=== PATIENT | female | born 1955 | race Caucasian/White ===

== ENCOUNTER 2019-11-09 10:03 | Inpatient (IN) | payer BC, OTHER ==
--- OUTSIDE RECORDS SUMMARY | 2019-11-09 10:06 | XMS REPORT | Clinical Summary ---
:1955 Author Organization [facility] Address [address] [place] [address] Care Team Providers Name Role Phone Asked, No Pcp Primary Care Provider Unavailable Allergies No Known Allergies Medications Medication Sig Dispensed Refills Start Date End Date Status diltiazem CD (CardIZEM Take 300 mg by 0 Active CD) 120 MG 24 hr mouth daily. capsule losartan-hydrochlorothi Take 1 tablet by 0 Active azide (HYZAAR) 100-12.5 mouth daily. mg per tablet propranolol (INDERAL) Take 80 mg by 0 Active 80 MG tablet mouth daily. aspirin (ECOTRIN) 81 MG Take 81 mg by 0 Active enteric coated tablet mouth daily. coenzyme Q10 100 mg Take 100 mg by 0 Active capsule mouth daily. buPROPion XL Take 150 mg by 0 Ac tive (WELLBUTRIN XL) 150 MG mouth daily. 24 hr tablet ferrous gluconate Take 324 mg by 0 Active (FERGON) 324 MG tablet mouth daily with breakfast. metoprolol succinate XL Take 25 mg by 0 Active (TOPROL-XL) 25 mg 24 hr mouth daily. tablet vilazodone (VIIBRYD) 40 Take 40 mg by 0 Active mg tablet mouth daily. gabapentin (NEURONTIN) Take 300 mg by 0 Active 300 mg capsule mouth daily. therapeutic Take 1 tablet by 0 A ctive multivitamin mouth daily. (THERAGRAN) tablet calcium Take 1 tablet by 0 Act vicky carbonate-vitamin D3 mouth daily. 600 mg(1,500mg) -400 unit per tablet omega 4-voj-mbv-fish Take 1 tablet by 0 Active oil (FISH OIL) 1,000 mg mouth. (120 mg-180 mg) capsule predniSONE (DELTASONE) Take 10 mg by 0 Active 10 mg tablet mouth daily. 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 Last Filed Vital Signs Not on file Plan of Treatment Health Maintenance Due Date Last Done Comments CERVICAL CANCER SCREENING 1978 BREAST CANCER SCREENING 12/09/2007 COLONOSCOPY SCREENING 12/09/2007 SHINGLES VACCINES (#1) 12/09/2007 INFLUENZA VACCINE 10/24/2019 Results Not on fileafter 11/08/2018 Advance Directives For more information, please contact: [phone] Type Date Recorded Patient Library Serials Assistant Explanati on Advance Directives, Living Will and Medical Power of Electrical Maintenance Technician
--- OUTSIDE RECORDS SUMMARY | 2019-11-09 10:06 | XMS REPORT | Continuity of Care Document ---
:1955 Author Organization [facility] t Address [address] [place] [address] Care Team Providers Name Role Phone Asked, Pcp Primary Care Physician Unavailable Christopher Braden MD Attending Clinician Payers Payer Name Policy Type Policy Number Effective Date Expiration Date S ource Problems Condition Condition Condition Status Onset Resolution Last Treating Co mments Source Name Details Category Date Date Treatment Clinician Date Acute ITP Acute ITP Disease Active [facility] 7-25 [facility] 00:00: st 00 Allergies, Adverse Reactions, Alerts This patient has no known allergies or adverse reactions. Social History Social Habit Start Date Stop Date Quantity Comments Source Sex Assigned [facility] Medications Ordered Filled Start Stop Current Ordering Indication Dosage Frequency Signature Comments Components Source Medication Medication Date Date Medication? Clinician (SIG) Name Name diltiazem 2017-02 Yes 300mg QD Take 300 [place] [facility] CD 1-08 mg by Dale (CardIZEM 09:04: mouth st CD) 120 MG 23 daily. 24 hr capsule losartan-hy 2017-02 Yes 1{tbl} QD Take 1 [place] drochloroth 1-08 tablet by Met aurea justin 09:04: mouth st (HYZAAR) 23 daily. 100-12.5 mg per tablet propranolol 2017-02 Yes 80mg QD Take 80 mg Cruz (INDERAL) 1-08 by mouth Method i 80 MG 09:04: daily. st tablet 23 aspirin 2017-02 Yes 81mg QD Take 81 mg [place] (ECOTRIN) 1-08 by mouth Method i 81 MG 09:04: daily. st enteric 23 coated tablet coenzyme 2017-02 Yes 100mg QD Take 100 [place] Q10 100 mg 1-08 mg by Methodi capsule 09:04: mouth st 23 daily. buPROPion 2017-02 Yes 150mg QD Take 150 [place] XL 1-08 mg by [facility] (WELLBUTRIN 09:04: mouth st XL) 150 MG 23 daily. 24 hr tablet ferrous 2017-02 Yes 324mg QD Take 324 [place] gluconate 1-08 mg by [facility]i (FERGON) 09:04: mouth st 324 MG 23 daily with tablet breakfast. metoprolol 2017-02 Yes 25mg QD Take 25 mg [place] succinate 1-08 by mouth Method i XL 09:04: daily. st (TOPROL-XL) 23 25 mg 24 hr tablet vilazodone 2017-02 Yes 40mg QD Take 40 mg [place] (VIIBRYD) 1-08 by mouth Method i 40 mg 09:04: daily. st tablet 23 gabapentin 2017-02 Yes 300mg QD Take 300 [place] (NEURONTIN) 1-08 mg by Methodi 300 mg 09:04: mouth st capsule 23 daily. therapeutic 2017-02 Yes 1{tbl} QD Take 1 [place] multivitami 1-08 tablet by [facility] n 09:04: mouth st (THERAGRAN) 23 daily. tablet calcium 2017-02 Yes 1{tbl} QD Take 1 [place] carbonate-v 1-08 tablet by [facility] itamin D3 09:04: mouth st 600 23 daily. mg(1,500mg) -400 unit per tablet omega 2017-02 Yes 1{tbl} Take 1 [place] 3-dha-epa-f 1-08 tablet by [facility] shaunna oil 09:04: mouth. st (FISH OIL) 23 1,000 mg (120 mg-180 mg) capsule predniSONE 2017-02 Yes 10mg QD Take 10 mg [place] (DELTASONE) 1-08 by mouth Meth felicity 10 mg 09:04: daily. st tablet 23 Procedures This patient has no known procedures. Plan of Care Planned Activity Planned Date Details Comments Source Future Scheduled 2019-10-24 INFLUENZA VACCINE [facility] 00:00:00 [code = INFLUENZA VACCINE] Future Scheduled 2007-12-09 BREAST CANCER [facility] Test 00:00:00 SCREENING [code = BREAST CANCER SCREENING] Future Scheduled 2007-12-09 COLONOSCOPY SCREENING [facility] Test 00:00:00 [code = COLONOSCOPY SCREENING] Future Scheduled 2007-12-09 SHINGLES VACCINES [facility] Test 00:00:00 (#1) [code = SHINGLES VACCINES (#1)] Future Scheduled 1978 Screening for [facility] Test 00:00:00 malignant neoplasm of cervix (procedure) [code = 803352916] Encounters Start End Encounter Admission Attending Care Care Encounter Source Date/Time Date/Time Type Type Clinicians Facility Department ID 2019-10-31 2019-10-31 Refill [facility] [id number] 00:00:00 00:00:00 [id number] [id number] Professio [phone] [place] [address] Office [facility] 2019-10-16 2019-10-16 Telephone [facility] [id number] 00:00:00 00:00:00 [id number] [id number] Professio [phone] [place] [address] Office [facility] 2019-10-09 2019-10-09 Telephone [facility] [id number] 00:00:00 00:00:00 [id number] [id number] Professio [phone] [place] [address] Office [facility] 2019-10-05 2019-10-05 Telemedici [facility] [id number] 10:17:44 10:32:44 ne Visit [place]ade [place] [id number] [facility] [place] [id number] Professio [phone] [address] 2019-08-18 2019-08-18 Office [facility] [id number] 14:12:06 14:27:06 Visit Kade [place] [id number] Christopher Ellis [id number] [place] [phone] [address] Results This patient has no known results.
--- OUTSIDE RECORDS SUMMARY | 2019-11-09 10:08 | XMS REPORT | Summary of Care ---
:1955 Author Organization [facility] Address [address] [place] [address] Care Team Providers Name Role Phone Kade Braden MD Primary Care Provider [phone] Reason for Visit Reason Comments Refill Request Encounter Details Date Type Department Care Team Description 10/31/2019 Refill [facility] Family Medicine Kade Michaels MD Refill Request - [address] perry [facility] [place] [place] [address] [place] [address] [phone] Allergies No Known Allergiesdocumented as of this encounter (statuses as of 11/01/2019) Medications Medication Sig Dispensed Refills Start End Date Status Date ERGOCALCIFEROL, VITAMIN Take by 0 Active D2, (VITAMIN D ORAL) mouth. CALCIUM CARBONATE Take by 0 Ac tive (CALCIUM 600 ORAL) mouth. nitroglycerin Place 1 1 Bottle 5 Active (NITROSTAT) 0.4 mg tablet under 8 sublingual tablet the tongue every 5 (five) minutes as needed for Chest pain. zolpidem 5 mg TAKE 1 TABLET 30 tablet Ac tive tabletIndications: BY MOUTH AT 0 Insomnia, unspecified BEDTIME type NEEDED vilazodone (VIIBRYD) 40 TAKE 1 TABLET 30 tablet Active mg tabletIndications: BY MOUTH 0 Anxiety EVERY DAY sumatriptan 100 mg Take 1 tablet 9 tablet Active tabletIndications: by mouth as 0 Chronic migraine needed for without aura without Migraine. status migrainosus, not intractable simvastatin 40 mg Take 1 tablet 30 tablet Active tabletIndications: by mouth 0 Hypercholesteremia daily. metoprolol succinate XL Take 1 tablet 30 tablet Active 25 mg 24 hr by mouth 0 tabletIndications: daily. Essential hypertension meloxicam 15 mg TAKE 1 TABLET 30 tablet Active tabletIndications: BY MOUTH 1 0 Arthritis TIME DAILY. losartan-hydrochlorothi Take 1 tablet 30 tablet Active azide 100-12.5 mg per by mouth 0 tabletIndications: daily. Essential hypertension lansoprazole 30 mg Take 1 30 capsule Active capsuleIndications: capsule by 0 Acute superficial mouth daily. gastritis without hemorrhage gabapentin 300 mg Take 1 90 capsule A ctive capsuleIndications: capsule by 0 Chronic migraine mouth 3 without aura without (three) times status migrainosus, not daily. intractable fluticasone INHALE ONE 60 Each Active propion-salmeterol PUFF EVERY 12 0 (ADVAIR DISKUS) 250-50 HOURS mcg/dose inhalation diskIndications: Bronchitis ezetimibe 10 mg Take 1 tablet 30 tablet Active tabletIndications: by mouth 0 Hypercholesteremia daily. diltiazem 180 mg 24 hr Take 1 30 capsule Active capsuleIndications: capsule by 0 Essential hypertension mouth daily. Butalbital-Acetaminophe TAKE 1 50 capsule Active n-Caff 50-300-40 mg per CAPSULE BY 0 capsuleIndications: MOUTH EVERY Chronic migraine FOUR HOURS without aura without NEEDED status migrainosus, not HEADACHE intractable buPROPion XL 300 mg 24 Take 1 tablet 30 tablet Active hr tabletIndications: by mouth 0 Anxiety every morning. azithromycin 500 mg Take 1 tablet 3 tablet 0 Active tabletIndications: by mouth 0 Bronchitis with daily. bronchospasm albuterol (PROAIR HFA) Inhale 2 8.5 g 1 Active 90 mcg/actuation Puffs every 6 0 inhalerIndications: (six) hours Bronchitis with as needed for bronchospasm Wheezing or Shortness of Breath. cefUROXime 500 mg Take 1 tablet 20 tablet 0 Active tabletIndications: by mouth 2 0 Bronchitis with (two) times bronchospasm daily. predniSONE 20 mg Take 1 tablet 14 tablet 0 Active tabletIndications: by mouth 2 0 Bronchitis with (two) times bronchospasm daily. fluconazole 100 mg TAKE 2 15 tablet 0 A ctive tabletIndications: TABLETS BY 0 Thrush MOUTH ON DAY 1 THEN 1 DAILY fluconazole 100 mg Take 2 tabs 15 tablet 0 11/01/19 Discontinued tabletIndications: on day one 0 20 Thrush then one a day documented as of this encounter (statuses as of 11/01/2019) Active Problems Problem Noted Date Migraine 01/29/2015 Essential hypertension 01/29/2015 Gastroesophageal reflux disease without esophagitis Hypercholesteremia 01/29/2015 Anxiety 01/29/2015 Coronary disease 01/29/2015 Idiopathic thrombocytopenic purpura 07/30/2014 documented as of this encounter (statuses as of 11/01/2019) Resolved Problems Problem Noted Date Resolved Date Hypothyroidism due to acquired atrophy of thyroid 01/29/2015 01/29/2015 documented as of this encounter (statuses as of 11/01/2019) Immunizations Name Administration Dates Next Due Zoster Vaccine Recombinant 07/23/2018 documented as of this encounter Social History Tobacco Use Types Packs/Day Years Used Date Never Smoker Smokeless Tobacco: Never Used Alcohol Use Drinks/Week oz/Week Comments Yes 2 Glasses of wine 2.0 red wine 0 Standard drinks or equivalent Sex Assigned at Date Recorded Not on file documented as of this encounter Last Filed Vital Signs Not on filedocumented in this encounter Plan of Treatment Health Maintenance Due Date Last Done Comments HEPATITIS C (HCV) SCREEN 1955 DTaP,Tdap,and Td Vaccines (1 - 1976 Tdap) COLON CANCER SCREENING ANNUAL 12/09/2007 FIT/FOBT COLON CANCER SCREENING FIT DNA 12/09/2007 EVERY 3 YEARS COLON CANCER SCREENING 12/09/2007 SIGMOIDOSCOPY EVERY 5 YEARS COLONOSCOPY 12/09/2007 Colorectal Cancer Screening 12/09/2007 Zoster Recombinant Vaccine 09/17/2018 07/23/2018 (SHINGRIX) (2 of 2) Breast Cancer Screening 10/13/2018 10/13/2017, (MAMMOGRAM) 09/24/2016 PAP SMEAR 09/22/2019 09/21/2016 INFLUENZA VACCINE (#1) 2019 Depression Screening 08/17/2020 08/18/2019 PNEUMOCOCCAL 0-64 YEARS Aged Out No longe r eligible based COMBINED SERIES on patient's age to complete this to pic documented as of this encounter Results Not on filedocumented in this encounter Visit Diagnoses Diagnosis Thrush Candidiasis of mouth documented in this encounter Insurance Payer Benefit Plan Subscriber ID Effective Dates Phone Address Type / Group [facility] OF [facility] [id number] 2014-[id number] [phone] [address] [place] P[place] [id number] [place] [address] documented as of this encounter
[2019-11-09] MEDS ORDERED: NA CHLORIDE 0.9% 2,000 ML ONE (10:51)
--- NOTE | 2019-11-09 10:54 | RAD REPORT ---
EXAM DESCRIPTION: RAD - Chest Single View - 11/09/2019 10:47 am CLINICAL HISTORY: COUGH Chest pain. COMPARISON: Chest Pa And Lat (2 Views) dated 10/24/2019; CHEST SINGLE VIEW dated 08/31/2008 FINDINGS: Portable technique limits examination quality. Linear subsegmental atelectasis is present in both lung bases. No focal infiltrate typical of pneumon ia seen. The heart is normal in size. No displaced fractures. IMPRESSION: Subsegmental atelectasis both lung bases, greater on the right.
[2019-11-09 11:09] LABS: Absolute Lymphocytes (CBC) 1.2 K/uL (0.7-4.9); Basophils % 0.5 % (0-1.3); Hematocrit 33.5 % (36.0-45.0); Lymphocytes % 5.4 % (15.3-44.8); RBC Red Blood Cell Count 3.67 M/uL (3.86-4.86)
[2019-11-09 11:15] LABS: Protime INR 1.23
[2019-11-09 11:18] LABS: ALT/SGPT 15 U/L (12-78); AST/SGOT 8 U/L (15-37); Albumin 2.8 g/dL (3.4-5.0); Alkaline Phosphatase 136 U/L (45-117); Amylase 48 U/L (25-115); BUN Blood Urea Nitrogen 29 mg/dL (7-18); Bicarbonate 28 mmol/L (21-32); Bilirubin Direct 0.1 mg/dL (0-0.2); Bilirubin Total 0.4 mg/dL (0.2-1.0); CKMB Creatine Kinase MB < 1.0 ng/mL (0.3-3.6); Creatine Phosphokinase 15 U/L (26-192); Glucose Level 99 mg/dL (74-106); Lipase 30 U/L (73-393); Potassium 4.7 mmol/L (3.5-5.1); Protein, Total 6.8 g/dL (6.4-8.2); Sodium Level 135 mmol/L (136-145); Troponin (Emerg Dept Use Only) < 0.02 ng/mL (0.0-0.045)
[2019-11-09 11:40] LABS: Blood Morphology Comment NOTED (NOT SEEN); Elliptocytes 1+; Platelet Estimate ADEQ
--- NOTE | 2019-11-09 11:52 | RAD REPORT ---
EXAM DESCRIPTION: CT - Chest For Pe Angio - 11/09/2019 11:42 am CLINICAL HISTORY: Chest pain. SOB COMPARISON: CTANGIO CHEST dated 08/31/2008 TECHNIQUE: CT angiogram of the pulmonary arteries was performed with MIP. All CT scans are performed using dose optimization technique as appropriate and may include automated exposure control or mA/KV adjustment according to patient size. FINDINGS: No evidence of pulmonary thromboembolism. No acute aortic finding demonstrated. The lungs are mildly emphysematous with ill-defined lung infiltrate in both lung bases suggesting bro nchitis or pneumonia. Enlarged lymph nodes are seen in both axillary regions, on the right the largest measuring 13 mm in s hort axis on the left measuring 12-13 mm in short axis. Adenopathy extends to the base of the neck. M ild mediastinal and bilateral hilar adenopathy also suspected. Sub- carinal adenopathy measures appro ximately 17 mm in short axis. Adenopathy also suspected in the upper abdomen although incompletely vi sualized. No significant pericardial or pleural fluid. No lytic or blastic bone lesion. IMPRESSION: No evidence of pulmonary thromboembolism. Poorly defined interstitial lung opacities in both posterior lung bases could indicate bronchitis or pneumonia. Axillary, mediastinal, hilar and probable upper abdominal lymphadenopathy detected. This would be wor risome for underlying lymphoma.
--- NOTE | 2019-11-09 12:26 | ER ---
Nurse's Notes [facility] Name: Masha Simpson Age: 63 yrs Sex: Female : 1955 Arrival Date: 11/09/2019 Time: 10:06 Bed 3 Private MD: Diagnosis: Pneumonia, unspecified organism-failed outpatient;Elevated white blood cell count Presentation: 11/08 10:16 Chief complaint: Patient states: cough for about one month, has had 4 ABX and now it is em worse, denies fever, mild chest pain and shortness of breath, had neg. covid swab 2 weeks ago. Coronavirus screen: Client denies travel out of the [place] in the last 14 days. Ebola Screen: Patient negative for fever greater than or equal to 101.5 degrees Fahrenheit, and additional compatible Ebola Virus Disease symptoms Patient denies exposure to infectious person. Patient denies travel to an Ebola-affected area in the 21 days before illness onset. No symptoms or risks identified at this time. Initial Sepsis Screen: Does the patient meet any 2 criteria? Systolic BP < 90 mmHg. HR > 90 bpm. Does the patient have a suspected source of infection? No. Patient's initial sepsis screen is negative. Risk Assessment: Do you want to hurt yourself or someone else? Patient reports no desire to harm self or others. Onset of symptoms was September 2019. 10:16 Method Of Arrival: Ambulatory em 10:16 Acuity: JAMIE 2 em Historical: - Allergies: 10:20 No Known Allergies; em - Home Meds: 10:20 Advair Diskus Inhl [Active]; Phenergan Oral [Active]; DuoNeb Inhl [Active]; em - PMHx: 10:20 Hypertension; COPD; em - PSHx: 10:20 ; em - Immunization history:: Adult Immunizations up to date. - Social history:: Smoking status: Patient denies any tobacco usage or history of. Screenin:50 Abuse screen: Denies threats or abuse. Denies injuries from another. Nutritional sv screening: No deficits noted. Tuberculosis screening: No symptoms or risk factors identified. Fall Risk None identified. Assessment: 10:45 General: Appears in no apparent distress. comfortable, well developed, Behavior is sv calm, cooperative, appropriate for age. Pain: Denies pain. Neuro: Level of Consciousness is awake, alert, obeys commands, Oriented to person, place, time, situation, Appropriate for age Moves all extremities. Full function Speech is normal. Respiratory: Reports shortness of breath on exertion cough that is non-productive, persistent pain with cough since for about a month, has seen her PCP and placed on antibiotics with no relief Airway is patent Respiratory effort is even, unlabored, Respiratory pattern is regular, symmetrical. Derm: Skin is intact, Skin is pink, warm \T\ dry. Musculoskeletal: Range of motion: intact in all extremities. 13:05 Reassessment: Dr Berry at the bedside. sv 13:35 Reassessment: Patient appears in no apparent distress at this time. No changes from sv previously documented assessment. Patient and/or family updated on plan of care and expected duration. Pain level reassessed. Patient is alert, oriented x 3, equal unlabored respirations, skin warm/dry/pink. 14:11 Reassessment: Repeat lactate sent to outside. sv 15:00 Reassessment: Patient appears in no apparent distress at this time. Pt asleep at this sv time. 15:45 Reassessment: Patient appears in no apparent distress at this time. P sleeping at this sv time. Vital Signs: 10:16 BP 82 / 56; Pulse 98; Resp 22; Temp 99.7(O); Pulse Ox 96% on R/A; Weight 62.6 kg; em Height 5 ft. 0 in. (152.40 cm); Pain 0/10; 11:16 BP 86 / 33; Pulse 88 MON; Resp 16; Pulse Ox 97% on R/A; sv 11:50 BP 112 / 72; Pulse 100 MON; Resp 21; Pulse Ox 95% on R/A; sv 12:30 BP 88 / 36; Pulse 88; Resp 14; Pulse Ox 96% on R/A; sv 13:11 BP 85 / 36; Pulse 87; Resp 16; Pulse Ox 97% on R/A; sv 13:17 BP 93 / 51; Pulse 87; Resp 19; Pulse Ox 98% on R/A; sv 14:20 BP 94 / 51; Pulse 85; Resp 18; Pulse Ox 95% ; sv 14:51 BP 113 / 61; Pulse 99; Resp 21 S; Pulse Ox 96% on R/A; ca1 15:35 BP 99 / 49; Pulse 63; Resp 15 S; Pulse Ox 96% on R/A; ca1 10:16 Body Mass Index 26.95 (62.60 kg, 152.40 cm) em 11:16 Sinus Rhythm sv 11:50 Sinus tachycardia sv ED Course: 10:06 Patient arrived in ED. mr 10:17 [facility] Tse [facility]C [facility] kb 10:17 Harley Sherman MD is Attending Physician. kb 10:19 Triage completed. em 10:20 Arm band placed on. em 10:20 First set of blood cultures drawn by ED staff. sv 10:35 Marilu Serrato, DEBRA is Primary Nurse. sv 10:35 Second set of blood cultures drawn by ED staff. sv 10:45 Chest Single View XRAY In Process Unspecified. EDMS 10:50 Patient has correct armband on for positive identification. Placed in gown. Bed in low sv position. Call light in reach. Side rails up X 1. radiation monitor on. Pulse ox on. NIBP on. 10:50 Initial lab(s) drawn, by ED staff, sent to lab. Inserted saline lock: 20 gauge in right kj1 antecubital area, using aseptic technique. Blood collected. 10:50 EKG done, by ED staff, reviewed by Priyanka JORGENSEN. sv 11:15 Notified Nurse Practitioner and/or Physician Fuel House Attendant of a critical lab result(s), sv WBC-21.6, [id number]. 11:24 Awaiting lab results, Awaiting radiology results. Awaiting CT Scan. sv 11:41 CT Chest For PE Angio In Process Unspecified. EDMS 11:50 Awaiting radiology results. Awaiting re-evaluation by ER provider. sv 12:26 Stanton Berry MD is Hospitalizing Provider. kb 13:48 Urine Dipstick--Ancillary (enter results) Sent. sv 15:45 No provider procedures requiring assistance completed. Patient admitted, IV remains in sv place. intact. Administered Medications: 10:58 Drug: NS 0.9% (30 ml/kg) 30 ml/kg Route: IV; Rate: bolus; Site: right antecubital; sv 12:15 Follow up: Response: No adverse reaction; IV Status: Completed infusion; IV Intake: sv 1900ml 13:10 Drug: NS 0.9% 1000 ml Route: IV; Rate: 1000 ml; Site: right antecubital; sv 14:00 Follow up: Response: No adverse reaction; IV Status: Completed infusion; IV Intake: sv 1000ml 13:35 Drug: vancoMYCIN 1 grams Route: IVPB; Infused Over: 2 hrs; Site: right antecubital; sv 15:45 Follow up: Response: No adverse reaction; IV Status: Completed infusion; IV Intake: sv 250ml Intake: 12:15 IV: 1900ml; Total: 1900ml. sv 14:00 IV: 1000ml; Total: 2900ml. sv 15:45 IV: 250ml; Total: 3150ml. sv Outcome: 12:26 Decision to Hospitalize by Provider. kb 15:45 Admitted to ICU accompanied by nurse, via wheelchair, room ICU area in ER, with chart, sv Report called to Lovely RICHARDSON 15:45 Condition: stable 15:45 Instructed on the need for admit. 15:52 Patient left the ED. iw Signatures: Dispatcher [employer] Priyanka Flood, LENS CLEANER-C LENS CLEANER-Marilu Lerma, RN RN Roberta Walsh Macho Avila, RN RN Meli Stokes RN RN Vangie Mcmanus RN RN ca1 Christie Tse [email or web address] Corrections: (The following items were deleted from the chart) 14:52 14:51 BP 113 / 61; Pulse 99bpm; Resp 21bpm; Pulse Ox 96% RA; ca1 ca1
--- NOTE | 2019-11-09 12:27 | EDPHYS ---
Physician Documentation [facility] Name: Masha Simpson Age: 63 yrs Sex: Female : 1955 Arrival Date: 11/09/2019 Time: 10:06 Bed 3 Private MD: ED Physician Harley Sherman HPI: 11/08 11:02 This 63 yrs old Female presents to ER via Ambulatory with complaints of Cough.kb 11:02 The patient or guardian reports cough, that is intermittent, described as moderate, kb with no sputum, difficulty breathing. Onset: The symptoms/episode began/occurred 5 week(s) ago. Severity of symptoms: At their worst the symptoms were moderate, in the emergency department the symptoms are unchanged. Modifying factors: The symptoms are alleviated by nothing, the symptoms are aggravated by nothing. Associated signs and symptoms: Pertinent positives: nausea, vomiting. The patient has not experienced similar symptoms in the past. The patient has been recently seen by a physician:. Pt reports cough and shortness of breath for 5 weeks. Has been prescribed a z-pack, omnicef, another cephalosporin that she was allergic to and levaquin. None of the courses of antibiotics have helped. Historical: - Allergies: 10:20 No Known Allergies; em - Home Meds: 10:20 Advair Diskus Inhl [Active]; Phenergan Oral [Active]; DuoNeb Inhl [Active]; em - PMHx: 10:20 Hypertension; COPD; em - PSHx: 10:20 ; em - Immunization history:: Adult Immunizations up to date. - Social history:: Smoking status: Patient denies any tobacco usage or history of. ROS: 11:02 Constitutional: Negative for fever, chills, and weight loss, Cardiovascular: Negative kb for chest pain, palpitations, and edema, Abdomen/GI: Negative for abdominal pain, nausea, vomiting, diarrhea, and constipation, Back: Negative for injury and pain, MS/Extremity: Negative for injury and deformity, Skin: Negative for injury, rash, and discoloration, Neuro: Negative for headache, weakness, numbness, tingling, and seizure. 11:02 Respiratory: Positive for cough, shortness of breath. Exam: 11:01 Constitutional: This is a well developed, well nourished patient who is awake, alert, kb and in no acute distress. Head/Face: Normocephalic, atraumatic. Chest/axilla: Normal chest wall appearance and motion. Nontender with no deformity. No lesions are appreciated. Cardiovascular: Regular rate and rhythm with a normal S1 and S2. No gallops, murmurs, or rubs. Normal PMI, no JVD. No pulse deficits. Abdomen/GI: Soft, non-tender, with normal bowel sounds. No distension or tympany. No guarding or rebound. No evidence of tenderness throughout. Back: No spinal tenderness. No costovertebral tenderness. Full range of motion. Skin: Warm, dry with normal turgor. Normal color with no rashes, no lesions, and no evidence of cellulitis. MS/ Extremity: Pulses equal, no cyanosis. Neurovascular intact. Full, normal range of motion. Neuro: Awake and alert, GCS 15, oriented to person, place, time, and situation. Cranial nerves II-XII grossly intact. Motor strength 5/5 in all extremities. Sensory grossly intact. Cerebellar exam normal. Normal gait. 11:01 ECG was reviewed by the Attending Physician. 11:01 Respiratory: the patient does not display signs of respiratory distress, Respirations: kb normal, symetrical, Breath sounds: decreased breath sounds, that are mild, are located in both bases. Vital Signs: 10:16 BP 82 / 56; Pulse 98; Resp 22; Temp 99.7(O); Pulse Ox 96% on R/A; Weight 62.6 kg; em Height 5 ft. 0 in. (152.40 cm); Pain 0/10; 11:16 BP 86 / 33; Pulse 88 MON; Resp 16; Pulse Ox 97% on R/A; sv 11:50 BP 112 / 72; Pulse 100 MON; Resp 21; Pulse Ox 95% on R/A; sv 12:30 BP 88 / 36; Pulse 88; Resp 14; Pulse Ox 96% on R/A; sv 13:11 BP 85 / 36; Pulse 87; Resp 16; Pulse Ox 97% on R/A; sv 13:17 BP 93 / 51; Pulse 87; Resp 19; Pulse Ox 98% on R/A; sv 14:20 BP 94 / 51; Pulse 85; Resp 18; Pulse Ox 95% ; sv 14:51 BP 113 / 61; Pulse 99; Resp 21 S; Pulse Ox 96% on R/A; ca1 15:35 BP 99 / 49; Pulse 63; Resp 15 S; Pulse Ox 96% on R/A; ca1 10:16 Body Mass Index 26.95 (62.60 kg, 152.40 cm) em 11:16 Sinus Rhythm sv 11:50 Sinus tachycardia sv MDM: 10:27 Patient medically screened. kb 11:00 Data reviewed: vital signs, nurses notes. Data interpreted: Pulse oximetry: on room air kb is 96 %. Interpretation: normal. 12:25 Counseling: I had a detailed discussion with the patient and/or guardian regarding: the kb historical points, exam findings, and any diagnostic results supporting the discharge/admit diagnosis, lab results, radiology results, the need for further work-up and treatment in the hospital. Physician consultation: Stanton Berry MD was contacted at 12:25, regarding admission, to the telemetry unit. patient's condition, and will see patient in ED, shortly. 11/08 10:20 Order name: Amylase, Serum; Complete Time: 11:20 kb 11/08 10:20 Order name: Basic Metabolic Panel; Complete Time: 11:20 kb 11/08 10:20 Order name: Blood Culture Adult (2) kb 11/08 10:20 Order name: CBC with Diff; Complete Time: 11:41 kb 11/08 10:20 Order name: Ckmb; Complete Time: 11:20 kb 11/08 10:20 Order name: CPK; Complete Time: 11:20 kb 11/08 10:20 Order name: Lactate; Complete Time: 11:18 kb 11/08 10:20 Order name: LFT's; Complete Time: 11:20 kb 11/08 10:20 Order name: Lipase; Complete Time: 11:20 kb 11/08 10:20 Order name: Procalcitonin; Complete Time: 11:40 kb 11/08 10:20 Order name: Protime (+inr); Complete Time: 11:18 kb 11/08 10:20 Order name: Ptt, Activated; Complete Time: 11:18 kb 11/08 10:20 Order name: Troponin (emerg Dept Use Only); Complete Time: 11:20 kb 11/08 10:20 Order name: Urine Microscopic Only; Complete Time: 14:05 kb 11/08 10:20 Order name: Chest Single View XRAY; Complete Time: 10:57 kb 11/08 10:20 Order name: Accucheck; Complete Time: 10:58 kb 11/08 11:02 Order name: D-Dimer; Complete Time: 11:18 EDMS 11/08 11:17 Order name: Manual Differential; Complete Time: 11:41 EDMS 11/08 11:20 Order name: CT Chest For PE Angio; Complete Time: 11:57 kb 11/08 12:25 Order name: COVID-19 kb 11/08 12:55 Order name: EKG Electrocardiogram EDMS 11/08 13:23 Order name: CONS Physician Consult EDMS 11/08 13:44 Order name: Urine Dipstick--Ancillary (enter results) em1 11/08 13:47 Order name: Urine Dipstick-Ancillary; Complete Time: 13:52 EDMS 11/08 14:59 Order name: Lactate Sepsis 2 HR Follow-up; Complete Time: 15:01 EDMS 11/08 15:05 Order name: SARS-COV-2 RT PCR; Complete Time: 15:06 EDMS 11/08 10:20 Order name: Cardiac monitoring; Complete Time: 10:58 kb 11/08 10:20 Order name: EKG - Nurse/Tech; Complete Time: 10:58 kb 11/08 10:20 Order name: IV Saline Lock - Large Bore; Complete Time: 10:58 kb 11/08 10:20 Order name: Labs collected and sent; Complete Time: 10:58 kb 11/08 10:20 Order name: O2 Per Protocol; Complete Time: 10:58 kb 11/08 10:20 Order name: O2 Sat Monitoring; Complete Time: 10:58 kb 11/08 10:20 Order name: Urine Dipstick-Ancillary (obtain specimen); Complete Time: 13:43 kb EC:01 Rate is 94 beats/min. Rhythm is regular. QRS [place] is Normal. MO interval is normal at kb 164 msec. QRS interval is normal at 82 msec. QT interval is normal at 318 msec. Administered Medications: 10:58 Drug: NS 0.9% (30 ml/kg) 30 ml/kg Route: IV; Rate: bolus; Site: right antecubital; sv 12:15 Follow up: Response: No adverse reaction; IV Status: Completed infusion; IV Intake: sv 1900ml 13:10 Drug: NS 0.9% 1000 ml Route: IV; Rate: 1000 ml; Site: right antecubital; sv 14:00 Follow up: Response: No adverse reaction; IV Status: Completed infusion; IV Intake: sv 1000ml 13:35 Drug: vancoMYCIN 1 grams Route: IVPB; Infused Over: 2 hrs; Site: right antecubital; sv 15:45 Follow up: Response: No adverse reaction; IV Status: Completed infusion; IV Intake: sv 250ml Disposition: 11/09 14:02 Co-signature as Attending Physician, Harley Sherman MD I agree with the assessment and kdr plan of care. Disposition: 11/09/19 12:26 Hospitalization ordered by Stanton Berry for Inpatient Admission. Preliminary diagnosis are Pneumonia, unspecified organism - failed outpatient, Elevated white blood cell count. - Bed requested for Telemetry/MedSurg (Inpatient). - Status is Inpatient Admission. iw - Condition is Stable. - Problem is new. - Symptoms are unchanged. Signatures: Dispatcher [employer] [facility] Priyanka Tse, MELECIO-[employer] COMPUTER SYSTEM SPECIALIST-Marilu Lerma, RN RN Harley Sherman MD MD [facility] Macho Avila, RN RN Meli Cohen RN RN iw Corrections: (The following items were deleted from the chart) 11/08 11:02 11:01 D-DIMER+COAG.LAB.BRZ ordered. [facility] 15:52 12:26 Hospitalization Ordered by Stanton Berry MD for Inpatient Admission. Preliminary iw diagnosis is Pneumonia, unspecified organism - failed outpatient; Elevated white blood cell count. Bed requested for Telemetry/MedSurg (Inpatient). Status is Inpatient Admission. Condition is Stable. Problem is new. Symptoms are unchanged. kb
[2019-11-09] MEDS ORDERED: VANCOMYCIN/NS 1 gm 1 GM/250 ML BAG IV ONE (13:15)
[2019-11-09] MEDS ORDERED: NA CHLORIDE 0.9% 1,000 ML ONE ×2 (13:25→16:19)
[2019-11-09 13:46] LABS: Urine Blood NEGATIVE (NEG); Urine Glucose NEGATIVE (NEG); Urine Protein NEGATIVE (NEG)
--- NOTE | 2019-11-09 13:49 | P.HP ---
Certification for Inpatient Patient admitted to: Inpatient With expected LOS: >2 Midnights Practitioner: I am a practitioner with admitting privileges, knowledge of patient current condition, hospital course, and medical plan of care. Services: Services provided to patient in accordance with Admission requirements found in Title 42 Section 412.3 of the Code of Federal Regulations Patient History Date of Service: 11/09/19 History of Present Illness: 63-year-old female, PMH: HTN, COPD, CAD s/p stents who presents to ED due to slowly progressively worsening shortness of breath / dyspnea on exertion, and nonproductive cough for 5 weeks. She reportedly failed multiple courses of antibiotics (Levaquin, Omnicef, unknown cephalosporin that she was allergic to, and zpak) with no improvement. She was noted to be COVID negative 2 weeks ago and reports she has not really been leaving her house. She has had some associated chills intermittently during this time. Otherwise, she denies chest pain, abdominal pain, changes in bowel/bladder habits, new rashes/skin lesions, no lower extremity edema, no PND, no nausea/vomiting. She has been using her nebulizer and inhaler at home with no improvement as well. In the ED, workup was notable for leukocytosis (21.6), D-dimer: 1226, elevated creatinine: 0.59, elevated lactate (2.3), Procalcitonin: 0.37. Blood cultures were obtained. On initial presentation, patient's blood pressure was noted to be in the 80s/50s, tachycardia 90-low 100s. She received sepsis bolus. CTA was performed: No evidence of pulmonary embolism, + poorly defined intersti tial lung opacities in posterior lung bases could indicate bronchitis versus pneumonia Also notable for axillary, mediastinal, hilar and probable upper abdominal lymphadenopathy. Worrisome for underlying lymphoma - Past Medical/Surgical History -: HTN -: COPD -: CAD s/p stent -: ITP -: Broken arm - Family History Family History: Reviewed- Non-Contributory (Reports multiple family members with cardiac issues) - Social History Smoking Status: Never smoker Alcohol use: Yes Place of Residence: Home (With ) Review of Systems 10-point ROS is otherwise unremarkable Physical Examination - Physical Exam General: Alert, In no apparent distress HEENT: EOMI, Sclerae nonicteric Neck: Supple, JVD not distended Respiratory: Diminished (At bases bilaterally), Expiratory wheezes (slight wheeze diffusely) Cardiovascular: Regular rate/rhythm (80-90s), Normal S1 S2 Gastrointestinal: Soft and benign, Non-distended, No tenderness Musculoskeletal: No erythema, No tenderness Integumentary: No rashes, No breakdown Neurological: Normal speech, Normal affect - Studies Laboratory Data (last 24 hrs) 11/09/19 10:45: PT 14.4 H, INR 1.23, APTT 30.1 11/09/19 10:45: WBC 21.6 H*, Hgb 11.3 L, Hct 33.5 L, Plt Count 367 11/09/19 10:45: Sodium 135 L, Potassium 4.7, BUN 29 H, Creatinine 1.59 H, Glucose 99, Total Bilirubin 0.4, AST 8 L, ALT 15, Alkaline Phosphatase 136 H, Amylase 48, Lipase 30 L Assessment and Plan - Advance Directives Does patient have a Living Will: No Does patient have a Durable POA for Healthcare: No Physician Review Additional Text: Sepsis secondary to likely pneumonia, community-acquired. Failed outpatient therapy HTN COPD CAD s/p stent ITP Sepsis secondary to likely pneumonia, community-acquired. Failed outpatient therapy -CT with questionable bilateral pneumonia stamina leukocytosis 21.6, procalcitonin: 0.36 -significant hypotension in the ED, improved with sepsis bolus, however at the time of my evaluation she is back down to 90s/60s -will give another leader bolus and start normal saline at 130ml/hr -given continued hypotension and sepsis, will admit to ICU for close monitoring today -patient felt multiple antibiotic courses as an outpatient, will cover with broad spectrum antibiotics for potential resistant organisms/Pseudomonas -will consult pulmonology -oxygen as needed -cultures obtained in the ED, will follow -elevated lactate, will trend HTN -confirm home medications, patient is unsure what she takes -hypotensive at the moment, will hold home meds COPD -slight expiratory wheeze on exam, for continuing nebulizers CAD s/p stent -confirm home meds, patient unaware of what she takes -no chest pain, cardiac markers negative, do not suspect ACS ITP -reports remote history of ITP many years ago, no lesions at this time Dispo: Broad spectrum antibiotics, follow cultures, anticipate hospitalization > 2 days Time Spent Managing Pts Care (In Minutes): 55
[2019-11-09 14:00] LABS: Urine Bacteria NONE SEEN /HPF (<20); Urine Culture Reflex Order NOT NEEDED; Urine RBC <5 /HPF (NONE SEEN)
--- NOTE | 2019-11-09 14:45 | P.CNS ---
Date of Consult: 11/09/19 Reason for Consult: Severe sepsis History of Present Illness: Patient is 63 years of age with a history of COPD coronary artery disease presented to the emergency room with progressive dyspnea and nonproductive cough the past 5 weeks she can failed outpatient therapy with multiple antibiotics garay virus test was been negative about 2 weeks ago heavy having some chills the using her nebulizer found to have an elevated white count bilateral pulmonary infiltrates abnormal CT scan of the chest. Patient is never smoked previously tested negative for garay virus Allergies zolpidem [From Ambien] Adverse Reaction (Intermediate, Verified 11/09/19 20:21) confusion Home Medications: Aspirin 1 tab PO DAILY 11/09/19 Bupropion *Xl* [Wellbutrin XL*] 1 tab PO DAILY 11/09/19 Diltiazem HCl [Cardizem Cd] 180 mg PO DAILY 11/09/19 Fluticasone/Salmeterol [Advair 250-50 Diskus] 1 puff IN BID 11/09/19 Iron 1 tab PO DAILY 11/09/19 Losartan/Hydrochlorothiazide [Losartan-Hctz 50-12.5 mg Tab] 1 tab PO DAILY 11/09/19 Metoprolol Tartrate [Lopressor*] 25 mg PO DAILY 11/09/19 Vilazodone HCl [Viibryd] 40 mg PO DAILY 11/09/19 Vitamin E 1 tab PO DAILY 11/09/19 - Past Medical/Surgical History -: HTN -: COPD -: CAD s/p stent -: ITP -: Broken arm - Social History Alcohol use: Yes Place of Residence: Home (With ) Physical Examination Laboratory Data (last 24 hrs) 11/09/19 10:45: PT 14.4 H, INR 1.23, APTT 30.1 11/09/19 10:45: WBC 21.6 H*, Hgb 11.3 L, Hct 33.5 L, Plt Count 367 11/09/19 10:45: Sodium 135 L, Potassium 4.7, BUN 29 H, Creatinine 1.59 H, Glucose 99, Total Bilirubin 0.4, AST 8 L, ALT 15, Alkaline Phosphatase 136 H, Amylase 48, Lipase 30 L - Problems (1) Sepsis Current Visit: Yes Status: Acute Plan: Patient is 63 years of age with a history of coronary artery disease and COPD admitted with worsening dyspnea failed outpatient therapy multiple antibiotic bilateral pulmonary infiltrate with pulmonary and systemic adenopathy including axillary and mention of abdominal lymphadenopathy patient's white count is elevated a 1 dose of vancomycin patient has renal insufficiency pro calcitonin level is elevated repeat garay virus test is pending patient was a little hypotensive in the emergency room continue with IV fluids urinalysis is negative urine is little concentrated maybe out renal patient's checks chest x-ray does not show any obvious infiltrate as far as a lymphadenopathies consent possible underlying sarcoidosis or a lymphoma also complains of persistent severe cough Dc losartan Qualifiers: Sepsis type: sepsis due to unspecified organism
[2019-11-09] MEDS ORDERED: Levofloxacin 750mg IV 750 MG/150 ML BAG IV SCH (15:00)
[2019-11-09] MEDS ORDERED: NA CHLORIDE 0.9% 1,000 ML IV SCH (15:00)
[2019-11-09] MEDS ORDERED: CEFEPIME/SWI 2gm 2 GM/20 ML SYR IVP SCH (15:30)
[2019-11-09] MEDS ORDERED: CEFEPIME 2 GM VIAL ONE ×2 (16:28→16:32)
[2019-11-09] MEDS ORDERED: Levofloxacin 750mg IV 750 MG/150 ML BAG IV ONE (16:32)
[2019-11-09] MEDS ORDERED: NA CHLORIDE 0.9% 250 ML ONE (16:33)
[2019-11-09 17:52] VITALS: BMI 26.9
[2019-11-09] MEDS ORDERED: IPRATROPIUM BROM 0.5MG/2.5ML NEB PRN (19:35)
[2019-11-09] MEDS: NA CHLORIDE 0.9% 1,000 ML IV SCH (19:35)
[2019-11-09] MEDS ORDERED: VANCOMYCIN 1 GM in NA CHLORIDE 0.9% 250 ML IVPB SCH (19:35)
[2019-11-09] MEDS ORDERED: Pharmacy Consult 1 EA XX PRN (19:35)
[2019-11-09] MEDS ORDERED: Meropenem 500 MG VIAL IV SCH ×2 (20:00→21:00)
[2019-11-09] MEDS ORDERED: IPRATROPIUM BROM 0.5MG/2.5ML ONE (20:28)
[2019-11-09] MEDS ORDERED: ALBUTEROL 2.5 MG/3 ML NEB SOL ONE ×2 (20:29→22:37)
[2019-11-09 20:32] LABS: Absolute Lymphocytes (CBC) 0.9 K/uL (0.7-4.9); Basophils % 0.3 % (0-1.3); Hematocrit 31.4 % (36.0-45.0); Lymphocytes % 4.5 % (15.3-44.8); MPV 7.6 fL (7.6-11.3)
[2019-11-09] MEDS ORDERED: VANCOMYCIN 500 MG in NA CHLORIDE 0.9% 100 ML IVPB ONE (20:45)
[2019-11-09 20:52] LABS: Albumin 2.1 g/dL (3.4-5.0); Bilirubin Total 0.3 mg/dL (0.2-1.0); C-Reactive Protein 49.4 mg/L (<3.00); Magnesium 1.5 mg/dL (1.8-2.4); Potassium 4.4 mmol/L (3.5-5.1); Protein, Total 5.6 g/dL (6.4-8.2); Thyroid Stimulating Hormone 1.95 uIU/mL (0.360-3.740)
[2019-11-09] MEDS ORDERED: CEFEPIME 2 GM VIAL IV SCH (21:00)
[2019-11-09] MEDS ORDERED: Magnesium Sulfate 2gm IVPB 2 G/50 ML BAG IV ONE ×2 (22:00→22:11)
[2019-11-09] MEDS ORDERED: BENZONATATE 100 MG CAP PO PRN (22:12)
[2019-11-09] MEDS ORDERED: VANCOMYCIN 500 MG/VIAL ONE (22:17)
[2019-11-09] MEDS: ALBUTEROL 2.5 MG/3 ML NEB SOL NEB PRN (22:30)
[2019-11-09] MEDS ORDERED: ACETAMINOPHEN 325 MG TABLET ONE (22:42)
[2019-11-09] MEDS ORDERED: BENZONATATE 100 MG CAP PO ONE (22:42)
[2019-11-09] MEDS ORDERED: NA CHLORIDE 0.9% 100 ML IV ONE (22:42)
[2019-11-09] MEDS: ACETAMINOPHEN 325 MG TABLET PO PRN (22:44)
[2019-11-10] MEDS ORDERED: NA CHLORIDE 0.9% 500 ML IV ONE (01:51)
[2019-11-10] MEDS ORDERED: NA CHLORIDE 0.9% 500 ML ONE (01:56)
[2019-11-10] MEDS ORDERED: NA CHLORIDE 0.9% 1,000 ML ONE ×3 (01:56→23:28)
[2019-11-10] MEDS: NA CHLORIDE 0.9% 1,000 ML IV SCH ×3 (02:01→16:26)
[2019-11-10] MEDS ORDERED: Meropenem 500 MG VIAL IV SCH (04:00)
[2019-11-10] MEDS ORDERED: CEFEPIME/SWI 2gm 2 GM/20 ML SYR IVP SCH ×2 (04:00)
[2019-11-10] MEDS: ACETAMINOPHEN 325 MG TABLET PO PRN ×4 (04:33→22:56)
[2019-11-10] MEDS ORDERED: ACETAMINOPHEN 325 MG TABLET ONE ×4 (04:44→23:06)
[2019-11-10 04:48] LABS: Absolute Lymphocytes (CBC) 0.4 K/uL (0.7-4.9); Basophils % 0.4 % (0-1.3); Hematocrit 34.3 % (36.0-45.0); Lymphocytes % 1.7 % (15.3-44.8); MPV 7.9 fL (7.6-11.3); RBC Red Blood Cell Count 3.73 M/uL (3.86-4.86)
[2019-11-10 07:16] LABS: Albumin 1.9 g/dL (3.4-5.0); Bilirubin Total 0.4 mg/dL (0.2-1.0); C-Reactive Protein 61.5 mg/L (<3.00); Magnesium 1.8 mg/dL (1.8-2.4); Phosphorus 1.9 mg/dL (2.5-4.9); Potassium 3.9 mmol/L (3.5-5.1)
[2019-11-10] MEDS ORDERED: ENOXAPARIN 30 MG/0.3 ML SQ ONE (08:08)
[2019-11-10] MEDS ORDERED: MAGNESIUM SULFATE 1 gm IVPB 1 GM/100 ML BAG IV ONE ×2 (08:08→08:45)
[2019-11-10] MEDS ORDERED: POTASSIUM CL SA 10 MEQ TAB PO ONE ×2 (08:08→08:44)
[2019-11-10] MEDS: Meropenem 500 MG in NA CHLORIDE 0.9% 100 ML IV SCH ×2 (08:23→20:29)
[2019-11-10] MEDS: ENOXAPARIN 30 MG/0.3 ML SQ SCH (08:24)
[2019-11-10] MEDS: POTASS/SODIUM PHOSPHATE 1 PKT POWD.PACK PO SCH ×3 (09:56→11:02)
--- NOTE | 2019-11-10 10:48 | P.CNS ---
Date of Consult: 11/10/19 Subjective: Patient is a 63 year old female with past medical history of COPD, does not utilize home oxygen, Who presents with persistent shortness of breath for the past 5 weeks. Spoke with the patient and the patients and they report that the patient has taken 4 different antibiotics over the past 5 weeks including; Levaquin, Omnicef, a Z-Pack, and Ceftin, with no improvement. Patient had an allergic reaction to Ceftin. Patient was tested twice for Covid 19 with negative results. Patient found to have Leukocytosis which I have been consulted for. - Past Medical/Surgical History -: HTN -: COPD -: CAD s/p stent -: ITP -: Broken arm - Family History Family History: Reviewed- Non-Contributory (Reports multiple family members with cardiac issues) - Social History Smoking Status: Never smoker Alcohol use: Yes Place of Residence: Home (With ) Allergies zolpidem [From Ambien] Adverse Reaction (Intermediate, Verified 11/09/19 20:21) confusion Active Medications Acetaminophen (Tylenol -Tablet) 650 mg PO Q6HP PRN PRN Reason: TEMP > 100' F Stop: 12/09/19 22:22 Last Admin: 11/10/19 04:33 Dose: 650 mg Documented by: Albuterol Sulfate (Proventil 0.083% Neb Soln) 2.5 mg NEB Q6HP PRN PRN Reason: SHORTNESS OF BREATH Stop: 12/09/19 19:36 Last Admin: 11/09/19 22:30 Dose: 2.5 mg Documented by: Enoxaparin Sodium (Lovenox 30 Mg Inj) 30 mg SQ DAILY LANDON Stop: 12/10/19 09:01 Last Admin: 11/10/19 08:24 Dose: 30 mg Documented by: Guaifenesin (Robitussin 100mg/5ml) 100 mg PO QID PRN PRN Reason: COUGH Stop: 12/10/19 01:37 Sodium Chloride (Ns 1000 Ml Ivbag) 1,000 mls @ 130 mls/hr IV .Q7H42M LANDON Stop: 12/09/19 19:36 Last Admin: 11/10/19 02:01 Dose: 1,000 mls Documented by: Vancomycin HCl 1 gm/ Sodium (Chloride) 250 mls @ 150 mls/hr IVPB Q36H LANDON; Protocol Stop: 12/11/19 06:01 Meropenem 500 mg/ Sodium (Chloride) 100 mls @ 100 mls/hr IV Q12HR LANDON Stop: 12/10/19 09:01 Last Admin: 11/10/19 08:23 Dose: 100 mls Documented by: Ipratropium [place] (Atrovent Neb) 0.5 mg NEB [id number] PRN PRN Reason: SHORTNESS OF BREATH Stop: 12/09/19 19:36 Sodium Chloride (Normal Saline Flush) 10 ml IV BID LANDON Stop: 12/09/19 21:01 Last Admin: 11/09/19 20:53 Dose: 10 ml Documented by: ROS: General: Denies fever CV: Denies chest pain RESP: Reports cough and shortness of breath : Denies dysuria GI: Denies diarrhea, reports nausea and decreased appetite Objective: Temp Pulse Resp BP Pulse Ox 98.8 F 110 H 22 H 106/48 L 98 11/10/19 07:00 11/10/19 07:00 11/10/19 07:00 11/10/19 07:00 11/10/19 07:00 Labs: Na 138, K 3.9, BUN 19, Creat 1.18, Albumin 1.9, WBC 24.2, Hgb 11.4, HCT 34.3 EXAM DESCRIPTION: CT - Chest For Pe Angio - 11/09/2019 11:42 am CLINICAL HISTORY: Chest pain. SOB COMPARISON: CTANGIO CHEST dated 08/31/2008 TECHNIQUE: CT angiogram of the pulmonary arteries was performed with MIP. All CT scans are performed using dose optimization technique as appropriate and may include automated exposure control or mA/KV adjustment according to patient size. FINDINGS: No evidence of pulmonary thromboembolism. No acute aortic finding demonstrated. The lungs are mildly emphysematous with ill-defined lung infiltrate in both lung bases suggesting bronchitis or pneumonia. Enlarged lymph nodes are seen in both axillary regions, on the right the largest measuring 13 mm in short axis on the left measuring 12-13 mm in short axis. Adenopathy extends to the base of the neck. Mild mediastinal and bilateral hilar adenopathy also suspected. Sub- carinal adenopathy measures approximately 17 mm in short axis. Adenopathy also suspected in the upper abdomen although incompletely visualized. No significant pericardial or pleural fluid. No lytic or blastic bone lesion. IMPRESSION: No evidence of pulmonary thromboembolism. Poorly defined interstitial lung opacities in both posterior lung bases could indicate bronchitis or pneumonia. Axillary, mediastinal, hilar and probable upper abdominal lymphadenopathy detected. This would be worrisome for underlying lymphoma. ROS: General: Lethargic, oriented RESP: Utilizing nasal cannula, short of breath especially with activity, diminished breath sounds to bilateral bases CV: S1,S2, tachycardia ABD: Nontneder, bowel sounds present Assessment and plan: Leukocytosis, Afebrile, Procalcitonin 0.[address] Chest shows concerns for lymphoma, this could explain leukocytosis, pulmonology consulted Currently on Cefepime, Merrem and Vancomycin, recommend discontinuing the Cefepime Will reevaluate the need for antibiotics when cultures come back Recommend obtaining records from PCP to see baseline WBC count Protein calorie malnourished Will continue to monitor Thank you for consult Patient discussed with Dr. Acosta
--- NOTE | 2019-11-10 11:09 | P.PN ---
Subjective Date of Service: 11/10/19 Subjective: Improving (Patient reports feeling like she can't breathe a little bit better this morning, slightly more energy. Continues with nonproductive cough Complaining of bilateral upper arm aching pain, which she gets once a week) Physical Examination - Vital Signs Temperature: 98.8 F Blood Pressure: 106/48 Pulse: 110 Respirations: 22 Pulse Ox (%): 98 - Physical Exam General: Alert, In no apparent distress HEENT: Sclerae nonicteric Neck: Supple Respiratory: Diminished (at bases, poor inspiratory effort) Cardiovascular: No edema, Regular rate/rhythm Gastrointestinal: Soft and benign, Non-distended, No tenderness Musculoskeletal: No erythema, No tenderness Integumentary: No rashes Neurological: Normal speech, Normal affect - Studies Laboratory Data (last 24 hrs) 11/09/19 10:45: PT 14.4 H, INR 1.23, APTT 30.1 11/09/19 10:45: WBC 21.6 H*, Hgb 11.3 L, Hct 33.5 L, Plt Count 367 11/09/19 10:45: Sodium 135 L, Potassium 4.7, BUN 29 H, Creatinine 1.59 H, Glucose 99, Total Bilirubin 0.4, AST 8 L, ALT 15, Alkaline Phosphatase 136 H, Amylase 48, Lipase 30 L Assessment & Plan Physician Review Additional Text: Sepsis secondary to likely pneumonia, community-acquired. Failed outpatient therapy HTN COPD CAD s/p stent ITP Sepsis secondary to likely pneumonia, community-acquired. Failed outpatient therapy -CT with questionable bilateral pneumonia stamina leukocytosis 21.6, procalcitonin: 0.36 -significant hypotension in the ED, improved with sepsis bolus, but required an additional 1 L bolus on admission, then 500ml overnight of 11/08 -continue IV fluids at 130ml/hr -continue monitoring in ICU for now -patient failed multiple antibiotic courses as an outpatient, will cover with broad spectrum antibiotics for potential resistant organisms/Pseudomonas -consulted infectious disease today -consulted pulmonology -oxygen as needed -cultures obtained in the ED, will follow -elevated lactate, trended down -eosinophilia on admission likely due to recent allergic reaction to Ceftin -ESR: 20, CRP elevated and rising Axillary, mediastinal, hilar, and probable upper abdominal lymphadenopathy -concern for possible underlying lymphoma or sarcoidosis -will discuss with pulmonology HTN -hypotensive at the moment, will hold home meds COPD -slight expiratory wheeze on exam at time of admission, continue nebulizers CAD s/p stent -confirm home meds, patient unaware of what she takes -no chest pain, cardiac markers negative, do not suspect ACS ITP -reports remote history of ITP many years ago, no lesions at this time Dispo: Broad spectrum antibiotics, follow cultures, anticipate hospitalization > 2 days Time Spent Managing Pts Care (In Minutes): 35
--- NOTE | 2019-11-10 11:22 | P.PN ---
Subjective Date of Service: 11/10/19 Chief Complaint: Cough possible pneumonia Subjective: Improving (Patient is improving cough has improved no the complaints denies any chest pain a fever) Review of Systems General: Weakness Respiratory: Cough Physical Examination - Vital Signs Temperature: 98.8 F Blood Pressure: 106/48 Pulse: 110 Respirations: 22 Pulse Ox (%): 98 - Physical Exam General: Alert, Oriented x3 Respiratory: Clear to auscultation bilaterally Cardiovascular: No edema, Normal S1 S2 - Studies Laboratory Data (last 24 hrs) 11/09/19 10:45: Sodium 135 L, Potassium 4.7, BUN 29 H, Creatinine 1.59 H, Glucose 99, Total Bilirubin 0.4, AST 8 L, ALT 15, Alkaline Phosphatase 136 H, Amylase 48, Lipase 30 L Assessment & Plan - Problems (Diagnosis) (1) Sepsis Current Visit: Yes Status: Acute Plan: Possible sepsis white count elevated patient's CRP is also elevated complaining of persistent cough white count elevated blood cultures negative cefepime discontinued patient had a slight fever Dc vancomycin add p.o. doxycycline for coverage of atypical infection PA lateral chest x-ray renal function is significantly better added Pulmicort nebs Qualifiers: Sepsis type: sepsis due to unspecified organism Physician Review Additional Text: Sepsis secondary to likely pneumonia, community-acquired. Failed outpatient therapy HTN COPD CAD s/p stent ITP Sepsis secondary to likely pneumonia, community-acquired. Failed outpatient therapy -CT with questionable bilateral pneumonia stamina leukocytosis 21.6, procalcitonin: 0.36 -significant hypotension in the ED, improved with sepsis bolus, but required an additional 1 L bolus on admission, then 500ml overnight of 11/08 -continue IV fluids at 130ml/hr -continue monitoring in ICU for now -patient failed multiple antibiotic courses as an outpatient, will cover with broad spectrum antibiotics for potential resistant organisms/Pseudomonas -consulted infectious disease today -consulted pulmonology -oxygen as needed -cultures obtained in the ED, will follow -elevated lactate, trended down -eosinophilia on admission likely due to recent allergic reaction to Ceftin -ESR: 20, CRP elevated and rising Axillary, mediastinal, hilar, and probable upper abdominal lymphadenopathy -concern for possible underlying lymphoma or sarcoidosis -will discuss with pulmonology HTN -hypotensive at the moment, will hold home meds COPD -slight expiratory wheeze on exam at time of admission, continue nebulizers CAD s/p stent -confirm home meds, patient unaware of what she takes -no chest pain, cardiac markers negative, do not suspect ACS ITP -reports remote history of ITP many years ago, no lesions at this time Dispo: Broad spectrum antibiotics, follow cultures, anticipate hospitalization > 2 days
[2019-11-10] MEDS: ALBUTEROL 2.5 MG/3 ML NEB SOL NEB PRN (12:09)
[2019-11-10] MEDS ORDERED: ALBUTEROL 2.5 MG/3 ML NEB SOL ONE (12:21)
[2019-11-10] MEDS: DOXYCYCLINE 100 MG CAP PO SCH ×2 (12:26→20:29)
[2019-11-10] MEDS ORDERED: DOXYCYCLINE 100 MG CAP PO ONE ×2 (12:37→20:33)
--- NOTE | 2019-11-10 12:59 | RAD REPORT ---
EXAM DESCRIPTION: RAD - Chest Pa And Lat (2 Views) - 11/10/2019 11:57 am CLINICAL HISTORY: Pneumonia Chest pain. COMPARISON: Chest Single View dated 11/09/2019; Chest Pa And Lat (2 Views) dated 10/24/2019; CHEST SING LE VIEW dated 08/31/2008; Chest For Pe Angio dated 11/09/2019 FINDINGS: Since 11/09/2019 study, worsening infiltrate pattern is seen in both lung bases, greater o n the left. Small bilateral pleural effusions are present. The heart is normal in size. No displaced fractures. IMPRESSION: Moderate worsening in bibasilar lung infiltrate pattern is seen since comparative study, particularly in the left lung base.
[2019-11-10] MEDS: IPRATROPIUM BROM 0.5MG/2.5ML NEB SCH ×2 (13:38→21:00)
[2019-11-10] MEDS: BUDESONIDE 0.5 MG/2 ML NEB NEB SCH ×2 (13:38→22:33)
[2019-11-10] MEDS ORDERED: IPRATROPIUM BROM 0.5MG/2.5ML ONE ×2 (13:49→21:11)
[2019-11-10] MEDS: guaiFENesin 100 MG/5 ML UCUP PO PRN ×2 (15:36→20:28)
[2019-11-10] MEDS ORDERED: GUAIFENESIN/DM 5 ML UCUP ONE (15:44)
[2019-11-10] MEDS ORDERED: DIPHENHYDRAMINE 50 MG/ML VIAL IV PRN (18:07)
[2019-11-10] MEDS: DIPHENHYDRAMINE 50 MG/ML VIAL IV PRN (18:17)
[2019-11-10] MEDS: TRAZODONE 50 MG TABLET PO SCH (20:28)
[2019-11-10] MEDS: LORAZEPAM 0.5 MG TABLET PO PRN (20:29)
[2019-11-10] MEDS ORDERED: LORAZEPAM 0.5 MG TABLET ONE (20:33)
[2019-11-10] MEDS ORDERED: guaiFENesin 100 MG/5 ML UCUP ONE (20:36)
[2019-11-10] MEDS: BENZONATATE 100 MG CAP PO PRN (21:17)
[2019-11-10] MEDS ORDERED: ONDANSETRON 4 MG/2 ML VIAL ONE (21:26)
[2019-11-10] MEDS ORDERED: ONDANSETRON 4 MG/2 ML VIAL IV PRN (22:11)
[2019-11-10] MEDS: ALBUTEROL 2.5 MG/3 ML NEB SOL NEB SCH (22:33)
[2019-11-10] MEDS ORDERED: NA CHLORIDE 0.9% 1,000 ML IV ONE (23:20)
[2019-11-10] MEDS ORDERED: LORazepam 2 MG/ML VIAL IV ONE (23:20)
[2019-11-10] MEDS ORDERED: IBUPROFEN 400 MG TAB PO ONE (23:23)
[2019-11-10] MEDS ORDERED: LORazepam 2 MG/ML VIAL ONE (23:28)
[2019-11-10] MEDS ORDERED: IBUPROFEN 200 MG TAB PO ONE (23:56)
[2019-11-11] MEDS: NA CHLORIDE 0.9% 1,000 ML IV SCH ×2 (01:03→10:19)
[2019-11-11] MEDS ORDERED: NA CHLORIDE 0.9% 1,000 ML ONE ×2 (01:13→10:26)
[2019-11-11] MEDS ORDERED: DIPHENHYDRAMINE 50 MG/ML VIAL ONE ×2 (01:57→15:48)
[2019-11-11] MEDS: DIPHENHYDRAMINE 50 MG/ML VIAL IV PRN ×2 (02:00→15:45)
[2019-11-11] MEDS: ALBUTEROL 2.5 MG/3 ML NEB SOL NEB SCH ×4 (03:20→20:06)
[2019-11-11] MEDS: IPRATROPIUM BROM 0.5MG/2.5ML NEB SCH ×4 (03:20→20:06)
[2019-11-11] MEDS ORDERED: IPRATROPIUM BROM 0.5MG/2.5ML ONE ×4 (03:28→19:51)
[2019-11-11] MEDS ORDERED: ALBUTEROL 2.5 MG/3 ML NEB SOL ONE ×3 (03:28→19:51)
[2019-11-11 05:15] LABS: Absolute Lymphocytes (CBC) 0.6 K/uL (0.7-4.9); Basophils % 0.2 % (0-1.3); Hematocrit 25.9 % (36.0-45.0); Lymphocytes % 3.8 % (15.3-44.8); MPV 7.5 fL (7.6-11.3); RBC Red Blood Cell Count 2.85 M/uL (3.86-4.86)
[2019-11-11 05:41] LABS: Magnesium 1.8 mg/dL (1.8-2.4); Phosphorus 2.7 mg/dL (2.5-4.9); Potassium 3.4 mmol/L (3.5-5.1)
[2019-11-11] MEDS ORDERED: VANCOMYCIN 1 GM in NA CHLORIDE 0.9% 250 ML IVPB SCH ×3 (06:00)
[2019-11-11] MEDS: BENZONATATE 100 MG CAP PO PRN ×2 (06:07→18:10)
[2019-11-11] MEDS ORDERED: BENZONATATE 100 MG CAP PO ONE ×2 (06:18→18:21)
[2019-11-11] MEDS ORDERED: POTASSIUM 25 MEQ EFFERV TAB PO ONE (08:00)
[2019-11-11] MEDS ORDERED: MAGNESIUM SULFATE 1 gm IVPB 1 GM/100 ML BAG IV ONE ×2 (08:00→09:43)
[2019-11-11] MEDS: VILAZODONE HCL 40 MG PO SCH (09:00)
[2019-11-11] MEDS: BUDESONIDE 0.5 MG/2 ML NEB NEB SCH ×2 (09:05→20:06)
[2019-11-11] MEDS ORDERED: POTASSIUM CL SA 10 MEQ TAB PO ONE ×2 (09:08→09:42)
[2019-11-11] MEDS: ENOXAPARIN 30 MG/0.3 ML SQ SCH (09:36)
[2019-11-11] MEDS: ASPIRIN 81 MG CHEWABLE TABLET PO SCH (09:37)
[2019-11-11] MEDS: Meropenem 500 MG in NA CHLORIDE 0.9% 100 ML IV SCH ×2 (09:37→21:14)
[2019-11-11] MEDS: DOXYCYCLINE 100 MG CAP PO SCH ×2 (09:37→21:15)
[2019-11-11] MEDS ORDERED: ASPIRIN 81 MG CHEWABLE TABLET ONE (09:42)
[2019-11-11] MEDS ORDERED: DOXYCYCLINE 100 MG CAP PO ONE ×2 (09:42→20:56)
[2019-11-11] MEDS ORDERED: ENOXAPARIN 30 MG/0.3 ML SQ ONE (09:43)
[2019-11-11] MEDS: BUPROPION HCL XL 150 MG TAB PO SCH (10:19)
[2019-11-11] MEDS: LORAZEPAM 0.5 MG TABLET PO PRN (10:20)
[2019-11-11] MEDS: guaiFENesin 100 MG/5 ML UCUP PO PRN ×2 (10:20→22:58)
[2019-11-11] MEDS ORDERED: LORAZEPAM 0.5 MG TABLET ONE (10:25)
[2019-11-11] MEDS ORDERED: guaiFENesin 100 MG/5 ML UCUP ONE ×2 (10:26→23:09)
[2019-11-11] MEDS: ACETAMINOPHEN 325 MG TABLET PO PRN (10:34)
[2019-11-11] MEDS ORDERED: ACETAMINOPHEN 325 MG TABLET ONE (10:46)
[2019-11-11] MEDS ORDERED: METOPROLOL TARTRATE 5 MG/5 ML INJ IV STA (10:49)
[2019-11-11] MEDS ORDERED: METOPROLOL TAR 25 MG TAB PO SCH ×2 (11:02→18:00)
[2019-11-11] MEDS ORDERED: METOPROLOL TARTRATE 5 MG/5 ML INJ IV ONE (11:10)
[2019-11-11] MEDS ORDERED: METOPROLOL TAR 50 MG TAB ONE (11:10)
[2019-11-11] MEDS ORDERED: METOPROLOL TAR 25 MG TAB ONE (11:35)
--- NOTE | 2019-11-11 11:44 | P.PN ---
Subjective Date of Service: 11/11/19 Chief Complaint: Fever and tachycardia Patient was doing fine this morning started complaining of fever chills and is tachycardic patient is metoprolol was not resume the blood pressure is satisfactory blood pressure medications also be resumed patient is also on IV fluids as renal function is now improved still very alert Review of Systems General: Weakness Respiratory: Cough, Shortness of Breath Physical Examination - Vital Signs Temperature: 99.2 F Blood Pressure: 102/66 Pulse: 122 Respirations: 21 Pulse Ox (%): 99 - Physical Exam General: Alert, Oriented x3, Moderate distress Respiratory: Crackles/rales (Crackles at the bases) Cardiovascular: No edema, Normal pulses, Normal S1 S2 Assessment & Plan - Problems (Diagnosis) (1) Sepsis Current Visit: Yes Status: Acute Plan: Possible sepsis CRP is elevated white count is declining renal function is now normal Dc IV fluids continue with meropenem and doxycycline for now may be rebound tachycardia resume beta-blockers and losartan patient also has generalized lymphadenopathy will discuss with patient's obtain any previous CT scans reports Qualifiers: Sepsis type: sepsis due to unspecified organism Physician Review Additional Text: Sepsis secondary to likely pneumonia, community-acquired. Failed outpatient therapy HTN COPD CAD s/p stent ITP Sepsis secondary to likely pneumonia, community-acquired. Failed outpatient therapy -CT with questionable bilateral pneumonia stamina leukocytosis 21.6, procalcitonin: 0.36 -significant hypotension in the ED, improved with sepsis bolus, but required an additional 1 L bolus on admission, then 500ml overnight of 11/08 -continue IV fluids at 130ml/hr -continue monitoring in ICU for now -patient failed multiple antibiotic courses as an outpatient, will cover with broad spectrum antibiotics for potential resistant organisms/Pseudomonas -consulted infectious disease today -consulted pulmonology -oxygen as needed -cultures obtained in the ED, will follow -elevated lactate, trended down -eosinophilia on admission likely due to recent allergic reaction to Ceftin -ESR: 20, CRP elevated and rising Axillary, mediastinal, hilar, and probable upper abdominal lymphadenopathy -concern for possible underlying lymphoma or sarcoidosis -will discuss with pulmonology HTN -hypotensive at the moment, will hold home meds COPD -slight expiratory wheeze on exam at time of admission, continue nebulizers CAD s/p stent -confirm home meds, patient unaware of what she takes -no chest pain, cardiac markers negative, do not suspect ACS ITP -reports remote history of ITP many years ago, no lesions at this time Dispo: Broad spectrum antibiotics, follow cultures, anticipate hospitalization > 2 days
[2019-11-11] MEDS ORDERED: IBUPROFEN 400 MG TAB PO ONE (12:29)
[2019-11-11] MEDS ORDERED: IBUPROFEN 200 MG TAB PO ONE (12:50)
[2019-11-11] MEDS ORDERED: IBUPROFEN 400 MG TAB ONE (12:50)
--- NOTE | 2019-11-11 13:02 | P.PN ---
Subjective Date of Service: 11/11/19 Chief Complaint: Fever and tachycardia Subjective: Other (Febrile overnight, patient reports feeling better and breathing better. She continues with some chills and occasional nausea) Physical Examination - Vital Signs Temperature: 101 F Blood Pressure: 102/66 Pulse: 122 Respirations: 21 Pulse Ox (%): 99 - Physical Exam General: Alert, Oriented x3, Other (Uncomfortable, anxious) HEENT: Sclerae nonicteric Neck: JVD not distended Respiratory: Other (Upper airway noises heard, otherwise clear) Cardiovascular: No edema, Normal S1 S2, Irregular heart rate/rhythm (Sinus tachycardia 110-120) Gastrointestinal: Soft and benign, Non-distended, No tenderness Musculoskeletal: No tenderness Integumentary: Other (Bilateral upper arms with scratch singh) Neurological: Normal speech, Other (Tearful and anxious at times) Assessment & Plan Physician Review Additional Text: Sepsis secondary to likely pneumonia, community-acquired. Failed outpatient therapy HTN COPD CAD s/p stent Ferrer Syndrome (ITP, hemolytic anemia) Sepsis secondary to likely pneumonia, community-acquired. Failed outpatient therapy -CT with questionable bilateral pneumonia, leukocytosis 21.6, procalcitonin: 0.36 -significant hypotension in the ED, improved with sepsis bolus, but required an additional 1 L bolus on admission, then 500ml overnight of 11/08 -continue IV fluids at 130ml/hr, continue monitoring in ICU for now -patient failed multiple antibiotic courses as an outpatient, will cover with broad spectrum antibiotics for potential resistant organisms/Pseudomonas -consulted ID - appreciate assistance -oxygen as needed -cultures obtained in the ED, will follow - so far no growth -elevated lactate, trended down -eosinophilia on admission likely due to recent allergic reaction to Ceftin -per patient, she feels she is improving, but she does not look like she is significantly improved -her leukocytosis is down trending down, however CRP continues to climb -consulted pulmonology - possible atypical pneumonia, advised to continue antibiotics Axillary, mediastinal, hilar, and probable upper abdominal lymphadenopathy -concern for possible underlying lymphoma -will discuss with patient's , she has had prior CTs HTN -significantly hypotensive on admission and during the 1st 24 hrs -this morning and now becoming more hypertensive and tachycardic -pulmonology gave IV Lopressor and restarted metoprolol -will need to monitor blood pressure closely COPD -slight expiratory wheeze on exam at time of admission, continue nebulizers -does not appear to be an acute exacerbation CAD s/p stent -no chest pain, cardiac markers negative, do not suspect ACS Ferrer syndrome -reports remote history of ITP and hemolytic anemia many years ago, no lesions at this time Dispo: Broad spectrum antibiotics, follow cultures, anticipate hospitalization > 2 days Time Spent Managing Pts Care (In Minutes): 40
[2019-11-11 13:06] LABS: C.diff Antigen/Toxin Ag neg : Tox neg (NEG : NEG)
[2019-11-11] MEDS: METHYLPREDNISOLONE 40 MG INJ IV SCH (14:49)
[2019-11-11] MEDS: FOLIC ACID 1 MG TABLET PO SCH (14:49)
[2019-11-11] MEDS ORDERED: METHYLPREDNISOLONE 40 MG INJ ONE (14:59)
[2019-11-11] MEDS ORDERED: FOLIC ACID 1 MG TABLET ONE (14:59)
[2019-11-11 15:33] LABS: Absolute Lymphocytes (CBC) 0.2 K/uL (0.7-4.9); Basophils % 0.6 % (0-1.3); Hematocrit 28.3 % (36.0-45.0); Lymphocytes % 0.9 % (15.3-44.8); MPV 7.5 fL (7.6-11.3); RBC Red Blood Cell Count 3.12 M/uL (3.86-4.86)
[2019-11-11 19:00] LABS: White Blood Cell Scan DIFF (OK)
[2019-11-11 19:02] LABS: Blood Morphology Comment NOT SEEN (NOT SEEN); Platelet Estimate ADEQ
[2019-11-11] MEDS ORDERED: BUDESONIDE 0.5 MG/2 ML NEB ONE (20:03)
[2019-11-11] MEDS ORDERED: METHYLPREDNISOLONE 125 MG INJ ONE (20:56)
[2019-11-11] MEDS: TRAZODONE 50 MG TABLET PO SCH (21:00)
[2019-11-12] MEDS: METHYLPREDNISOLONE 40 MG INJ IV SCH ×3 (00:35→18:34)
[2019-11-12] MEDS ORDERED: IPRATROPIUM BROM 0.5MG/2.5ML ONE ×4 (01:26→19:25)
[2019-11-12] MEDS ORDERED: ALBUTEROL 2.5 MG/3 ML NEB SOL ONE ×2 (01:26→07:57)
[2019-11-12] MEDS: IPRATROPIUM BROM 0.5MG/2.5ML NEB SCH ×4 (01:35→19:30)
[2019-11-12] MEDS: ALBUTEROL 2.5 MG/3 ML NEB SOL NEB SCH ×4 (01:35→20:00)
[2019-11-12] MEDS: BENZONATATE 100 MG CAP PO PRN ×3 (03:00→22:28)
[2019-11-12] MEDS ORDERED: BENZONATATE 100 MG CAP PO ONE ×3 (03:07→20:40)
[2019-11-12 05:26] LABS: Hematocrit 31.2 % (36.0-45.0); MPV 7.4 fL (7.6-11.3); RBC Red Blood Cell Count 3.41 M/uL (3.86-4.86)
[2019-11-12 05:55] LABS: Albumin 1.9 g/dL (3.4-5.0); Bilirubin Total 0.3 mg/dL (0.2-1.0); Magnesium 2.2 mg/dL (1.8-2.4); Potassium 4.8 mmol/L (3.5-5.1); Protein, Total 5.3 g/dL (6.4-8.2)
[2019-11-12] MEDS ORDERED: LOSARTAN/HCTZ 50-12.5 PO SCH (09:00)
[2019-11-12] MEDS: VILAZODONE HCL 40 MG PO SCH (09:00)
[2019-11-12] MEDS ORDERED: DOXYCYCLINE 100 MG CAP PO ONE ×2 (09:17→19:05)
[2019-11-12] MEDS ORDERED: ASPIRIN EC 81 MG TAB PO ONE (09:17)
[2019-11-12] MEDS ORDERED: FOLIC ACID 1 MG TABLET ONE (09:17)
[2019-11-12] MEDS ORDERED: METHYLPREDNISOLONE 40 MG INJ ONE ×3 (09:17→19:05)
[2019-11-12] MEDS ORDERED: ENOXAPARIN 30 MG/0.3 ML SQ ONE (09:18)
[2019-11-12] MEDS: FOLIC ACID 1 MG TABLET PO SCH (09:25)
[2019-11-12] MEDS: DOXYCYCLINE 100 MG CAP PO SCH ×2 (09:25→20:00)
[2019-11-12] MEDS: BUPROPION HCL XL 150 MG TAB PO SCH (09:25)
[2019-11-12] MEDS: ENOXAPARIN 30 MG/0.3 ML SQ SCH (09:26)
[2019-11-12] MEDS: Meropenem 500 MG in NA CHLORIDE 0.9% 100 ML IV SCH ×2 (09:26→21:50)
[2019-11-12] MEDS: ASPIRIN 81 MG CHEWABLE TABLET PO SCH (09:30)
[2019-11-12] MEDS ORDERED: ASPIRIN 81 MG CHEWABLE TABLET ONE (09:42)
--- NOTE | 2019-11-12 10:05 | P.PN ---
Subjective Date of Service: 11/12/19 Chief Complaint: Fever and tachycardia Subjective: Improving (Was started on steroids yesterday. No acute events overnight. Feels better today compared to yesterday, breathing better Afebrile since 1 PM yesterday) Physical Examination - Vital Signs Temperature: 98.8 F Blood Pressure: 152/74 Pulse: 113 Respirations: 19 Pulse Ox (%): 100 - Physical Exam General: Alert, In no apparent distress HEENT: Other (Some mild erythema of bilateral cheeks) Neck: Supple Respiratory: Clear to auscultation bilaterally, Diminished (Slightly at bases) Cardiovascular: No edema, Normal S1 S2, Irregular heart rate/rhythm (And sinus tachycardia 100-110) Gastrointestinal: Soft and benign, Non-distended, No tenderness Musculoskeletal: No erythema, No tenderness Integumentary: Other (Slight erythema of bilateral cheeks, and upper arms where patient has been scratching) Neurological: Normal speech, Normal affect Assessment & Plan Physician Review Additional Text: Sepsis secondary to likely pneumonia, community-acquired. Failed outpatient therapy Axillary, mediastinal, hilar, and probable upper abdominal lymphadenopathy HTN COPD CAD s/p stent Ferrer Syndrome (ITP, hemolytic anemia) Sepsis secondary to likely pneumonia, community-acquired. Failed outpatient therapy -CT with questionable bilateral pneumonia, leukocytosis 21.6, procalcitonin: 0.36 -initially with significant hypotension in the ED, improved with sepsis bolus, but required an additional 1 L bolus on admission, then 500ml overnight of 11/08 and continued on IVF at 130ml/hr until 11/10 -patient failed multiple antibiotic courses as an outpatient, consulted ID - appreciate assistance -on meropenem and doxycycline -cultures obtained in the ED- so far no growth -elevated lactate, trended down -eosinophilia on admission likely due to recent allergic reaction to Ceftin -per patient, she feels she is improving, looks better today -consulted pulmonology - possible atypical pneumonia, advised to continue antibiotics -CRP continues to climb, solumedrol 80q 8hr began yesterday -with history of Ferrer Syndrome, will discuss with Heme/Onc today if could be playing a role Axillary, mediastinal, hilar, and probable upper abdominal lymphadenopathy -concern for possible underlying lymphoma -no prior CTs to compare - discussed with -will discuss with Heme/Onc HTN -significantly hypotensive on admission and during the 1st 24 hrs -became more hypertensive and tachycardic yesterday, received IV lopressor and restarted her home metoprolol yesterday, had significant hypotension -can continue home metoprolol, remains hypertensive & slightly tachycardic, restart cardizem -will need to monitor blood pressure closely COPD -continue nebulizers -does not appear to be an acute exacerbation CAD s/p stent -no chest pain, cardiac markers negative, do not suspect ACS Ferrer syndrome -reports remote history of ITP and hemolytic anemia many years ago, no lesions at this time -Hgb decreased, likely due to dilution, however started workup for auto-immune disorders -RBCs +complement, will discuss with Heme/Onc Dispo: Broad spectrum antibiotics, follow cultures, anticipate hospitalization > 2 days Time Spent Managing Pts Care (In Minutes): 35
[2019-11-12] MEDS ORDERED: METOPROLOL TAR 25 MG TAB PO SCH (10:30)
[2019-11-12] MEDS: METOPROLOL XL 25 MG TAB PO SCH (11:39)
[2019-11-12] MEDS: DILTIAZEM HCL 180 MG SR CAP PO SCH (11:39)
[2019-11-12] MEDS: BUDESONIDE 0.5 MG/2 ML NEB NEB SCH ×2 (13:17→19:30)
[2019-11-12] MEDS ORDERED: LOPERAMIDE HCL 2 MG CAPSULE PO STA (15:26)
[2019-11-12] MEDS ORDERED: LOPERAMIDE HCL 2 MG CAPSULE PO PRN (15:37)
[2019-11-12] MEDS ORDERED: LOPERAMIDE HCL 2 MG CAPSULE ONE (15:54)
[2019-11-12] MEDS: guaiFENesin 100 MG/5 ML UCUP PO PRN ×2 (16:16→21:16)
[2019-11-12] MEDS ORDERED: guaiFENesin 100 MG/5 ML UCUP ONE ×2 (16:27→20:40)
[2019-11-12] MEDS ORDERED: BUDESONIDE 0.25 MG/2 ML NEB ONE (19:24)
[2019-11-12] MEDS ORDERED: BUDESONIDE 0.5 MG/2 ML NEB ONE (19:32)
[2019-11-12] MEDS: ACETAMINOPHEN 325 MG TABLET PO PRN (19:52)
[2019-11-12] MEDS ORDERED: ACETAMINOPHEN 325 MG TABLET ONE (20:02)
[2019-11-12] MEDS ORDERED: TRAZODONE 50 MG TABLET ONE (21:33)
[2019-11-12] MEDS: TRAZODONE 50 MG TABLET PO PRN (21:39)
[2019-11-13] MEDS: METHYLPREDNISOLONE 40 MG INJ IV SCH (00:18)
[2019-11-13] MEDS: LORAZEPAM 0.5 MG TABLET PO PRN (01:19)
[2019-11-13] MEDS ORDERED: LORAZEPAM 0.5 MG TABLET ONE (01:30)
[2019-11-13] MEDS ORDERED: IPRATROPIUM BROM 0.5MG/2.5ML ONE ×3 (01:39→13:48)
[2019-11-13] MEDS: ALBUTEROL 2.5 MG/3 ML NEB SOL NEB SCH ×4 (01:43→20:28)
[2019-11-13] MEDS: IPRATROPIUM BROM 0.5MG/2.5ML NEB SCH ×4 (01:43→20:28)
[2019-11-13] MEDS: guaiFENesin 100 MG/5 ML UCUP PO PRN ×2 (03:20→20:43)
[2019-11-13] MEDS ORDERED: BENZONATATE 100 MG CAP PO ONE ×2 (05:10→15:43)
[2019-11-13 05:31] LABS: Absolute Lymphocytes (CBC) 1.4 K/uL (0.7-4.9); Basophils % 0.5 % (0-1.3); MPV 7.2 fL (7.6-11.3); RBC Red Blood Cell Count 3.09 M/uL (3.86-4.86)
[2019-11-13 05:42] LABS: Albumin 2.1 g/dL (3.4-5.0); Bilirubin Total 0.3 mg/dL (0.2-1.0); C-Reactive Protein 49.8 mg/L (<3.00); Magnesium 2.2 mg/dL (1.8-2.4); Potassium 4.4 mmol/L (3.5-5.1); Protein, Total 5.8 g/dL (6.4-8.2)
[2019-11-13] MEDS: BENZONATATE 100 MG CAP PO PRN ×4 (06:04→23:02)
[2019-11-13] MEDS: Meropenem 500 MG in NA CHLORIDE 0.9% 100 ML IV SCH ×2 (07:50→20:45)
[2019-11-13] MEDS: DOXYCYCLINE 100 MG CAP PO SCH ×2 (07:51→20:44)
[2019-11-13] MEDS: ENOXAPARIN 30 MG/0.3 ML SQ SCH (07:51)
[2019-11-13] MEDS: ASPIRIN 81 MG CHEWABLE TABLET PO SCH (07:52)
[2019-11-13] MEDS: BUPROPION HCL XL 150 MG TAB PO SCH (07:52)
[2019-11-13] MEDS: BUDESONIDE 0.5 MG/2 ML NEB NEB SCH ×2 (07:54→20:00)
[2019-11-13] MEDS: FOLIC ACID 1 MG TABLET PO SCH (07:54)
[2019-11-13] MEDS ORDERED: ASPIRIN 81 MG CHEWABLE TABLET ONE (07:56)
[2019-11-13] MEDS ORDERED: FOLIC ACID 1 MG TABLET ONE (07:56)
[2019-11-13] MEDS ORDERED: METOPROLOL XL 50 MG TAB PO ONE (07:56)
[2019-11-13] MEDS ORDERED: METHYLPREDNISOLONE 125 MG INJ ONE (07:56)
[2019-11-13] MEDS ORDERED: DOXYCYCLINE 100 MG CAP PO ONE (07:57)
[2019-11-13] MEDS ORDERED: ENOXAPARIN 30 MG/0.3 ML SQ ONE (07:57)
[2019-11-13] MEDS ORDERED: ALBUTEROL 2.5 MG/3 ML NEB SOL ONE ×2 (07:57→13:48)
[2019-11-13] MEDS ORDERED: BUDESONIDE 0.5 MG/2 ML NEB ONE (08:01)
[2019-11-13] MEDS: VILAZODONE HCL 40 MG PO SCH (08:05)
[2019-11-13] MEDS ORDERED: METHYLPREDNISOLONE 40 MG INJ ONE (08:13)
[2019-11-13] MEDS ORDERED: SODIUM CHLORIDE 0.9% 10ML INJ IV PRN (08:29)
--- NOTE | 2019-11-13 08:33 | P.PN ---
Subjective Date of Service: 11/13/19 Chief Complaint: Pneumonia patient is states that she is doing better still complaining of a cough no further fever or chills she had a chronic cough for a long time Review of Systems General: Weakness Respiratory: Cough, Shortness of Breath Physical Examination - Vital Signs Temperature: 98.0 F Blood Pressure: 129/68 Pulse: 81 Respirations: 16 Pulse Ox (%): 97 - Physical Exam General: Alert, In no apparent distress, Oriented x3 Respiratory: Clear to auscultation bilaterally Cardiovascular: No edema, Regular rate/rhythm Assessment & Plan - Problems (Diagnosis) (1) Sepsis Current Visit: Yes Status: Acute Plan: Patient admitted with a possible pneumonia white count is slightly lower continue with present medication repeat chest x-ray change steroids to p.o. prednisone 20 b.i.d. CRP is declined Gaye function normal patient has no fever vital signs stable Qualifiers: Sepsis type: sepsis due to unspecified organism Physician Review Additional Text: Sepsis secondary to likely pneumonia, community-acquired. Failed outpatient therapy Axillary, mediastinal, hilar, and probable upper abdominal lymphadenopathy HTN COPD CAD s/p stent Ferrer Syndrome (ITP, hemolytic anemia) Sepsis secondary to likely pneumonia, community-acquired. Failed outpatient therapy -CT with questionable bilateral pneumonia, leukocytosis 21.6, procalcitonin: 0.36 -initially with significant hypotension in the ED, improved with sepsis bolus, but required an additional 1 L bolus on admission, then 500ml overnight of 11/08 and continued on IVF at 130ml/hr until 11/10 -patient failed multiple antibiotic courses as an outpatient, consulted ID - appreciate assistance -on meropenem and doxycycline -cultures obtained in the ED- so far no growth -elevated lactate, trended down -eosinophilia on admission likely due to recent allergic reaction to Ceftin -per patient, she feels she is improving, looks better today -consulted pulmonology - possible atypical pneumonia, advised to continue antibiotics -CRP continues to climb, solumedrol 80q 8hr began yesterday -with history of Ferrer Syndrome, will discuss with Heme/Onc today if could be playing a role Axillary, mediastinal, hilar, and probable upper abdominal lymphadenopathy -concern for possible underlying lymphoma -no prior CTs to compare - discussed with -will discuss with Heme/Onc HTN -significantly hypotensive on admission and during the 1st 24 hrs -became more hypertensive and tachycardic yesterday, received IV lopressor and restarted her home metoprolol yesterday, had significant hypotension -can continue home metoprolol, remains hypertensive & slightly tachycardic, restart cardizem -will need to monitor blood pressure closely COPD -continue nebulizers -does not appear to be an acute exacerbation CAD s/p stent -no chest pain, cardiac markers negative, do not suspect ACS Ferrer syndrome -reports remote history of ITP and hemolytic anemia many years ago, no lesions at this time -Hgb decreased, likely due to dilution, however started workup for auto-immune disorders -RBCs +complement, will discuss with Heme/Onc Dispo: Broad spectrum antibiotics, follow cultures, anticipate hospitalization > 2 days
--- NOTE | 2019-11-13 08:46 | P.PN ---
Subjective Date of Service: 11/13/19 Chief Complaint: Pneumonia Subjective: Improving (Patient reports significant improvement since receiving steroids Breathing much more comfortably, itching has improved) Physical Examination - Vital Signs Temperature: 98.0 F Blood Pressure: 129/68 Pulse: 81 Respirations: 16 Pulse Ox (%): 97 - Physical Exam General: Alert, In no apparent distress HEENT: Other (Mild erythema of bilateral cheeks) Neck: No LAD Respiratory: Clear to auscultation bilaterally, Normal air movement Cardiovascular: No edema, Regular rate/rhythm, Normal S1 S2 Gastrointestinal: Soft and benign, Non-distended, No tenderness Musculoskeletal: No tenderness Integumentary: Other (Bilateral upper arms with slight erythema where patient has been scratching) Neurological: Normal speech, Normal strength at 5/5 x4 extr, Normal affect Assessment & Plan Physician Review Additional Text: Sepsis secondary to likely pneumonia, community-acquired. Failed outpatient therapy unknown underlying inflammatory process Axillary, mediastinal, hilar, and probable upper abdominal lymphadenopathy HTN COPD CAD s/p stent Ferrer Syndrome (ITP, hemolytic anemia) Sepsis secondary to likely pneumonia, community-acquired. Failed outpatient therapy vs unknown underlying inflammatory process -CT with questionable bilateral pneumonia, leukocytosis 21.6, procalcitonin: 0.36, lactic acidosis -initially with significant hypotension in the ED, improved with sepsis bolus, but required an additional 1 L bolus on admission, then 500ml overnight of 11/08 and continued on IVF at 130ml/hr until 11/10 -patient failed multiple antibiotic courses as an outpatient, consulted ID - appreciate assistance -on meropenem and doxycycline - day 5 -cultures obtained in the ED- NO GROWTH -eosinophilia on admission likely due to recent allergic reaction to Ceftin -consulted pulmonology - possible atypical pneumonia, advised to continue antibiotics -CRP continues to climb, patient continued to spike fevers and not significantly improving clinically. Solumedrol 80q 8hr began on 11/10 -since initiation of Solu-Medrol, patient has significantly improved, breathing is better, rash is better, patient appears less swollen -will decrease to 60mg Solumedrol BID -suspect some underlying auto-immune / inflammatory process, serologies pending/sent out, will likely need rheumatology f/u once discharged Axillary, mediastinal, hilar, and probable upper abdominal lymphadenopathy -concern for possible underlying lymphoma -reviewed case with Heme/Onc on 11/11 over the phone, less concerning for ly mphoma, if lymphadenopathy persist in the near future, could benefit from biopsy. More concerned for underlying rheumatological / auto-immune process going on. -no prior CTs to compare - discussed with HTN -significantly hypotensive on admission and during the 1st 24 hrs -became more hypertensive and tachycardic 11/10, received IV lopressor and restarted her home metoprolol yesterday, had significant hypotension -can continue home metoprolol, remains hypertensive & slightly tachycardic, restarted cardizem on 11/11 -normotensive now COPD -continue nebulizers -does not appear to be an acute exacerbation CAD s/p stent -no chest pain, cardiac markers negative, do not suspect ACS Ferrer syndrome -reports remote history of ITP and hemolytic anemia many years ago, no lesions at this time -Hgb decreased, likely due to dilution -workup for hemolysis negative -RBCs +complement, discussed with Heme/Onc, no acute concerns at this time Dispo: will review with consultants, continue Abx and steroids possible dc home tomorrow will need f/u with Rheumatology Time Spent Managing Pts Care (In Minutes): 35
[2019-11-13] MEDS ORDERED: METHYLPREDNISOLONE 40 MG INJ IV SCH (09:00)
[2019-11-13] MEDS: PANTOPRAZOLE 40 MG INJ IVP SCH (09:16)
[2019-11-13] MEDS: METOPROLOL XL 25 MG TAB PO SCH (09:17)
[2019-11-13] MEDS: DILTIAZEM HCL 180 MG SR CAP PO SCH (09:18)
[2019-11-13] MEDS ORDERED: PANTOPRAZOLE 40 MG INJ ONE (09:27)
--- NOTE | 2019-11-13 09:28 | RAD REPORT ---
EXAM DESCRIPTION: RAD - Chest Pa And Lat (2 Views) - 11/13/2019 9:08 am CLINICAL HISTORY: Pneumonia Chest pain. COMPARISON: Chest Pa And Lat (2 Views) dated 11/10/2019; Chest Single View dated 11/09/2019; Chest Pa And Lat (2 Views) dated 10/24/2019; CHEST SINGLE VIEW dated 08/31/2008; Chest For Pe Angio dated 11/09/19 FINDINGS: Since 11/10/2019 study, left lung base aeration appears mildly improved. Right lung base o pacity/infiltrate appears slightly progressive or stable. Small left pleural effusion appears stable with minimal right pleural fluid also unchanged. The heart is normal in size.
--- NOTE | 2019-11-13 12:51 | P.PN ---
Date of Service: 11/13/19 ubjective: Patient is a 63 year old female with past medical history of COPD, does not utilize home oxygen, Who presents with persistent shortness of breath for the past 5 weeks. Spoke with the patient and the patients and they report that the patient has taken 4 different antibiotics over the past 5 weeks including; Levaquin, Omnicef, a Z-Pack, and Ceftin, with no improvement. Patient had an allergic reaction to Ceftin. Patient was tested twice for Covid 19 with negative results. Patient found to have Leukocytosis which I have been consulted for. Patient examined at bedside. Shortness of breath improving. Weaned off oxygen and has been ambulatory. Objective: Temp Pulse Resp BP Pulse Ox 98.0 F 91 H 16 119/61 97 11/13/19 08:57 11/13/19 09:18 11/13/19 08:57 11/13/19 09:18 11/13/19 08:57 Labs: Na 139, K 4.4, BUN 31, Creat 0.94, Albumin 1.9, WBC 22.4, Hgb 9.4, HCT 28.0 EXAM DESCRIPTION: CT - Chest For Pe Angio - 11/09/2019 11:42 am CLINICAL HISTORY: Chest pain. SOB COMPARISON: CTANGIO CHEST dated 08/31/2008 TECHNIQUE: CT angiogram of the pulmonary arteries was performed with MIP. All CT scans are performed using dose optimization technique as appropriate and may include automated exposure control or mA/KV adjustment according to patient size. FINDINGS: No evidence of pulmonary thromboembolism. No acute aortic finding demonstrated. The lungs are mildly emphysematous with ill-defined lung infiltrate in both lung bases suggesting bronchitis or pneumonia. Enlarged lymph nodes are seen in both axillary regions, on the right the largest measuring 13 mm in short axis on the left measuring 12-13 mm in short axis. Adenopathy extends to the base of the neck. Mild mediastinal and bilateral hilar adenopathy also suspected. Sub- carinal adenopathy measures approximately 17 mm in short axis. Adenopathy also suspected in the upper abdomen although incompl etely visualized. No significant pericardial or pleural fluid. No lytic or blastic bone lesion. IMPRESSION: No evidence of pulmonary thromboembolism. Poorly defined interstitial lung opacities in both posterior lung bases could indicate bronchitis or pneumonia. Axillary, mediastinal, hilar and probable upper abdominal lymphadenopathy detected. This would be worrisome for underlying lymphoma. ROS: General: Awake, alert, oriented RESP: Coughing spells ABD: Nontneder, bowel sounds present Assessment and plan: Leukocytosis, Afebrile, Procalcitonin 0.37 Blood cultures show no growth to date Concerns for lymphoma/autoimmune process, Pulmonology and Hematology consulted Currently on Merrem and Vancomycin, recommend discontinuing the antibiotics and monitoring for 24 hours Possible transfer to facility with Rheumatology vs follow up with Rheumatology outpatient Protein calorie malnourished Will continue to monitor Patient discussed with Dr. Acosta
[2019-11-13] MEDS: METHYLPREDNISOLONE 125 MG INJ IV SCH (20:44)
[2019-11-13] MEDS: TRAZODONE 50 MG TABLET PO PRN (20:56)
[2019-11-13 22:49] VITALS: O2SAT 93
[2019-11-14] MEDS: ALBUTEROL 2.5 MG/3 ML NEB SOL NEB SCH ×3 (01:45→13:00)
[2019-11-14] MEDS: BUDESONIDE 0.5 MG/2 ML NEB NEB SCH ×2 (01:45→08:10)
[2019-11-14] MEDS: IPRATROPIUM BROM 0.5MG/2.5ML NEB SCH ×3 (01:45→13:00)
[2019-11-14] MEDS: guaiFENesin 100 MG/5 ML UCUP PO PRN ×2 (02:25→12:25)
[2019-11-14] MEDS: LORAZEPAM 0.5 MG TABLET PO PRN (02:30)
[2019-11-14 04:26] LABS: Absolute Lymphocytes (CBC) 1.8 K/uL (0.7-4.9); Basophils % 0.3 % (0-1.3); Lymphocytes % 7.9 % (15.3-44.8); MPV 7.4 fL (7.6-11.3)
[2019-11-14 04:47] LABS: Albumin 2.3 g/dL (3.4-5.0); Bilirubin Total 0.4 mg/dL (0.2-1.0); C-Reactive Protein 20.1 mg/L (<3.00); Magnesium 2.1 mg/dL (1.8-2.4); Protein, Total 5.8 g/dL (6.4-8.2)
[2019-11-14] MEDS: ENOXAPARIN 30 MG/0.3 ML SQ SCH (08:55)
[2019-11-14] MEDS: PANTOPRAZOLE 40 MG INJ IVP SCH (08:55)
[2019-11-14] MEDS: METHYLPREDNISOLONE 125 MG INJ IV SCH (08:56)
[2019-11-14] MEDS: BUPROPION HCL XL 150 MG TAB PO SCH (08:57)
[2019-11-14] MEDS: FOLIC ACID 1 MG TABLET PO SCH (08:57)
[2019-11-14] MEDS: DILTIAZEM HCL 180 MG SR CAP PO SCH (08:57)
[2019-11-14] MEDS: METOPROLOL XL 25 MG TAB PO SCH (08:57)
[2019-11-14] MEDS: ASPIRIN 81 MG CHEWABLE TABLET PO SCH (08:57)
[2019-11-14] MEDS: VILAZODONE HCL 40 MG PO SCH (08:58)
[2019-11-14] MEDS: BENZONATATE 100 MG CAP PO PRN (08:59)
[2019-11-14 12:35] VITALS: BP 117/64; TEMP 97.9
--- NOTE | 2019-11-14 14:13 | P.DS ---
Admission Date: 11/09/19 Discharge Date: 11/14/19 Disposition: ROUTINE DISCHARGE Discharge Condition: FAIR Reason for Admission: Pneumonia - Problems (1) Lymphadenopathy Current Visit: Yes Status: Acute (2) Hypertension Current Visit: Yes Status: Chronic (3) COPD (chronic obstructive pulmonary disease) Current Visit: Yes Status: Acute Brief History of Present Illness: 63-year-old woman with a history of hypertension, COPD, coronary artery disease presented to the emergency department with a complaint of progressive shortness of breath and cough which has been present for about 5 weeks. Patient reported completing several antibiotic therapies without improvement. Abnormal labs in the ED included severe leukocytosis. CTA thorax reported increased interstitial opacities in bilateral posterior lungs and lymphadenopathy both mediastinal and axillary. She was also hypotensive and met criteria for sepsis. Patient was given a bolus of normal saline and admitted for further management. Hospital Course: She was admitted to the medical floor and treated for sepsis with aggressive antibiotic therapy and IV hydration. Leukocytosis did not improve with treatment. Patient was seen by pulmonary and infectious disease. Antibiotics was subsequently discontinued last leukocytosis did not respond to it. Patient clinically looks better though the coughing persisted. At this point for formal immunologic disease or rheumatoid disease is suspected. Patient was treated with IV steroid and later transition to oral prednisone. Autoimmune disease panel requested and the result is pending. Patient has an appointment to see a electronic [facility] Her vitals have been stable, she has no other complaint aside the coughing. Patient is discharged per their request to see a electronic transaction implementer tomorrow. She is discharged with a short course oral prednisone therapy. Vital Signs/Physical Exam: Temp Pulse Resp BP Pulse Ox 97.9 F 82 20 117/64 92 11/14/19 12:00 11/14/19 12:00 11/14/19 12:00 11/14/19 12:11/14/19 12:00 General: Alert, In no apparent distress HEENT: Mucous membr. moist/pink Neck: Supple Respiratory: Clear to auscultation bilaterally, Normal air movement Cardiovascular: No edema, Regular rate/rhythm, Normal S1 S2 Gastrointestinal: Normal bowel sounds, Soft and benign, No tenderness Musculoskeletal: No swelling, No erythema Integumentary: No rashes Neurological: Normal speech, Normal strength at 5/5 x4 extr Laboratory Data at Discharge: WBC 23.0 K/uL (4.3-10.9) H* 11/14/19 03:39 Hgb 8.9 g/dL (12.0-15.0) L 11/14/19 03:39 Hct 26.0 % (36.0-45.0) L 11/14/19 03:39 Plt Count 345 K/uL (152-406) 11/14/19 03:39 PT 14.4 SECONDS (9.5-12.5) H 11/09/19 10:45 INR 1.23 11/09/19 10:45 APTT 30.1 SECONDS (24.3-36.9) 11/09/19 10:45 Sodium 142 mmol/L (136-145) 11/14/19 03:39 Potassium 4.0 mmol/L (3.5-5.1) 11/14/19 03:39 BUN 30 mg/dL (7-18) H 11/14/19 03:39 Creatinine 0.89 mg/dL (0.55-1.3) 11/14/19 03:39 Glucose 137 mg/dL (74-106) H 11/14/19 03:39 Phosphorus 2.7 mg/dL (2.5-4.9) 11/11/19 04:46 Magnesium 2.1 mg/dL (1.8-2.4) 11/14/19 03:39 Total Bilirubin 0.4 mg/dL (0.2-1.0) 11/14/19 03:39 AST 16 U/L (15-37) 11/14/19 03:39 ALT 23 U/L (12-78) 11/14/19 03:39 Alkaline Phosphatase 96 U/L (45-117) 11/14/19 03:39 Amylase 48 U/L (25-115) 11/09/19 10:45 Lipase 30 U/L (73-393) L 11/09/19 10:45 Home Medications: Aspirin 1 tab PO DAILY 11/09/19 Bupropion *Xl* [Wellbutrin XL*] 1 tab PO DAILY 11/09/19 Diltiazem HCl [Cardizem Cd] 180 mg PO DAILY 11/09/19 Fluticasone/Salmeterol [Advair 250-50 Diskus] 1 puff IN BID 11/09/19 Iron 1 tab PO DAILY 11/09/19 Vilazodone HCl [Viibryd] 40 mg PO DAILY 11/09/19 Vitamin E 1 tab PO DAILY 11/09/19 Metoprolol Succinate [Toprol Xl*] 25 mg PO DAILY 11/12/19 Benzonatate [Tessalon Perle*] 200 mg PO TID #30 cap 11/14/19 Budesonide [Pulmicort*] 0.5 mg NEB BIDRESP #60 amp 11/14/19 LORazepam [Ativan*] 0.5 mg PO Q6HP PRN #20 tab 11/14/19 guaiFENesin [Robitussin 100MG/5ML*] 5 ml PO QID PRN #1 bottle 11/14/19 predniSONE [Prednisone*] 20 mg PO BID #10 tab 11/14/19 New Medications: LORazepam [Ativan*] 0.5 mg PO Q6HP PRN #20 tab PRN Reason: Anxiety predniSONE [Prednisone*] 20 mg PO BID #10 tab Budesonide [Pulmicort*] 0.5 mg NEB BIDRESP #60 amp guaiFENesin [Robitussin 100MG/5ML*] 5 ml PO QID PRN #1 bottle PRN Reason: Cough Benzonatate [Tessalon Perle*] 200 mg PO TID #30 cap Diet: AHA Activity: Ad en Followup: Sage Akers MD [ACTIVE - CAN ADMIT] - 1-2 Weeks Time spent managing pt's care (in minutes): 40
[2019-11-14] MEDS ORDERED: BENZONATATE 100 MG CAP PO SCH (17:00)
[2019-11-14 20:48] LABS: Scleroderma Antibody (Scl-70) <1.0
[2019-11-14] MEDS ORDERED: predniSONE 20 MG TAB PO SCH (21:00)
== END 2019-11-14 16:26 | disposition home or self-care (01) | DRG 871 ==
LOC: ER 10:03 → ERHOLD 13:19 → 2ND 11-13 16:42
PROVIDERS: ADMIT Hospitalist; ATTEND Internal Medicine
DX: A41.9 Sepsis, unspecified organism (principal); J18.9 Pneumonia, unspecified organism; J44.0 Chronic obstructive pulmonary disease with (acute) lower respiratory infection; D69.41 Evans syndrome; D58.9 Hereditary hemolytic anemia, unspecified; I10 Essential (primary) hypertension; M06.9 Rheumatoid arthritis, unspecified; D72.1 Eosinophilia; I25.10 Atherosclerotic heart disease of native coronary artery without angina pectoris; R00.0 Tachycardia, unspecified; R59.1 Generalized enlarged lymph nodes; T36.1X5A Adverse effect of cephalosporins and other beta-lactam antibiotics, initial encounter; Z95.5 Presence of coronary angioplasty implant and graft; Z88.8 Allergy status to other drugs, medicaments and biological substances; Z79.82 Long term (current) use of aspirin; Z79.899 Other long term (current) drug therapy
CPT/HCPCS: 36415; 71045; 71046; 71275; 80048; 80053; 80076; 80202; 81003; 81015; 82103; 82150; 82550; 82553; 83010; 83605; 83615; 83690; 83735; 84100; 84145; 84443; 84484; 85025; 85027; 85044; 85379; 85610; 85652; 85730; 86038; 86140; 86225; 86235; 86255; 86850; 86870; 86880; 86900; 86901; 87040; 87324; 87449; 93005; 94640; 96365; 96366; 96367; 97116; 97161; 99285; C9113; J0692; J1200; J1650; J2405; J2920; J2930; J3370; J3475; J7030; J7040; J7050; Q9967; U0003

== ENCOUNTER 2021-05-11 03:00 | Observation (INO) | payer BC ==
--- OUTSIDE RECORDS SUMMARY | 2021-05-11 03:21 | XMS REPORT | Continuity of Care Document ---
:1955 Author Organization [facility] t Address [address] [place] [id number] Care Team Providers Name Role Phone Stevie Chang MD Primary Care Physician Isabel Jc MD Attending Clinician Doctor Unassigned, Name Attending Clinician Unavailable RINKU Attending Clinician Unavailable JUSTIN Attending Clinician Unavailable JASON Attending Clinician Unavailable Donte RICHARDSON Attending Clinician Unavailable CHAPITO Attending Clinician Unavailable Stevie Chang MD Attending Clinician SHLOMO Attending Clinician Unavailable Louisa DAVIES TLeon Attending Clinician Aaliyha DAVIES Attending Clinician Bhanu BIOMEDICAL TECHNICIAN-C Attending Clinician Gagan BIOMEDICAL TECHNICIAN Attending Clinician Myrtle Martell MD Attending Clinician Rizwana RICHARDSON Attending Clinician Unavailable Ford Castellanos MD Attending Clinician Mario Wagoner Attending Clinician Hilario KEMP Attending Clinician Unavailable Lonnie Attending Clinician Unavailable Manolo Gomez MD Attending Clinician Toy RN Attending Clinician Unavailable Beatris RN Attending Clinician Unavailable [facility] Attending Clinician Unavailable Se RICHARDSON, García Attending Clinician Unavailable [facility] Attending Clinician Unavailable Magnus Martin MD Attending Clinician Devin Eaton MD Attending Clinician Suri Lawson MD Attending Clinician Eliceo Corona MD Attending Clinician James Mendoza MD Attending Clinician Júnior MANRIQUE Attending Clinician Alivia [facility] Attending Clinician Unavailable Hung Callejas DO Attending Clinician Lester Mendoza MD Attending Clinician Walter Lassiter DO Attending Clinician Kadie DAVIES Attending Clinician Levi Fernando MD Attending Clinician Mindy [facility] Attending Clinician Unavailable STEVIE CHANG Attending Clinician Unavailable STACEY Admitting Clinician Unavailable JUSTIN Admitting Clinician Unavailable CHAPITO Admitting Clinician Unavailable AALIYAH Admitting Clinician Unavailable AJSON Admitting Clinician Unavailable HOSEA Admitting Clinician Unavailable LORI Admitting Clinician Unavailable ALIVIA Admitting Clinician Unavailable KADIE Admitting Clinician Unavailable Payers Payer Name Policy Type Policy Number Effective Date Expiration Date S ource Problems Condition Condition Condition Status Onset Resolution Last Treating Co mments Source Name Details Category Date Date Treatment Clinician Date Dyspnea Dyspnea Disease Active [facility] 00:00: Hospita 00 l Need for Need for Disease Active 2020-02 Metho di pneumocyst pneumocyst 2 st is is 00:00: Hospita prophylaxi prophylaxi 00 l s s 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 Pain Pain Disease Active Methodi associated associated 09-16 with with 00:00: Hospita surgical surgical 00 l procedure procedure 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 00:00: Hospita disease disease 00 l 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 00:00: Hospita 00 l 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 08-08 with with 00:00: Hospita depressed depressed 00 l mood mood 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 00:00: Hospit a 00 l Lymphoma, Lymphoma, 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 03-28 st 00:00: Hospita 00 l Hyperchole Hyperchole Disease Active 2014-02 U willian steremia steremia 2-08 ity of 00:00: [place] 00 [facility] Anxiety Anxiety Disease Active 2014-02 Univers 2-08 ity of 00:00: [place] 00 [facility] Coronary Coronary Disease Active 2014-02 Unive rs disease disease 2-08 ity of 00:00: [place] 00 [facility] Migraine Migraine Disease Active 2014-02 Unive rs 2-08 ity of 00:00: [place] 00 [facility] Essential Essential Disease Active 2014-02 Uni vers hypertensi hypertensi 2-08 it y of on on 00:00: [place] 00 [facility] Gastroesop Gastroesop Disease Active 2014-02 U willian hageal hageal 2-08 ity of reflux reflux 00:00: [place] disease disease 00 Medical without without Branch esophagiti esophagiti s s 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 00:00: [place] purpura purpura 00 Medical Branch Idiopathic Idiopathic Disease Active U yulyers thrombocyt thrombocyt 6-08 it y of openic openic 00:00: [place] purpura purpura 00 Medical Branch Allergies, Adverse Reactions, Alerts Allergy Allergy Status Severity Reaction(s) Onset Inactive Treating Comm ents Source Name Type Date Date Clinician Olga Lopesensi Active Rash Method i m ty to 2-07 st adverse 00:00: Hospita reaction 00 l s to drug Cephalos Propensi Active Rash Method i porins ty to 9-19 st adverse 00:00: Hospita reaction 00 l s to drug Zolpidem Propensi Active Altered Metho di ty to Mental 9-17 st adverse Status 00:00: Hospita reaction 00 l s to drug NO KNOWN Drug Active Univers ALLERGIE Class ity of S [facility] Family History Family Member Diagnosis Comments Start Date Stop Date Source Natural brother Heart attack [facility] Natural father Coronary artery Metho [facility] disease [facility] Natural mother Depression [facility] Natural mother Hypertension [facility] Natural [facility] Paternal Coronary aneurysm [facility] Paternal Stroke [facility] Social History Social Habit Start Date Stop Date Quantity Comments Source History SDOH [facility] Drinks History SDOH [facility] History SDOH [facility] Comment Hospital Exposure to Not sure [facility] SARS-CoV-2 Hospital (event) Alcohol intake 2021-03-07 2021-03-07 Lifetime [facility] 00:00:00 00:00:00 non-drinker Hospital (finding) History SDOH 2020-04-15 2020-04-15 1 [facility] Alcohol Frequency 00:00:00 00:00:00 Hospita l Tobacco use and 2020-01-17 2020-01-17 Smokeless tobacco [facility] exposure 00:00:00 00:00:00 non-user Hospital Sex Ass[birth year] At [birth year] [facility] 00:00:00 00:[facility]:00 Hospital Smoking Status Start Date Stop Date Source Never smoked tobacco [facility] Medications Ordered Filled Start Stop Current Ordering Indication Dosage Frequency Signature Comments Components Source Medication Medication Date Date Medication? Clinician (SIG) Name Name progesteron Yes 100mg QD Take 100 M ethodi e 1-[address] (PROMETRIUM 14:49: mouth Hospi ta ) 100 MG 03 daily. l capsule estradioL 2021- No 2mg QD Take 2 mg Me thodi (ESTRACE) 1 03-10-[address] MG tablet 14:49: 00:00 daily. Hospi ta 03 :00 l atovaquone 2021- No 1500mg QD Take 1,500 Methodi (MEPRON) 03-10-[address] 750 mg/5 mL 14:49: 00:00 mouth Hosp cici suspension 03 :00 daily. l famotidine 2021- No 20mg QD Take 20 mg Methodi (PEPCID) 20 03-[address] MG tablet 14:49: 00:00 nightly. Hos ray 03 :00 l dexAMETHaso 2021- No 40mg QD Take 40 mg Methodi ne 20 mg 03-10-[address] tablet 00:00: 05:59 daily for Hospi ta 00 :00 3 days. l dronabinoL Yes 2.5mg Q.5D Take 2.5 Me thodi (MARINOL) 1-[address] 2.5 MG 14:50: mouth 2 Hospita capsule 03 (two) l times a day as needed. ezetimibe Yes 10mg QD Take 10 mg Me thodi (ZETIA) 10 1-[address] mg tablet 14:50: daily. Hospit a 03 l simvastatin Yes 40mg QD Take 40 mg Methodi (ZOCOR) 40 -[address] mg tablet 14:50: nightly. Hosp cici 03 l LORAZepam 2021- Yes .5mg Q6H TAKE 1 Metho di (ATIVAN) - 02-[address] 0.5 MG 00:00: 05:59 (0.5 MG Hospita tablet 00 :00 TOTAL) BY l MOUTH EVERY 6 (SIX) HOURS NEEDED FOR ANXIETY FOR UP TO 30 DAYS. aspirin 2020-02 No 81mg QD Take 81 mg Met hodi (ECOTRIN) 02-[address] 81 MG 15:01: 00:00 daily. Hospita enteric 11 :00 l coated tablet vancomycin 2020-02- No 125mg Q.25D Take 1 Me thodi (VANCOCIN) -[address] 125 MG 00:00: 00:00 (125 mg Hospita capsule 00 :00 total) by l mouth 4 (four) times a day for 14 days. ondansetron 2020-02 Yes [id number] 8mg Q8H Take 1 Methodi (ZOFRAN) 8 2-06 tablet (8 st MG tablet 00:00: mg total) Hos ray 00 by mouth l every 8 (eight) hours as needed for nausea. dronabinoL 2020-02- No [id number] 5mg Q.5D Take 1 Methodi (MARINOL) 5 03-30 capsule (5 s t MG capsule 00:00: 00:00 mg total) H ospita 00 :00 by mouth 2 l (two) times a day. atovaquone 2020-02- No [id number] 1500mg QD Take 10 mL Methodi (Mepron) 03-30 9101 (1,[address] 750 mg/5 mL 00:00: 05:59 total) by Hospita suspension 00 :00 mouth l daily for 30 days. mirtazapine 2020-02- No 15mg QD Take 15 mg Methodi (REMERON) 03-[address] 15 MG 16:49: 00:00 nightly. Hospita tablet 57 :00 l traMADoL 2020-02- No [id number] 50mg Q8H Take 50 mg M ethodi (ULTRAM) 50 03-[address] mg tablet 12:09: 00:00 every 8 Hosp cici 48 :00 (eight) l hours as needed for moderate pain .acute pain. LORAZepam 2020-02- No .5mg QD Take 0.5 Met hodi (ATIVAN) 03-[address] 0.5 MG 12:09: 00:00 mouth Hospita tablet 48 :00 nightly as l needed for anxiety. mirtazapine 2020-02 Yes TAKE 1 Meth felicity (REMERON) 03-[address] 15 MG 00:00: MOUTH AT Hospita tablet 00 BEDTIME l LORAZepam 2020-02- No .5mg Q6H Take 1 Metho di (ATIVAN) 03-[address] 0.5 MG 00:00: 00:00 (0.5 mg Hospita tablet 00 :00 total) by l mouth every 6 (six) hours as needed for anxiety for up to 30 days. traMADoL 2020-02- No [id number] 50mg Q6H Take 1 Metho di (ULTRAM) 50 03-15-23 tablet (50 s t mg tablet 00:00: 05:59 mg total) Ho spita 00 :00 by mouth l every 6 (six) hours as needed for moderate pain for up to 30 days .chronic pain. ondansetron 2020-02 No 8mg Q8H Take 8 mg Methodi (ZOFRAN) 8 03-[address] MG tablet 14:28: 00:00 every 8 Hosp cici 52 :00 (eight) l hours as needed for nausea or vomiting. carvediloL 2020-02 No [id number] 3.125mg Q.5D Take 0.5 Methodi (Coreg) 03-01[address] 6.25 MG 00:00: 00:00 (3.125 mg Hosp cici tablet 00 :00 total) by l mouth 2 (two) times a day with meals. sulfamethox 2020-02- No [id number] 1{tbl} Take 1 Methodi azole-trime 03-[address] thoprim 00:00: 00:00 mouth Hospita (BACTRIM 00 :00 Every l DS) 800-160 Wednesday, mg per Wednesday, and Wednesday for 90 days. ondansetron 2020-02 No 8mg Q8H Take 1 Met hodi (ZOFRAN) 8 03-01 tablet (8 st MG tablet 00:00: 00:00 mg total) Ho spita 00 :00 by mouth l every 8 (eight) hours as needed for nausea. ondansetron 2020-02 No TAKE 1 Met hodi (ZOFRAN) 8 03-[address] MG tablet 00:00: 00:00 MOUTH Hospit a 00 :00 EVERY 8 l HOURS NEEDED FOR NAUSEA carvediloL 2020-02- No [id number] 6.25mg Q.5D Take 1 Methodi (Coreg) 0-12-[address] 6.25 MG 00:00: 00:00 (6.25 mg Hospi ta tablet 00 :00 total) by l mouth 2 (two) times a day with meals. apixaban 2020-02- No [id number] 5mg Q.5D Take 1 M ethodi (ELIQUIS) 5 -25 - tablet (5 st mg tablet 00:00: 00:00 mg total) Ho spita 00 :00 by mouth 2 l (two) times a day. valACYclovi 2020-02 Yes [id number] 500mg QD Take 1 Methodi r (VALTREX) 0-[address] 500 MG 00:00: (500 mg Hospita tablet 00 total) by l mouth daily. multivitami 2020-02 Yes [id number] 1{tbl} QD Take 1 Methodi n tablet 0-[address] 00:00: mouth Hospita 00 daily. l cholecalcif 2020-02 No 2000U QD Take 2,000 Methodi aliyah, 0-11 10-[address] vitamin D3, 18:18: 00:00 mouth Hosp cici 50 mcg 09 :00 daily. l (2,000 unit) capsule capsule carvediloL 2020-02 No 6.25mg Q.5D Take 6.25 Methodi (COREG) 0-11 10-[address] 6.25 MG 18:18: 00:00 mouth 2 Hospit a tablet 09 :00 (two) l times a day with meals. potassium 2020-02 No 10meq Q.5D Take 10 Met hodi chloride 0-11 10-[address] (K-DUR) 10 18:18: 00:00 mouth 2 Hos ray MEQ CR 09 :00 (two) l tablet times a day. magnesium 2020-02- No 400mg QD Take 400 Me thodi oxide 0-11 10-[address] (MAG-OX) 18:18: 00:00 mouth Hospita 400 mg 09 :00 daily. l (241.3 mg magnesium) tablet promethazin 2020-02 Yes 12.5mg Q6H Take 1 Me thodi e 0-[address] (PHENERGAN) 00:00: (12.5 mg Ho spita 12.5 MG 00 total) by l tablet mouth every 6 (six) hours as needed for nausea or vomiting. pentamidine 2020-02 No 300mg Q30D Take 300 Methodi (PENTAM) 0-11 11-[address] 300 mg in 00:00: 00:00 nebulizati H ospita Sterile 00 :00 on every l Water 30 (thirty) days. Due in clinic 01/01/2021 dexamethaso 2020-02- No 4mg Q.5D Take 1 Met hodi ne 0-11 10-18 tablet (4 st (DECADRON) 00:00: 00:00 mg total) H ospita 4 MG tablet 00 :00 by mouth 2 l (two) times a day with meals for 7 days. vancomycin 2020-02- No 125mg Q.25D Take 1 Me thodi (VANCOCIN) 0-11 10-[address] 125 MG 00:00: 04:59 (125 mg Hospita capsule 00 :00 total) by l mouth 4 (four) times a day for 3 days. fidaxomicin 2020-02 No 200mg Q.5D Take 1 Me thodi (DIFICID) 0-11 10-[address] 200 mg 00:00: 00:00 (200 mg Hospita tablet 00 :00 total) by l mouth 2 (two) times a day for 3 days. loratadine 2020- No [id number] 10mg QD Take 1 Methodi (Claritin) 10-29 tablet (10 st 10 mg 00:00: 00:00 mg total) Hospit a tablet 00 :00 by mouth l daily for 8 days. loratadine 2020- No 10mg QD Take 1 Meth felicity (Claritin) 10-29 tablet (10 st 10 mg 00:00: 00:00 mg total) Hospit a tablet 00 :00 by mouth l daily for 8 days. simvastatin 2020- No 20mg QD Take 20 mg [facility] (ZOCOR) 20 10-[address] mg tablet 16:30: 00:00 nightly. Hos ray 36 :00 l dronabinoL 2020- No 5mg Q.5D Take 1 Meth felicity (MARINOL) 5 10-24 capsule (5 s t MG capsule 00:00: 00:00 mg total) H ospita 00 :00 by mouth 2 l (two) times a day. levoFLOXaci 2020- No 500mg QD Take 1 Me thodi n 10-[address] (LEVAQUIN) 00:00: 00:00 (500 mg Hos ray 500 MG 00 :00 total) by l tablet mouth daily for 14 days. fluconazole No 200mg QD Take 1 Me thodi (DIFLUCAN) 10-[address] 200 MG 00:00: 00:00 (200 mg Hospita tablet 00 :00 total) by l mouth daily for 14 days. LORAZepam 2020- No .5mg QD Take 1 Metho di (ATIVAN) 09-19 08-[address] 0.5 MG 00:00: 04:59 (0.5 mg Hospita tablet 00 :00 total) by l mouth nightly as needed for anxiety for up to 30 days. valACYclovi 2020- No TAKE 1 Met hodi r (VALTREX) 09-18 10-[address] 1000 MG 00:00: 00:00 MOUTH Hospita tablet 00 :00 TWICE l DAILY benzonatate 2020- No 100mg Q.[id number] Take 100 Methodi (TESSALON) 09-17 07-27 [id number] mg by s t 100 MG 10:45: 00:00 3D mouth 3 Hospita capsule 09 :00 (three) l times a day as needed for cough. filgrastim- 2020- No [id number] 480ug QD Inject 0.8 Methodi sndz 09-17 08-07 mL (480 st (Zarxio) 00:00: 04:59 mcg total) Ho spita 480 mcg/0.8 00 :00 under the l mL syringe skin daily injection for 10 days. LORAZepam No .5mg Q6H Take 0.5 Met hodi (ATIVAN) 09-05 07-[address] 0.5 MG 10:30: 00:00 mouth Hospita tablet 18 :00 every 6 l (six) hours as needed for anxiety. Per spouse patient is being weaned off of alprazolam because it makes her feel too emotional and switched to lorazepam. (per [place] [employer] Aware patient last filled on 05/13/2020 for quantity of 30 day supply of 10) dronabinoL 2020- No 2.5mg Q.5D Take 1 Met hodi (Marinol) 09-[address] 2.5 MG 00:00: 00:00 (2.5 mg Hospita capsule 00 :00 total) by l mouth 2 (two) times a day before meals for 90 days. apixaban 2020- No 5mg Q12H Take 1 Method i (ELIQUIS) 5 09-05 tablet (5 st mg tablet 00:00: 00:00 mg total) Ho spita 00 :00 by mouth l every 12 (twelve) hours for 90 days. dronabinoL 2020- No 5mg Q.5D Take 1 Meth felicity (MARINOL) 5 09-05 capsule (5 s t MG capsule 00:00: 00:00 mg total) H ospita 00 :00 by mouth 2 l (two) times a day for 90 days. LORAZepam 2020- No .5mg Q6H Take 1 Metho di (ATIVAN) 09-[address] 0.5 MG 00:00: 00:00 (0.5 mg Hospita tablet 00 :00 total) by l mouth every 6 (six) hours as needed for anxiety for up to 30 days. Per spouse patient is being weaned off of alprazolam because it makes her feel too emotional and switched to lorazepam. (per [place] [employer] Aware patient last filled on 05/13/2020 for quantity of 30 day supply of 10) BUPROPION Yes [id number] 300mg TAKE 1 U nivers XL 300 mg 7-13 TABLET BY ity o f 24 hr 00:00: MOUTH [place] tablet 00 EVERY Medical MORNING Branch LANSOPRAZOL Yes [id number] TAKE 1 Univers E 30 mg 7-13 CAPSULE BY ity of capsule 00:00: MOUTH [place] 00 EVERY DAY Medical Branch BUPROPION Yes [id number] 300mg TAKE 1 U nivers XL 300 mg 7-13 TABLET BY ity o f 24 hr 00:00: MOUTH [place] tablet 00 EVERY Medical MORNING Branch LANSOPRAZOL Yes [id number] TAKE 1 Univers E 30 mg 7-13 CAPSULE BY ity of capsule 00:00: MOUTH [place] 00 EVERY DAY Medical Branch BUPROPION Yes [id number] 300mg TAKE 1 U nivers XL 300 mg 7-13 TABLET BY ity o f 24 hr 00:00: MOUTH [place] tablet 00 EVERY Medical MORNING Branch LANSOPRAZOL 0 Yes [id number] TAKE 1 Univers E 30 mg 7-13 CAPSULE BY ity of capsule 00:00: MOUTH [place] 00 EVERY DAY Medical Branch BUPROPION 2020-0 Yes [id number] 300mg TAKE 1 U nivers XL 300 mg 7-13 TABLET BY ity o f 24 hr 00:00: MOUTH [place] tablet 00 EVERY Medical MORNING Branch LANSOPRAZOL 0 Yes [id number] TAKE 1 Univers E 30 mg 7-13 CAPSULE BY ity of capsule 00:00: MOUTH [place] 00 EVERY DAY Medical Branch BUPROPION 0 Yes [id number] 300mg TAKE 1 U nivers XL 300 mg 7-13 TABLET BY ity o f 24 hr 00:00: MOUTH [place] tablet 00 EVERY Medical MORNING Branch LANSOPRAZOL Yes [id number] TAKE 1 Univers E 30 mg 7-13 CAPSULE BY ity of capsule 00:00: MOUTH [place] 00 EVERY DAY Medical Branch BUPROPION 2020-0 Yes [id number] 300mg TAKE 1 U nivers XL 300 mg 7-13 TABLET BY ity o f 24 hr 00:00: MOUTH [place] tablet 00 EVERY Medical MORNING Branch LANSOPRAZOL 0 Yes [id number] TAKE 1 Univers E 30 mg 7-13 CAPSULE BY ity of capsule 00:00: MOUTH [place] 00 EVERY DAY Medical Branch BUPROPION 2020-0 Yes [id number] 300mg TAKE 1 U nivers XL 300 mg 7-13 TABLET BY ity o f 24 hr 00:00: MOUTH [place] tablet 00 EVERY Medical MORNING Branch LANSOPRAZOL 2020-0 Yes [id number] TAKE 1 Univers E 30 mg 7-13 CAPSULE BY ity of capsule 00:00: MOUTH [place] 00 EVERY DAY Medical Branch BUPROPION 2020-0 Yes [id number] 300mg TAKE 1 U nivers XL 300 mg 7-13 TABLET BY ity o f 24 hr 00:00: MOUTH [place] tablet 00 EVERY Medical MORNING Branch LANSOPRAZOL 2020-0 Yes [id number] TAKE 1 Univers E 30 mg 7-13 CAPSULE BY ity of capsule 00:00: MOUTH [place] 00 EVERY DAY Medical Branch BUPROPION 2020-0 Yes [id number] 300mg TAKE 1 U nivers XL 300 mg 7-13 TABLET BY ity o f 24 hr 00:00: MOUTH [place] tablet 00 EVERY Medical MORNING Branch LANSOPRAZOL Yes [id number] TAKE 1 Univers E 30 mg 7-13 CAPSULE BY ity of capsule 00:00: MOUTH [place] 00 EVERY DAY Medical Branch BUPROPION Yes [id number] 300mg TAKE 1 U nivers XL 300 mg 7-13 TABLET BY ity o f 24 hr 00:00: MOUTH [place] tablet 00 EVERY Medical MORNING Branch LANSOPRAZOL Yes [id number] TAKE 1 Univers E 30 mg 7-13 CAPSULE BY ity of capsule 00:00: MOUTH [place] 00 EVERY DAY Medical Branch BUPROPION Yes [id number] 300mg TAKE 1 U nivers XL 300 mg 7-13 TABLET BY ity o f 24 hr 00:00: MOUTH [place] tablet 00 EVERY Medical MORNING Branch LANSOPRAZOL Yes [id number] TAKE 1 Univers E 30 mg 7-13 CAPSULE BY ity of capsule 00:00: MOUTH [place] 00 EVERY DAY Medical Branch BUPROPION Yes [id number] 300mg TAKE 1 U nivers XL 300 mg 7-13 TABLET BY ity o f 24 hr 00:00: MOUTH [place] tablet 00 EVERY Medical MORNING Branch LANSOPRAZOL Yes [id number] TAKE 1 Univers E 30 mg 7-13 CAPSULE BY ity of capsule 00:00: MOUTH [place] 00 EVERY DAY Medical Branch BUPROPION 0 Yes [id number] 300mg TAKE 1 U nivers XL 300 mg 7-13 TABLET BY ity o f 24 hr 00:00: MOUTH [place] tablet 00 EVERY Medical MORNING Branch LANSOPRAZOL Yes [id number] TAKE 1 Univers E 30 mg 7-13 CAPSULE BY ity of capsule 00:00: MOUTH [place] 00 EVERY DAY Medical Branch BUPROPION 0 Yes [id number] 300mg TAKE 1 U nivers XL 300 mg 7-13 TABLET BY ity o f 24 hr 00:00: MOUTH [place] tablet 00 EVERY Medical MORNING Branch LANSOPRAZOL Yes [id number] TAKE 1 Univers E 30 mg 7-13 CAPSULE BY ity of capsule 00:00: MOUTH [place] 00 EVERY DAY Medical Branch EZETIMIBE 2020-0 Yes [id number] TAKE 1 Un darvin 10 mg 6-30 TABLET BY ity of tablet 00:00: MOUTH [place] 00 EVERY DAY Medical Branch SIMVASTATIN 2021-0 Yes [id number] TAKE 1 Univers 40 mg 6-30 TABLET BY ity of tablet 00:00: MOUTH EVERY DAY Medical Branch EZETIMIBE 2021-0 Yes [id number] TAKE 1 Un darvin 10 mg 6-30 TABLET BY ity of tablet 00:00: MOUTH EVERY DAY Medical Branch SIMVASTATIN 2021-0 Yes [id number] TAKE 1 Univers 40 mg 6-30 TABLET BY ity of tablet 00:00: MOUTH EVERY DAY Medical Branch EZETIMIBE 2021-0 Yes [id number] TAKE 1 Un darvin 10 mg 6-30 TABLET BY ity of tablet 00:00: MOUTH EVERY DAY Medical Branch SIMVASTATIN 2021-0 Yes [id number] TAKE 1 Univers 40 mg 6-30 TABLET BY ity of tablet 00:00: MOUTH EVERY DAY Medical Branch EZETIMIBE 2021-0 Yes [id number] TAKE 1 Un darvin 10 mg 6-30 TABLET BY ity of tablet 00:00: MOUTH EVERY DAY Medical Branch SIMVASTATIN 2021-0 Yes [id number] TAKE 1 Univers 40 mg 6-30 TABLET BY ity of tablet 00:00: MOUTH EVERY DAY Medical Branch EZETIMIBE 2021-0 Yes [id number] TAKE 1 Un darvin 10 mg 6-30 TABLET BY ity of tablet 00:00: MOUTH EVERY DAY Medical Branch SIMVASTATIN 2021-0 Yes [id number] TAKE 1 Univers 40 mg 6-30 TABLET BY ity of tablet 00:00: MOUTH EVERY DAY Medical Branch EZETIMIBE 2021-0 Yes [id number] TAKE 1 Un darvin 10 mg 6-30 TABLET BY ity of tablet 00:00: MOUTH EVERY DAY Medical Branch SIMVASTATIN 2021-0 Yes [id number] TAKE 1 Univers 40 mg 6-30 TABLET BY ity of tablet 00:00: MOUTH EVERY DAY Medical Branch EZETIMIBE 2021-0 Yes [id number] TAKE 1 Un darvin 10 mg 6-30 TABLET BY ity of tablet 00:00: MOUTH EVERY DAY Medical Branch SIMVASTATIN 2021-0 Yes [id number] TAKE 1 Univers 40 mg 6-30 TABLET BY ity of tablet 00:00: MOUTH EVERY DAY Medical Branch EZETIMIBE 2021-0 Yes [id number] TAKE 1 Un darvin 10 mg 6-30 TABLET BY ity of tablet 00:00: MOUTH 00 EVERY DAY Medical Branch SIMVASTATIN 2021-0 Yes [id number] TAKE 1 Univers 40 mg 6-30 TABLET BY ity of tablet 00:00: MOUTH EVERY DAY Medical Branch EZETIMIBE 2021-0 Yes [id number] TAKE 1 Un darvin 10 mg 6-30 TABLET BY ity of tablet 00:00: MOUTH EVERY DAY Medical Branch SIMVASTATIN 2021-0 Yes [id number] TAKE 1 Univers 40 mg 6-30 TABLET BY ity of tablet 00:00: MOUTH EVERY DAY Medical Branch EZETIMIBE 2021-0 Yes [id number] TAKE 1 Un darvin 10 mg 6-30 TABLET BY ity of tablet 00:00: MOUTH EVERY DAY Medical Branch SIMVASTATIN 2021-0 Yes [id number] TAKE 1 Univers 40 mg 6-30 TABLET BY ity of tablet 00:00: MOUTH EVERY DAY Medical Branch EZETIMIBE 2021-0 Yes [id number] TAKE 1 Un darvin 10 mg 6-30 TABLET BY ity of tablet 00:00: MOUTH EVERY DAY Medical Branch SIMVASTATIN 2021-0 Yes [id number] TAKE 1 Univers 40 mg 6-30 TABLET BY ity of tablet 00:00: MOUTH EVERY DAY Medical Branch EZETIMIBE 2021-0 Yes [id number] TAKE 1 Un darvin 10 mg 6-30 TABLET BY ity of tablet 00:00: MOUTH 00 EVERY DAY Medical Branch SIMVASTATIN 2021-0 Yes [id number] TAKE 1 Univers 40 mg 6-30 TABLET BY ity of tablet 00:00: MOUTH EVERY DAY Medical Branch EZETIMIBE 2021-0 Yes [id number] TAKE 1 Un darvin 10 mg 6-30 TABLET BY ity of tablet 00:00: MOUTH EVERY DAY Medical Branch SIMVASTATIN 2021-0 Yes [id number] TAKE 1 Univers 40 mg 6-30 TABLET BY ity of tablet 00:00: MOUTH EVERY DAY Medical Branch EZETIMIBE 2021-0 Yes [id number] TAKE 1 Un darvin 10 mg 6-30 TABLET BY ity of tablet 00:00: MOUTH 00 EVERY DAY Medical Branch SIMVASTATIN 2021-0 Yes [id number] TAKE 1 Univers 40 mg 6-30 TABLET BY ity of tablet 00:00: MOUTH EVERY DAY Medical Branch EZETIMIBE 2021-0 Yes [id number] TAKE 1 Un darvin 10 mg 6-30 TABLET BY ity of tablet 00:00: MOUTH 00 EVERY DAY Medical Branch SIMVASTATIN Yes [id number] TAKE 1 Univers 40 mg 6-30 TABLET BY ity of tablet 00:00: MOUTH [place] 00 EVERY DAY Medical Branch dronabinoL 2020- No 5mg Q.5D Take 5 mg M ethodi (MARINOL) 08-[address] 2.5 MG 09:13: 00:00 (two) Hospita capsule 40 :00 times a l day before meals. dronabinoL 2020- No 5mg Q.5D Take 1 Meth felicity (MARINOL) 5 08-08-15 capsule (5 s t MG capsule 00:00: 00:00 mg total) H ospita 00 :00 by mouth 2 l (two) times a day for 30 days. darbepoetin 2020- No [id number] 25ug Q7D Inject Me thodi shaun-polyso 06-[address] rbate 00:00: 04:59 (25 mcg Hospita (ARANESP) 00 :00 total) l 25 mcg/0.42 under the mL syringe skin once a week at 4pm for 30 days .anemia from [facility] py. aspirin 2020- No 81mg QD Take 1 Methodi (ECOTRIN) 06-20-30 tablet (81 st 81 MG 00:00: 04:59 mg total) [facility] enter[facility] 00 :00 by mouth l coated daily for tablet 30 days. apixaban 2020- No 5mg Q12H Take 1 Method i (ELIQUIS) 5 06-19-15 tablet (5 st mg tablet 00:00: 00:00 mg total) [facility] 00 :00 by mouth l every 12 (twelve) hours. docusate 2020- No 100mg Q.5D Take 1 Metho di sodium 06-19-[address] (COLACE) 00:00: 04:59 (100 mg Hospi ta 100 MG 00 :00 total) by l capsule mouth 2 (two) times a day for 30 days. ramelteon 2020- No 8mg QD Take 1 Metho di (ROZEREM) 8 06-19 05-29 tablet (8 st mg tablet 00:00: 04:59 mg total) [facility] 00 :00 by mouth l nightly as needed for sleep for up to 30 days. estradioL 2mg QD Take 2 mg [facility] (ESTRACE) 2 -14 06-[address] MG tablet 14:08: 00:00 daily. Hospi ta 12 :00 l gabapentin No 300mg Q24H Take 300 M ethodi (NEURONTIN) - 04-[address] 300 mg 14:08: 00:00 mouth Hospita capsule 12 :00 daily as l needed (for migraines) . levoFLOXaci No 500mg QD Take 500 Methodi n - 04-[address] (LEVAQUIN) 14:08: 00:00 mouth Hospi ta 500 MG 12 :00 every l tablet morning. middle or intermediate [employer] principal medication per . ondansetron No 8mg Q8H Take 8 mg [facility]i ODT 06-14- by mouth st (ZOFRAN-ODT 14:08: 00:00 every 8 Ho [facility]ita ) 8 MG 12 :00 (eight) l disintegrat hours as ing tablet needed for nausea or vomiting. progesteron 100mg QD Take 100 Methodi e - 04-[address] (Prometrium 14:08: 00:00 mouth [facility]osp [facility]ici ) 100 MG 12 :00 daily. l capsule apixaban No 5mg Q.5D Take 5 mg Met hodi (ELIQUIS) 5 06-14- by mouth 2 s t mg tablet 14:08: 00:00 (two) Hospit a 12 :00 times a l day. aspirin 81 2020- No 81mg QD Chew 81 mg [facility] mg chewable 06-14- daily. st tablet 14:08: 00:00 Hospita 12 :00 l carvediloL No 12.5mg Q.5D Take 12.5 [facility] (COREG) 25 -14 06-[address] MG tablet 14:08: 00:00 mouth 2 [facility]osp [facility]ici 12 :00 (two) l times a day. pyridoxine, 2020- No 50mg QD Take 1 [facility] vitamin B6, 06-14 tablet (50 s t (B-6) 50 MG 00:00: 04:59 mg total) Hospita tablet 00 :00 by mouth l daily for 30 days. thiamine 2020- No 100mg QD Take 1 Metho di mononitrate 06-[address] , vit B1, 00:00: 04:59 (100 mg [facility]osp [facility]ici (B-1) 100 00 :00 total) by l mg tablet mouth daily for 30 days. pantoprazol 2020- No 40mg QD Take 1 Met hodi e 06-14 tablet (40 st (PROTONIX) 00:00: 00:00 mg total) H ospita 40 MG EC 00 :00 by mouth l tablet daily for 30 days. valACYclovi 2020- No 500mg QD Take 1 [facility] r (VALTREX) 06-[address] 500 MG 00:00: 04:59 (500 mg Hospita tablet 00 :00 total) by l mouth daily for 30 days. carvediloL 2020- No 6.25mg Q.5D Take 1 [facility] (COREG) 06-[address] 6.25 MG 00:00: 04:59 (6.25 mg Hospi ta tablet 00 :00 total) by l mouth 2 (two) times a day for 30 days. ondansetron 2020- No 4mg Q4H Take 1 Met hodi ODT 06-13 tablet (4 st (ZOFRAN-ODT 00:00: 04:59 mg total) Hospita ) 4 MG 00 :00 by mouth l disintegrat every 4 ing tablet (four) hours as needed for nausea or vomiting for up to 30 days. ALPRAZolam 2020- No .5mg Q6H Take 1 Meth felicity (XANAX) 0.5 06-[address] MG tablet 00:00: 00:00 (0.5 mg Hosp cici 00 :00 total) by l mouth every 6 (six) hours as needed for anxiety for up to 30 days. fluconazole 2020- No 200mg QD Take 1 [facility] (DIFLUCAN) 06-13- tablet st 200 MG 00:00: 00:00 (200 mg Hospita tablet 00 :00 total) by l mouth daily for 30 days. nystatin 2020-2020- No 5mL Q.25D Take 5 mL [facility] (MYCOSTATIN 06-13 by mouth 4 s t ) 100,000 00:00: 00:00 (four) Hospi ta unit/mL 00 :00 times a l suspension day for 30 days. Swish in mouth rosuvastati 2020- No 5mg QD Take 1 Met hodi n (CRESTOR) 06-13 tablet (5 st 5 mg tablet 00:00: 00:00 mg total) Hospita 00 :00 by mouth l nightly for 30 days. vancomycin 2020- No 125mg Q.25D Take 125 [facility] (VANCOCIN) 05-27 04-[address] 125 MG 16:08: 00:00 mouth 4 Hospita capsule 11 :00 (four) l times a day. potassium 2020- No 10meq Q.5D Take 10 [facility] hodi chloride 05-22 03-[address] (MICRO-K) 13:52: 00:00 mouth 2 Hosp cici 10 MEQ CR 09 :00 (two) l capsule times a day. potassium 2020- No 20meq Q.5D Take 2 Meth felicity chloride 05-22- capsules st (MICRO-K) 00:00: 04:59 (20 mEq Hosp cici 10 MEQ CR 00 :00 total) by l capsule mouth 2 (two) times a day for 30 days. magnesium 2020- No 400mg Q.5D Take 1 Meth felicity oxide 05-22 05- tablet st (MAG-OX) 00:00: 04:59 (400 mg Hospi ta 400 mg 00 :00 total) by l (241.3 mg mouth 2 magnesium) (two) tablet times a day for 30 days. dronabinoL 2020- No 5mg Q.5D Take 1 Meth felicity (MARINOL) 5 05-22 04-05 capsule (5 s t MG capsule 00:00: 00:00 mg total) H [facility]spita 00 :00 by mouth 2 l (two) times a day before meals for 30 days. apixaban 2020- No 5mg Q.5D Take 5 mg [facility] (ELIQUIS) 5 05-19 by mouth 2 s t mg tablet 14:59: 00:00 (two) Hospit a 33 :00 times a l day. potassium 2020- No [id number] 20meq [id number] [facility] chloride 20 -16 05- [id number] s t mEq in 100 17:00: 19:06 67D Hospit a mL IV 00 :00 l premix (FOR CENTRAL LINE ONLY) potassium 2020- No [id number] 20meq Q.[id number] [facility] chloride 20 -13 05- [id number] s t mEq in 100 16:15: 18:17 67D Hospit a mL IV 00 :00 l premix (FOR CENTRAL LINE ONLY) magnesium 2020- No [id number] 1g [facility] sulfate 05-13 st 1g/100mL 16:15: 17:17 Hospita D5W IVPB 00 :00 l (premix) mirtazapine 2020- No 15mg QD Take 1 Met hodi (REMERON 05-1205 tablet (15 st SUSAN-TAB) 15 00:00: 00:00 mg total) Hospita MG 00 :00 by mouth l disintegrat nightly ing tablet for 30 days. vilazodone No 10mg QD Take 1 Meth felicity (VIIBRYD) 05-12 tablet (10 st 10 mg 00:00: 00:00 mg total) Hospit a tablet 00 :00 by mouth l daily for 30 days. vilazodone 2020- No 40mg QD Take 40 mg [facility] (VIIBRYD) 05-10- by mouth st 40 mg 16:30: 00:00 daily. Hospita tablet 30 :00 l ALPRAZolam 2020- No .5mg QD Take 0.5 [facility] (XANAX) 0.5 05-10-[address] MG tablet 16:30: 00:00 mouth Hospit a 30 :00 nightly as l needed for anxiety. valACYclovi 2020- No 1000mg Q.5D Take 1,000 Methodi r (VALTREX) 05-10-[address] 1000 MG 16:30: 00:00 mouth 2 Hospit a tablet 30 :00 (two) l times a day. ALPRAZolam No .5mg Q6H Take 1 Meth felicity (XANAX) 0.5 05-[address] MG tablet 00:00: 00:00 (0.5 mg Hosp cici 00 :00 total) by l mouth every 6 (six) hours as needed for anxiety for up to 30 days. valACYclovi No 500mg QD Take 1 [facility] r (VALTREX) 05-[address] 500 MG 00:00: 00:00 (500 mg Hospita tablet 00 :00 total) by l mouth daily for 30 days. carvediloL No 12.5mg Q.5D Take 1 [facility] (COREG) 05-[address] 12.5 MG 00:00: 00:00 (12.5 mg Hospi ta tablet 00 :00 total) by l mouth 2 (two) times a day for 30 days. clotrimazol 2020- No 10mg Q.25D Take 1 [facility] e (MYCELEX) 05-10 Art (10 s t 10 mg 00:00: 00:00 mg total) Hospit a art 00 :00 by mouth 4 l (four) times a day for 36 doses. dronabinoL 2020- No 2.5mg Q.5D Take 1 Met hodi (MARINOL) 05-[address] 2.5 MG 00:00: 00:00 (2.5 mg Hospita capsule 00 :00 total) by l mouth 2 (two) times a day before meals for 30 days. amLODIPine 2020- No 2.5mg QD Take 1 Met [facility] (NORVASC) 05-[address] 2.5 mg 00:00: 00:00 (2.5 mg Hospita tablet 00 :00 total) by l mouth daily for 30 days. vilazodone 2020- No 20mg QD Take 2 Meth felicity (VIIBRYD) 05-[address] 10 mg 00:00: 00:00 (20 mg Hospita tablet 00 :00 total) by l mouth daily for 30 days. benzonatate 2020- No 100mg Q.[id number] Take 1 [facility] (TESSALON) 05-[id number] 100 MG 00:00: 00:00 3D (100 mg Hospita capsule 00 :00 total) by l mouth 3 (three) times a day for 30 days. docusate 2020- No 100mg Q.5D Take 1 Metho di sodium 05-[address] (COLACE) 00:00: 00:00 (100 mg Hospi ta 100 MG 00 :00 total) by l capsule mouth 2 (two) times a day for 30 days. potassium No 20meq QD Take 2 Meth felicity chloride 05-[address] (MICRO-K) 00:00: 00:00 (20 mEq Hosp cici 10 MEQ CR 00 :00 total) by l capsule mouth daily for 30 days. vancomycin 2020- No 125mg QD Take 2.5 M ethodi (FIRVANQ) 05-10 mL ([address] 50 mg/mL 00:00: 00:00 total) by Paula baron 00 :00 mouth l oral daily for solution 30 days. fluconazole 2020- No 200mg QD Take 1 [facility] (DIFLUCAN) 04-[address] 200 MG 00:00: 04:59 (200 mg Hospita tablet 00 :00 total) by l mouth daily for 30 days. fluconazole 2020- No 200mg QD Take 1 [facility] (DIFLUCAN) 04-[address] 200 MG 00:00: 00:00 (200 mg Hospita tablet 00 :00 total) by l mouth daily for 5 days. carvediloL 2020- No 25mg Q.5D Take 25 mg [facility] (COREG) 25 04-23-[address] MG tablet 19:02: 00:00 (two) Hospit a 27 :00 times a l day with meals. losartan No 100mg QD Take 100 [facility] (COZAAR) 3- 03-[address] 100 MG 19:02: 00:00 mouth Hospita tablet 27 :00 daily. l potassium 2020- No 20meq QD Take 20 [facility] chloride - 03-[address] (K-DUR) 10 19:02: 00:00 mouth Hospi ta MEQ CR 27 :00 daily. l tablet clotrimazol 2020- No 10mg Q.25D Take 1 [facility] e (MYCELEX) 04-23 03-10 Art (10 s t 10 mg 00:00: 05:59 mg total) Hospit a art 00 :00 by mouth 4 l (four) times a day for 7 days. vancomycin No 125mg Take 125 M ethodi (VANCOCIN) 04-15 02-[address] 125 MG 11:11: 00:00 mouth Hospita capsule 34 :00 daily. l detention medication to prevent c.difficil e per amLODIPine No 10mg QD Take 10 mg [facility] (NORVASC) 04-13-[address] 10 mg 12:20: 00:00 daily. Hospita tablet 34 :00 l amLODIPine 2020- No 5mg QD Take 0.5 [facility] (NORVASC) 04-13-19 tablets (5 st 10 mg 00:00: 00:00 mg total) Hospit a tablet 00 :00 by mouth l daily for 30 days. Measure blood pressure each day before taking this medication . Do not take if systolic BP < 130 or diastolic BP < 80. apixaban 2020- No 5mg Q.5D Take 1 [facility] i (ELIQUIS) 5 2-13 -20 tablet (5 st mg tablet 00:00: 00:00 mg total) [facility] 00 :00 by mouth 2 l (two) times a day. clotrimazol 2020- No 10mg Q.25D Take 10 mg Methodi e (MYCELEX) 04-03-10 by mouth 4 s t 10 mg 12:08: 00:00 (four) Hospita art 45 :00 times a l day. valACYclovi 2020- No 500mg QD Take 500 Methodi r (VALTREX) 04-03 02-[address] 500 MG 12:08: 00:00 mouth Hospita tablet 45 :00 daily. l valACYclovi 2020- No Take 1 Met hodi r (VALTREX) 04-[address] 1000 MG 00:00: 00:00 (1,000 mg Hosp cici tablet 00 :00 total) by l mouth 2 (two) times a day for 4 days, THEN 1 tablet (1,000 mg total) daily for 26 days. fluconazole No 200mg QD Take 1 [facility] (DIFLUCAN) 04-[address] 200 MG 00:00: 00:00 (200 mg Hospita tablet 00 :00 total) by l mouth daily for 30 days. benadryl/li 2020- No 10mL Q6H Swish and Methodi docaine/maa 04-0220 spit 10 mL s t lox (MAGIC 00:00: 00:00 every 6 Hos ray MOUTHWASH) 00 :00 (six) l 1:1:1 hours as suspension needed suspension (mucositis ) for up to 30 days. apixaban No 10mg Q12H Take 2 [facility] i (ELIQUIS) 5 04-02-[address] mg tablet 00:00: 05:59 (10 mg Hospi ta 00 :00 total) by l mouth every 12 (twelve) hours for 4 days. valACYclovi 2020- No 1000mg Q.5D Take 1 M ethodi r (VALTREX) 04-[address] 1000 MG 00:00: 00:00 (1,000 mg Hosp cici tablet 00 :00 total) by l mouth 2 (two) times a day for 30 days. amLODIPine No 10mg QD Take 1 Meth felicity (NORVASC) 03-22 tablet (10 st 10 mg 00:00: 00:00 mg total) Hospit a tablet 00 :00 by mouth l daily for 30 days. clotrimazol No 10mg Q.25D Take 1 [facility] e (MYCELEX) 03-22 Art (10 s t 10 mg 00:00: 00:00 mg total) Hospit a art 00 :00 by mouth 4 l (four) times a day for 8 days. cholecalcif No 2000U QD Take 1 [facility] aliyah, 03-[address] vitamin D3, 00:00: 00:00 (2,000 Hos ray (VITAMIN 00 :00 Units l D3) 2,000 total) by unit tablet mouth daily for 30 days. levoFLOXaci No 500mg QD Take 1 [facility] n 03-[address] (LEVAQUIN) 00:00: 00:00 (500 mg Hos ray 500 MG 00 :00 total) by l tablet mouth daily for 30 days. ondansetron No 8mg Q8H Take 1 Met hodi ODT 03-22 tablet (8 st (ZOFRAN-ODT 00:00: 00:00 mg total) Hospita ) 8 MG 00 :00 by mouth l disintegrat every 8 ing tablet (eight) hours as needed for nausea or vomiting for up to 30 days. potassium No 20meq QD Take 2 Meth felicity chloride 03-[address] (MICRO-K) 00:00: 00:00 (20 mEq Hosp cici 10 MEQ CR 00 :00 total) by l capsule mouth daily for 30 days. progesteron 2020- No 100mg QD Take 1 [facility] e 03-[address] (PROMETRIUM 00:00: 00:00 (100 mg [facility] ) 100 MG 00 :00 total) by l capsule mouth daily for 30 days. valACYclovi 2020- No 500mg QD Take 1 [facility] r (VALTREX) 03-[address] 500 MG 00:00: 00:00 (500 mg Hospita tablet 00 :00 total) by l mouth daily for 30 days. vancomycin 2020- No 125mg QD Take 1 Met hodi (VANCOCIN) 03-22-[address] 125 MG 00:00: 00:00 (125 mg Hospita capsule 00 :00 total) by l mouth daily for 30 days. losartan No 100mg QD Take 1 Metho di (COZAAR) 03-12-[address] 100 MG 00:00: 00:00 (100 mg Hospita tablet 00 :00 total) by l mouth daily for 30 days. gabapentin No 100mg Q8H Take 1 Met hodi (NEURONTIN) 03-11-[address] 100 mg 00:00: 00:00 (100 mg Hospita capsule 00 :00 total) by l mouth every 8 (eight) hours for 30 days. carvediloL No 25mg Q.5D Take 1 Meth felicity (COREG) 25 03-01-05 tablet (25 st MG tablet 00:00: 00:00 mg total) [facility] 00 :00 by mouth 2 l (two) times a day for 30 days. SUMAtriptan 2019-02 Yes 100mg Take 100 M ethodi (IMITREX) 1-[address] 100 MG 00:00: mouth as Hospita tablet 00 needed for l migraine. buPROPion 2019-02 Yes 300mg QD Take 300 [facility] XL 1-[address] (WELLBUTRIN 00:00: mouth Hospi ta XL) 300 MG 00 nightly. l 24 hr tablet lansoprazol 2019-02 Yes 30mg QD Take 30 mg [facility] e 1-[address] (PREVACID) 00:00: daily. Hospi ta 30 MG 00 l capsule aspirin 81 No 81mg QD Chew 81 mg [facility] mg chewable 11-08- daily. st tablet 00:00: 00:00 Hospita 00 :00 l fluconazole Yes [id number] TAKE 2 [facility] 100 mg 9-09 TABLETS BY ity of tablet 00:00: MOUTH ON DAY 1 THEN Medical 1 DAILY Branch fluconazole Yes [id number] TAKE 2 [facility] 100 mg 9-09 TABLETS BY ity of tablet 00:00: MOUTH ON DAY THEN Medical 1 DAILY Branch fluconazole Yes [id number] TAKE 2 [facility] 100 mg 9-09 TABLETS BY ity of tablet 00:00: MOUTH ON 1 THEN Medical 1 DAILY Branch fluconazole 2020-0 Yes [id number] TAKE 2 [facility] 100 mg 9-09 TABLETS BY ity of tablet 00:00: MOUTH ON THEN Medical 1 DAILY Branch fluconazole 2020-0 Yes [id number] TAKE 2 [facility] 100 mg 9-09 TABLETS BY ity of tablet 00:00: MOUTH ON THEN Medical 1 DAILY Branch fluconazole 2020-0 Yes [id number] TAKE 2 [facility] 100 mg 9-09 TABLETS BY ity of tablet 00:00: MOUTH ON THEN Medical 1 DAILY Branch fluconazole 2020-0 Yes [id number] TAKE 2 [facility] 100 mg 9-09 TABLETS BY ity of tablet 00:00: MOUTH ON THEN Medical 1 DAILY Branch fluconazole 2020-0 Yes [id number] TAKE 2 [facility] 100 mg 9-09 TABLETS BY ity of tablet 00:00: MOUTH ON THEN Medical 1 DAILY Branch fluconazole 2020-0 Yes [id number] TAKE 2 [facility] 100 mg 9-09 TABLETS BY ity of tablet 00:00: MOUTH ON THEN Medical 1 DAILY Branch fluconazole 2020-0 Yes [id number] TAKE 2 [facility] 100 mg 9-09 TABLETS BY ity of tablet 00:00: MOUTH ON THEN Medical 1 DAILY Branch fluconazole 2020-0 Yes [id number] TAKE 2 [facility] 100 mg 9-09 TABLETS BY ity of tablet 00:00: MOUTH ON THEN Medical 1 DAILY Branch fluconazole 2020-0 Yes [id number] TAKE 2 [facility] 100 mg 9-09 TABLETS BY ity of tablet 00:00: MOUTH ON THEN Medical 1 DAILY Branch fluconazole 2020-0 Yes [id number] TAKE 2 [facility] 100 mg 9-09 TABLETS BY ity of tablet 00:00: MOUTH ON THEN Medical 1 DAILY Branch fluconazole 2020-0 Yes [id number] TAKE 2 [facility] 100 mg 9-09 TABLETS BY ity of tablet 00:00: MOUTH ON [place] THEN Medical 1 DAILY Branch fluconazole 2020-0 Yes [id number] TAKE 2 [facility] 100 mg 9-09 TABLETS BY ity of tablet 00:00: MOUTH ON [place] 1 THEN Medical 1 DAILY Branch fluconazole 2020-0 Yes [id number] TAKE 2 [facility] 100 mg 9-09 TABLETS BY ity of tablet 00:00: MOUTH ON 1 THEN Medical 1 DAILY Branch fluconazole 2020-0 Yes [id number] TAKE 2 [facility] 100 mg 9-09 TABLETS BY ity of tablet 00:00: MOUTH ON THEN Medical 1 DAILY Branch fluconazole 2020-0 Yes [id number] TAKE 2 [facility] 100 mg 9-09 TABLETS BY ity of tablet 00:00: MOUTH ON THEN Medical 1 DAILY Branch fluconazole 2020-0 Yes [id number] TAKE 2 [facility] 100 mg 9-09 TABLETS BY ity of tablet 00:00: MOUTH ON THEN Medical 1 DAILY Branch fluconazole 2020-0 Yes [id number] TAKE 2 [facility] 100 mg 9-09 TABLETS BY ity of tablet 00:00: MOUTH ON THEN Medical 1 DAILY Branch fluconazole 2020-0 Yes [id number] TAKE 2 [facility] 100 mg 9-09 TABLETS BY ity of tablet 00:00: MOUTH ON THEN Medical 1 DAILY Branch fluconazole 2020-0 Yes [id number] TAKE 2 [facility] 100 mg 9-09 TABLETS BY ity of tablet 00:00: MOUTH ON THEN Medical 1 DAILY Branch fluconazole 2020-0 Yes [id number] TAKE 2 [facility] 100 mg 9-09 TABLETS BY ity of tablet 00:00: MOUTH ON THEN Medical 1 DAILY Branch fluconazole 2020-0 Yes [id number] TAKE 2 [facility] 100 mg 9-09 TABLETS BY ity of tablet 00:00: MOUTH ON THEN Medical 1 DAILY Branch fluconazole 2020-0 Yes [id number] TAKE 2 [facility] 100 mg 9-09 TABLETS BY ity of tablet 00:00: MOUTH ON THEN Medical 1 DAILY Branch fluconazole 2020-0 Yes [id number] Take 2 [facility] 100 mg 8-24 tabs on [facility]y of tablet 00:00: day one then one a Medical day Branch fluconazole 2020-0 2020- No [id number] Take 2 [facility] 100 mg 8-24 09-09 tabs on ity of tablet 00:00: 00:00 day one 00 :00 then one a Medical day Branch cefUROXime 2020-0 Yes [id number] 500mg Take 1 [facility] 500 mg 8-17 tablet by [facility]y of tablet 00:00: mouth 2 (two) Medical times Branch daily. predniSONE 2020-0 Yes [id number] 20mg Take 1 [facility] nivers 20 mg 8-17 tablet by ity of tablet 00:00: mouth 2 (two) Medical times Branch daily. cefUROXime 2020-0 Yes [id number] 500mg Take 1 [facility] 500 mg 8-17 tablet by [facility] of tablet 00:00: mouth (two) Medical times Branch daily. predniSONE 2020-0 Yes [id number] 20mg Take 1 U nivers 20 mg 8-17 tablet by ity of tablet 00:00: mouth (two) Medical times Branch daily. cefUROXime 2020-0 Yes [id number] 500mg Take 1 [facility] 500 mg 8-17 tablet by ity of tablet 00:00: mouth (two) Medical times Branch daily. predniSONE 2020-0 Yes [id number] 20mg Take 1 U nivers 20 mg 8-17 tablet by ity of tablet 00:00: mouth (two) Medical times Branch daily. cefUROXime 2020-0 Yes [id number] 500mg Take 1 [facility] 500 mg 8-17 tablet by ity of tablet 00:00: mouth (two) Medical times Branch daily. predniSONE 2020-0 Yes [id number] 20mg Take 1 U nivers 20 mg 8-17 tablet by ity of tablet 00:00: mouth (two) Medical times Branch daily. cefUROXime 2020-0 Yes [id number] 500mg Take 1 [facility] 500 mg 8-17 tablet by ity of tablet 00:00: mouth (two) Medical times Branch daily. predniSONE 2020-0 Yes [id number] 20mg Take 1 U nivers 20 mg 8-17 tablet by ity of tablet 00:00: mouth (two) Medical times Branch daily. cefUROXime 2020-0 Yes [id number] 500mg Take 1 [facility] 500 mg 8-17 tablet by ity of tablet 00:00: mouth (two) Medical times Branch daily. predniSONE 2020-0 Yes [id number] 20mg Take 1 U nivers 20 mg 8-17 tablet by ity of tablet 00:00: mouth (two) Medical times Branch daily. cefUROXime 2020-0 Yes [id number] 500mg Take 1 [facility] 500 mg 8-17 tablet by ity of tablet 00:00: mouth (two) Medical times Branch daily. predniSONE 2020-0 Yes [id number] 20mg Take 1 U nivers 20 mg 8-17 tablet by ity of tablet 00:00: mouth (two) Medical times Branch daily. cefUROXime 2020-0 Yes [id number] 500mg Take 1 [facility] 500 mg 8-17 tablet by ity of tablet 00:00: mouth (two) Medical times Branch daily. predniSONE 2020-0 Yes [id number] 20mg Take 1 U nivers 20 mg 8-17 tablet by ity of tablet 00:00: mouth (two) Medical times Branch daily. cefUROXime 2020-0 Yes [id number] 500mg Take 1 [facility] 500 mg 8-17 tablet by ity of tablet 00:00: mouth (two) Medical times Branch daily. predniSONE 2020-0 Yes [id number] 20mg Take 1 U nivers 20 mg 8-17 tablet by ity of tablet 00:00: mouth (two) Medical times Branch daily. cefUROXime 2020-0 Yes [id number] 500mg Take 1 [facility] 500 mg 8-17 tablet by ity of tablet 00:00: mouth (two) Medical times Branch daily. predniSONE 2020-0 Yes [id number] 20mg Take 1 U nivers 20 mg 8-17 tablet by ity of tablet 00:00: mouth (two) Medical times Branch daily. cefUROXime 2020-0 Yes [id number] 500mg Take 1 [facility] 500 mg 8-17 tablet by ity of tablet 00:00: mouth (two) Medical times Branch daily. predniSONE 2020-0 Yes [id number] 20mg Take 1 U nivers 20 mg 8-17 tablet by ity of tablet 00:00: mouth (two) Medical times Branch daily. cefUROXime 2020-0 Yes [id number] 500mg Take 1 [facility] 500 mg 8-17 tablet by ity of tablet 00:00: mouth (two) Medical times Branch daily. predniSONE 2020-0 Yes [id number] 20mg Take 1 U nivers 20 mg 8-17 tablet by ity of tablet 00:00: mouth (two) Medical times Branch daily. cefUROXime 2020-0 Yes [id number] 500mg Take 1 [facility] 500 mg 8-17 tablet by ity of tablet 00:00: mouth 2 (two) Medical times Branch daily. predniSONE 2020-0 Yes [id number] 20mg Take 1 U nivers 20 mg 8-17 tablet by ity of tablet 00:00: mouth [place] (two) Medical times Branch daily. cefUROXime 2020-0 Yes [id number] 500mg Take 1 [facility] 500 mg 8-17 tablet by ity of tablet 00:00: mouth [place] (two) Medical times Branch daily. predniSONE 2020-0 Yes [id number] 20mg Take 1 U nivers 20 mg 8-17 tablet by ity of tablet 00:00: mouth [place] (two) Medical times Branch daily. cefUROXime 2020-0 Yes [id number] 500mg Take 1 [facility] 500 mg 8-17 tablet by ity of tablet 00:00: mouth [place] (two) Medical times Branch daily. predniSONE 2020-0 Yes [id number] 20mg Take 1 U nivers 20 mg 8-17 tablet by ity of tablet 00:00: mouth [place] (two) Medical times Branch daily. cefUROXime 2020-0 Yes [id number] 500mg Take 1 [facility] 500 mg 8-17 tablet by ity of tablet 00:00: mouth [place] ([facility]) Medical times Branch daily. predniSONE 2020-0 Yes [id number] 20mg Take 1 U nivers 20 mg 8-17 tablet by ity of tablet 00:00: mouth [place] (two) Medical times Branch daily. cefUROXime 2020-0 Yes [id number] 500mg Take 1 [facility] 500 mg 8-17 tablet by ity of tablet 00:00: mouth [place] (two) Medical times Branch daily. predniSONE 2020-0 Yes [id number] 20mg Take 1 U nivers 20 mg 8-17 tablet by ity of tablet 00:00: mouth [place] (two) Medical times Branch daily. cefUROXime 2020-0 Yes [id number] 500mg Take 1 [facility] 500 mg 8-17 tablet by ity of tablet 00:00: mouth [place] (two) Medical times Branch daily. predniSONE 2020-0 Yes [id number] 20mg Take 1 U nivers 20 mg 8-17 tablet by ity of tablet 00:00: mouth [place] (two) Medical times Branch daily. cefUROXime 2020-0 Yes [id number] 500mg Take 1 [facility] 500 mg 8-17 tablet by ity of tablet 00:00: mouth 2 [place] (two) Medical times Branch daily. predniSONE 2020-0 Yes [id number] 20mg Take 1 U nivers 20 mg 8-17 tablet by ity of tablet 00:00: mouth (two) Medical times Branch daily. cefUROXime 2020-0 Yes [id number] 500mg Take 1 [facility] 500 mg 8-17 tablet by ity of tablet 00:00: mouth [place] (two) Medical times Branch daily. predniSONE 2020-0 Yes [id number] 20mg Take 1 U nivers 20 mg 8-17 tablet by ity of tablet 00:00: mouth [place] (two) Medical times Branch daily. cefUROXime 2020-0 Yes [id number] 500mg Take 1 [facility] 500 mg 8-17 tablet by ity of tablet 00:00: mouth (two) Medical times Branch daily. predniSONE 2020-0 Yes [id number] 20mg Take 1 U nivers 20 mg 8-17 tablet by ity of tablet 00:00: mouth [place] ([facility]) Medical times Branch daily. cefUROXime 2020-0 Yes [id number] 500mg Take 1 [facility] 500 mg 8-17 tablet by ity of tablet 00:00: mouth [place] ([facility]) Medical times Branch daily. predniSONE 2020-0 Yes [id number] 20mg Take 1 U nivers 20 mg 8-17 tablet by ity of tablet 00:00: mouth [place] ([facility]) Medical times Branch daily. cefUROXime 2020-0 Yes [id number] 500mg Take 1 [facility] 500 mg 8-17 tablet by ity of tablet 00:00: mouth [place] ([facility]) Medical times Branch daily. predniSONE 2020-0 Yes [id number] 20mg Take 1 U nivers 20 mg 8-17 tablet by ity of tablet 00:00: mouth [place] ([facility]) Medical times Branch daily. cefUROXime 2020-0 Yes [id number] 500mg Take 1 [facility] 500 mg 8-17 tablet by ity of tablet 00:00: mouth [place] (two) Medical times Branch daily. predniSONE 2020-0 Yes [id number] 20mg Take 1 U nivers 20 mg 8-17 tablet by ity of tablet 00:00: mouth [place] (two) Medical times Branch daily. cefUROXime 2020-0 Yes [id number] 500mg Take 1 [facility] 500 mg 8-17 tablet by ity of tablet 00:00: mouth [place] (two) Medical times Branch daily. predniSONE 2020-0 Yes [id number] 20mg Take 1 U nivers 20 mg 8-17 tablet by ity of tablet 00:00: mouth (two) Medical times Branch daily. cefUROXime 2020-0 Yes [id number] 500mg Take 1 [facility] 500 mg 8-17 tablet by ity of tablet 00:00: mouth (two) Medical times Branch daily. predniSONE 2020-0 Yes [id number] 20mg Take 1 [facility] 20 mg 8-17 tablet by [facility] tablet 00:00: mouth (two) Medical times Branch daily. cefUROXime 2020-0 Yes [id number] 500mg Take 1 [facility] 500 mg 8-17 tablet by [facility] of tablet 00:00: mouth (two) Medical times Branch daily. predniSONE 2020-0 Yes [id number] 20mg Take 1 [facility] 20 mg 8-17 tablet by [facility] of tablet 00:00: mouth (two) Medical times Branch daily. azithromyci 2020-0 Yes [id number] 500mg Take 1 [facility] n 500 mg 8-13 tablet by [facility] of tablet 00:00: mouth daily. Medical Branch albuterol 2020-0 Yes [id number] 2{puff} Inhale 2 [facility] (PROAIR 8-13 Puffs ity of HFA) 90 00:00: every 6 [place] mcg/actuati 00 (six) Medical on inhaler hours as Branc h needed for Wheezing or Shortness of Breath. azithromyci 2020-0 Yes [id number] 500mg Take 1 [facility] n 500 mg 8-13 tablet by ity of tablet 00:00: mouth daily. Medical Branch albuterol 2020-0 Yes [id number] 2{puff} Inhale 2 [facility] (PROAIR 8-13 Puffs ity of HFA) 90 00:00: every 6 [place] mcg/actuati 00 (six) Medical on inhaler hours as Branc h needed for Wheezing or Shortness of Breath. azithromyci 2020-0 Yes [id number] 500mg Take 1 [facility] n 500 mg 8-13 tablet by ity of tablet 00:00: mouth 00 daily. Medical Branch albuterol 2020-0 Yes [id number] 2{puff} Inhale 2 [facility] (PROAIR 8-13 Puffs ity of HFA) 90 00:00: every 6 [place] mcg/actuati 00 (six) Medical on inhaler hours as Branc h needed for Wheezing or Shortness of Breath. azithromyci 2020-0 Yes [id number] 500mg Take 1 [facility] n 500 mg 8-13 tablet by ity of tablet 00:00: mouth [place] 00 daily. Medical Branch albuterol 2020-0 Yes [id number] 2{puff} Inhale 2 [facility] (PROAIR 8-13 Puffs ity of HFA) 90 00:00: every 6 [place] mcg/actuati 00 (six) Medical on inhaler hours as Branc h needed for Wheezing or Shortness of Breath. azithromyci 2020-0 Yes [id number] 500mg Take 1 [facility] n 500 mg 8-13 tablet by ity of tablet 00:00: mouth [place] 00 daily. Medical Branch albuterol 2020-0 Yes [id number] 2{puff} Inhale 2 [facility] (PROAIR 8-13 Puffs ity of HFA) 90 00:00: every 6 [place] mcg/actuati 00 (six) Medical on inhaler hours as Branc h needed for Wheezing or Shortness of Breath. azithromyci 2020-0 Yes [id number] 500mg Take 1 [facility] n 500 mg 8-13 tablet by ity of tablet 00:00: mouth [place] 00 daily. Medical Branch albuterol 2020-0 Yes [id number] 2{puff} Inhale 2 [facility] (PROAIR 8-13 Puffs ity of HFA) 90 00:00: every 6 [place] mcg/actuati 00 (six) Medical on inhaler hours as Branc h needed for Wheezing or Shortness of Breath. azithromyci 2020-0 Yes [id number] 500mg Take 1 [facility] n 500 mg 8-13 tablet by ity of tablet 00:00: mouth [place] 00 daily. Medical Branch albuterol 2020-0 Yes [id number] 2{puff} Inhale 2 [facility] (PROAIR 8-13 Puffs ity of HFA) 90 00:00: every 6 [place] mcg/actuati 00 (six) Medical on inhaler hours as Branc h needed for Wheezing or Shortness of Breath. azithromyci 2020-0 Yes [id number] 500mg Take 1 [facility] n 500 mg 8-13 tablet by ity of tablet 00:00: mouth [place] 00 daily. Medical Branch albuterol 2020-0 Yes [id number] 2{puff} Inhale 2 [facility] (PROAIR 8-13 Puffs ity of HFA) 90 00:00: every 6 [place] mcg/actuati 00 (six) Medical on inhaler hours as Branc h needed for Wheezing or Shortness of Breath. azithromyci 2020-0 Yes [id number] 500mg Take 1 [facility] n 500 mg 8-13 tablet by ity of tablet 00:00: mouth [place] 00 daily. Medical Branch albuterol 2020-0 Yes [id number] 2{puff} Inhale 2 [facility] (PROAIR 8-13 Puffs ity of HFA) 90 00:00: every 6 [place] mcg/actuati 00 (six) Medical on inhaler hours as Branc h needed for Wheezing or Shortness of Breath. azithromyci 2020-0 Yes [id number] 500mg Take 1 [facility] n 500 mg 8-13 tablet by ity of tablet 00:00: mouth [place] 00 daily. Medical Branch albuterol 2020-0 Yes [id number] 2{puff} Inhale 2 [facility] (PROAIR 8-13 Puffs ity of HFA) 90 00:00: every 6 [place] mcg/actuati 00 (six) Medical on inhaler hours as Branc h needed for Wheezing or Shortness of Breath. azithromyci 2020-0 Yes [id number] 500mg Take 1 [facility] n 500 mg 8-13 tablet by ity of tablet 00:00: mouth [place] 00 daily. Medical Branch albuterol 2020-0 Yes [id number] 2{puff} Inhale 2 [facility] (PROAIR 8-13 Puffs ity of HFA) 90 00:00: every 6 [place] mcg/actuati 00 (six) Medical on inhaler hours as Branc h needed for Wheezing or Shortness of Breath. azithromyci 2020-0 Yes [id number] 500mg Take 1 [facility] n 500 mg 8-13 tablet by ity of tablet 00:00: mouth [place] 00 daily. Medical Branch albuterol 2020-0 Yes [id number] 2{puff} Inhale 2 [facility] (PROAIR 8-13 Puffs ity of HFA) 90 00:00: every 6 [place] mcg/actuati 00 (six) Medical on inhaler hours as Branc h needed for Wheezing or Shortness of Breath. azithromyci 2020-0 Yes [id number] 500mg Take 1 [facility] n 500 mg 8-13 tablet by ity of tablet 00:00: mouth [place] 00 daily. Medical Branch albuterol 2020-0 Yes [id number] 2{puff} Inhale 2 [facility] (PROAIR 8-13 Puffs ity of HFA) 90 00:00: every 6 [place] mcg/actuati 00 (six) Medical on inhaler hours as Branc h needed for Wheezing or Shortness of Breath. azithromyci 2020-0 Yes [id number] 500mg Take 1 [facility] n 500 mg 8-13 tablet by ity of tablet 00:00: mouth [place] 00 daily. Medical [facility] albuterol 2020-0 Yes [id number] 2{puff} Inhale 2 [facility] (PROAIR 8-13 Puffs ity of HFA) 90 00:00: every 6 [place] mcg/actuati 00 (six) Medical on inhaler hours as Branc h needed for Wheezing or Shortness of Breath. azithromyci 2020-0 Yes [id number] 500mg Take 1 [facility] n 500 mg 8-13 tablet by ity of tablet 00:00: mouth [place] 00 daily. Medical Branch albuterol 2020-0 Yes [id number] 2{puff} Inhale 2 [facility] (PROAIR 8-13 Puffs ity of HFA) 90 00:00: every 6 [place] mcg/actuati 00 (six) Medical on inhaler hours as Branc h needed for Wheezing or Shortness of Breath. azithromyci 2020-0 Yes [id number] 500mg Take 1 [facility] n 500 mg 8-13 tablet by ity of tablet 00:00: mouth [place] 00 daily. Medical [facility] albuterol 2020-0 Yes [id number] 2{puff} Inhale 2 [facility] (PROAIR 8-13 Puffs ity of HFA) 90 00:00: every 6 [place] mcg/actuati 00 (six) Medical on inhaler hours as Branc h needed for Wheezing or Shortness of Breath. azithromyci 2020-0 Yes [id number] 500mg Take 1 [facility] n 500 mg 8-13 tablet by ity of tablet 00:00: mouth [place] 00 daily. Medical [facility] albuterol 2020-0 Yes [id number] 2{puff} Inhale 2 [facility] (PROAIR 8-13 Puffs ity of HFA) 90 00:00: every 6 [place] mcg/actuati 00 (six) Medical on inhaler hours as Branc h needed for Wheezing or Shortness of Breath. azithromyci 2020-0 Yes [id number] 500mg Take 1 [facility] n 500 mg 8-13 tablet by ity of tablet 00:00: mouth [place] 00 daily. Medical [facility] albuterol 2020-0 Yes [id number] 2{puff} Inhale 2 [facility] (PROAIR 8-13 Puffs ity of HFA) 90 00:00: every 6 [place] mcg/actuati 00 (six) Medical on inhaler hours as Branc h needed for Wheezing or Shortness of Breath. azithromyci 2020-0 Yes [id number] 500mg Take 1 [facility] n 500 mg 8-13 tablet by ity of tablet 00:00: mouth [place] 00 daily. Medical [facility] albuterol 2020-0 Yes [id number] 2{puff} Inhale 2 [facility] (PROAIR 8-13 Puffs ity of HFA) 90 00:00: every 6 [place] mcg/actuati 00 (six) Medical on inhaler hours as Branc h needed for Wheezing or Shortness of Breath. azithromyci 2020-0 Yes [id number] 500mg Take 1 [facility] n 500 mg 8-13 tablet by ity of tablet 00:00: mouth [place] 00 daily. Medical [facility] albuterol 2020-0 Yes [id number] 2{puff} Inhale 2 [facility] (PROAIR 8-13 Puffs ity of HFA) 90 00:00: every 6 [place] mcg/actuati 00 (six) Medical on inhaler hours as Branc h needed for Wheezing or Shortness of Breath. azithromyci 2020-0 Yes [id number] 500mg Take 1 [facility] n 500 mg 8-13 tablet by ity of tablet 00:00: mouth [place] 00 daily. Medical Branch albuterol 2020-0 Yes [id number] 2{puff} Inhale 2 [facility] (PROAIR 8-13 Puffs ity of HFA) 90 00:00: every 6 [place] mcg/actuati 00 (six) Medical on inhaler hours as Branc h needed for Wheezing or Shortness of Breath. azithromyci 2020-0 Yes [id number] 500mg Take 1 [facility] n 500 mg 8-13 tablet by ity of tablet 00:00: mouth [place] 00 daily. Medical Branch albuterol 2020-0 Yes [id number] 2{puff} Inhale 2 [facility] (PROAIR 8-13 Puffs ity of HFA) 90 00:00: every 6 [place] mcg/actuati 00 (six) Medical on inhaler hours as Branc h needed for Wheezing or Shortness of Breath. azithromyci 2020-0 Yes [id number] 500mg Take 1 [facility] n 500 mg 8-13 tablet by ity of tablet 00:00: mouth [place] 00 daily. Medical Branch albuterol 2020-0 Yes [id number] 2{puff} Inhale 2 [facility] (PROAIR 8-13 Puffs ity of HFA) 90 00:00: every 6 [place] mcg/actuati 00 (six) Medical on inhaler hours as Branc h needed for Wheezing or Shortness of Breath. azithromyci 2020-0 Yes [id number] 500mg Take 1 [facility] n 500 mg 8-13 tablet by ity of tablet 00:00: mouth [place] 00 daily. Medical Branch albuterol 2020-0 Yes [id number] 2{puff} Inhale 2 [facility] (PROAIR 8-13 Puffs ity of HFA) 90 00:00: every 6 [place] mcg/actuati 00 (six) Medical on inhaler hours as Branc h needed for Wheezing or Shortness of Breath. azithromyci 2020-0 Yes [id number] 500mg Take 1 [facility] n 500 mg 8-13 tablet by ity of tablet 00:00: mouth [place] 00 daily. Medical Branch albuterol 2020-0 Yes [id number] 2{puff} Inhale 2 [facility] (PROAIR 8-13 Puffs ity of HFA) 90 00:00: every 6 [place] mcg/actuati 00 (six) Medical on inhaler hours as Branc h needed for Wheezing or Shortness of Breath. azithromyci 2020-0 Yes [id number] 500mg Take 1 [facility] n 500 mg 8-13 tablet by ity of tablet 00:00: mouth [place] 00 daily. Medical Branch albuterol 2020-0 Yes [id number] 2{puff} Inhale 2 [facility] (PROAIR 8-13 Puffs ity of HFA) 90 00:00: every 6 [place] mcg/actuati 00 (six) Medical on inhaler hours as Branc h needed for Wheezing or Shortness of Breath. azithromyci 2020-0 Yes [id number] 500mg Take 1 [facility] n 500 mg 8-13 tablet by ity of tablet 00:00: mouth [place] 00 daily. Medical [facility] albuterol 2020-0 Yes [id number] 2{puff} Inhale 2 [facility] (PROAIR 8-13 Puffs ity of HFA) 90 00:00: every 6 [place] mcg/actuati 00 (six) Medical on inhaler hours as Branc h needed for Wheezing or Shortness of Breath. azithromyci 2020-0 Yes [id number] 500mg Take 1 [facility] n 500 mg 8-13 tablet by ity of tablet 00:00: mouth [place] 00 daily. Medical [facility] albuterol 2020-0 Yes [id number] 2{puff} Inhale 2 [facility] (PROAIR 8-13 Puffs ity of HFA) 90 00:00: every 6 [place] mcg/actuati 00 (six) Medical on inhaler hours as Branc h needed for Wheezing or Shortness of Breath. losartan-hy 2019-0 Yes [id number] 1{tbl} Take 1 [facility] drochloroth 6-26 tablet by ity of iazide 00:00: mouth [place] 100-12.5 mg 00 daily. Medica l per tablet Branch gabapentin 2020-0 Yes [id number] 300mg Take 1 [facility] 300 mg 6-26 capsule by ity of capsule 00:00: mouth 3 [place] 00 (three) Medical times Branch daily. fluticasone 2020-0 Yes [id number] INHALE ONE [facility] propion-shar 6-26 PUFF EVERY it y of meterol 00:00: 12 HOURS [place] (ADVAIR 00 Medical DISKUS) Branch 250-50 mcg/dose inhalation disk diltiazem 2019-0 Yes [id number] 180mg Take 1 [facility] 180 mg 24 6-26 capsule by ity of hr capsule 00:00: mouth [place] 00 daily. Medical Branch Butalbital- 2020-0 Yes [id number] TAKE 1 [facility] Acetaminoph 6-26 CAPSULE BY it y of en-Caff 00:00: MOUTH [place] 50-300-40 00 EVERY FOUR Medi taran mg per HOURS Branch capsule NEEDED HEADACHE zolpidem 5 2020-0 Yes [id number] TAKE 1 [facility] mg tablet 6-26 TABLET BY ity o f 00:00: MOUTH AT [place] 00 BEDTIME Medical NEEDED Branch vilazodone 2019-0 Yes [id number] TAKE 1 [facility] n[facility] (VIIBRYD) 6-26 TABLET BY ity o f 40 mg 00:00: MOUTH [place] tablet 00 EVERY DAY Medical Branch sumatriptan 2020-0 Yes [id number] 100mg Take 1 [facility] 100 mg 6-26 tablet by ity of tablet 00:00: mouth as [place] 00 needed for Medical Migraine. Branch metoprolol 2020-0 Yes [id number] 25mg Take 1 [facility] succinate 6-26 tablet by ity o f XL 25 mg 24 00:00: mouth [place] hr tablet 00 daily. Medical Branch meloxicam 2020-0 Yes [id number] TAKE 1 [facility] vers 15 mg 6-26 TABLET BY ity of tablet 00:00: MOUTH 1 [place] 00 TIME Medical DAILY. Branch losartan-hy 2019-0 Yes [id number] 1{tbl} Take 1 [facility] drochloroth 6-26 tablet by ity of iazide 00:00: mouth [place] 100-12.5 mg 00 daily. Medica l per tablet Branch gabapentin 2019-0 Yes [id number] 300mg Take 1 [facility] 300 mg 6-26 capsule by ity of capsule 00:00: mouth 3 [place] 00 (three) Medical times Branch daily. fluticasone 2020-0 Yes [id number] INHALE ONE [facility] propion-shar 6-26 PUFF EVERY it y of meterol 00:00: 12 HOURS [place] (ADVAIR 00 Medical DISKUS) Branch 250-50 mcg/dose inhalation disk diltiazem 2019-0 Yes [id number] 180mg Take 1 [facility] 180 mg 24 6-26 capsule by ity of hr capsule 00:00: mouth [place] 00 daily. Medical Branch Butalbital- 2020-0 Yes [id number] TAKE 1 [facility] Acetaminoph 6-26 CAPSULE BY it y of en-Caff 00:00: MOUTH [place] 50-300-40 00 EVERY FOUR Medi taran mg per HOURS Branch capsule NEEDED HEADACHE zolpidem 5 2019-0 Yes [id number] TAKE 1 [facility] mg tablet 6-26 TABLET BY ity o f 00:00: MOUTH AT [place] 00 BEDTIME Medical NEEDED Branch vilazodone 2019-0 Yes [id number] TAKE 1 [facility] (VIIBRYD) 6-26 TABLET BY ity o f 40 mg 00:00: MOUTH [place] tablet 00 EVERY DAY Medical Branch sumatriptan 2020-0 Yes [id number] 100mg Take 1 [facility] 100 mg 6-26 tablet by ity of tablet 00:00: mouth as [place] 00 needed for Medical Migraine. Branch metoprolol 2020-0 Yes [id number] 25mg Take 1 [facility] succinate 6-26 tablet by ity o f XL 25 mg 24 00:00: mouth [place] hr tablet 00 daily. Medical Branch meloxicam 2020-0 Yes [id number] TAKE 1 [facility] vers 15 mg 6-26 TABLET BY ity of tablet 00:00: MOUTH 1 [place] 00 TIME Medical DAILY. Branch losartan-hy 2020-0 Yes [id number] 1{tbl} Take 1 [facility] drochloroth 6-26 tablet by ity of iazide 00:00: mouth [place] 100-12.5 mg 00 daily. Medica l per tablet Branch gabapentin 2020-0 Yes [id number] 300mg Take 1 [facility] 300 mg 6-26 capsule by ity of capsule 00:00: mouth 3 [place] 00 (three) Medical times Branch daily. fluticasone 2020-0 Yes [id number] INHALE ONE [facility] propion-shar 6-26 PUFF EVERY it y of meterol 00:00: 12 HOURS [place] (ADVAIR 00 Medical DISKUS) Branch 250-50 mcg/dose inhalation disk diltiazem 2020-0 Yes [id number] 180mg Take 1 [facility] 180 mg 24 6-26 capsule by ity of hr capsule 00:00: mouth [place] 00 daily. Medical Branch Butalbital- 2020-0 Yes [id number] TAKE 1 [facility] Acetaminoph 6-26 CAPSULE BY it y of en-Caff 00:00: MOUTH [place] 50-300-40 00 EVERY FOUR Medi taran mg per HOURS Branch capsule NEEDED HEADACHE zolpidem 5 2019-0 Yes [id number] TAKE 1 [facility] mg tablet 6-26 TABLET BY ity o f 00:00: MOUTH AT [place] 00 BEDTIME Medical NEEDED Branch vilazodone 2019-0 Yes [id number] TAKE 1 [facility] (VIIBRYD) 6-26 TABLET BY ity o f 40 mg 00:00: MOUTH [place] tablet 00 EVERY DAY Medical Branch sumatriptan 2020-0 Yes [id number] 100mg Take 1 [facility] 100 mg 6-26 tablet by ity of tablet 00:00: mouth as [place] 00 needed for Medical Migraine. Branch metoprolol 2019-0 Yes [id number] 25mg Take 1 [facility] succinate 6-26 tablet by ity o f XL 25 mg 24 00:00: mouth [place] hr tablet 00 daily. Medical Branch meloxicam 2020-0 Yes [id number] TAKE 1 [facility] vers 15 mg 6-26 TABLET BY ity of tablet 00:00: MOUTH 1 [place] 00 TIME Medical DAILY. Branch losartan-hy 2020-0 Yes [id number] 1{tbl} Take 1 [facility] drochloroth 6-26 tablet by ity of iazide 00:00: mouth [place] 100-12.5 mg 00 daily. Medica l per tablet Branch gabapentin 2020-0 Yes [id number] 300mg Take 1 [facility] 300 mg 6-26 capsule by ity of capsule 00:00: mouth 3 [place] 00 (three) Medical times Branch daily. fluticasone 2020-0 Yes [id number] INHALE ONE [facility] propion-shar 6-26 PUFF EVERY it y of meterol 00:00: 12 HOURS [place] (ADVAIR 00 Medical DISKUS) Branch 250-50 mcg/dose inhalation disk diltiazem 2019-0 Yes [id number] 180mg Take 1 [facility] 180 mg 24 6-26 capsule by ity of hr capsule 00:00: mouth [place] 00 daily. Medical Branch Butalbital- 2020-0 Yes [id number] TAKE 1 [facility] Acetaminoph 6-26 CAPSULE BY it y of en-Caff 00:00: MOUTH [place] 50-300-40 00 EVERY FOUR Medi taran mg per HOURS Branch capsule NEEDED HEADACHE zolpidem 5 2019-0 Yes [id number] TAKE 1 [facility] mg tablet 6-26 TABLET BY ity o f 00:00: MOUTH AT [place] 00 BEDTIME Medical NEEDED Branch vilazodone 2019-0 Yes [id number] TAKE 1 [facility] (VIIBRYD) 6-26 TABLET BY ity o f 40 mg 00:00: MOUTH [place] tablet 00 EVERY DAY Medical Branch sumatriptan 2020-0 Yes [id number] 100mg Take 1 [facility] 100 mg 6-26 tablet by ity of tablet 00:00: mouth as [place] 00 needed for Medical Migraine. Branch metoprolol 2020-0 Yes [id number] 25mg Take 1 [facility] nivers succinate 6-26 tablet by ity o f XL 25 mg 24 00:00: mouth [place] hr tablet 00 daily. Medical Branch meloxicam 2020-0 Yes [id number] TAKE 1 [facility] vers 15 mg 6-26 TABLET BY ity of tablet 00:00: MOUTH 1 [place] 00 TIME Medical DAILY. Branch losartan-hy 2020-0 Yes [id number] 1{tbl} Take 1 [facility] drochloroth 6-26 tablet by ity of iazide 00:00: mouth [place] 100-12.5 mg 00 daily. Medica l per tablet Branch gabapentin 2019-0 Yes [id number] 300mg Take 1 [facility] 300 mg 6-26 capsule by ity of capsule 00:00: mouth 3 [place] 00 (three) Medical times Branch daily. fluticasone 2019-0 Yes [id number] INHALE ONE [facility] propion-shar 6-26 PUFF EVERY it y of meterol 00:00: 12 HOURS [place] (ADVAIR 00 Medical DISKUS) Branch 250-50 mcg/dose inhalation disk diltiazem 2019-0 Yes [id number] 180mg Take 1 [facility] 180 mg 24 6-26 capsule by ity of hr capsule 00:00: mouth [place] 00 daily. Medical Branch Butalbital- 2019-0 Yes [id number] TAKE 1 [facility] Acetaminoph 6-26 CAPSULE BY it y of en-Caff 00:00: MOUTH [place] 50-300-40 00 EVERY FOUR Medi taran mg per HOURS Branch capsule NEEDED HEADACHE zolpidem 5 2019-0 Yes [id number] TAKE 1 [facility] mg tablet 6-26 TABLET BY ity o f 00:00: MOUTH AT [place] 00 BEDTIME Medical NEEDED Branch vilazodone 2019-0 Yes [id number] TAKE 1 [facility] (VIIBRYD) 6-26 TABLET BY ity o f 40 mg 00:00: MOUTH [place] tablet 00 EVERY DAY Medical Branch sumatriptan 2019-0 Yes [id number] 100mg Take 1 [facility] 100 mg 6-26 tablet by ity of tablet 00:00: mouth as [place] 00 needed for Medical Migraine. Branch metoprolol 2019-0 Yes [id number] 25mg Take 1 [facility] succinate 6-26 tablet by ity o f XL 25 mg 24 00:00: mouth [place] hr tablet 00 daily. Medical Branch meloxicam 2019-0 Yes [id number] TAKE 1 [facility] vers 15 mg 6-26 TABLET BY ity of tablet 00:00: MOUTH 1 [place] 00 TIME Medical DAILY. Branch losartan-hy 2020-0 Yes [id number] 1{tbl} Take 1 [facility] drochloroth 6-26 tablet by ity of iazide 00:00: mouth [place] 100-12.5 mg 00 daily. Medica l per tablet Branch gabapentin 2019-0 Yes [id number] 300mg Take 1 [facility] 300 mg 6-26 capsule by ity of capsule 00:00: mouth 3 [place] 00 (three) Medical times Branch daily. fluticasone 2020-0 Yes [id number] INHALE ONE [facility] propion-shar 6-26 PUFF EVERY it y of meterol 00:00: 12 HOURS [place] (ADVAIR 00 Medical DISKUS) Branch 250-50 mcg/dose inhalation disk diltiazem 2020-0 Yes [id number] 180mg Take 1 [facility] 180 mg 24 6-26 capsule by ity of hr capsule 00:00: mouth [place] 00 daily. Medical Branch Butalbital- 2020-0 Yes [id number] TAKE 1 [facility] Acetaminoph 6-26 CAPSULE BY it y of en-Caff 00:00: MOUTH [place] 50-300-40 00 EVERY FOUR Medi taran mg per HOURS Branch capsule NEEDED HEADACHE zolpidem 5 2020-0 Yes [id number] TAKE 1 [facility] mg tablet 6-26 TABLET BY ity o f 00:00: MOUTH AT [place] 00 BEDTIME Medical NEEDED Branch vilazodone 2020-0 Yes [id number] TAKE 1 [facility] (VIIBRYD) 6-26 TABLET BY ity o f 40 mg 00:00: MOUTH [place] tablet 00 EVERY DAY Medical Branch sumatriptan 2020-0 Yes [id number] 100mg Take 1 [facility] 100 mg 6-26 tablet by ity of tablet 00:00: mouth as [place] 00 needed for Medical Migraine. Branch simvastatin 2020-0 Yes [id number] 40mg Take 1 [facility] 40 mg 6-26 tablet by ity of tablet 00:00: mouth [place] 00 daily. Medical Branch metoprolol 2020-0 Yes [id number] 25mg Take 1 [facility] n[facility] succinate 6-26 tablet by ity o f XL 25 mg 24 00:00: mouth [place] hr tablet 00 daily. Medical Branch meloxicam 2020-0 Yes [id number] TAKE 1 [facility] vers 15 mg 6-26 TABLET BY ity of tablet 00:00: MOUTH 1 [place] 00 TIME Medical DAILY. Branch losartan-hy 2020-0 Yes [id number] 1{tbl} Take 1 [facility] drochloroth 6-26 tablet by ity of iazide 00:00: mouth [place] 100-12.5 mg 00 daily. Medica l per tablet Branch lansoprazol 2020-0 Yes [id number] 30mg Take 1 [facility] e 30 mg 6-26 capsule by ity of capsule 00:00: mouth [place] 00 daily. Medical Branch gabapentin 2020-0 Yes [id number] 300mg Take 1 [facility] 300 mg 6-26 capsule by ity of capsule 00:00: mouth 3 [place] 00 (three) Medical times Branch daily. fluticasone 2020-0 Yes [id number] INHALE ONE [facility] propion-shar 6-26 PUFF EVERY it y of meterol 00:00: 12 HOURS [place] (ADVAIR 00 Medical DISKUS) Branch 250-50 mcg/dose inhalation disk ezetimibe 2020-0 Yes [id number] 10mg Take 1 [facility] darvin 10 mg 6-26 tablet by ity of tablet 00:00: mouth [place] 00 daily. Medical Branch diltiazem 2020-0 Yes [id number] 180mg Take 1 [facility] 180 mg 24 6-26 capsule by ity of hr capsule 00:00: mouth [place] 00 daily. Medical Branch Butalbital- 2020-0 Yes [id number] TAKE 1 [facility] Acetaminoph 6-26 CAPSULE BY it y of en-Caff 00:00: MOUTH [place] 50-300-40 00 EVERY FOUR Medi taran mg per HOURS Branch capsule NEEDED HEADACHE buPROPion 2020-0 Yes [id number] 300mg Take 1 [facility] XL 300 mg 6-26 tablet by ity o f 24 hr 00:00: mouth [place] tablet 00 every Medical morning. Branch zolpidem 5 2020-0 Yes [id number] TAKE 1 [facility] mg tablet 6-26 TABLET BY ity o f 00:00: MOUTH AT [place] 00 BEDTIME Medical NEEDED Branch vilazodone 2020-0 Yes [id number] TAKE 1 [facility] (VIIBRYD) 6-26 TABLET BY ity o f 40 mg 00:00: MOUTH [place] tablet 00 EVERY DAY Medical Branch sumatriptan 2020-0 Yes [id number] 100mg Take 1 [facility] 100 mg 6-26 tablet by ity of tablet 00:00: mouth as [place] 00 needed for Medical Migraine. Branch simvastatin 2020-0 Yes [id number] 40mg Take 1 [facility] 40 mg 6-26 tablet by ity of tablet 00:00: mouth [place] 00 daily. Medical Branch metoprolol 2020-0 Yes [id number] 25mg Take 1 [facility] n[facility] succinate 6-26 tablet by ity o f XL 25 mg 24 00:00: mouth [place] hr tablet 00 daily. Medical Branch meloxicam 2020-0 Yes [id number] TAKE 1 [facility] vers 15 mg 6-26 TABLET BY ity of tablet 00:00: MOUTH 1 [place] 00 TIME Medical DAILY. Branch losartan-hy 2020-0 Yes [id number] 1{tbl} Take 1 [facility] drochloroth 6-26 tablet by ity of iazide 00:00: mouth [place] 100-12.5 mg 00 daily. Medica l per tablet Branch lansoprazol 2020-0 Yes [id number] 30mg Take 1 [facility] e 30 mg 6-26 capsule by ity of capsule 00:00: mouth [place] 00 daily. Medical Branch gabapentin 2020-0 Yes [id number] 300mg Take 1 [facility] 300 mg 6-26 capsule by ity of capsule 00:00: mouth 3 [place] 00 (three) Medical times Branch daily. fluticasone 2020-0 Yes [id number] INHALE ONE [facility] propion-shar 6-26 PUFF EVERY it y of meterol 00:00: 12 HOURS [place] (ADVAIR 00 Medical DISKUS) Branch 250-50 mcg/dose inhalation disk ezetimibe 2020-0 Yes [id number] 10mg Take 1 [facility] darvin 10 mg 6-26 tablet by ity of tablet 00:00: mouth [place] 00 daily. Medical Branch diltiazem 2020-0 Yes [id number] 180mg Take 1 [facility] 180 mg 24 6-26 capsule by ity of hr capsule 00:00: mouth [place] 00 daily. Medical Branch Butalbital- 2020-0 Yes [id number] TAKE 1 [facility] Acetaminoph 6-26 CAPSULE BY it y of en-Caff 00:00: MOUTH [place] 50-300-40 00 EVERY FOUR Medi taran mg per HOURS Branch capsule NEEDED HEADACHE buPROPion 2020-0 Yes [id number] 300mg Take 1 [facility] XL 300 mg 6-26 tablet by ity o f 24 hr 00:00: mouth [place] tablet 00 every Medical morning. Branch zolpidem 5 2020-0 Yes [id number] TAKE 1 [facility] mg tablet 6-26 TABLET BY ity o f 00:00: MOUTH AT [place] 00 BEDTIME Medical NEEDED Branch vilazodone 2020-0 Yes [id number] TAKE 1 [facility] (VIIBRYD) 6-26 TABLET BY ity o f 40 mg 00:00: MOUTH [place] tablet 00 EVERY DAY Medical Branch sumatriptan 2020-0 Yes [id number] 100mg Take 1 [facility] 100 mg 6-26 tablet by ity of tablet 00:00: mouth as [place] 00 needed for Medical Migraine. Branch simvastatin 2020-0 Yes [id number] 40mg Take 1 [facility] 40 mg 6-26 tablet by ity of tablet 00:00: mouth [place] 00 daily. Medical Branch metoprolol 2020-0 Yes [id number] 25mg Take 1 [facility] nivers succinate 6-26 tablet by ity o f XL 25 mg 24 00:00: mouth [place] hr tablet 00 daily. Medical Branch meloxicam 2020-0 Yes [id number] TAKE 1 [facility] vers 15 mg 6-26 TABLET BY ity of tablet 00:00: MOUTH 1 [place] 00 TIME Medical DAILY. Branch losartan-hy 2020-0 Yes [id number] 1{tbl} Take 1 [facility] drochloroth 6-26 tablet by ity of iazide 00:00: mouth [place] 100-12.5 mg 00 daily. Medica l per tablet Branch lansoprazol 2020-0 Yes [id number] 30mg Take 1 [facility] e 30 mg 6-26 capsule by ity of capsule 00:00: mouth [place] 00 daily. Medical Branch gabapentin 2020-0 Yes [id number] 300mg Take 1 [facility] 300 mg 6-26 capsule by ity of capsule 00:00: mouth 3 [place] 00 (three) Medical times Branch daily. fluticasone 2020-0 Yes [id number] INHALE ONE [facility] propion-shar 6-26 PUFF EVERY it y of meterol 00:00: 12 HOURS [place] (ADVAIR 00 Medical DISKUS) Branch 250-50 mcg/dose inhalation disk ezetimibe 2020-0 Yes [id number] 10mg Take 1 [facility] darvin 10 mg 6-26 tablet by ity of tablet 00:00: mouth [place] 00 daily. Medical Branch diltiazem 2020-0 Yes [id number] 180mg Take 1 [facility] nivers 180 mg 24 6-26 capsule by ity of hr capsule 00:00: mouth [place] 00 daily. Medical Branch Butalbital- 2020-0 Yes [id number] TAKE 1 [facility] Acetaminoph 6-26 CAPSULE BY it y of en-Caff 00:00: MOUTH [place] 50-300-40 00 EVERY FOUR Medi taarn mg per HOURS Branch capsule NEEDED HEADACHE buPROPion 2020-0 Yes [id number] 300mg Take 1 U nivers XL 300 mg 6-26 tablet by ity o f 24 hr 00:00: mouth [place] tablet 00 every Medical morning. Branch zolpidem 5 2020-0 Yes [id number] TAKE 1 [facility] mg tablet 6-26 TABLET BY ity o f 00:00: MOUTH AT [place] 00 BEDTIME Medical NEEDED Branch vilazodone 2020-0 Yes [id number] TAKE 1 U nivers (VIIBRYD) 6-26 TABLET BY ity o f 40 mg 00:00: MOUTH [place] tablet 00 EVERY DAY Medical Branch sumatriptan 2020-0 Yes [id number] 100mg Take 1 [facility] 100 mg 6-26 tablet by ity of tablet 00:00: mouth as [place] 00 needed for Medical Migraine. Branch simvastatin 2020-0 Yes [id number] 40mg Take 1 [facility] 40 mg 6-26 tablet by ity of tablet 00:00: mouth [place] 00 daily. Medical Branch metoprolol 2020-0 Yes [id number] 25mg Take 1 [facility] nivers succinate 6-26 tablet by ity o f XL 25 mg 24 00:00: mouth [place] hr tablet 00 daily. Medical Branch meloxicam 2020-0 Yes [id number] TAKE 1 [facility] vers 15 mg 6-26 TABLET BY ity of tablet 00:00: MOUTH 1 [place] 00 TIME Medical DAILY. Branch losartan-hy 2020-0 Yes [id number] 1{tbl} Take 1 [facility] drochloroth 6-26 tablet by ity of iazide 00:00: mouth [place] 100-12.5 mg 00 daily. Medica l per tablet Branch lansoprazol 2020-0 Yes [id number] 30mg Take 1 [facility] e 30 mg 6-26 capsule by ity of capsule 00:00: mouth [place] 00 daily. Medical Branch gabapentin 2020-0 Yes [id number] 300mg Take 1 [facility] 300 mg 6-26 capsule by ity of capsule 00:00: mouth 3 [place] 00 (three) Medical times Branch daily. fluticasone 2020-0 Yes [id number] INHALE ONE [facility] propion-shar 6-26 PUFF EVERY it y of meterol 00:00: 12 HOURS [place] (ADVAIR 00 Medical DISKUS) Branch 250-50 mcg/dose inhalation disk ezetimibe 2020-0 Yes [id number] 10mg Take 1 [facility]vin 10 mg 6-26 tablet by ity of tablet 00:00: mouth [place] 00 daily. Medical Branch diltiazem 2020-0 Yes [id number] 180mg Take 1 [facility] nivers 180 mg 24 6-26 capsule by ity of hr capsule 00:00: mouth [place] 00 daily. Medical Branch Butalbital- 2020-0 Yes [id number] TAKE 1 [facility] Acetaminoph 6-26 CAPSULE BY it y of en-Caff 00:00: MOUTH [place] 50-300-40 00 EVERY FOUR Medi taran mg per HOURS Branch capsule NEEDED HEADACHE buPROPion 2020-0 Yes [id number] 300mg Take 1 [facility] nivers XL 300 mg 6-26 tablet by ity o f 24 hr 00:00: mouth [place] tablet 00 every Medical morning. Branch zolpidem 5 2020-0 Yes [id number] TAKE 1 [facility] mg tablet 6-26 TABLET BY ity o f 00:00: MOUTH AT [place] 00 BEDTIME Medical NEEDED Branch vilazodone 2020-0 Yes [id number] TAKE 1 [facility] nivers (VIIBRYD) 6-26 TABLET BY ity o f 40 mg 00:00: MOUTH [place] tablet 00 EVERY DAY Medical Branch sumatriptan 2020-0 Yes [id number] 100mg Take 1 [facility] 100 mg 6-26 tablet by ity of tablet 00:00: mouth as [place] 00 needed for Medical Migraine. Branch simvastatin 2020-0 Yes [id number] 40mg Take 1 [facility] 40 mg 6-26 tablet by ity of tablet 00:00: mouth [place] 00 daily. Medical Branch metoprolol 2020-0 Yes [id number] 25mg Take 1 [facility] nivers succinate 6-26 tablet by ity o f XL 25 mg 24 00:00: mouth [place] hr tablet 00 daily. Medical Branch meloxicam 2020-0 Yes [id number] TAKE 1 [facility] vers 15 mg 6-26 TABLET BY ity of tablet 00:00: MOUTH 1 [place] 00 TIME Medical DAILY. Branch losartan-hy 2020-0 Yes [id number] 1{tbl} Take 1 [facility] drochloroth 6-26 tablet by ity of iazide 00:00: mouth [place] 100-12.5 mg 00 daily. Medica l per tablet Branch lansoprazol 2020-0 Yes [id number] 30mg Take 1 [facility] e 30 mg 6-26 capsule by ity of capsule 00:00: mouth [place] 00 daily. Medical Branch gabapentin 2020-0 Yes [id number] 300mg Take 1 [facility] 300 mg 6-26 capsule by ity of capsule 00:00: mouth 3 [place] 00 (three) Medical times Branch daily. fluticasone 2020-0 Yes [id number] INHALE ONE [facility] propion-shar 6-26 PUFF EVERY it y of meterol 00:00: 12 HOURS [place] (ADVAIR 00 Medical DISKUS) Branch 250-50 mcg/dose inhalation disk ezetimibe 2020-0 Yes [id number] 10mg Take 1 [facility] 10 mg 6-26 tablet by ity of tablet 00:00: mouth [place] 00 daily. Medical Branch diltiazem 2020-0 Yes [id number] 180mg Take 1 [facility] nivers 180 mg 24 6-26 capsule by ity of hr capsule 00:00: mouth [place] 00 daily. Medical Branch Butalbital- 2020-0 Yes [id number] TAKE 1 [facility] Acetaminoph 6-26 CAPSULE BY it y of en-Caff 00:00: MOUTH [place] 50-300-40 00 EVERY FOUR Medi taran mg per HOURS Branch capsule NEEDED HEADACHE buPROPion 2020-0 Yes [id number] 300mg Take 1 [facility] nivers XL 300 mg 6-26 tablet by ity o f 24 hr 00:00: mouth [place] tablet 00 every Medical morning. Branch zolpidem 5 2020-0 Yes [id number] TAKE 1 [facility] mg tablet 6-26 TABLET BY ity o f 00:00: MOUTH AT [place] 00 BEDTIME Medical NEEDED Branch vilazodone 2020-0 Yes [id number] TAKE 1 [facility] nivers (VIIBRYD) 6-26 TABLET BY ity o f 40 mg 00:00: MOUTH [place] tablet 00 EVERY DAY Medical Branch sumatriptan 2020-0 Yes [id number] 100mg Take 1 [facility] 100 mg 6-26 tablet by ity of tablet 00:00: mouth as [place] 00 needed for Medical Migraine. Branch simvastatin 2020-0 Yes [id number] 40mg Take 1 [facility] 40 mg 6-26 tablet by ity of tablet 00:00: mouth [place] 00 daily. Medical Branch metoprolol 2020-0 Yes [id number] 25mg Take 1 [facility] nivers succinate 6-26 tablet by ity o f XL 25 mg 24 00:00: mouth [place] hr tablet 00 daily. Medical Branch meloxicam 2020-0 Yes [id number] TAKE 1 [facility] vers 15 mg 6-26 TABLET BY ity of tablet 00:00: MOUTH 1 [place] 00 TIME Medical DAILY. Branch losartan-hy 2020-0 Yes [id number] 1{tbl} Take 1 [facility] drochloroth 6-26 tablet by ity of iazide 00:00: mouth [place] 100-12.5 mg 00 daily. Medica l per tablet Branch lansoprazol 2020-0 Yes [id number] 30mg Take 1 [facility] e 30 mg 6-26 capsule by ity of capsule 00:00: mouth [place] 00 daily. Medical Branch gabapentin 2020-0 Yes [id number] 300mg Take 1 [facility] 300 mg 6-26 capsule by ity of capsule 00:00: mouth 3 [place] 00 (three) Medical times Branch daily. fluticasone 2020-0 Yes [id number] INHALE ONE [facility] propion-shar 6-26 PUFF EVERY it y of meterol 00:00: 12 HOURS [place] (ADVAIR 00 Medical DISKUS) Branch 250-50 mcg/dose inhalation disk ezetimibe 2020-0 Yes [id number] 10mg Take 1 [facility] darvin 10 mg 6-26 tablet by ity of tablet 00:00: mouth [place] 00 daily. Medical Branch diltiazem 2020-0 Yes [id number] 180mg Take 1 [facility] nivers 180 mg 24 6-26 capsule by ity of hr capsule 00:00: mouth [place] 00 daily. Medical Branch Butalbital- 2020-0 Yes [id number] TAKE 1 [facility] Acetaminoph 6-26 CAPSULE BY it y of en-Caff 00:00: MOUTH [place] 50-300-40 00 EVERY FOUR Medi taran mg per HOURS Branch capsule NEEDED HEADACHE buPROPion 2020-0 Yes [id number] 300mg Take 1 [facility] nivers XL 300 mg 6-26 tablet by ity o f 24 hr 00:00: mouth [place] tablet 00 every Medical morning. Branch zolpidem 5 2020-0 Yes [id number] TAKE 1 [facility] mg tablet 6-26 TABLET BY ity o f 00:00: MOUTH AT [place] 00 BEDTIME Medical NEEDED Branch vilazodone 2020-0 Yes [id number] TAKE 1 [facility] nivers (VIIBRYD) 6-26 TABLET BY ity o f 40 mg 00:00: MOUTH [place] tablet 00 EVERY DAY Medical Branch sumatriptan 2020-0 Yes [id number] 100mg Take 1 [facility] 100 mg 6-26 tablet by ity of tablet 00:00: mouth as [place] 00 needed for Medical Migraine. Branch simvastatin 2020-0 Yes [id number] 40mg Take 1 [facility] 40 mg 6-26 tablet by ity of tablet 00:00: mouth [place] 00 daily. Medical Branch metoprolol 2020-0 Yes [id number] 25mg Take 1 [facility] nivers succinate 6-26 tablet by ity o f XL 25 mg 24 00:00: mouth [place] hr tablet 00 daily. Medical Branch meloxicam 2020-0 Yes [id number] TAKE 1 [facility] vers 15 mg 6-26 TABLET BY ity of tablet 00:00: MOUTH 1 [place] 00 TIME Medical DAILY. Branch losartan-hy 2020-0 Yes [id number] 1{tbl} Take 1 [facility] drochloroth 6-26 tablet by ity of iazide 00:00: mouth [place] 100-12.5 mg 00 daily. Medica l per tablet Branch lansoprazol 2020-0 Yes [id number] 30mg Take 1 [facility] e 30 mg 6-26 capsule by ity of capsule 00:00: mouth [place] 00 daily. Medical Branch gabapentin 2020-0 Yes [id number] 300mg Take 1 [facility] 300 mg 6-26 capsule by ity of capsule 00:00: mouth 3 [place] 00 (three) Medical times Branch daily. fluticasone 2020-0 Yes [id number] INHALE ONE [facility] propion-shar 6-26 PUFF EVERY it y of meterol 00:00: 12 HOURS [place] (ADVAIR 00 Medical DISKUS) Branch 250-50 mcg/dose inhalation disk ezetimibe 2020-0 Yes [id number] 10mg Take 1 [facility] darvin 10 mg 6-26 tablet by ity of tablet 00:00: mouth [place] 00 daily. Medical Branch diltiazem 2020-0 Yes [id number] 180mg Take 1 [facility] nivers 180 mg 24 6-26 capsule by ity of hr capsule 00:00: mouth [place] 00 daily. Medical Branch Butalbital- 2020-0 Yes [id number] TAKE 1 [facility] Acetaminoph 6-26 CAPSULE BY it y of en-Caff 00:00: MOUTH [place] 50-300-40 00 EVERY FOUR Medi taran mg per HOURS Branch capsule NEEDED HEADACHE buPROPion 2020-0 Yes [id number] 300mg Take 1 [facility] nivers XL 300 mg 6-26 tablet by ity o f 24 hr 00:00: mouth [place] tablet 00 every Medical morning. Branch zolpidem 5 2020-0 Yes [id number] TAKE 1 [facility] mg tablet 6-26 TABLET BY ity o f 00:00: MOUTH AT [place] 00 BEDTIME Medical NEEDED Branch vilazodone 2020-0 Yes [id number] TAKE 1 [facility] nivers (VIIBRYD) 6-26 TABLET BY ity o f 40 mg 00:00: MOUTH [place] tablet 00 EVERY DAY Medical Branch sumatriptan 2020-0 Yes [id number] 100mg Take 1 [facility] 100 mg 6-26 tablet by ity of tablet 00:00: mouth as [place] 00 needed for Medical Migraine. Branch simvastatin 2020-0 Yes [id number] 40mg Take 1 [facility] 40 mg 6-26 tablet by ity of tablet 00:00: mouth [place] 00 daily. Medical Branch metoprolol 2020-0 Yes [id number] 25mg Take 1 U nivers succinate 6-26 tablet by ity o f XL 25 mg 24 00:00: mouth [place] hr tablet 00 daily. Medical Branch meloxicam 2020-0 Yes [id number] TAKE 1 [facility] vers 15 mg 6-26 TABLET BY ity of tablet 00:00: MOUTH 1 [place] 00 TIME Medical DAILY. Branch losartan-hy 2020-0 Yes [id number] 1{tbl} Take 1 [facility] drochloroth 6-26 tablet by ity of iazide 00:00: mouth [place] 100-12.5 mg 00 daily. Medica l per tablet Branch lansoprazol 2020-0 Yes [id number] 30mg Take 1 [facility] e 30 mg 6-26 capsule by ity of capsule 00:00: mouth [place] 00 daily. Medical Branch gabapentin 2020-0 Yes [id number] 300mg Take 1 [facility] 300 mg 6-26 capsule by ity of capsule 00:00: mouth 3 [place] 00 (three) Medical times Branch daily. fluticasone 2020-0 Yes [id number] INHALE ONE [facility] propion-shar 6-26 PUFF EVERY it y of meterol 00:00: 12 HOURS [place] (ADVAIR 00 Medical DISKUS) Branch 250-50 mcg/dose inhalation disk ezetimibe 2020-0 Yes [id number] 10mg Take 1 [facility] darvin 10 mg 6-26 tablet by ity of tablet 00:00: mouth [place] 00 daily. Medical Branch diltiazem 2020-0 Yes [id number] 180mg Take 1 [facility] nivers 180 mg 24 6-26 capsule by ity of hr capsule 00:00: mouth [place] 00 daily. Medical Branch Butalbital- 2020-0 Yes [id number] TAKE 1 [facility] Acetaminoph 6-26 CAPSULE BY it y of en-Caff 00:00: MOUTH [place] 50-300-40 00 EVERY FOUR Medi taran mg per HOURS Branch capsule NEEDED HEADACHE buPROPion 2020-0 Yes [id number] 300mg Take 1 [facility] nivers XL 300 mg 6-26 tablet by ity o f 24 hr 00:00: mouth [place] tablet 00 every Medical morning. Branch zolpidem 5 2020-0 Yes [id number] TAKE 1 [facility] mg tablet 6-26 TABLET BY ity o f 00:00: MOUTH AT [place] 00 BEDTIME Medical NEEDED Branch vilazodone 2020-0 Yes [id number] TAKE 1 [facility] nivers (VIIBRYD) 6-26 TABLET BY ity o f 40 mg 00:00: MOUTH [place] tablet 00 EVERY DAY Medical Branch sumatriptan 2020-0 Yes [id number] 100mg Take 1 [facility] 100 mg 6-26 tablet by ity of tablet 00:00: mouth as [place] 00 needed for Medical Migraine. Branch simvastatin 2020-0 Yes [id number] 40mg Take 1 [facility] 40 mg 6-26 tablet by ity of tablet 00:00: mouth [place] 00 daily. Medical Branch metoprolol 2020-0 Yes [id number] 25mg Take 1 U nivers succinate 6-26 tablet by ity o f XL 25 mg 24 00:00: mouth [place] hr tablet 00 daily. Medical Branch meloxicam 2020-0 Yes [id number] TAKE 1 [facility] vers 15 mg 6-26 TABLET BY ity of tablet 00:00: MOUTH 1 [place] 00 TIME Medical DAILY. Branch losartan-hy 2020-0 Yes [id number] 1{tbl} Take 1 [facility] drochloroth 6-26 tablet by ity of iazide 00:00: mouth [place] 100-12.5 mg 00 daily. Medica l per tablet Branch lansoprazol 2020-0 Yes [id number] 30mg Take 1 [facility] e 30 mg 6-26 capsule by ity of capsule 00:00: mouth [place] 00 daily. Medical Branch gabapentin 2020-0 Yes [id number] 300mg Take 1 [facility] 300 mg 6-26 capsule by ity of capsule 00:00: mouth 3 [place] 00 (three) Medical times Branch daily. fluticasone 2020-0 Yes [id number] INHALE ONE [facility] propion-shar 6-26 PUFF EVERY it y of meterol 00:00: 12 HOURS [place] (ADVAIR 00 Medical DISKUS) Branch 250-50 mcg/dose inhalation disk ezetimibe 2020-0 Yes [id number] 10mg Take 1 [facility] darvin 10 mg 6-26 tablet by ity of tablet 00:00: mouth [place] 00 daily. Medical Branch diltiazem 2020-0 Yes [id number] 180mg Take 1 [facility] nivers 180 mg 24 6-26 capsule by ity of hr capsule 00:00: mouth [place] 00 daily. Medical Branch Butalbital- 2020-0 Yes [id number] TAKE 1 [facility] Acetaminoph 6-26 CAPSULE BY it y of en-Caff 00:00: MOUTH [place] 50-300-40 00 EVERY FOUR Medi taran mg per HOURS Branch capsule NEEDED HEADACHE buPROPion 2020-0 Yes [id number] 300mg Take 1 [facility] nivers XL 300 mg 6-26 tablet by ity o f 24 hr 00:00: mouth [place] tablet 00 every Medical morning. Branch zolpidem 5 2020-0 Yes [id number] TAKE 1 [facility] mg tablet 6-26 TABLET BY ity o f 00:00: MOUTH AT [place] 00 BEDTIME Medical NEEDED Branch vilazodone 2020-0 Yes [id number] TAKE 1 [facility] nivers (VIIBRYD) 6-26 TABLET BY ity o f 40 mg 00:00: MOUTH [place] tablet 00 EVERY DAY Medical Branch sumatriptan 2020-0 Yes [id number] 100mg Take 1 [facility] 100 mg 6-26 tablet by ity of tablet 00:00: mouth as [place] 00 needed for Medical Migraine. Branch simvastatin 2020-0 Yes [id number] 40mg Take 1 [facility] 40 mg 6-26 tablet by ity of tablet 00:00: mouth [place] 00 daily. Medical Branch metoprolol 2020-0 Yes [id number] 25mg Take 1 [facility] nivers succinate 6-26 tablet by ity o f XL 25 mg 24 00:00: mouth [place] hr tablet 00 daily. Medical Branch meloxicam 2020-0 Yes [id number] TAKE 1 [facility] vers 15 mg 6-26 TABLET BY ity of tablet 00:00: MOUTH 1 [place] 00 TIME Medical DAILY. Branch losartan-hy 2020-0 Yes [id number] 1{tbl} Take 1 [facility] drochloroth 6-26 tablet by ity of iazide 00:00: mouth [place] 100-12.5 mg 00 daily. Medica l per tablet Branch lansoprazol 2020-0 Yes [id number] 30mg Take 1 [facility] e 30 mg 6-26 capsule by ity of capsule 00:00: mouth [place] 00 daily. Medical Branch gabapentin 2020-0 Yes [id number] 300mg Take 1 [facility] 300 mg 6-26 capsule by ity of capsule 00:00: mouth 3 [place] 00 (three) Medical times Branch daily. fluticasone 2020-0 Yes [id number] INHALE ONE [facility] propion-shar 6-26 PUFF EVERY it y of meterol 00:00: 12 HOURS [place] (ADVAIR 00 Medical DISKUS) Branch 250-50 mcg/dose inhalation disk ezetimibe 2020-0 Yes [id number] 10mg Take 1 [facility] darvin 10 mg 6-26 tablet by ity of tablet 00:00: mouth [place] 00 daily. Medical Branch diltiazem 2020-0 Yes [id number] 180mg Take 1 [facility] n[facility] 180 mg 24 6-26 capsule by ity of hr capsule 00:00: mouth [place] 00 daily. Medical Branch Butalbital- 2020-0 Yes [id number] TAKE 1 [facility] Acetaminoph 6-26 CAPSULE BY it y of en-Caff 00:00: MOUTH [place] 50-300-40 00 EVERY FOUR Medi taran mg per HOURS Branch capsule NEEDED HEADACHE buPROPion 2020-0 Yes [id number] 300mg Take 1 [facility] n[facility] XL 300 mg 6-26 tablet by ity o f 24 hr 00:00: mouth [place] tablet 00 every Medical morning. Branch zolpidem 5 2020-0 Yes [id number] TAKE 1 [facility] mg tablet 6-26 TABLET BY ity o f 00:00: MOUTH AT [place] 00 BEDTIME Medical NEEDED Branch vilazodone 2020-0 Yes [id number] TAKE 1 [facility] nivers (VIIBRYD) 6-26 TABLET BY ity o f 40 mg 00:00: MOUTH [place] tablet 00 EVERY DAY Medical Branch sumatriptan 2020-0 Yes [id number] 100mg Take 1 [facility] 100 mg 6-26 tablet by ity of tablet 00:00: mouth as [place] 00 needed for Medical Migraine. Branch simvastatin 2020-0 Yes [id number] 40mg Take 1 [facility] 40 mg 6-26 tablet by ity of tablet 00:00: mouth [place] 00 daily. Medical Branch metoprolol 2020-0 Yes [id number] 25mg Take 1 [facility] nivers succinate 6-26 tablet by ity o f XL 25 mg 24 00:00: mouth [place] hr tablet 00 daily. Medical Branch meloxicam 2020-0 Yes [id number] TAKE 1 [facility] vers 15 mg 6-26 TABLET BY ity of tablet 00:00: MOUTH 1 [place] 00 TIME Medical DAILY. Branch losartan-hy 2020-0 Yes [id number] 1{tbl} Take 1 [facility] drochloroth 6-26 tablet by ity of iazide 00:00: mouth [place] 100-12.5 mg 00 daily. Medica l per tablet Branch lansoprazol 2020-0 Yes [id number] 30mg Take 1 [facility] e 30 mg 6-26 capsule by ity of capsule 00:00: mouth [place] 00 daily. Medical Branch gabapentin 2020-0 Yes [id number] 300mg Take 1 [facility] 300 mg 6-26 capsule by ity of capsule 00:00: mouth 3 [place] 00 (three) Medical times Branch daily. fluticasone 2020-0 Yes [id number] INHALE ONE [facility] propion-shar 6-26 PUFF EVERY it y of meterol 00:00: 12 HOURS [place] (ADVAIR 00 Medical DISKUS) Branch 250-50 mcg/dose inhalation disk ezetimibe 2019-0 Yes [id number] 10mg Take 1 [facility] darvin 10 mg 6-26 tablet by ity of tablet 00:00: mouth [place] 00 daily. Medical Branch diltiazem 2020-0 Yes [id number] 180mg Take 1 [facility] 180 mg 24 6-26 capsule by ity of hr capsule 00:00: mouth [place] 00 daily. Medical Branch Butalbital- 2019-0 Yes [id number] TAKE 1 [facility] Acetaminoph 6-26 CAPSULE BY it y of en-Caff 00:00: MOUTH [place] 50-300-40 00 EVERY FOUR Medi taran mg per HOURS Branch capsule NEEDED HEADACHE buPROPion 2019-0 Yes [id number] 300mg Take 1 [facility] nivers XL 300 mg 6-26 tablet by ity o f 24 hr 00:00: mouth [place] tablet 00 every Medical morning. Branch zolpidem 5 2020-0 Yes [id number] TAKE 1 [facility] mg tablet 6-26 TABLET BY ity o f 00:00: MOUTH AT [place] 00 BEDTIME Medical NEEDED Branch vilazodone 2019-0 Yes [id number] TAKE 1 [facility] nivers (VIIBRYD) 6-26 TABLET BY ity o f 40 mg 00:00: MOUTH [place] tablet 00 EVERY DAY Medical Branch sumatriptan 2020-0 Yes [id number] 100mg Take 1 [facility] 100 mg 6-26 tablet by ity of tablet 00:00: mouth as [place] 00 needed for Medical Migraine. Branch simvastatin 2020-0 Yes [id number] 40mg Take 1 [facility] 40 mg 6-26 tablet by ity of tablet 00:00: mouth [place] 00 daily. Medical Branch metoprolol 2020-0 Yes [id number] 25mg Take 1 [facility] nivers succinate 6-26 tablet by ity o f XL 25 mg 24 00:00: mouth [place] hr tablet 00 daily. Medical Branch meloxicam 2020-0 Yes [id number] TAKE 1 [facility] vers 15 mg 6-26 TABLET BY ity of tablet 00:00: MOUTH 1 [place] 00 TIME Medical DAILY. Branch losartan-hy 2020-0 Yes [id number] 1{tbl} Take 1 [facility] drochloroth 6-26 tablet by ity of iazide 00:00: mouth [place] 100-12.5 mg 00 daily. Medica l per tablet Branch lansoprazol 2020-0 Yes [id number] 30mg Take 1 [facility] e 30 mg 6-26 capsule by ity of capsule 00:00: mouth [place] 00 daily. Medical Branch gabapentin 2020-0 Yes [id number] 300mg Take 1 [facility] 300 mg 6-26 capsule by ity of capsule 00:00: mouth 3 [place] 00 (three) Medical times Branch daily. fluticasone 2020-0 Yes [id number] INHALE ONE [facility] propion-shar 6-26 PUFF EVERY it y of meterol 00:00: 12 HOURS [place] (ADVAIR 00 Medical DISKUS) Branch 250-50 mcg/dose inhalation disk ezetimibe 2020-0 Yes [id number] 10mg Take 1 [facility] dar[facility] 10 mg 6-26 tablet by ity of tablet 00:00: mouth [place] 00 daily. Medical Branch diltiazem 2020-0 Yes [id number] 180mg Take 1 [facility] 180 mg 24 6-26 capsule by ity of hr capsule 00:00: mouth [place] 00 daily. Medical Branch Butalbital- 2020-0 Yes [id number] TAKE 1 [facility] Acetaminoph 6-26 CAPSULE BY it y of en-Caff 00:00: MOUTH [place] 50-300-40 00 EVERY FOUR Medi taran mg per HOURS Branch capsule NEEDED HEADACHE buPROPion 2020-0 Yes [id number] 300mg Take 1 [facility] n[facility] XL 300 mg 6-26 tablet by ity o f 24 hr 00:00: mouth [place] tablet 00 every Medical morning. Branch zolpidem 5 2020-0 Yes [id number] TAKE 1 [facility] mg tablet 6-26 TABLET BY ity o f 00:00: MOUTH AT [place] 00 BEDTIME Medical NEEDED Branch vilazodone 2020-0 Yes [id number] TAKE 1 [facility] n[facility] (VIIBRYD) 6-26 TABLET BY ity o f 40 mg 00:00: MOUTH [place] tablet 00 EVERY DAY Medical Branch sumatriptan 2020-0 Yes [id number] 100mg Take 1 [facility] 100 mg 6-26 tablet by ity of tablet 00:00: mouth as [place] 00 needed for Medical Migraine. Branch simvastatin 2020-0 Yes [id number] 40mg Take 1 [facility] 40 mg 6-26 tablet by ity of tablet 00:00: mouth [place] 00 daily. Medical Branch metoprolol 2020-0 Yes [id number] 25mg Take 1 [facility] nivers succinate 6-26 tablet by ity o f XL 25 mg 24 00:00: mouth [place] hr tablet 00 daily. Medical Branch meloxicam 2020-0 Yes [id number] TAKE 1 [facility] vers 15 mg 6-26 TABLET BY ity of tablet 00:00: MOUTH 1 [place] 00 TIME Medical DAILY. Branch losartan-hy 2020-0 Yes [id number] 1{tbl} Take 1 [facility] drochloroth 6-26 tablet by ity of iazide 00:00: mouth [place] 100-12.5 mg 00 daily. Medica l per tablet Branch lansoprazol 2020-0 Yes [id number] 30mg Take 1 [facility] e 30 mg 6-26 capsule by ity of capsule 00:00: mouth [place] 00 daily. Medical Branch gabapentin 2020-0 Yes [id number] 300mg Take 1 [facility] 300 mg 6-26 capsule by ity of capsule 00:00: mouth 3 [place] 00 (three) Medical times Branch daily. fluticasone 2020-0 Yes [id number] INHALE ONE [facility] propion-shar 6-26 PUFF EVERY it y of meterol 00:00: 12 HOURS [place] (ADVAIR 00 Medical DISKUS) Branch 250-50 mcg/dose inhalation disk ezetimibe 2020-0 Yes [id number] 10mg Take 1 [facility] 10 mg 6-26 tablet by ity of tablet 00:00: mouth [place] 00 daily. Medical Branch diltiazem 2020-0 Yes [id number] 180mg Take 1 [facility] 180 mg 24 6-26 capsule by ity of hr capsule 00:00: mouth [place] 00 daily. Medical Branch Butalbital- 2020-0 Yes [id number] TAKE 1 [facility] Acetaminoph 6-26 CAPSULE BY it y of en-Caff 00:00: MOUTH [place] 50-300-40 00 EVERY FOUR Medi taran mg per HOURS Branch capsule NEEDED HEADACHE buPROPion 2020-0 Yes [id number] 300mg Take 1 [facility] n[facility] XL 300 mg 6-26 tablet by ity o f 24 hr 00:00: mouth [place] tablet 00 every Medical morning. Branch zolpidem 5 2020-0 Yes [id number] TAKE 1 [facility] mg tablet 6-26 TABLET BY ity o f 00:00: MOUTH AT [place] 00 BEDTIME Medical NEEDED Branch vilazodone 2020-0 Yes [id number] TAKE 1 [facility] (VIIBRYD) 6-26 TABLET BY ity o f 40 mg 00:00: MOUTH [place] tablet 00 EVERY DAY Medical Branch sumatriptan 2020-0 Yes [id number] 100mg Take 1 [facility] 100 mg 6-26 tablet by ity of tablet 00:00: mouth as [place] 00 needed for Medical Migraine. Branch simvastatin 2020-0 Yes [id number] 40mg Take 1 [facility] 40 mg 6-26 tablet by ity of tablet 00:00: mouth [place] 00 daily. Medical Branch metoprolol 2020-0 Yes [id number] 25mg Take 1 [facility] nivers succinate 6-26 tablet by ity o f XL 25 mg 24 00:00: mouth [place] hr tablet 00 daily. Medical Branch meloxicam 2020-0 Yes [id number] TAKE 1 [facility] vers 15 mg 6-26 TABLET BY ity of tablet 00:00: MOUTH 1 [place] 00 TIME Medical DAILY. Branch losartan-hy 2020-0 Yes [id number] 1{tbl} Take 1 [facility] drochloroth 6-26 tablet by ity of iazide 00:00: mouth [place] 100-12.5 mg 00 daily. Medica l per tablet Branch lansoprazol 2020-0 Yes [id number] 30mg Take 1 [facility] e 30 mg 6-26 capsule by ity of capsule 00:00: mouth [place] 00 daily. Medical Branch gabapentin 2020-0 Yes [id number] 300mg Take 1 [facility] 300 mg 6-26 capsule by ity of capsule 00:00: mouth 3 [place] 00 (three) Medical times Branch daily. fluticasone 2020-0 Yes [id number] INHALE ONE [facility] propion-shar 6-26 PUFF EVERY it y of meterol 00:00: 12 HOURS [place] (ADVAIR 00 Medical DISKUS) Branch 250-50 mcg/dose inhalation disk ezetimibe 2020-0 Yes [id number] 10mg Take 1 [facility] 10 mg 6-26 tablet by ity of tablet 00:00: mouth [place] 00 daily. Medical Branch diltiazem 2020-0 Yes [id number] 180mg Take 1 [facility] 180 mg 24 6-26 capsule by ity of hr capsule 00:00: mouth [place] 00 daily. Medical Branch Butalbital- 2020-0 Yes [id number] TAKE 1 [facility] Acetaminoph 6-26 CAPSULE BY it y of en-Caff 00:00: MOUTH [place] 50-300-40 00 EVERY FOUR Medi taran mg per HOURS Branch capsule NEEDED HEADACHE buPROPion 2020-0 Yes [id number] 300mg Take 1 [facility] n[facility] XL 300 mg 6-26 tablet by ity o f 24 hr 00:00: mouth [place] tablet 00 every Medical morning. Branch zolpidem 5 2020-0 Yes [id number] TAKE 1 [facility] mg tablet 6-26 TABLET BY ity o f 00:00: MOUTH AT [place] 00 BEDTIME Medical NEEDED Branch vilazodone 2020-0 Yes [id number] TAKE 1 [facility] n[facility] (VIIBRYD) 6-26 TABLET BY ity o f 40 mg 00:00: MOUTH [place] tablet 00 EVERY DAY Medical Branch sumatriptan 2020-0 Yes [id number] 100mg Take 1 [facility] 100 mg 6-26 tablet by ity of tablet 00:00: mouth as [place] 00 needed for Medical Migraine. Branch metoprolol 2020-0 Yes [id number] 25mg Take 1 [facility] nivers succinate 6-26 tablet by ity o f XL 25 mg 24 00:00: mouth [place] hr tablet 00 daily. Medical Branch meloxicam 2020-0 Yes [id number] TAKE 1 [facility] vers 15 mg 6-26 TABLET BY ity of tablet 00:00: MOUTH 1 [place] 00 TIME Medical DAILY. Branch losartan-hy 2020-0 Yes [id number] 1{tbl} Take 1 [facility] drochloroth 6-26 tablet by ity of iazide 00:00: mouth [place] 100-12.5 mg 00 daily. Medica l per tablet Branch lansoprazol 2020-0 Yes [id number] 30mg Take 1 [facility] e 30 mg 6-26 capsule by ity of capsule 00:00: mouth [place] 00 daily. Medical Branch gabapentin 2020-0 Yes [id number] 300mg Take 1 [facility] 300 mg 6-26 capsule by ity of capsule 00:00: mouth 3 [place] 00 (three) Medical times Branch daily. fluticasone 2020-0 Yes [id number] INHALE ONE [facility] propion-hsar 6-26 PUFF EVERY it y of meterol 00:00: 12 HOURS [place] (ADVAIR 00 Medical DISKUS) Branch 250-50 mcg/dose inhalation disk diltiazem 2020-0 Yes [id number] 180mg Take 1 [facility] nivers 180 mg 24 6-26 capsule by ity of hr capsule 00:00: mouth [place] 00 daily. Medical Branch Butalbital- 2020-0 Yes [id number] TAKE 1 [facility] Acetaminoph 6-26 CAPSULE BY it y of en-Caff 00:00: MOUTH [place] 50-300-40 00 EVERY FOUR Medi taran mg per HOURS Branch capsule NEEDED HEADACHE buPROPion 2020-0 Yes [id number] 300mg Take 1 [facility] nivers XL 300 mg 6-26 tablet by ity o f 24 hr 00:00: mouth [place] tablet 00 every Medical morning. Branch zolpidem 5 2020-0 Yes [id number] TAKE 1 [facility] mg tablet 6-26 TABLET BY ity o f 00:00: MOUTH AT [place] 00 BEDTIME Medical NEEDED Branch vilazodone 2020-0 Yes [id number] TAKE 1 [facility] nivers (VIIBRYD) 6-26 TABLET BY ity o f 40 mg 00:00: MOUTH [place] tablet 00 EVERY DAY Medical Branch sumatriptan 2020-0 Yes [id number] 100mg Take 1 [facility] 100 mg 6-26 tablet by ity of tablet 00:00: mouth as [place] 00 needed for Medical Migraine. Branch metoprolol 2020-0 Yes [id number] 25mg Take 1 [facility] nivers succinate 6-26 tablet by ity o f XL 25 mg 24 00:00: mouth [place] hr tablet 00 daily. Medical Branch meloxicam 2020-0 Yes [id number] TAKE 1 [facility] vers 15 mg 6-26 TABLET BY ity of tablet 00:00: MOUTH 1 [place] 00 TIME Medical DAILY. Branch losartan-hy 2020-0 Yes [id number] 1{tbl} Take 1 [facility] drochloroth 6-26 tablet by ity of iazide 00:00: mouth [place] 100-12.5 mg 00 daily. Medica l per tablet Branch gabapentin 2020-0 Yes [id number] 300mg Take 1 [facility] 300 mg 6-26 capsule by ity of capsule 00:00: mouth 3 [place] 00 (three) Medical times Branch daily. fluticasone 2020-0 Yes [id number] INHALE ONE [facility] propion-shar 6-26 PUFF EVERY it y of meterol 00:00: 12 HOURS [place] (ADVAIR 00 Medical DISKUS) Branch 250-50 mcg/dose inhalation disk diltiazem 2020-0 Yes [id number] 180mg Take 1 [facility] nivers 180 mg 24 6-26 capsule by ity of hr capsule 00:00: mouth [place] 00 daily. Medical Branch Butalbital- 2019-0 Yes [id number] TAKE 1 [facility] Acetaminoph 6-26 CAPSULE BY it y of en-Caff 00:00: MOUTH [place] 50-300-40 00 EVERY FOUR Medi taran mg per HOURS Branch capsule NEEDED HEADACHE zolpidem 5 2019-0 Yes [id number] TAKE 1 [facility] mg tablet 6-26 TABLET BY ity o f 00:00: MOUTH AT [place] 00 BEDTIME Medical NEEDED Branch vilazodone 2019-0 Yes [id number] TAKE 1 [facility] nivers (VIIBRYD) 6-26 TABLET BY ity o f 40 mg 00:00: MOUTH [place] tablet 00 EVERY DAY Medical Branch sumatriptan 2020-0 Yes [id number] 100mg Take 1 [facility] 100 mg 6-26 tablet by ity of tablet 00:00: mouth as [place] 00 needed for Medical Migraine. Branch metoprolol 2020-0 Yes [id number] 25mg Take 1 [facility] nivers succinate 6-26 tablet by ity o f XL 25 mg 24 00:00: mouth [place] hr tablet 00 daily. Medical Branch meloxicam 2020-0 Yes [id number] TAKE 1 [facility] vers 15 mg 6-26 TABLET BY ity of tablet 00:00: MOUTH 1 [place] 00 TIME Medical DAILY. Branch losartan-hy 2020-0 Yes [id number] 1{tbl} Take 1 [facility] drochloroth 6-26 tablet by ity of iazide 00:00: mouth [place] 100-12.5 mg 00 daily. Medica l per tablet Branch gabapentin 2020-0 Yes [id number] 300mg Take 1 [facility] 300 mg 6-26 capsule by ity of capsule 00:00: mouth 3 [place] 00 (three) Medical times Branch daily. fluticasone 2020-0 Yes [id number] INHALE ONE [facility] propion-shar 6-26 PUFF EVERY it y of meterol 00:00: 12 HOURS [place] (ADVAIR 00 Medical DISKUS) Branch 250-50 mcg/dose inhalation disk diltiazem 2020-0 Yes [id number] 180mg Take 1 [facility] nivers 180 mg 24 6-26 capsule by ity of hr capsule 00:00: mouth [place] 00 daily. Medical Branch Butalbital- 2020-0 Yes [id number] TAKE 1 [facility] Acetaminoph 6-26 CAPSULE BY it y of en-Caff 00:00: MOUTH [place] 50-300-40 00 EVERY FOUR Medi taran mg per HOURS Branch capsule NEEDED HEADACHE zolpidem 5 2019-0 Yes [id number] TAKE 1 [facility] mg tablet 6-26 TABLET BY ity o f 00:00: MOUTH AT [place] 00 BEDTIME Medical NEEDED Branch vilazodone 2020-0 Yes [id number] TAKE 1 [facility] nivers (VIIBRYD) 6-26 TABLET BY ity o f 40 mg 00:00: MOUTH [place] tablet 00 EVERY DAY Medical Branch sumatriptan 2020-0 Yes [id number] 100mg Take 1 [facility] 100 mg 6-26 tablet by ity of tablet 00:00: mouth as [place] 00 needed for Medical Migraine. Branch metoprolol 2020-0 Yes [id number] 25mg Take 1 [facility] nivers succinate 6-26 tablet by ity o f XL 25 mg 24 00:00: mouth [place] hr tablet 00 daily. Medical Branch meloxicam 2020-0 Yes [id number] TAKE 1 [facility] vers 15 mg 6-26 TABLET BY ity of tablet 00:00: MOUTH 1 [place] 00 TIME Medical DAILY. Branch losartan-hy 2020-0 Yes [id number] 1{tbl} Take 1 [facility] drochloroth 6-26 tablet by ity of iazide 00:00: mouth [place] 100-12.5 mg 00 daily. Medica l per tablet Branch gabapentin 2020-0 Yes [id number] 300mg Take 1 [facility] 300 mg 6-26 capsule by ity of capsule 00:00: mouth 3 [place] 00 (three) Medical times Branch daily. fluticasone 2020-0 Yes [id number] INHALE ONE [facility] propion-shar 6-26 PUFF EVERY it y of meterol 00:00: 12 HOURS [place] (ADVAIR 00 Medical DISKUS) Branch 250-50 mcg/dose inhalation disk diltiazem 2020-0 Yes [id number] 180mg Take 1 [facility] nivers 180 mg 24 6-26 capsule by ity of hr capsule 00:00: mouth [place] 00 daily. Medical Branch Butalbital- 2020-0 Yes [id number] TAKE 1 [facility] Acetaminoph 6-26 CAPSULE BY it y of en-Caff 00:00: MOUTH [place] 50-300-40 00 EVERY FOUR Medi taran mg per HOURS Branch capsule NEEDED HEADACHE zolpidem 5 2019-0 Yes [id number] TAKE 1 [facility] mg tablet 6-26 TABLET BY ity o f 00:00: MOUTH AT [place] 00 BEDTIME Medical NEEDED Branch vilazodone 2019-0 Yes [id number] TAKE 1 [facility] nivers (VIIBRYD) 6-26 TABLET BY ity o f 40 mg 00:00: MOUTH [place] tablet 00 EVERY DAY Medical Branch sumatriptan 2020-0 Yes [id number] 100mg Take 1 [facility] 100 mg 6-26 tablet by ity of tablet 00:00: mouth as [place] 00 needed for Medical Migraine. Branch metoprolol 2019-0 Yes [id number] 25mg Take 1 [facility] nivers succinate 6-26 tablet by ity o f XL 25 mg 24 00:00: mouth [place] hr tablet 00 daily. Medical Branch meloxicam 2019-0 Yes [id number] TAKE 1 [facility] vers 15 mg 6-26 TABLET BY ity of tablet 00:00: MOUTH 1 [place] 00 TIME Medical DAILY. Branch losartan-hy 2020-0 Yes [id number] 1{tbl} Take 1 [facility] drochloroth 6-26 tablet by ity of iazide 00:00: mouth [place] 100-12.5 mg 00 daily. Medica l per tablet Branch gabapentin 2020-0 Yes [id number] 300mg Take 1 [facility] 300 mg 6-26 capsule by ity of capsule 00:00: mouth 3 [place] 00 (three) Medical times Branch daily. fluticasone 2020-0 Yes [id number] INHALE ONE [facility] propion-shar 6-26 PUFF EVERY it y of meterol 00:00: 12 HOURS [place] (ADVAIR 00 Medical DISKUS) Branch 250-50 mcg/dose inhalation disk diltiazem 2020-0 Yes [id number] 180mg Take 1 [facility] nivers 180 mg 24 6-26 capsule by ity of hr capsule 00:00: mouth [place] 00 daily. Medical Branch Butalbital- 2020-0 Yes [id number] TAKE 1 [facility] Acetaminoph 6-26 CAPSULE BY it y of en-Caff 00:00: MOUTH [place] 50-300-40 00 EVERY FOUR Medi taran mg per HOURS Branch capsule NEEDED HEADACHE zolpidem 5 2020-0 Yes [id number] TAKE 1 [facility] mg tablet 6-26 TABLET BY ity o f 00:00: MOUTH AT [place] 00 BEDTIME Medical NEEDED Branch vilazodone 2020-0 Yes [id number] TAKE 1 [facility] nivers (VIIBRYD) 6-26 TABLET BY ity o f 40 mg 00:00: MOUTH [place] tablet 00 EVERY DAY Medical Branch sumatriptan 2020-0 Yes [id number] 100mg Take 1 [facility] 100 mg 6-26 tablet by ity of tablet 00:00: mouth as [place] 00 needed for Medical Migraine. Branch metoprolol 2019-0 Yes [id number] 25mg Take 1 [facility] nivers succinate 6-26 tablet by ity o f XL 25 mg 24 00:00: mouth [place] hr tablet 00 daily. Medical Branch meloxicam 2020-0 Yes [id number] TAKE 1 [facility] vers 15 mg 6-26 TABLET BY ity of tablet 00:00: MOUTH 1 [place] 00 TIME Medical DAILY. Branch losartan-hy 2020-0 Yes [id number] 1{tbl} Take 1 [facility] drochloroth 6-26 tablet by ity of iazide 00:00: mouth [place] 100-12.5 mg 00 daily. Medica l per tablet Branch gabapentin 2020-0 Yes [id number] 300mg Take 1 [facility] 300 mg 6-26 capsule by ity of capsule 00:00: mouth 3 [place] 00 (three) Medical times Branch daily. fluticasone 2020-0 Yes [id number] INHALE ONE [facility] propion-shar 6-26 PUFF EVERY it y of meterol 00:00: 12 HOURS [place] (ADVAIR 00 Medical DISKUS) Branch 250-50 mcg/dose inhalation disk diltiazem 2020-0 Yes [id number] 180mg Take 1 [facility] nivers 180 mg 24 6-26 capsule by ity of hr capsule 00:00: mouth [place] 00 daily. Medical Branch Butalbital- 2020-0 Yes [id number] TAKE 1 [facility] Acetaminoph 6-26 CAPSULE BY it y of en-Caff 00:00: MOUTH [place] 50-300-40 00 EVERY FOUR Medi taran mg per HOURS Branch capsule NEEDED HEADACHE zolpidem 5 2019-0 Yes [id number] TAKE 1 [facility] mg tablet 6-26 TABLET BY ity o f 00:00: MOUTH AT [place] 00 BEDTIME Medical NEEDED Branch vilazodone 2020-0 Yes [id number] TAKE 1 [facility] nivers (VIIBRYD) 6-26 TABLET BY ity o f 40 mg 00:00: MOUTH [place] tablet 00 EVERY DAY Medical Branch sumatriptan 2020-0 Yes [id number] 100mg Take 1 [facility] 100 mg 6-26 tablet by ity of tablet 00:00: mouth as [place] 00 needed for Medical Migraine. Branch metoprolol 2019-0 Yes [id number] 25mg Take 1 [facility] nivers succinate 6-26 tablet by ity o f XL 25 mg 24 00:00: mouth [place] hr tablet 00 daily. Medical Branch meloxicam 2020-0 Yes [id number] TAKE 1 [facility] vers 15 mg 6-26 TABLET BY ity of tablet 00:00: MOUTH 1 [place] 00 TIME Medical DAILY. Branch losartan-hy 2020-0 Yes [id number] 1{tbl} Take 1 [facility] drochloroth 6-26 tablet by ity of iazide 00:00: mouth [place] 100-12.5 mg 00 daily. Medica l per tablet Branch gabapentin 2019-0 Yes [id number] 300mg Take 1 [facility] 300 mg 6-26 capsule by ity of capsule 00:00: mouth 3 [place] 00 (three) Medical times Branch daily. fluticasone 2020-0 Yes [id number] INHALE ONE [facility] propion-shar 6-26 PUFF EVERY it y of meterol 00:00: 12 HOURS [place] (ADVAIR 00 Medical DISKUS) Branch 250-50 mcg/dose inhalation disk diltiazem 2020-0 Yes [id number] 180mg Take 1 [facility] nivers 180 mg 24 6-26 capsule by ity of hr capsule 00:00: mouth [place] 00 daily. Medical Branch Butalbital- 2020-0 Yes [id number] TAKE 1 [facility] Acetaminoph 6-26 CAPSULE BY it y of en-Caff 00:00: MOUTH [place] 50-300-40 00 EVERY FOUR Medi taran mg per HOURS Branch capsule NEEDED HEADACHE zolpidem 5 2019-0 Yes [id number] TAKE 1 [facility] mg tablet 6-26 TABLET BY ity o f 00:00: MOUTH AT [place] 00 BEDTIME Medical NEEDED Branch vilazodone 2020-0 Yes [id number] TAKE 1 [facility] nivers (VIIBRYD) 6-26 TABLET BY ity o f 40 mg 00:00: MOUTH [place] tablet 00 EVERY DAY Medical Branch sumatriptan 2020-0 Yes [id number] 100mg Take 1 [facility] 100 mg 6-26 tablet by ity of tablet 00:00: mouth as [place] 00 needed for Medical Migraine. Branch metoprolol 2019-0 Yes [id number] 25mg Take 1 [facility] nivers succinate 6-26 tablet by ity o f XL 25 mg 24 00:00: mouth [place] hr tablet 00 daily. Medical Branch meloxicam 2020-0 Yes [id number] TAKE 1 [facility] vers 15 mg 6-26 TABLET BY ity of tablet 00:00: MOUTH 1 [place] 00 TIME Medical DAILY. Branch losartan-hy 2019-0 Yes [id number] 1{tbl} Take 1 [facility] drochloroth 6-26 tablet by ity of iazide 00:00: mouth [place] 100-12.5 mg 00 daily. Medica l per tablet Branch gabapentin 2019-0 Yes [id number] 300mg Take 1 [facility] 300 mg 6-26 capsule by ity of capsule 00:00: mouth 3 [place] 00 (three) Medical times Branch daily. fluticasone 2020-0 Yes [id number] INHALE ONE [facility] propion-shar 6-26 PUFF EVERY it y of meterol 00:00: 12 HOURS [place] (ADVAIR 00 Medical DISKUS) Branch 250-50 mcg/dose inhalation disk diltiazem 2019-0 Yes [id number] 180mg Take 1 [facility] nivers 180 mg 24 6-26 capsule by ity of hr capsule 00:00: mouth [place] 00 daily. Medical Branch Butalbital- 2019-0 Yes [id number] TAKE 1 [facility] Acetaminoph 6-26 CAPSULE BY it y of en-Caff 00:00: MOUTH [place] 50-300-40 00 EVERY FOUR Medi taran mg per HOURS Branch capsule NEEDED HEADACHE zolpidem 5 2019-0 Yes [id number] TAKE 1 [facility] mg tablet 6-26 TABLET BY ity o f 00:00: MOUTH AT [place] 00 BEDTIME Medical NEEDED Branch vilazodone 2019-0 Yes [id number] TAKE 1 [facility] nivers (VIIBRYD) 6-26 TABLET BY ity o f 40 mg 00:00: MOUTH [place] tablet 00 EVERY DAY Medical Branch sumatriptan 2020-0 Yes [id number] 100mg Take 1 [facility] 100 mg 6-26 tablet by ity of tablet 00:00: mouth as [place] 00 needed for Medical Migraine. Branch metoprolol 2020-0 Yes [id number] 25mg Take 1 [facility] nivers succinate 6-26 tablet by ity o f XL 25 mg 24 00:00: mouth [place] hr tablet 00 daily. Medical Branch meloxicam 2020-0 Yes [id number] TAKE 1 [facility] vers 15 mg 6-26 TABLET BY ity of tablet 00:00: MOUTH 1 [place] 00 TIME Medical DAILY. Branch losartan-hy 2019-0 Yes [id number] 1{tbl} Take 1 [facility] drochloroth 6-26 tablet by ity of iazide 00:00: mouth [place] 100-12.5 mg 00 daily. Medica l per tablet Branch gabapentin 2019-0 Yes [id number] 300mg Take 1 [facility] 300 mg 6-26 capsule by ity of capsule 00:00: mouth 3 [place] 00 (three) Medical times Branch daily. fluticasone 2019-0 Yes [id number] INHALE ONE [facility] propion-shar 6-26 PUFF EVERY it y of meterol 00:00: 12 HOURS [place] (ADVAIR 00 Medical DISKUS) Branch 250-50 mcg/dose inhalation disk diltiazem 2019-0 Yes [id number] 180mg Take 1 [facility] n[facility] 180 mg 24 6-26 capsule by ity of hr capsule 00:00: mouth [place] 00 daily. Medical Branch Butalbital- 2019-0 Yes [id number] TAKE 1 [facility] Acetaminoph 6-26 CAPSULE BY it y of en-Caff 00:00: MOUTH [place] 50-300-40 00 EVERY FOUR Medi taran mg per HOURS Branch capsule NEEDED HEADACHE zolpidem 5 2019-0 Yes [id number] TAKE 1 [facility] mg tablet 6-26 TABLET BY ity o f 00:00: MOUTH AT [place] 00 BEDTIME Medical NEEDED Branch vilazodone 2019-0 Yes [id number] TAKE 1 [facility] nivers (VIIBRYD) 6-26 TABLET BY ity o f 40 mg 00:00: MOUTH [place] tablet 00 EVERY DAY Medical Branch sumatriptan 2019-0 Yes [id number] 100mg Take 1 [facility] 100 mg 6-26 tablet by ity of tablet 00:00: mouth as [place] 00 needed for Medical Migraine. Branch metoprolol 2019-0 Yes [id number] 25mg Take 1 [facility] nivers succinate 6-26 tablet by ity o f XL 25 mg 24 00:00: mouth [place] hr tablet 00 daily. Medical Branch meloxicam 2020-0 Yes [id number] TAKE 1 [facility] vers 15 mg 6-26 TABLET BY ity of tablet 00:00: MOUTH 1 [place] 00 TIME Medical DAILY. Branch losartan-hy 2020-0 Yes [id number] 1{tbl} Take 1 [facility] drochloroth 6-26 tablet by ity of iazide 00:00: mouth [place] 100-12.5 mg 00 daily. Medica l per tablet Branch gabapentin 2019-0 Yes [id number] 300mg Take 1 [facility] 300 mg 6-26 capsule by ity of capsule 00:00: mouth 3 [place] 00 (three) Medical times Branch daily. fluticasone 2020-0 Yes [id number] INHALE ONE [facility] propion-shar 6-26 PUFF EVERY it y of meterol 00:00: 12 HOURS [place] (ADVAIR 00 Medical DISKUS) Branch 250-50 mcg/dose inhalation disk diltiazem 2019-0 Yes [id number] 180mg Take 1 [facility] n[facility] 180 mg 24 6-26 capsule by ity of hr capsule 00:00: mouth [place] 00 daily. Medical Branch Butalbital- 2019-0 Yes [id number] TAKE 1 [facility] Acetaminoph 6-26 CAPSULE BY it y of en-Caff 00:00: MOUTH [place] 50-300-40 00 EVERY FOUR Medi taran mg per HOURS Branch capsule NEEDED HEADACHE zolpidem 5 2019-0 Yes [id number] TAKE 1 [facility] mg tablet 6-26 TABLET BY ity o f 00:00: MOUTH AT [place] 00 BEDTIME Medical NEEDED Branch vilazodone 2019-0 Yes [id number] TAKE 1 [facility] n[facility] (VIIBRYD) 6-26 TABLET BY ity o f 40 mg 00:00: MOUTH [place] tablet 00 EVERY DAY Medical Branch sumatriptan 2020-0 Yes [id number] 100mg Take 1 [facility] 100 mg 6-26 tablet by ity of tablet 00:00: mouth as [place] 00 needed for Medical Migraine. Branch metoprolol 2019-0 Yes [id number] 25mg Take 1 [facility] nivers succinate 6-26 tablet by ity o f XL 25 mg 24 00:00: mouth [place] hr tablet 00 daily. Medical Branch meloxicam 2019-0 Yes [id number] TAKE 1 [facility] vers 15 mg 6-26 TABLET BY ity of tablet 00:00: MOUTH 1 [place] 00 TIME Medical DAILY. Branch ezetimibe 2020- No 10mg QD Take 10 mg M ethodi (ZETIA) 10 - 10-[address] mg tablet 00:00: 00:00 daily. [facility] 00 :00 l lansoprazol 2020- No [id number] 30mg Take 1 [facility] e 30 mg -16 09- capsule by ity o f capsule 00:00: 00:00 mouth [place] 00 :00 daily. Medical Branch buPROPion 2020- No [id number] 300mg Take 1 [facility] XL 300 mg 08-17- tablet by ity of 24 hr 00:00: 00:00 mouth [place] tablet 00 :00 every Medical morning. Branch simvastatin 2020- No [id number] 40mg Take 1 [facility] 40 mg -17 08-30 tablet by ity of tablet 00:00: 00:00 mouth [place] 00 :00 daily. Medical Branch ezetimibe 2020- No [id number] 10mg Take 1 [facility] nivers 10 mg -17 08-30 tablet by ity of tablet 00:00: 00:00 mouth [place] 00 :00 daily. Medical Branch fluticasone 2019-0 Yes [id number] INHALE ONE [facility] propion-shar 6-24 PUFF EVERY it y of meterol 00:00: 12 HOURS [place] (ADVAIR 00 Medical DISKUS) Branch 250-50 mcg/dose inhalation disk GABAPENTIN 2019-0 Yes [id number] TAKE 1 [facility] 300 mg 6-24 CAPSULE BY ity of capsule 00:00: MOUTH [place] 00 TIMES Medical DAILY Branch SUMATRIPTAN 2019-0 Yes [id number] 100mg TAKE 1 [facility] 100 mg 6-24 TABLET BY ity of tablet 00:00: MOUTH [place] 00 NEEDED FOR Medical MIGRAINE Branch BUTALBITAL- 2019-0 Yes [id number] TAKE 1 [facility] ACETAMINOPH 6-24 CAPSULE BY it y of EN-CAFF 00:00: MOUTH [place] 50-300-40 00 EVERY FOUR Medi taran mg per HOURS Branch capsule NEEDED HEADACHE SIMVASTATIN 2019-0 Yes [id number] TAKE 1 [facility] 40 mg 6-24 TABLET BY ity of tablet 00:00: MOUTH [place] 00 EVERY DAY Medical Branch METOPROLOL 2020-0 Yes [id number] TAKE 1 [facility] nivers SUCCINATE 6-24 TABLET BY ity o f XL 25 mg 24 00:00: MOUTH [place] hr tablet 00 EVERY DAY Medic al Branch vilazodone 2020-0 Yes [id number] TAKE 1 [facility] nivers (VIIBRYD) 6-24 TABLET BY ity o f 40 mg 00:00: MOUTH [place] tablet 00 EVERY DAY Medical Branch LOSARTAN-HY 2020-0 Yes [id number] TAKE 1 [facility] DROCHLOROTH 6-24 TABLET BY ity of IAZIDE 00:00: MOUTH [place] 100-12.5 mg 00 EVERY DAY Med ical per tablet Branch EZETIMIBE 2019-0 Yes [id number] TAKE 1 [facility] darvin 10 mg 6-24 TABLET BY ity of tablet 00:00: MOUTH [place] 00 EVERY DAY Medical Branch DILTIAZEM 2020-0 Yes [id number] TAKE 1 [facility] 180 mg 24 6-24 CAPSULE BY ity of hr capsule 00:00: MOUTH [place] 00 EVERY DAY Medical Branch BUPROPION 2020-0 Yes [id number] TAKE 1 [facility] XL 300 mg 6-24 TABLET BY ity o f 24 hr 00:00: MOUTH [place] tablet 00 EVERY Medical MORNING Branch LANSOPRAZOL 2020-0 Yes [id number] TAKE 1 [facility] E 30 mg 6-24 CAPSULE BY ity of capsule 00:00: MOUTH [place] 00 EVERY DAY Medical Branch fluticasone 2019-0 2020- No [id number] INHALE ONE [facility] propion-shar 6-24 06-26 PUFF EVERY i ty of meterol 00:00: 00:00 12 HOURS [place] (ADVAIR 00 :00 Medical DISKUS) Branch 250-50 mcg/dose inhalation disk GABAPENTIN 2019-0 2020- No [id number] TAKE 1 [facility] 300 mg 6-24 - CAPSULE BY ity of capsule 00:00: 00:00 MOUTH FOUR [place] 00 :00 TIMES Medical DAILY Branch SUMATRIPTAN 2019-0 2020- No [id number] 100mg TAKE 1 [facility] 100 mg 6-24 06-26 TABLET BY ity of tablet 00:00: 00:00 MOUTH [place] 00 :00 NEEDED FOR Medical MIGRAINE Branch BUTALBITAL- 2019-0 2020- No [id number] TAKE 1 [facility] ACETAMINOPH 6-24 - CAPSULE BY i ty of EN-CAFF 00:00: 00:00 MOUTH [place] 50-300-40 00 :00 EVERY FOUR Medi taran mg per HOURS Branch capsule NEEDED HEADACHE SIMVASTATIN 2019-2019- No [id number] TAKE 1 [facility] 40 mg 08-15 TABLET BY ity of tablet 00:00: 00:00 MOUTH [place] 00 :00 EVERY DAY Medical Branch METOPROLOL 2020- No [id number] TAKE 1 [facility] SUCCINATE 08-15 TABLET BY ity of XL 25 mg 24 00:00: 00:00 MOUTH [place] hr tablet 00 :00 EVERY DAY Medic al Branch vilazodone 2019- No [id number] TAKE 1 [facility] (VIIBRYD) 08-15 TABLET BY ity of 40 mg 00:00: 00:00 MOUTH [place] tablet 00 :00 EVERY DAY Medical Branch LOSARTAN-HY 2020- No [id number] TAKE 1 [facility] DROCHLOROTH 08-15 TABLET BY it y of IAZIDE 00:00: 00:00 MOUTH [place] 100-12.5 mg 00 :00 EVERY DAY Med ical per tablet Branch EZETIMIBE 2019- No [id number] TAKE 1 [facility] n[facility] 10 mg 08-15 TABLET BY ity of tablet 00:00: 00:00 MOUTH [place] 00 :00 EVERY DAY Medical Branch DILTIAZEM 2019- No [id number] TAKE 1 [facility] n[facility] 180 mg 24 08-15 CAPSULE BY ity of hr capsule 00:00: 00:00 MOUTH [place] 00 :00 EVERY DAY Medical Branch BUPROPION 2019- No [id number] TAKE 1 [facility] n[facility] XL 300 mg 08-15 TABLET BY ity of 24 hr 00:00: 00:00 MOUTH [place] tablet 00 :00 EVERY Medical MORNING Branch LANSOPRAZOL 2020- No [id number] TAKE 1 [facility] E 30 mg 08-15 CAPSULE BY ity o f capsule 00:00: 00:00 MOUTH [place] 00 :00 EVERY DAY Medical Branch fluticasone 2020- No [id number] INHALE ONE [facility] propion-shar 08-15 PUFF EVERY i ty of meterol 00:00: 00:00 12 HOURS [place] (ADVAIR 00 :00 Medical DISKUS) Branch 250-50 mcg/dose inhalation disk GABAPENTIN 2019- No [id number] TAKE 1 [facility] 300 mg 08-15 CAPSULE BY ity of capsule 00:00: 00:00 MOUTH FOUR [place] 00 :00 TIMES Medical DAILY Branch SUMATRIPTAN 2019- No [id number] 100mg TAKE 1 [facility] 100 mg 08-15 TABLET BY ity of tablet 00:00: 00:00 MOUTH [place] 00 :00 NEEDED FOR Medical MIGRAINE Branch BUTALBITAL- 2019- No [id number] TAKE 1 [facility] ACETAMINOPH 08-15 CAPSULE BY i ty of EN-CAFF 00:00: 00:00 MOUTH [place] 50-300-40 00 :00 EVERY FOUR Medi taran mg per HOURS Branch capsule NEEDED HEADACHE SIMVASTATIN 2019- No [id number] TAKE 1 [facility] 40 mg 08-15 TABLET BY ity of tablet 00:00: 00:00 MOUTH [place] 00 :00 EVERY DAY Medical Branch METOPROLOL 2019- No [id number] TAKE 1 [facility] SUCCINATE 08-15 TABLET BY ity of XL 25 mg 24 00:00: 00:00 MOUTH [place] tablet 00 :00 EVERY DAY Medic al Branch vilazodone 2019- No [id number] TAKE 1 [facility] (VIIBRYD) 08-15 TABLET BY ity of 40 mg 00:00: 00:00 MOUTH [place] tablet 00 :00 EVERY DAY Medical Branch LOSARTAN-HY 2019- No [id number] TAKE 1 [facility] DROCHLOROTH 08-15 TABLET BY it y of IAZIDE 00:00: 00:00 MOUTH [place] 100-12.5 mg 00 :00 EVERY DAY Med ical per tablet Branch EZETIMIBE 2019- No [id number] TAKE 1 [facility] 10 mg 08-15 TABLET BY ity of tablet 00:00: 00:00 MOUTH [place] 00 :00 EVERY DAY Medical Branch DILTIAZEM 2019- No [id number] TAKE 1 [facility] 180 mg 24 08-15 CAPSULE BY ity of hr capsule 00:00: 00:00 MOUTH [place] 00 :00 EVERY DAY Medical Branch BUPROPION 2019- No [id number] TAKE 1 [facility] XL 300 mg 08-15 TABLET BY ity of 24 hr 00:00: 00:00 MOUTH [place] tablet 00 :00 EVERY Medical MORNING Branch LANSOPRAZOL 2020-0 2020- No [id number] TAKE 1 [facility] E 30 mg 6-24 06-26 CAPSULE BY ity o f capsule 00:00: 00:00 MOUTH [place] 00 :00 EVERY DAY Medical Branch SIMVASTATIN 2020-0 Yes [id number] TAKE 1 [facility] 40 mg 5-20 TABLET BY ity of tablet 00:00: MOUTH [place] 00 EVERY DAY Medical Branch SIMVASTATIN 2020-0 2020- No [id number] TAKE 1 [facility] 40 mg 5-20 06-24 TABLET BY ity of tablet 00:00: 00:00 MOUTH [place] 00 :00 EVERY DAY Medical Branch METOPROLOL 2020-0 Yes [id number] TAKE 1 [facility] nivers SUCCINATE 3-24 TABLET BY ity o f XL 25 mg 24 00:00: MOUTH [place] hr tablet 00 EVERY DAY Medic al Branch METOPROLOL 2020-0 Yes [id number] TAKE 1 [facility] nivers SUCCINATE 3-24 TABLET BY ity o f XL 25 mg 24 00:00: MOUTH [place] hr tablet 00 EVERY DAY Medic al Branch METOPROLOL 2020-0 2020- No [id number] TAKE 1 [facility] SUCCINATE 3-24 06-24 TABLET BY ity of XL 25 mg 24 00:00: 00:00 MOUTH [place] tablet 00 :00 EVERY DAY Medic al Branch LANSOPRAZOL 2020-0 Yes [id number] TAKE 1 [facility] E 30 mg 2-25 CAPSULE BY ity of capsule 00:00: MOUTH [place] 00 EVERY DAY Medical Branch METOPROLOL 2020-0 Yes [id number] TAKE 1 [facility] nivers SUCCINATE 2-25 TABLET BY ity o f XL 25 mg 24 00:00: MOUTH [place] hr tablet 00 EVERY DAY Medic al Branch LANSOPRAZOL 2020-0 Yes [id number] TAKE 1 [facility] E 30 mg 2-25 CAPSULE BY ity of capsule 00:00: MOUTH [place] 00 EVERY DAY Medical Branch LANSOPRAZOL 2020-0 Yes [id number] TAKE 1 [facility] E 30 mg 2-25 CAPSULE BY ity of capsule 00:00: MOUTH [place] 00 EVERY DAY Medical Branch LANSOPRAZOL 2020-0 2020- No [id number] TAKE 1 [facility] E 30 mg 2-25 06-24 CAPSULE BY ity o f capsule 00:00: 00:00 MOUTH [place] 00 :00 EVERY DAY Medical Branch METOPROLOL 2020-0 2020- No [id number] TAKE 1 [facility] SUCCINATE 2-25 03-24 TABLET BY ity of XL 25 mg 24 00:00: 00:00 MOUTH [place] tablet 00 :00 EVERY DAY Medic al Branch BUTALBITAL- 2020-0 Yes [id number] TAKE 1 [facility] ACETAMINOPH 1-27 CAPSULE BY it y of EN-CAFF 00:00: MOUTH [place] 50-300-40 00 EVERY FOUR Medi taran mg per HOURS Branch capsule NEEDED HEADACHE BUTALBITAL- 2020-0 Yes [id number] TAKE 1 [facility] ACETAMINOPH 1-27 CAPSULE BY it y of EN-CAFF 00:00: MOUTH [place] 50-300-40 00 EVERY FOUR Medi taran mg per HOURS Branch capsule NEEDED HEADACHE BUTALBITAL- 2020-0 Yes [id number] TAKE 1 [facility] ACETAMINOPH 1-27 CAPSULE BY it y of EN-CAFF 00:00: MOUTH [place] 50-300-40 00 EVERY FOUR Medi taran mg per HOURS Branch capsule NEEDED HEADACHE BUTALBITAL- 2020-0 Yes [id number] TAKE 1 [facility] ACETAMINOPH 1-27 CAPSULE BY it y of EN-CAFF 00:00: MOUTH [place] 50-300-40 00 EVERY FOUR Medi taran mg per HOURS Branch capsule NEEDED HEADACHE BUTALBITAL- 2020-0 2020- No [id number] TAKE 1 [facility] ACETAMINOPH 1-27 06-24 CAPSULE BY i ty of EN-CAFF 00:00: 00:00 MOUTH [place] 50-300-40 00 :00 EVERY FOUR Medi taran mg per HOURS Branch capsule NEEDED HEADACHE metoprolol 2018-02 Yes [id number] 25mg Take 1 U nivers succinate 2-30 tablet by ity o f XL 25 mg 24 00:00: mouth [place] hr tablet 00 daily. Medical Branch metoprolol 2018-02 2020- No [id number] 25mg Take 1 [facility] succinate 2-30 02-25 tablet by ity of XL 25 mg 24 00:00: 00:00 mouth [place] tablet 00 :00 daily. [facility] LANSOPRAZOL 2018- Yes [id number] TAKE 1 [facility] E 30 mg 1-26 CAPSULE BY ity of capsule 00:00: MOUTH [place] 00 EVERY DAY Medical Branch SIMVASTATIN 2018-02 Yes [id number] TAKE 1 [facility] 40 mg 1-26 TABLET BY ity of tablet 00:00: MOUTH [place] 00 EVERY DAY Medical Branch SIMVASTATIN 2018- Yes [id number] TAKE 1 [facility] 40 mg 1-26 TABLET BY ity of tablet 00:00: MOUTH [place] 00 EVERY DAY Medical Branch SIMVASTATIN 2018- Yes [id number] TAKE 1 [facility] 40 mg 1-26 TABLET BY ity of tablet 00:00: MOUTH [place] 00 EVERY DAY Medical Branch SIMVASTATIN 2019- 2020- No [id number] TAKE 1 [facility] 40 mg 1-26 05-20 TABLET BY ity of tablet 00:00: 00:00 MOUTH [place] 00 :00 EVERY DAY Medical Branch LANSOPRAZOL 2018- 2020- No [id number] TAKE 1 [facility] E 30 mg 1-19 04-25 CAPSULE BY ity o f capsule 00:00: 00:00 MOUTH [place] 00 :00 EVERY DAY Medical Branch ZOLPIDEM 5 2018- Yes [id number] TAKE 1 [facility] mg tablet 1-01 TABLET BY ity o f 00:00: MOUTH AT [place] [address] BEDTIME Medical NEEDED Branch ZOLPIDEM 5 2018- Yes [id number] TAKE 1 [facility] mg tablet 1- TABLET BY ity o f 00:00: MOUTH AT [place] [address] BEDTIME Medical NEEDED Branch ZOLPIDEM 5 2018- Yes [id number] TAKE 1 [facility] mg tablet 1- TABLET BY ity o f 00:00: MOUTH AT [place] [address] BEDTIME Medical NEEDED Branch ZOLPIDEM 5 2018- Yes [id number] TAKE 1 [facility] mg tablet 1- TABLET BY ity o f 00:00: MOUTH AT [place] 00 BEDTIME Medical NEEDED Branch ZOLPIDEM 5 2018- Yes [id number] TAKE 1 [facility] mg tablet 1- TABLET BY ity o f 00:00: MOUTH AT [place] 00 BEDTIME Medical NEEDED Branch ZOLPIDEM 5 2018- 2020- No [id number] TAKE 1 [facility] mg tablet -02 27- TABLET BY ity of 00:00: 00:00 MOUTH AT [place] 00 :00 BEDTIME Medical NEEDED Branch ZOLPIDEM 5 2018- 2020- No [id number] TAKE 1 [facility] mg tablet -02 27- TABLET BY ity of 00:00: 00:00 MOUTH AT [place] 00 :00 BEDTIME Medical NEEDED Branch RANITIDINE 2019- Yes TAKE 1 [facility] 150 mg 0-09 TABLET BY ity of tablet 00:00: MOUTH [place] 00 EVERY Medical EVENING Branch RANITIDINE 2019- Yes TAKE 1 [facility] 150 mg 0-09 TABLET BY ity of tablet 00:00: MOUTH [place] EVERY Medical EVENING Branch RANITIDINE 2018- Yes TAKE 1 [facility] 150 mg 0-09 TABLET BY ity of tablet 00:00: MOUTH [place] 00 EVERY Medical EVENING Branch RANITIDINE 2018-02 Yes TAKE 1 [facility] 150 mg 0-09 TABLET BY ity of tablet 00:00: MOUTH [place] 00 EVERY Medical EVENING Branch RANITIDINE 2018-02 Yes TAKE 1 [facility] 150 mg 0-09 TABLET BY ity of tablet 00:00: MOUTH [place] 00 EVERY Medical EVENING Branch RANITIDINE 2018-02 2020- No TAKE 1 [facility] ers 150 mg 0-09 06-26 TABLET BY ity of tablet 00:00: 00:00 MOUTH [place] 00 :00 EVERY Medical EVENING Branch RANITIDINE 2018-02 2020- No TAKE 1 [facility] ers 150 mg 0-09 06-26 TABLET BY ity of tablet 00:00: 00:00 MOUTH [place] 00 :00 EVERY Medical EVENING Branch METOPROLOL Yes [id number] TAKE 1 U nivers SUCCINATE 9-06 TABLET BY ity o f XL 25 mg 24 00:00: MOUTH [place] hr tablet 00 EVERY DAY Medic al Branch LANSOPRAZOL 2018- Yes [id number] TAKE 1 [facility] E 30 mg 9-06 CAPSULE BY ity of capsule 00:00: MOUTH [place] 00 EVERY DAY Medical Branch metoprolol Yes [id number] 25mg Take 1 U nivers succinate 8-13 tablet by ity o f XL 25 mg 24 00:00: mouth [place] hr tablet 00 daily. Medical Branch metoprolol 2019- No [id number] 25mg Take 1 [facility] succinate 8-13 09-06 tablet by ity of XL 25 mg 24 00:00: 00:00 mouth [place] tablet 00 :00 daily. [facility] ranitidine Yes 150mg Take 150 [facility] 150 mg 7-29 mg by ity of tablet 16:45: mouth 2 [place] 58 (two) Medical times Branch daily. ERGOCALCIFE 2018- Yes Take by Un darvin ROL, 7-29 mouth. ity of VITAMIN D2, 16:45: [place] (VITAMIN D 58 Medical ORAL) Branch CALCIUM 2018-0 Yes Take by Univer s CARBONATE 7-29 mouth. ity of (CALCIUM 16:45: [place] 600 ORAL) 58 Medical Branch ranitidine 0 Yes 150mg Take 150 [facility] 150 mg 7-29 mg by ity of tablet 16:45: mouth 2 [place] 58 (two) Medical times Branch daily. ERGOCALCIFE 2019-0 Yes Take by Un darvin ROL, 7- mouth. ity of VITAMIN D2, 16:45: [place] (VITAMIN D 58 Medical ORAL) Branch CALCIUM 2019-0 Yes Take by Univer s CARBONATE 7- mouth. ity of (CALCIUM 16:45: [place] 600 ORAL) 58 Medical Branch ranitidine 2019-0 Yes 150mg Take 150 [facility] 150 mg 7- mg by ity of tablet 16:45: mouth 2 [place] [address] (two) Medical times Branch daily. ERGOCALCIFE 2019-0 Yes Take by Un darvin ROL, 7- mouth. ity of VITAMIN D2, 16:45: [place] (VITAMIN D 58 Medical ORAL) Branch CALCIUM 2018-0 Yes Take by Univer s CARBONATE 7- mouth. ity of (CALCIUM 16:45: [place] 600 ORAL) 58 Medical Branch ERGOCALCIFE 2018-0 Yes Take by Un darvin ROL, 7- mouth. ity of VITAMIN D2, 16:45: [place] (VITAMIN D 58 Medical ORAL) Branch CALCIUM 2018-0 Yes Take by Univer s CARBONATE 7-29 mouth. ity of (CALCIUM 16:45: [place] 600 ORAL) 58 Medical Branch ERGOCALCIFE 2018-0 Yes Take by Un darvin ROL, 7- mouth. ity of VITAMIN D2, 16:45: [place] (VITAMIN D 58 Medical ORAL) Branch CALCIUM 2018-0 Yes Take by Univer s CARBONATE 7-29 mouth. ity of (CALCIUM 16:45: [place] 600 ORAL) 58 Medical Branch ERGOCALCIFE 2019-0 Yes Take by Un darvin ROL, 7- mouth. ity of VITAMIN D2, 16:45: [place] (VITAMIN D 58 Medical ORAL) Branch CALCIUM 2019-0 Yes Take by Univer s CARBONATE 7-29 mouth. ity of (CALCIUM 16:45: [place] 600 ORAL) 58 Medical Branch ERGOCALCIFE 2019-0 Yes Take by Un darvin ROL, 7-29 mouth. ity of VITAMIN D2, 16:45: [place] (VITAMIN D 58 Medical ORAL) Branch CALCIUM 2019-0 Yes Take by Univer s CARBONATE 7-29 mouth. ity of (CALCIUM 16:45: [place] 600 ORAL) 58 Medical Branch ERGOCALCIFE 2019-0 Yes Take by Un darvin ROL, 7-29 mouth. ity of VITAMIN D2, 16:45: [place] (VITAMIN D 58 Medical ORAL) Branch CALCIUM 2019-0 Yes Take by Univer s CARBONATE 7-29 mouth. ity of (CALCIUM 16:45: [place] 600 ORAL) 58 Medical Branch ERGOCALCIFE 2019-0 Yes Take by Un darvin ROL, 7- mouth. ity of VITAMIN D2, 16:45: [place] (VITAMIN D 58 Medical ORAL) Branch CALCIUM 2018-0 Yes Take by Univer s CARBONATE 7-29 mouth. ity of (CALCIUM 16:45: [place] 600 ORAL) 58 Medical Branch ERGOCALCIFE 2019-0 Yes Take by Un darvin ROL, 7- mouth. ity of VITAMIN D2, 16:45: [place] (VITAMIN D 58 Medical ORAL) Branch CALCIUM 2018-0 Yes Take by Univer s CARBONATE 7-29 mouth. ity of (CALCIUM 16:45: [place] 600 ORAL) 58 Medical Branch ERGOCALCIFE 2018-0 Yes Take by Un darvin ROL, 7 mouth. ity of VITAMIN D2, 16:45: [place] (VITAMIN D 58 Medical ORAL) Branch CALCIUM 0 Yes Take by Univer s CARBONATE 7 mouth. ity of (CALCIUM 16:45: [place] 600 ORAL) 58 Medical Branch ERGOCALCIFE 2018-0 Yes Take by Un darvin ROL, 7- mouth. ity of VITAMIN D2, 16:45: [place] (VITAMIN D 58 Medical ORAL) Branch CALCIUM 2018-0 Yes Take by Univer s CARBONATE 7-29 mouth. ity of (CALCIUM 16:45: [place] 600 ORAL) 58 Medical Branch ERGOCALCIFE 2019-0 Yes Take by Un darvin ROL, 7 mouth. ity of VITAMIN D2, 16:45: [place] (VITAMIN D 58 Medical ORAL) Branch CALCIUM 2018-0 Yes Take by Univer s CARBONATE 7-29 mouth. ity of (CALCIUM 16:45: [place] 600 ORAL) 58 Medical Branch ERGOCALCIFE 2019-0 Yes Take by Un darvin ROL, 7-29 mouth. ity of VITAMIN D2, 16:45: [place] (VITAMIN D 58 Medical ORAL) Branch CALCIUM 2019-0 Yes Take by Univer s CARBONATE 7-29 mouth. ity of (CALCIUM 16:45: [place] 600 ORAL) 58 Medical Branch ERGOCALCIFE 2019-0 Yes Take by Un darvin ROL, 7-29 mouth. ity of VITAMIN D2, 16:45: [place] (VITAMIN D 58 Medical ORAL) Branch CALCIUM 2019-0 Yes Take by Univer s CARBONATE 7-29 mouth. ity of (CALCIUM 16:45: [place] 600 ORAL) 58 Medical Branch ERGOCALCIFE 2019-0 Yes Take by Un darvin ROL, 7- mouth. ity of VITAMIN D2, 16:45: [place] (VITAMIN D 58 Medical ORAL) Branch CALCIUM 2019-0 Yes Take by Univer s CARBONATE 7-29 mouth. ity of (CALCIUM 16:45: [place] 600 ORAL) 58 Medical Branch ERGOCALCIFE 2018-0 Yes Take by Un darvin ROL, 7-29 mouth. ity of VITAMIN D2, 16:45: [place] (VITAMIN D 58 Medical ORAL) Branch CALCIUM 2018-0 Yes Take by Univer s CARBONATE 7-29 mouth. ity of (CALCIUM 16:45: [place] 600 ORAL) 58 Medical Branch ERGOCALCIFE 2018-0 Yes Take by Un darvin ROL, 7- mouth. ity of VITAMIN D2, 16:45: [place] (VITAMIN D 58 Medical ORAL) Branch CALCIUM 0 Yes Take by Univer s CARBONATE 7-29 mouth. ity of (CALCIUM 16:45: [place] 600 ORAL) 58 Medical Branch ranitidine 2018-0 Yes 150mg Take 150 Un [facility] 150 mg 7- mg by ity of tablet 16:45: mouth 2 [place] 58 (two) Medical times Branch daily. ERGOCALCIFE 2018-0 Yes Take by Un darvin ROL, 7- mouth. ity of VITAMIN D2, 16:45: [place] (VITAMIN D 58 Medical ORAL) Branch CALCIUM 2018-0 Yes Take by Univer s CARBONATE 7-29 mouth. ity of (CALCIUM 16:45: [place] 600 ORAL) 58 Medical Branch ERGOCALCIFE 2018-0 Yes Take by Un darvin ROL, 7-29 mouth. ity of VITAMIN D2, 16:45: [place] (VITAMIN D 58 Medical ORAL) Branch CALCIUM 2019-0 Yes Take by Univer s CARBONATE 7-29 mouth. ity of (CALCIUM 16:45: [place] 600 ORAL) 58 Medical Branch ERGOCALCIFE 2019-0 Yes Take by Un darvin ROL, 7-29 mouth. ity of VITAMIN D2, 16:45: [place] (VITAMIN D 58 Medical ORAL) Branch CALCIUM 2019-0 Yes Take by Univer s CARBONATE 7-29 mouth. ity of (CALCIUM 16:45: [place] 600 ORAL) 58 Medical Branch ERGOCALCIFE 2019-0 Yes Take by Un darvin ROL, 7-29 mouth. ity of VITAMIN D2, 16:45: [place] (VITAMIN D 58 Medical ORAL) Branch CALCIUM 2018-0 Yes Take by Univer s CARBONATE 7-29 mouth. ity of (CALCIUM 16:45: [place] 600 ORAL) 58 Medical Branch ERGOCALCIFE 2018-0 Yes Take by Un darvin ROL, 7-29 mouth. ity of VITAMIN D2, 16:45: [place] (VITAMIN D 58 Medical ORAL) Branch CALCIUM 2018-0 Yes Take by Univer s CARBONATE 7-29 mouth. ity of (CALCIUM 16:45: [place] 600 ORAL) 58 Medical Branch ERGOCALCIFE 0 Yes Take by Un darvin ROL, 7- mouth. ity of VITAMIN D2, 16:45: [place] (VITAMIN D 58 Medical ORAL) Branch CALCIUM 0 Yes Take by Univer s CARBONATE 7-29 mouth. ity of (CALCIUM 16:45: [place] 600 ORAL) 58 Medical Branch ERGOCALCIFE 0 Yes Take by Un darvin ROL, 7- mouth. ity of VITAMIN D2, 16:45: [place] (VITAMIN D 58 Medical ORAL) Branch CALCIUM 0 Yes Take by Univer s CARBONATE 7 mouth. ity of (CALCIUM 16:45: [place] 600 ORAL) 58 Medical Branch ranitidine 2018-0 Yes 150mg Take 150 Un [facility] 150 mg 7- mg by ity of tablet 16:45: mouth 2 [place] 58 (two) Medical times Branch daily. ERGOCALCIFE 0 Yes Take by Un darvin ROL, 7 mouth. ity of VITAMIN D2, 16:45: [place] (VITAMIN D 58 Medical ORAL) Branch CALCIUM 2018-0 Yes Take by Univer s CARBONATE 729 mouth. ity of (CALCIUM 16:45: [place] 600 ORAL) 58 Medical Branch ERGOCALCIFE 2018-0 Yes Take by Un darvin ROL, 7-29 mouth. ity of VITAMIN D2, 11:45: [place] (VITAMIN D 58 Medical ORAL) Branch CALCIUM 2018-0 Yes Take by Univer s CARBONATE 7-29 mouth. ity of (CALCIUM 11:45: [place] 600 ORAL) 58 Medical Branch ERGOCALCIFE 2019-0 Yes Take by Un darivn ROL, 7-29 mouth. ity of VITAMIN D2, 11:45: [place] (VITAMIN D 58 Medical ORAL) Branch CALCIUM 2019-0 Yes Take by Univer s CARBONATE 7-29 mouth. ity of (CALCIUM 11:45: [place] 600 ORAL) 58 Medical Branch ERGOCALCIFE 2019-0 Yes Take by Un darvin ROL, 7- mouth. ity of VITAMIN D2, 11:45: [place] (VITAMIN D 58 Medical ORAL) Branch CALCIUM 0 Yes Take by Univer s CARBONATE 729 mouth. ity of (CALCIUM 11:45: [place] 600 ORAL) 58 Medical Branch ERGOCALCIFE 2018-0 Yes Take by Un darvin ROL, 7- mouth. ity of VITAMIN D2, 11:45: [place] (VITAMIN D 58 Medical ORAL) Branch CALCIUM 0 Yes Take by Univer s CARBONATE 7- mouth. ity of (CALCIUM 11:45: [place] 600 ORAL) 58 Medical Branch ERGOCALCIFE 2018-0 Yes Take by Un darvin ROL, 7 mouth. ity of VITAMIN D2, 11:45: [place] (VITAMIN D 58 Medical ORAL) Branch CALCIUM 0 Yes Take by Univer s CARBONATE 7 mouth. ity of (CALCIUM 11:45: [place] 600 ORAL) 58 Medical Branch ERGOCALCIFE 2018-0 Yes Take by Un darvin ROL, 7 mouth. ity of VITAMIN D2, 11:45: [place] (VITAMIN D 58 Medical ORAL) Branch CALCIUM 2018-0 Yes Take by Univer s CARBONATE 7-29 mouth. ity of (CALCIUM 11:45: [place] 600 ORAL) 58 Medical Branch ERGOCALCIFE 2018-0 Yes Take by Un darvin ROL, 7 mouth. ity of VITAMIN D2, 11:45: [place] (VITAMIN D 58 Medical ORAL) Branch CALCIUM 2018-0 Yes Take by Univer s CARBONATE 7-29 mouth. ity of (CALCIUM 11:45: [place] 600 ORAL) 58 Medical Branch ERGOCALCIFE 2019-0 Yes Take by Un darvin ROL, 7-29 mouth. ity of VITAMIN D2, 11:45: [place] (VITAMIN D 58 Medical ORAL) Branch CALCIUM 2018-0 Yes Take by Univer s CARBONATE 7-29 mouth. ity of (CALCIUM 11:45: [place] 600 ORAL) 58 Medical Branch ERGOCALCIFE 2019-0 Yes Take by Un darvin ROL, 7-29 mouth. ity of VITAMIN D2, 11:45: [place] (VITAMIN D 58 Medical ORAL) Branch CALCIUM 2018-0 Yes Take by Univer s CARBONATE 7-29 mouth. ity of (CALCIUM 11:45: [place] 600 ORAL) 58 Medical Branch ERGOCALCIFE 2018-0 Yes Take by Un darvin ROL, 7- mouth. ity of VITAMIN D2, 11:45: [place] (VITAMIN D 58 Medical ORAL) Branch CALCIUM 0 Yes Take by Univer s CARBONATE 7-29 mouth. ity of (CALCIUM 11:45: [place] 600 ORAL) 58 Medical Branch ERGOCALCIFE 0 Yes Take by Un darvin ROL, 7- mouth. ity of VITAMIN D2, 11:45: [place] (VITAMIN D 58 Medical ORAL) Branch CALCIUM Yes Take by Univer s CARBONATE 7-29 mouth. ity of (CALCIUM 11:45: [place] 600 ORAL) 58 Medical Branch ERGOCALCIFE Yes Take by Un darvin ROL, 7- mouth. ity of VITAMIN D2, 11:45: [place] (VITAMIN D 58 Medical ORAL) Branch CALCIUM 0 Yes Take by Univer s CARBONATE 7-29 mouth. ity of (CALCIUM 11:45: [place] 600 ORAL) Medical Branch ERGOCALCIFE Yes Take by Un darvin ROL, 7-29 mouth. ity of VITAMIN D2, 11:45: [place] (VITAMIN D 58 Medical ORAL) Branch CALCIUM 0 Yes Take by Univer s CARBONATE 7-29 mouth. ity of (CALCIUM 11:45: [place] 600 ORAL) Medical Branch ERGOCALCIFE Yes Take by Un darvin ROL, 7 mouth. ity of VITAMIN D2, 11:45: [place] (VITAMIN D 58 Medical ORAL) Branch CALCIUM 0 Yes Take by Univer s CARBONATE 7-29 mouth. ity of (CALCIUM 11:45: [place] 600 ORAL) 58 Medical Branch clindamycin 2019-0 Yes [id number] 150mg Take 1 [facility] 150 mg 7-29 capsule by ity of capsule 00:00: mouth 4 [place] 00 (four) Medical times Branch daily. clindamycin 2019-0 Yes [id number] 150mg Take 1 [facility] 150 mg 7-29 capsule by ity of capsule 00:00: mouth 4 00 (four) Medical times Branch daily. clindamycin 2019-0 Yes [id number] 150mg Take 1 [facility] 150 mg 7-29 capsule by ity of capsule 00:00: mouth [address] [place] [address] ([facility]) Medical times Branch daily. clindamycin Yes [id number] 150mg Take 1 [facility] 150 mg 7-29 capsule by ity of capsule 00:00: [address] ([facility]) Medical times Branch daily. clindamycin Yes [id number] 150mg Take 1 [facility] 150 mg 7-29 capsule by ity of capsule 00:00: [address] ([facility]) Medical times Branch daily. clindamycin Yes [id number] 150mg Take 1 [facility] 150 mg 7-29 capsule by ity of capsule 00:00: mouth [address] [place] [address] ([facility]) Medical times Branch daily. clindamycin Yes [id number] 150mg Take 1 [facility] 150 mg 7-29 capsule by ity of capsule 00:00: [place] [address] ([facility]) Medical times Branch daily. clindamycin Yes [id number] 150mg Take 1 [facility] 150 mg 7-29 capsule by ity of capsule 00:00: [place] [address] ([facility]) Medical times Branch daily. clindamycin Yes [id number] 150mg Take 1 [facility] 150 mg 7-29 capsule by ity of capsule 00:00: [place] [address] ([facility]) Medical times Branch daily. clindamycin Yes [id number] 150mg Take 1 [facility] 150 mg 7-29 capsule by ity of capsule 00:00: [place] [address] ([facility]) Medical times Branch daily. clindamycin 2020- No [id number] 150mg Take 1 [facility] 150 mg 7-29 06-26 capsule by ity of capsule 00:00: 00:[address] 00 :00 ([facility]) Medical times Branch daily. clindamycin 2020- No [id number] 150mg Take 1 [facility] 150 mg 7-29 06-26 capsule by ity of capsule 00:00: 00:[address] [place] [address] 00 :00 ([facility]) Medical times Branch daily. METOPROLOL Yes [id number] TAKE 1 U nivers SUCCINATE 7-12 TABLET BY ity o f XL 25 mg 24 00:00: MOUTH [place] hr tablet 00 EVERY DAY Medic al Branch METOPROLOL 2018- Yes [id number] TAKE 1 U nivers SUCCINATE 7-12 TABLET BY ity o f XL 25 mg 24 00:00: MOUTH [place] hr tablet 00 EVERY DAY Medic al Branch METOPROLOL 2019-0 Yes [id number] TAKE 1 U nivers SUCCINATE 7-12 TABLET BY ity o f XL 25 mg 24 00:00: MOUTH [place] hr tablet 00 EVERY DAY Medic al Branch METOPROLOL 2019-0 Yes [id number] TAKE 1 U nivers SUCCINATE 7-12 TABLET BY ity o f XL 25 mg 24 00:00: MOUTH [place] hr tablet 00 EVERY DAY Medic al Branch METOPROLOL 2018- 2019- No [id number] TAKE 1 [facility] SUCCINATE 7-12 08-12 TABLET BY ity of XL 25 mg 24 00:00: 00:00 MOUTH [place] tablet 00 :00 EVERY DAY Medic al Branch SUMATRIPTAN 2018-0 Yes [id number] 100mg TAKE 1 [facility] 100 mg 6-17 TABLET BY ity of tablet 00:00: MOUTH [place] 00 NEEDED FOR Medical MIGRAINE Branch BUTALBITAL- 2019-0 Yes [id number] TAKE 1 [facility] ACETAMINOPH 6-17 CAPSULE BY it y of EN-CAFF 00:00: MOUTH [place] 50-300-40 00 EVERY FOUR Medi taran mg per HOURS Branch capsule NEEDED FOR FOR HEADACHE diltiazem 2019-0 Yes [id number] TAKE 1 Un darvin 180 mg 24 6-17 CAPSULE BY ity of hr capsule 00:00: MOUTH [place] 00 EVERY DAY Medical Branch SIMVASTATIN 2019-0 Yes [id number] TAKE 1 [facility] 40 mg 6-17 TABLET BY ity of tablet 00:00: MOUTH [place] 00 EVERY DAY Medical Branch LANSOPRAZOL 2019-0 Yes [id number] TAKE 1 [facility] E 30 mg 6-17 CAPSULE BY ity of capsule 00:00: MOUTH [place] 00 EVERY DAY Medical Branch buPROPion 2019-0 Yes [id number] TAKE 1 Un [facility]vin XL 300 mg 6-17 TABLET BY ity o f 24 hr 00:00: MOUTH [place] tablet 00 EVERY Medical MORNING Branch gabapentin 2019-0 Yes [id number] TAKE 1 [facility] 300 mg 6-17 CAPSULE BY ity of capsule 00:00: MOUTH FOUR [place] 00 TIMES Medical DAILY Branch fluticasone 2019-0 Yes [id number] INHALE 1 [facility] -salmeterol 6-17 PUFF BY ity o f (ADVAIR 00:00: MOUTH [place] DISKUS) 00 EVERY 12 Medical 250-50 HOURS Branch mcg/dose inhalation disk losartan-hy 2018-0 Yes [id number] TAKE 1 [facility] drochloroth 6-17 TABLET BY ity of iazide 00:00: MOUTH [place] 100-12.5 mg 00 EVERY DAY Med ical per tablet Branch EZETIMIBE 2019-0 Yes [id number] TAKE 1 [facility] 10 mg 6-17 TABLET BY ity of tablet 00:00: MOUTH [place] 00 EVERY DAY Medical Branch vilazodone 2019-0 Yes [id number] TAKE 1 U nivers (VIIBRYD) 6-17 TABLET BY ity o f 40 mg 00:00: MOUTH [place] tablet 00 EVERY DAY Medical Branch SUMATRIPTAN 2019-0 Yes [id number] 100mg TAKE 1 [facility] 100 mg 6-17 TABLET BY ity of tablet 00:00: MOUTH [place] 00 NEEDED FOR Medical MIGRAINE Branch BUTALBITAL- 2019-0 Yes [id number] TAKE 1 [facility] ACETAMINOPH 6-17 CAPSULE BY it y of EN-CAFF 00:00: MOUTH [place] 50-300-40 00 EVERY FOUR Medi taran mg per HOURS Branch capsule NEEDED FOR FOR HEADACHE diltiazem 2019-0 Yes [id number] TAKE 1 [facility] 180 mg 24 6-17 CAPSULE BY ity of hr capsule 00:00: MOUTH [place] 00 EVERY DAY Medical Branch SIMVASTATIN 2019-0 Yes [id number] TAKE 1 [facility] 40 mg 6-17 TABLET BY ity of tablet 00:00: MOUTH [place] 00 EVERY DAY Medical Branch LANSOPRAZOL 2019-0 Yes [id number] TAKE 1 [facility] E 30 mg 6-17 CAPSULE BY ity of capsule 00:00: MOUTH [place] 00 EVERY DAY Medical Branch buPROPion 2019-0 Yes [id number] TAKE 1 [facility] XL 300 mg 6-17 TABLET BY ity o f 24 hr 00:00: MOUTH [place] tablet 00 EVERY Medical MORNING Branch gabapentin 2019-0 Yes [id number] TAKE 1 [facility] 300 mg 6-17 CAPSULE BY ity of capsule 00:00: MOUTH FOUR [place] 00 TIMES Medical DAILY Branch fluticasone 2019-0 Yes [id number] INHALE 1 [facility] -salmeterol 6-17 PUFF BY ity o f (ADVAIR 00:00: MOUTH [place] DISKUS) 00 EVERY 12 Medical 250-50 HOURS Branch mcg/dose inhalation disk losartan-hy 2019-0 Yes [id number] TAKE 1 [facility] drochloroth 6-17 TABLET BY ity of iazide 00:00: MOUTH [place] 100-12.5 mg 00 EVERY DAY Med ical per tablet Branch EZETIMIBE 2018- Yes [id number] TAKE 1 [facility] 10 mg 6-17 TABLET BY ity of tablet 00:00: MOUTH [place] 00 EVERY DAY Medical Branch vilazodone 0 Yes [id number] TAKE 1 U nivers (VIIBRYD) 6-17 TABLET BY ity o f 40 mg 00:00: MOUTH [place] tablet 00 EVERY DAY Medical Branch SUMATRIPTAN 2019-0 Yes [id number] 100mg TAKE 1 [facility] 100 mg 6-17 TABLET BY ity of tablet 00:00: MOUTH [place] 00 NEEDED FOR Medical MIGRAINE Branch BUTALBITAL- 2019-0 Yes [id number] TAKE 1 [facility] ACETAMINOPH 6-17 CAPSULE BY it y of EN-CAFF 00:00: MOUTH [place] 50-300-40 00 EVERY FOUR Medi taran mg per HOURS Branch capsule NEEDED FOR FOR HEADACHE diltiazem 0 Yes [id number] TAKE 1 [facility] 180 mg 24 6-17 CAPSULE BY ity of hr capsule 00:00: MOUTH [place] 00 EVERY DAY Medical Branch SIMVASTATIN 2018-0 Yes [id number] TAKE 1 [facility] 40 mg 6-17 TABLET BY ity of tablet 00:00: MOUTH [place] 00 EVERY DAY Medical Branch buPROPion 2018-0 Yes [id number] TAKE 1 Un [facility] XL 300 mg 6-17 TABLET BY ity o f 24 hr 00:00: MOUTH [place] tablet 00 EVERY Medical MORNING Branch gabapentin 2018-0 Yes [id number] TAKE 1 [facility] 300 mg 6-17 CAPSULE BY ity of capsule 00:00: MOUTH [place] 00 TIMES Medical DAILY Branch fluticasone 2019-0 Yes [id number] INHALE 1 [facility] -salmeterol 6-17 PUFF BY ity o f (ADVAIR 00:00: MOUTH [place] DISKUS) 00 EVERY 12 Medical 250-50 HOURS Branch mcg/dose inhalation disk losartan-hy 2018-0 Yes [id number] TAKE 1 [facility] drochloroth 6-17 TABLET BY ity of iazide 00:00: MOUTH [place] 100-12.5 mg 00 EVERY DAY Med ical per tablet Branch EZETIMIBE Yes [id number] TAKE 1 [facility] 10 mg 6-17 TABLET BY ity of tablet 00:00: MOUTH [place] 00 EVERY DAY Medical Branch vilazodone 0 Yes [id number] TAKE 1 U nivers (VIIBRYD) 6-17 TABLET BY ity o f 40 mg 00:00: MOUTH [place] tablet 00 EVERY DAY Medical Branch SUMATRIPTAN 2019-0 Yes [id number] 100mg TAKE 1 [facility] 100 mg 6-17 TABLET BY ity of tablet 00:00: MOUTH [place] 00 NEEDED FOR Medical MIGRAINE Branch diltiazem 0 Yes [id number] TAKE 1 [facility] 180 mg 24 6-17 CAPSULE BY ity of hr capsule 00:00: MOUTH [place] 00 EVERY DAY Medical Branch buPROPion 0 Yes [id number] TAKE 1 [facility] XL 300 mg 6-17 TABLET BY ity o f 24 hr 00:00: MOUTH [place] tablet 00 EVERY Medical MORNING Branch gabapentin 0 Yes [id number] TAKE 1 [facility] 300 mg 6-17 CAPSULE BY ity of capsule 00:00: MOUTH FOUR [place] 00 TIMES Medical DAILY Branch fluticasone 2018-0 Yes [id number] INHALE 1 [facility] -salmeterol 6-17 PUFF BY ity o f (ADVAIR 00:00: MOUTH [place] DISKUS) 00 EVERY 12 Medical 250-50 HOURS Branch mcg/dose inhalation disk losartan-hy Yes [id number] TAKE 1 [facility] drochloroth 6-17 TABLET BY ity of iazide 00:00: MOUTH [place] 100-12.5 mg 00 EVERY DAY Med ical per tablet Branch EZETIMIBE 0 Yes [id number] TAKE 1 [facility] 10 mg 6-17 TABLET BY ity of tablet 00:00: MOUTH [place] 00 EVERY DAY Medical Branch vilazodone 0 Yes [id number] TAKE 1 U nivers (VIIBRYD) 6-17 TABLET BY ity o f 40 mg 00:00: MOUTH [place] tablet 00 EVERY DAY Medical Branch SUMATRIPTAN 2018-0 Yes [id number] 100mg TAKE 1 [facility] 100 mg 6-17 TABLET BY ity of tablet 00:00: MOUTH [place] 00 NEEDED FOR Medical MIGRAINE Branch diltiazem 0 Yes [id number] TAKE 1 [facility] darvin 180 mg 24 6-17 CAPSULE BY ity of hr capsule 00:00: MOUTH [place] 00 EVERY DAY Medical Branch buPROPion 0 Yes [id number] TAKE 1 Un darvin XL 300 mg 6-17 TABLET BY ity o f 24 hr 00:00: MOUTH [place] tablet 00 EVERY Medical MORNING Branch gabapentin 2018-0 Yes [id number] TAKE 1 [facility] 300 mg 6-17 CAPSULE BY [facility] capsule 00:00: M[place]TH [place] 00 TIMES Medical DAILY Branch fluticasone 2019-0 Yes [id number] INHALE 1 [facility] -salmeterol 6-17 PUFF BY ity o f (ADVAIR 00:00: MOUTH [place] DISKUS) 00 EVERY 12 Medical 250-50 HOURS Branch mcg/dose inhalation disk losartan-hy 2019-0 Yes [id number] TAKE 1 [facility] drochloroth 6-17 TABLET BY ity of iazide 00:00: MOUTH [place] 100-12.5 mg 00 EVERY DAY Med ical per tablet Branch EZETIMIBE 2019-0 Yes [id number] TAKE 1 [facility] 10 mg 6-17 TABLET BY ity of tablet 00:00: MOUTH [place] 00 EVERY DAY Medical Branch vilazodone 2019-0 Yes [id number] TAKE 1 [facility] n[facility] (VIIBRYD) 6-17 TABLET BY ity o f 40 mg 00:00: MOUTH [place] tablet 00 EVERY DAY Medical Branch SUMATRIPTAN 2019-0 Yes [id number] 100mg TAKE 1 [facility] 100 mg 6-17 TABLET BY ity of tablet 00:00: MOUTH [place] 00 NEEDED FOR Medical MIGRAINE Branch SUMATRIPTAN 2019-0 Yes [id number] 100mg TAKE 1 [facility] 100 mg 6-17 TABLET BY ity of tablet 00:00: MOUTH [place] 00 NEEDED FOR Medical MIGRAINE Branch diltiazem 2019-0 Yes [id number] TAKE 1 [facility] 180 mg 24 6-17 CAPSULE BY ity of hr capsule 00:00: MOUTH [place] 00 EVERY DAY Medical Branch buPROPion 2019-0 Yes [id number] TAKE 1 [facility] XL 300 mg 6-17 TABLET BY ity o f 24 hr 00:00: MOUTH [place] tablet 00 EVERY Medical MORNING Branch gabapentin 2019-0 Yes [id number] TAKE 1 [facility] 300 mg 6-17 CAPSULE BY it[facility] capsule 00:00: MOUTH FOUR [place] 00 TIMES Medical DAILY Branch fluticasone 2019-0 Yes [id number] INHALE 1 [facility] -salmeterol 6-17 PUFF BY ity o f (ADVAIR 00:00: MOUTH [place] DISKUS) 00 EVERY 12 Medical 250-50 HOURS Branch mcg/dose inhalation disk BUTALBITAL- 2019-0 Yes [id number] TAKE 1 [facility] ACETAMINOPH 6-17 CAPSULE BY it y of EN-CAFF 00:00: MOUTH [place] 50-300-40 00 EVERY FOUR Medi taran mg per HOURS Branch capsule NEEDED FOR FOR HEADACHE losartan-hy 2018- Yes [id number] TAKE 1 [facility] drochloroth 6-17 TABLET BY ity of iazide 00:00: MOUTH [place] 100-12.5 mg 00 EVERY DAY Med ical per tablet Branch EZETIMIBE Yes [id number] TAKE 1 [facility] 10 mg 6-17 TABLET BY ity of tablet 00:00: MOUTH [place] 00 EVERY DAY Medical Branch vilazodone 2018- Yes [id number] TAKE 1 [facility] (VIIBRYD) 6-17 TABLET BY ity o f 40 mg 00:00: MOUTH [place] tablet 00 EVERY DAY Medical Branch diltiazem Yes [id number] TAKE 1 [facility] 180 mg 24 6-17 CAPSULE BY ity of hr capsule 00:00: MOUTH [place] 00 EVERY DAY Medical Branch SIMVASTATIN 2018-0 Yes [id number] TAKE 1 [facility] 40 mg 6-17 TABLET BY ity of tablet 00:00: MOUTH [place] 00 EVERY DAY Medical Branch SUMATRIPTAN 2018-0 Yes [id number] 100mg TAKE 1 [facility] 100 mg 6-17 TABLET BY ity of tablet 00:00: MOUTH [place] 00 NEEDED FOR Medical MIGRAINE Branch diltiazem Yes [id number] TAKE 1 [facility] 180 mg 24 6-17 CAPSULE BY ity of hr capsule 00:00: MOUTH [place] 00 EVERY DAY Medical Branch buPROPion 2018- Yes [id number] TAKE 1 [facility] XL 300 mg 6-17 TABLET BY ity o f 24 hr 00:00: MOUTH [place] tablet 00 EVERY Medical MORNING Branch gabapentin 2019-0 Yes [id number] TAKE 1 [facility] 300 mg 6-17 CAPSULE BY ity of capsule 00:00: MOUTH FOUR [place] 00 TIMES Medical DAILY Branch fluticasone 2019-0 Yes [id number] INHALE 1 [facility] -salmeterol 6-17 PUFF BY ity o f (ADVAIR 00:00: MOUTH [place] DISKUS) 00 EVERY 12 Medical 250-50 HOURS Branch mcg/dose inhalation disk losartan-hy 2018- Yes [id number] TAKE 1 [facility] drochloroth 6-17 TABLET BY ity of iazide 00:00: MOUTH [place] 100-12.5 mg 00 EVERY DAY Med ical per tablet Branch EZETIMIBE Yes [id number] TAKE 1 [facility] 10 mg 6-17 TABLET BY ity of tablet 00:00: MOUTH [place] 00 EVERY DAY Medical Branch vilazodone 2019-0 Yes [id number] TAKE 1 [facility] (VIIBRYD) 6-17 TABLET BY ity o f 40 mg 00:00: MOUTH [place] tablet 00 EVERY DAY Medical Branch LANSOPRAZOL 2019-0 Yes [id number] TAKE 1 [facility] E 30 mg 6-17 CAPSULE BY ity of capsule 00:00: MOUTH [place] 00 EVERY DAY Medical Branch buPROPion 2018-0 Yes [id number] TAKE 1 [facility] XL 300 mg 6-17 TABLET BY ity o f 24 hr 00:00: MOUTH [place] tablet 00 EVERY Medical MORNING Branch gabapentin 2018-0 Yes [id number] TAKE 1 [facility] 300 mg 6-17 CAPSULE BY ity of capsule 00:00: MOUTH FOUR [place] 00 TIMES Medical DAILY Branch fluticasone 2018-0 Yes [id number] INHALE 1 [facility] -salmeterol 6-17 PUFF BY ity o f (ADVAIR 00:00: MOUTH [place] DISKUS) 00 EVERY 12 Medical 250-50 HOURS Branch mcg/dose inhalation disk losartan-hy 0 Yes [id number] TAKE 1 [facility] drochloroth 6-17 TABLET BY ity of iazide 00:00: MOUTH [place] 100-12.5 mg 00 EVERY DAY Med ical per tablet Branch EZETIMIBE 2018-0 Yes [id number] TAKE 1 [facility] 10 mg 6-17 TABLET BY ity of tablet 00:00: MOUTH [place] 00 EVERY DAY Medical Branch vilazodone 2018-0 Yes [id number] TAKE 1 [facility] (VIIBRYD) 6-17 TABLET BY ity o f 40 mg 00:00: MOUTH [place] tablet 00 EVERY DAY Medical Branch SUMATRIPTAN 2019-0 Yes [id number] 100mg TAKE 1 [facility] 100 mg 6-17 TABLET BY ity of tablet 00:00: MOUTH [place] 00 NEEDED FOR Medical MIGRAINE Branch BUTALBITAL- 2019-0 Yes [id number] TAKE 1 [facility] ACETAMINOPH 6-17 CAPSULE BY it y of EN-CAFF 00:00: MOUTH [place] 50-300-40 00 EVERY FOUR Medi taran mg per HOURS Branch capsule NEEDED FOR FOR HEADACHE diltiazem 2019-0 Yes [id number] TAKE 1 [facility] 180 mg 24 6-17 CAPSULE BY ity of hr capsule 00:00: MOUTH [place] 00 EVERY DAY Medical Branch SIMVASTATIN 2018-0 Yes [id number] TAKE 1 [facility] 40 mg 6-17 TABLET BY ity of tablet 00:00: MOUTH [place] 00 EVERY DAY Medical Branch LANSOPRAZOL 2019-0 Yes [id number] TAKE 1 [facility] E 30 mg 6-17 CAPSULE BY ity of capsule 00:00: MOUTH [place] 00 EVERY DAY Medical Branch buPROPion 2019-0 Yes [id number] TAKE 1 [facility] XL 300 mg 6-17 TABLET BY ity o f 24 hr 00:00: MOUTH [place] tablet 00 EVERY Medical MORNING Branch gabapentin 2019-0 Yes [id number] TAKE 1 [facility] 300 mg 6-17 CAPSULE BY it[facility] of capsule 00:00: MOUTH FOUR [place] 00 TIMES Medical DAILY Branch fluticasone 2019-0 Yes [id number] INHALE 1 [facility] -salmeterol 6-17 PUFF BY ity o f (ADVAIR 00:00: MOUTH [place] DISKUS) 00 EVERY 12 Medical 250-50 HOURS Branch mcg/dose inhalation disk losartan-hy Yes [id number] TAKE 1 [facility] drochloroth 6-17 TABLET BY ity of iazide 00:00: MOUTH [place] 100-12.5 mg 00 EVERY DAY Med ical per tablet Branch EZETIMIBE 2018-0 Yes [id number] TAKE 1 [facility] 10 mg 6-17 TABLET BY ity of tablet 00:00: MOUTH [place] 00 EVERY DAY Medical Branch vilazodone 0 Yes [id number] TAKE 1 [facility] (VIIBRYD) 6-17 TABLET BY ity o f 40 mg 00:00: MOUTH [place] tablet 00 EVERY DAY Medical Branch SUMATRIPTAN 2018-0 Yes [id number] 100mg TAKE 1 [facility] 100 mg 6-17 TABLET BY ity of tablet 00:00: MOUTH [place] 00 NEEDED FOR Medical MIGRAINE Branch BUTALBITAL- 2019-0 Yes [id number] TAKE 1 [facility] ACETAMINOPH 6-17 CAPSULE BY it y of EN-CAFF 00:00: MOUTH [place] 50-300-40 00 EVERY FOUR Medi taran mg per HOURS Branch capsule NEEDED FOR FOR HEADACHE diltiazem 2019-0 Yes [id number] TAKE 1 [facility] 180 mg 24 6-17 CAPSULE BY ity of hr capsule 00:00: MOUTH [place] 00 EVERY DAY Medical Branch SIMVASTATIN 2018-0 Yes [id number] TAKE 1 [facility] 40 mg 6-17 TABLET BY ity of tablet 00:00: MOUTH [place] 00 EVERY DAY Medical Branch LANSOPRAZOL 2019-0 Yes [id number] TAKE 1 [facility] E 30 mg 6-17 CAPSULE BY ity of capsule 00:00: MOUTH [place] 00 EVERY DAY Medical Branch buPROPion 20190 Yes [id number] TAKE 1 [facility] XL 300 mg 6-17 TABLET BY ity o f 24 hr 00:00: MOUTH [place] tablet 00 EVERY Medical MORNING Branch gabapentin 2018- Yes [id number] TAKE 1 [facility] 300 mg 6-17 CAPSULE BY ity of capsule 00:00: MOUTH FOUR [place] 00 TIMES Medical DAILY Branch fluticasone 2019-0 Yes [id number] INHALE 1 [facility] -salmeterol 6-17 PUFF BY ity o f (ADVAIR 00:00: MOUTH [place] DISKUS) 00 EVERY 12 Medical 250-50 HOURS Branch mcg/dose inhalation disk losartan-hy Yes [id number] TAKE 1 [facility] drochloroth 6-17 TABLET BY ity of iazide 00:00: MOUTH [place] 100-12.5 mg 00 EVERY DAY Med ical per tablet Branch EZETIMIBE 0 Yes [id number] TAKE 1 [facility] 10 mg 6-17 TABLET BY ity of tablet 00:00: MOUTH [place] 00 EVERY DAY Medical Branch vilazodone 0 Yes [id number] TAKE 1 [facility] (VIIBRYD) 6-17 TABLET BY ity o f 40 mg 00:00: MOUTH [place] tablet 00 EVERY DAY Medical Branch SUMATRIPTAN 2020- No [id number] 100mg TAKE 1 [facility] 100 mg 6-17 06-24 TABLET BY ity of tablet 00:00: 00:00 MOUTH [place] 00 :00 NEEDED FOR Medical MIGRAINE Branch diltiazem 2018-0 2020- No [id number] TAKE 1 [facility] 180 mg 24 6-17 06-24 CAPSULE BY ity of hr capsule 00:00: 00:00 MOUTH [place] 00 :00 EVERY DAY Medical Branch buPROPion 2019-0 2020- No [id number] TAKE 1 [facility] XL 300 mg 6-17 06-24 TABLET BY ity of 24 hr 00:00: 00:00 MOUTH [place] tablet 00 :00 EVERY Medical MORNING Branch gabapentin 2018-0 2020- No [id number] TAKE 1 [facility] 300 mg 6-17 06-24 CAPSULE BY ity of capsule 00:00: 00:00 MOUTH FOUR [place] 00 :00 TIMES Medical DAILY Branch fluticasone 2019-0 2020- No [id number] INHALE 1 [facility] -salmeterol 6-17 -24 PUFF BY ity of (ADVAIR 00:00: 00:00 MOUTH [place] DISKUS) 00 :00 EVERY 12 Medical 250-50 HOURS Branch mcg/dose inhalation disk losartan-hy 2020- No [id number] TAKE 1 [facility] drochloroth 6-17 -24 TABLET BY it y of iazide 00:00: 00:00 MOUTH [place] 100-12.5 mg 00 :00 EVERY DAY Med ical per tablet Branch EZETIMIBE 2020- No [id number] TAKE 1 [facility] 10 mg -24 TABLET BY ity of tablet 00:00: 00:00 MOUTH [place] 00 :00 EVERY DAY Medical Branch vilazodone 2020- No [id number] TAKE 1 [facility] (VIIBRYD) 08-08 TABLET BY ity of 40 mg 00:00: 00:00 MOUTH [place] tablet 00 :00 EVERY DAY Medical Branch BUTALBITAL- 2020- No [id number] TAKE 1 [facility] ACETAMINOPH -03-20 CAPSULE BY i ty of EN-CAFF 00:00: 00:00 MOUTH [place] 50-300-40 00 :00 EVERY FOUR Medi taran mg per HOURS Branch capsule NEEDED FOR FOR HEADACHE LANSOPRAZOL 2019- No [id number] TAKE 1 [facility] E 30 mg -10-28 CAPSULE BY ity o f capsule 00:00: 00:00 MOUTH [place] 00 :00 EVERY DAY Medical Branch MELOXICAM Yes [id number] TAKE 1 [facility] vers 15 mg 5-17 TABLET BY ity of tablet 00:00: MOUTH 1 [place] 00 TIME Medical DAILY. Branch ZOLPIDEM 5 Yes [id number] TAKE 1 [facility] mg tablet 5-17 TABLET BY ity o f 00:00: MOUTH AT [place] 00 BEDTIME Medical NEEDED Branch MELOXICAM Yes [id number] TAKE 1 [facility] vers 15 mg 5-17 TABLET BY ity of tablet 00:00: MOUTH 1 [place] 00 TIME Medical DAILY. Branch ZOLPIDEM 5 Yes [id number] TAKE 1 [facility] mg tablet 5-17 TABLET BY ity o f 00:00: MOUTH AT [place] 00 BEDTIME Medical NEEDED Branch MELOXICAM Yes [id number] TAKE 1 [facility] vers 15 mg 5-17 TABLET BY ity of tablet 00:00: MOUTH TIME Medical DAILY. Branch ZOLPIDEM 5 Yes [id number] TAKE 1 [facility] mg tablet 5-17 TABLET BY ity o f 00:00: MOUTH AT BEDTIME Medical NEEDED Branch MELOXICAM Yes [id number] TAKE 1 [facility] vers 15 mg 5-17 TABLET BY ity of tablet 00:00: MOUTH TIME Medical DAILY. Branch MELOXICAM Yes [id number] TAKE 1 [facility] vers 15 mg 5-17 TABLET BY ity of tablet 00:00: MOUTH TIME Medical DAILY. Branch MELOXICAM Yes [id number] TAKE 1 [facility] vers 15 mg 5-17 TABLET BY ity of tablet 00:00: MOUTH TIME Medical DAILY. Branch ZOLPIDEM 5 Yes [id number] TAKE 1 [facility] mg tablet 5-17 TABLET BY ity o f 00:00: MOUTH AT BEDTIME Medical NEEDED Branch MELOXICAM Yes [id number] TAKE 1 [facility] vers 15 mg 5-17 TABLET BY ity of tablet 00:00: MOUTH TIME Medical DAILY. Branch MELOXICAM Yes [id number] TAKE 1 [facility] vers 15 mg 5-17 TABLET BY ity of tablet 00:00: MOUTH TIME Medical DAILY. Branch MELOXICAM Yes [id number] TAKE 1 [facility] vers 15 mg 5-17 TABLET BY ity of tablet 00:00: MOUTH TIME Medical DAILY. Branch MELOXICAM Yes [id number] TAKE 1 [facility] vers 15 mg 5-17 TABLET BY ity of tablet 00:00: MOUTH TIME Medical DAILY. Branch ZOLPIDEM 5 Yes [id number] TAKE 1 [facility] mg tablet 5-17 TABLET BY ity o f 00:00: MOUTH AT 00 BEDTIME Medical NEEDED Branch MELOXICAM Yes [id number] TAKE 1 [facility] vers 15 mg 5-17 TABLET BY ity of tablet 00:00: MOUTH TIME Medical DAILY. Branch ZOLPIDEM 5 Yes [id number] TAKE 1 [facility] mg tablet 5-17 TABLET BY ity o f 00:00: MOUTH AT 00 BEDTIME Medical NEEDED Branch MELOXICAM 2020- No [id number] TAKE 1 [facility] 15 mg 5-17 06-26 TABLET BY ity of tablet 00:00: 00:00 MOUTH 1 [place] 00 :00 TIME Medical DAILY. Branch MELOXICAM 2020- No [id number] TAKE 1 [facility] 15 mg 5-17 06-26 TABLET BY ity of tablet 00:00: 00:00 MOUTH 1 [place] 00 :00 TIME Medical DAILY. Branch TOPIRAMATE Yes TAKE 1 [facility] rs 50 mg 4-19 TABLET BY ity of tablet 00:00: MOUTH 2 [place] 00 TIMES Medical DAILY. Branch TOPIRAMATE 2018- No TAKE 1 [facility] ers 50 mg 4-19 07-29 TABLET BY ity of tablet 00:00: 00:00 MOUTH 2 [place] 00 :00 TIMES Medical DAILY. Branch TOPIRAMATE 2018- No TAKE 1 [facility] ers 50 mg 4-19 07-29 TABLET BY ity of tablet 00:00: 00:00 MOUTH 2 [place] 00 :00 TIMES Medical DAILY. Branch TOPIRAMATE 2018- No TAKE 1 [facility] ers 50 mg 4-19 07-29 TABLET BY ity of tablet 00:00: 00:00 MOUTH 2 [place] 00 :00 TIMES Medical DAILY. Branch CALCIUM Yes Take by [facility] s CARBONATE 1-15 mouth. ity of (CALCIUM 19:56: [place] 600 ORAL) 18 Medical Branch estradiol 2017-02 Yes [facility] 0.1 mg/24 2- ity of hr twice 00:00: [place] weekly 00 Medical patch Branch estradiol 2017-02- No [facility] 0.1 mg/24 09-19 ity of hr twice 00:00: 00:00 [place] weekly 00 :00 Medical patch Branch estradiol 2017-02 2019- No [facility] 0.1 mg/24 - ity of hr twice 00:00: 00:00 [place] weekly 00 :00 Medical patch Branch estradiol 2017-02 2019- No [facility] 0.1 mg/24 09-19 ity of hr twice 00:00: 00:00 [place] weekly 00 :00 Medical patch Branch ranitidine 2017-02 Yes [id number] 150mg Take 1 [facility] 150 mg 0-16 capsule by ity of capsule 00:00: mouth [place] 00 every Medical evening. Branch sucralfate 2017-02 Yes [id number] 1g Take 1 [facility] 1 gram 0-16 tablet by ity of tablet 00:00: mouth [place] 00 before Medical meals and Branch at bedtime. ranitidine 2017-02 2019- No [id number] 150mg Take 1 [facility] 150 mg 0-16 07-29 capsule by ity of capsule 00:00: 00:00 mouth [place] 00 :00 every Medical evening. [place] sucralfate 2017-02 2019- No [id number] 1g Take 1 [facility] 1 gram 0-16 07-29 tablet by ity of tablet 00:00: 00:00 mouth [place] 00 :00 before Medical meals and Branch at bedtime. ranitidine 2017-02- No [id number] 150mg Take 1 [facility] 150 mg 0-16 07-29 capsule by ity of capsule 00:00: 00:00 mouth [place] 00 :00 every Medical evening. [place] sucralfate 2017-02 2019- No [id number] 1g Take 1 [facility] 1 gram 0-16 07-29 tablet by ity of tablet 00:00: 00:00 mouth [place] 00 :00 before Medical meals and Branch at bedtime. ranitidine 2017-02- No [id number] 150mg Take 1 [facility] 150 mg 0-16 07-29 capsule by ity of capsule 00:00: 00:00 mouth [place] 00 :00 every Medical evening. [place] sucralfate 2017-02- No [id number] 1g Take 1 [facility] 1 gram 0-16 07-29 tablet by ity of tablet 00:00: 00:00 mouth [place] 00 :00 before Medical meals and Branch at bedtime. nitroglycer 2018-[address] 1 [facility] vers in 7-10 tablet ity of (NITROSTAT) 00:00: under the [place] 0.4 mg 00 tongue Medical sublingual every 5 Branc h tablet (five) minutes as needed for Chest pain. nitroglycer 2018-[address] 1 [facility] vers in 7-10 tablet ity of (NITROSTAT) 00:00: under the [place] 0.4 mg 00 tongue Medical sublingual every 5 Branc h tablet (five) minutes as needed for Chest pain. nitroglycer 2018-[address] 1 [facility] vers in 7-10 tablet ity of (NITROSTAT) 00:00: under the [place] 0.4 mg 00 tongue Medical sublingual every 5 Branc h tablet (five) minutes as needed for Chest pain. nitroglycer 2018-[address] 1 [facility] vers in 7-10 tablet ity of (NITROSTAT) 00:00: under the [place] 0.4 mg 00 tongue Medical sublingual every 5 Branc h tablet (five) minutes as needed for Chest pain. nitroglycer 2018-[address] 1 [facility] vers in 7-10 tablet ity of (NITROSTAT) 00:00: under the [place] 0.4 mg 00 tongue Medical sublingual every 5 Branc h tablet (five) minutes as needed for Chest pain. nitroglycer 2018-[address] 1 [facility] vers in 7-10 tablet ity of (NITROSTAT) 00:00: under the [place] 0.4 mg 00 tongue Medical sublingual every 5 Branc h tablet (five) minutes as needed for Chest pain. nitroglycer 2018-[address] 1 [facility] vers in 7-10 tablet ity of (NITROSTAT) 00:00: under the [place] 0.4 mg 00 tongue Medical sublingual every 5 Branc h tablet (five) minutes as needed for Chest pain. nitroglycer 2018-[address] 1 [facility] vers in 7-10 tablet ity of (NITROSTAT) 00:00: under the [place] 0.4 mg 00 tongue Medical sublingual every 5 Branc h tablet (five) minutes as needed for Chest pain. nitroglycer 2018-[address] 1 [facility] vers in 7-10 tablet ity of (NITROSTAT) 00:00: under the [place] 0.4 mg 00 tongue Medical sublingual every 5 Branc h tablet (five) minutes as needed for Chest pain. nitroglycer 2018-[address] 1 [facility] vers in 7-10 tablet ity of (NITROSTAT) 00:00: under the [place] 0.4 mg 00 tongue Medical sublingual every 5 Branc h tablet (five) minutes as needed for Chest pain. nitroglycer 2018-[address] 1 [facility] vers in 7-10 tablet ity of (NITROSTAT) 00:00: under the [place] 0.4 mg 00 tongue Medical sublingual every 5 Branc h tablet (five) minutes as needed for Chest pain. nitroglycer 2018-[address] 1 [facility] vers in 7-10 tablet ity of (NITROSTAT) 00:00: under the [place] 0.4 mg 00 tongue Medical sublingual every 5 Branc h tablet (five) minutes as needed for Chest pain. nitroglycer 2018-[address] 1 [facility] vers in 7-10 tablet ity of (NITROSTAT) 00:00: under the [place] 0.4 mg 00 tongue Medical sublingual every 5 Branc h tablet (five) minutes as needed for Chest pain. nitroglycer 2018-[address] 1 [facility] vers in 7-10 tablet ity of (NITROSTAT) 00:00: under the [place] 0.4 mg 00 tongue Medical sublingual every 5 Branc h tablet (five) minutes as needed for Chest pain. nitroglycer 2018-[address] 1 [facility] vers in 7-10 tablet ity of (NITROSTAT) 00:00: under the [place] 0.4 mg 00 tongue Medical sublingual every 5 Branc h tablet (five) minutes as needed for Chest pain. nitroglycer 2018-[address] 1 [facility] vers in 7-10 tablet ity of (NITROSTAT) 00:00: under the [place] 0.4 mg 00 tongue Medical sublingual every 5 Branc h tablet (five) minutes as needed for Chest pain. nitroglycer 2018-[address] 1 [facility] vers in 7-10 tablet ity of (NITROSTAT) 00:00: under the [place] 0.4 mg 00 tongue Medical sublingual every 5 Branc h tablet (five) minutes as needed for Chest pain. nitroglycer 2018-[address] 1 [facility] vers in 7-10 tablet ity of (NITROSTAT) 00:00: under the [place] 0.4 mg 00 tongue Medical sublingual every 5 Branc h tablet (five) minutes as needed for Chest pain. nitroglycer 2018-[address] 1 [facility] vers in 7-10 tablet ity of (NITROSTAT) 00:00: under the [place] 0.4 mg 00 tongue Medical sublingual every 5 Branc h tablet (five) minutes as needed for Chest pain. nitroglycer 2018-[address] 1 [facility] vers in 7-10 tablet ity of (NITROSTAT) 00:00: under the [place] 0.4 mg 00 tongue Medical sublingual every 5 Branc h tablet (five) minutes as needed for Chest pain. nitroglycer 2018-[address] 1 [facility] vers in 7-10 tablet ity of (NITROSTAT) 00:00: under the [place] 0.4 mg 00 tongue Medical sublingual every 5 Branc h tablet (five) minutes as needed for Chest pain. nitroglycer 2018-[address] 1 [facility] vers in 7-10 tablet ity of (NITROSTAT) 00:00: under the [place] 0.4 mg 00 tongue Medical sublingual every 5 Branc h tablet (five) minutes as needed for Chest pain. nitroglycer 2018-[address] 1 [facility] vers in 7-10 tablet ity of (NITROSTAT) 00:00: under the [place] 0.4 mg 00 tongue Medical sublingual every 5 Branc h tablet (five) minutes as needed for Chest pain. nitroglycer 2018-[address] 1 [facility] vers in 7-10 tablet ity of (NITROSTAT) 00:00: under the [place] 0.4 mg 00 tongue Medical sublingual every 5 Branc h tablet (five) minutes as needed for Chest pain. nitroglycer 2018-[address] 1 [facility] vers in 7-10 tablet ity of (NITROSTAT) 00:00: under the [place] 0.4 mg 00 tongue Medical sublingual every 5 Branc h tablet (five) minutes as needed for Chest pain. nitroglycer 2018-[address] 1 [facility] vers in 7-10 tablet ity of (NITROSTAT) 00:00: under the [place] 0.4 mg 00 tongue Medical sublingual every 5 Branc h tablet (five) minutes as needed for Chest pain. nitroglycer 2018-[address] 1 [facility] vers in 7-10 tablet ity of (NITROSTAT) 00:00: under the [place] 0.4 mg 00 tongue Medical sublingual every 5 Branc h tablet (five) minutes as needed for Chest pain. nitroglycer 2018-[address] 1 [facility] vers in 7-10 tablet ity of (NITROSTAT) 00:00: under the [place] 0.4 mg 00 tongue Medical sublingual every 5 Branc h tablet (five) minutes as needed for Chest pain. nitroglycer 2018-[address] 1 [facility] vers in 7-10 tablet ity of (NITROSTAT) 00:00: under the [place] 0.4 mg 00 tongue Medical sublingual every 5 Branc h tablet (five) minutes as needed for Chest pain. nitroglycer 2018-[address] 1 [facility] vers in 7-10 tablet ity of (NITROSTAT) 00:00: under the [place] 0.4 mg 00 tongue Medical sublingual every 5 Branc h tablet (five) minutes as needed for Chest pain. nitroglycer 2018-[address] 1 [facility] vers in 7-10 tablet ity of (NITROSTAT) 00:00: under the [place] 0.4 mg 00 tongue Medical sublingual every 5 Branc h tablet (five) minutes as needed for Chest pain. nitroglycer 2018-[address] 1 [facility] vers in 7-10 tablet ity of (NITROSTAT) 00:00: under the [place] 0.4 mg 00 tongue Medical sublingual every 5 Branc h tablet (five) minutes as needed for Chest pain. nitroglycer 2018-[address] 1 [facility] vers in 7-10 tablet ity of (NITROSTAT) 00:00: under the [place] 0.4 mg 00 tongue Medical sublingual every 5 Branc h tablet (five) minutes as needed for Chest pain. nitroglycer 2018-[address] 1 [facility] vers in 7-10 tablet ity of (NITROSTAT) 00:00: under the [place] 0.4 mg 00 tongue Medical sublingual every 5 Branc h tablet (five) minutes as needed for Chest pain. nitroglycer 2018-[address] 1 [facility] vers in 7-10 tablet ity of (NITROSTAT) 00:00: under the [place] 0.4 mg 00 tongue Medical sublingual every 5 Branc h tablet (five) minutes as needed for Chest pain. nitroglycer 2018-[address] 1 [facility] vers in 7-10 tablet ity of (NITROSTAT) 00:00: under the [place] 0.4 mg 00 tongue Medical sublingual every 5 Branc h tablet (five) minutes as needed for Chest pain. nitroglycer 2018-[address] 1 [facility] vers in 7-10 tablet ity of (NITROSTAT) 00:00: under the [place] 0.4 mg 00 tongue Medical sublingual every 5 Branc h tablet (five) minutes as needed for Chest pain. nitroglycer 2018-[address] 1 [facility] vers in 7-10 tablet ity of (NITROSTAT) 00:00: under the [place] 0.4 mg 00 tongue Medical sublingual every 5 Branc h tablet (five) minutes as needed for Chest pain. nitroglycer 2018-[address] 1 [facility] vers in 7-10 tablet ity of (NITROSTAT) 00:00: under the [place] 0.4 mg 00 tongue Medical sublingual every 5 Branc h tablet (five) minutes as needed for Chest pain. nitroglycer 2018-[address] 1 [facility] vers in 7-10 tablet ity of (NITROSTAT) 00:00: under the [place] 0.4 mg 00 tongue Medical sublingual every 5 Branc h tablet (five) minutes as needed for Chest pain. nitroglycer 2018-[address] 1 [facility] vers in 7-10 tablet ity of (NITROSTAT) 00:00: under the [place] 0.4 mg 00 tongue Medical sublingual every 5 Branc h tablet (five) minutes as needed for Chest pain. ERGOCALCIFE Yes Take by [facility] HUA, 6-11 mouth. ity of VITAMIN D2, 19:04: [place] (VITAMIN D 47 Medical ORAL) [place] amitriptyli Yes [id number] Take 2 [facility] ne 25 mg 6-11 tablets by ity o f tablet 00:00: mouth at [place] [address] bedtime [facility] Branch amitriptyli Yes [id number] Take 2 [facility] ne 25 mg 6-11 tablets by ity o f tablet 00:00: mouth at [place] [address] bedtime [facility] Branch amitriptyli Yes [id number] Take 2 [facility] ne 25 mg 6-11 tablets by ity o f tablet 00:00: mouth at [address] Branch amitriptyli Yes [id number] Take 2 [facility] ne 25 mg 6-11 tablets by ity o f tablet 00:00: mouth at [address] Branch amitriptyli Yes [id number] Take 2 [facility] ne 25 mg 6-11 tablets by ity o f tablet 00:00: mouth at [place] [facility] amiiptyli [id number] Yes [id number] Take 2 [facility] ne 25 mg 6-11 tablets by ity o f tablet 00:00: mouth at [place] [facility] amitriptyli 20180 Yes [id number] Take 2 [facility] ne 25 mg 6-11 tablets by ity o f tablet 00:00: mouth at [place] [facility] amitriptyl [id number] Yes [id number] Take 2 [facility] ne 25 mg 6-11 tablets by ity o f tablet 00:00: mouth at [place] [facility] amitriptyl [id number] Yes [id number] Take 2 [facility] ne 25 mg 6-11 tablets by ity o f tablet 00:00: mouth at [place] [facility] amiiptyl 20180 Yes [id number] Take 2 Univers ne 25 mg 6-11 tablets by ity o f tablet 00:[facility] [place] [facility] Yes [id number] Take 2 [facility] ne 25 mg 6-11 tablets by ity o f tablet 00:[facility] [place] [facility] 2020- No [id number] Take 2 [facility] ne 25 mg 6-11 06-26 tablets by ity of tablet 00:00: 00:00 [facility] [place] [facility]- No [id number] Take 2 [facility] ne 25 mg 6-11 06-26 tablets by ity of tablet 00:00: 00:00 [place] :00 [facility] Immunizations Ordered Filled Immunization Date Status Comments Sour e Immunization Name Name Auto Load [employer] COVID-19 2020-03-14 Completed [facility] VACCINATION 00:00:00 [facility] Zoster Vaccine 2018-07-23 Completed [facility] 00:00:00 [facility] Zoster Vaccine 2018-07-23 Completed [employer] 00:00:00 [facility] Zoster Vaccine 2018-07-23 Completed Naytev Markado 00:00:00 [facility] Zoster Vaccine 2018-07-23 Completed [employer] 00:00:00 [facility] Zoster Vaccine 2018-07-23 Completed Naytev Markado 00:00:00 [facility] Zoster Vaccine 2018-07-23 Completed University of Recombinant 00:00:00 [facility] Zoster Vaccine 2018-07-23 Completed [facility] Recombinant 00:00:00 [facility] Zoster Vaccine 2018-07-23 Completed [facility] Recombinant 00:00:00 [facility] Zoster Vaccine 2018-07-23 Completed [facility] Recombinant 00:00:00 [facility] Zoster Vaccine 2018-07-23 Completed [facility] Recombinant 00:00:00 [facility] Zoster Vaccine 2018-07-23 Completed [facility] Recombinant 00:00:00 [facility] Zoster Vaccine 2018-07-23 Completed [facility] Recombinant 00:00:00 [facility] Zoster Vaccine 2018-07-23 Completed [facility] Recombinant 00:00:00 [facility] Zoster Vaccine 2018-07-23 Completed [facility] Recombinant 00:00:00 [facility] Zoster Vaccine 2018-07-23 Completed [facility] Recombinant 00:00:00 [facility] Zoster Vaccine 2018-07-23 Completed [facility] Recombinant 00:00:00 [facility] Zoster Vaccine 2018-07-23 Completed [facility] Recombinant 00:00:00 [facility] Zoster Vaccine 2018-07-23 Completed [facility] Recombinant 00:00:00 [facility] Zoster Vaccine 2018-07-23 Completed [facility] Recombinant 00:00:00 [facility] Zoster Vaccine 2018-07-23 Completed [facility] Recombinant 00:00:00 [facility] Zoster Vaccine 2018-07-23 Completed [facility] Recombinant 00:00:00 [facility] Zoster Vaccine 2018-07-23 Completed [facility] Recombinant 00:00:00 [facility] Zoster Vaccine 2018-07-23 Completed [facility] Recombinant 00:00:00 [facility] Zoster Vaccine 2018-07-23 Completed [facility] Recombinant 00:00:00 [facility] Zoster Vaccine 2018-07-23 Completed [facility] Recombinant 00:00:00 [facility] Zoster Vaccine 2018-07-23 Completed [facility] Recombinant 00:00:00 [facility] Zoster Vaccine 2018-07-23 Completed [facility] Recombinant 00:00:00 [facility] Zoster Vaccine 2018-07-23 Completed [facility] Recombinant 00:00:00 [facility] Zoster Vaccine 2018-07-23 Completed [facility] Recombinant 00:00:00 [facility] Zoster Vaccine 2018-07-23 Completed [facility] Recombinant 00:00:00 [facility] Zoster Vaccine 2018-07-23 Completed [facility] Recombinant 00:00:00 [facility] Zoster Vaccine 2018-07-23 Completed [facility] Recombinant 00:00:00 [facility] Zoster Vaccine 2018-07-23 Completed [facility] Recombinant 00:00:00 [facility] Zoster Vaccine 2018-07-23 Completed [facility] Recombinant 00:00:00 [facility] Zoster Vaccine 2018-07-23 Completed [facility] Recombinant 00:00:00 [facility] Zoster Vaccine 2018-07-23 Completed [facility] Recombinant 00:00:00 [facility] Zoster Vaccine 2018-07-23 Completed [facility] Recombinant 00:00:00 [facility] Zoster Vaccine 2018-07-23 Completed University of Recombinant 00:00:00 [facility] Zoster Vaccine 2018-07-23 Completed [facility] Recombinant 00:00:00 [facility] Zoster Vaccine 2018-07-23 Completed [facility] Recombinant 00:00:00 [facility] Zoster Vaccine 2018-07-23 Completed Hindu Recombinant 00:00:00 Hospital Vital Signs Vital Name Observation Time Observation Value Comments Source Systolic blood 2019-08-18 19:17:00 102 mm[Hg] Univer sity of pressure [facility] Diastolic blood 2019-08-18 19:17:00 66 mm[Hg] Unive rsity of pressure [facility] Heart rate 2019-08-18 19:17:00 76 /min [facility]i [facility] Body height 2019-08-18 19:17:00 152.4 cm [facility]i [facility] of [facility] Body weight 2019-08-18 19:17:00 68.04 kg [facility]i [facility] of [facility] BMI 2019-08-18 19:17:00 29.29 kg/m2 [facility] Systolic blood 2019-08-18 19:17:00 102 mm[Hg] Univer sity of pressure [facility] Diastolic blood 2019-08-18 19:17:00 66 mm[Hg] Unive rsity of pressure [facility] Heart rate 2019-08-18 19:17:00 76 /min [facility]i ty of [facility] Body height 2019-08-18 19:17:00 152.4 cm Universi ty of [facility] Body weight 2019-08-18 19:17:00 68.04 kg Universi ty of [facility] BMI 2019-08-18 19:17:00 29.29 kg/m2 [facility] ty of [facility] Systolic blood 2018-09-19 16:35:00 105 mm[Hg] Univer sity of pressure [facility] Diastolic blood 2018-09-19 16:35:00 71 mm[Hg] Unive rsity of pressure [facility] Heart rate 2018-09-19 16:35:00 70 /min [facility] Body temperature 2018-09-19 16:35:00 [facility].17 [facility] 2018-09-19 16:35:00 152.4 cm [facility] Body weight 2018-09-19 16:35:00 63.05 kg [facility] BMI 2018-09-19 16:35:00 27.15 kg/m2 [facility] Systolic blood 2021-03-21 13:45:00 151 mm[Hg] [facility] pressure Diastolic blood 2021-03-21 13:45:00 79 mm[Hg] [facility] pressure Heart rate 2021-03-21 13:45:00 105 /min [facility] Body temperature 2021-03-21 13:45:00 36.11 [facility] Respiratory rate 2021-03-21 13:45:00 18 /min [facility] Body height 2021-03-21 13:45:00 152.4 cm [facility] Body weight 2021-03-21 13:45:00 44.725 kg [facility] BMI 2021-03-21 13:45:00 19.26 kg/m2 [facility] Oxygen saturation in 2021-03-21 13:45:00 98 /min [facility] Arterial blood by Pulse oximetry Procedures Procedure Date / Time Performing Clinician Source Performed EXTERNAL PROVIDER RECORDS 2021-05-05 05:01:00 Doctor Unassigned, No [facility] COVID-19 QUALITATIVE 2021-03-21 22:06:00 Yarelis Gomez [facility] RT-PCR XR CHEST 1 VW PORTABLE 2021-03-21 17:35:[address] [facility] ECG 12-LEAD 2021-03-21 15:17:40 Alejandro Jc [facility] CBC WITH PLATELET AND 2021-03-21 14:04:00 Alejandro Jc [facility] DIFFERENTIAL COMPREHENSIVE METABOLIC 2021-03-21 14:04:00 [facility] PANEL MAGNESIUM LEVEL 2021-03-21 14:04:00 [facility] TYPE AND SCREEN 2021-03-21 14:04:00 [facility] ESTIMATED GFR 2021-03-21 14:04:00 [facility] MANUAL DIFFERENTIAL 2021-03-21 14:04:00 [facility] ANTIBODY IDENTIFICATION 2021-03-21 14:04:00 [facility] DIRECT EDNA' (SHARON) 2021-03-21 14:04:00 [facility] POSITIVE SHARON REFLEX WITH 2021-03-21 14:04:00 [facility] SALINE EXTERNAL PROVIDER RECORDS 2021-03-18 06:01:00 Doctor Unassigned, No [facility] TRANSFUSE RED BLOOD CELLS 2021-03-17 14:03:00 [facility] TRANSFUSE RED BLOOD CELLS 2021-03-14 22:40:00 [facility] PREPARE RBC 2021-03-14 16:54:00 [facility] ANTIBODY IDENTIFICATION 2021-03-14 16:54:00 [facility] POSITIVE SHARON REFLEX WITH 2021-03-14 16:54:00 [facility] SALINE DIRECT EDNA' (SHARON) 2021-03-14 16:54:00 [facility] ECG 12-LEAD 2021-03-14 16:23:32 [facility] CBC WITH PLATELET AND 2021-03-14 15:22:00 [facility] DIFFERENTIAL COMPREHENSIVE METABOLIC 2021-03-14 15:22:00 [facility] PANEL MAGNESIUM LEVEL 2021-03-14 15:22:00 [facility] ESTIMATED GFR 2021-03-14 15:22:00 [facility] LDH 2021-03-14 15:22:00 [facility] MANUAL DIFFERENTIAL 2021-03-14 15:22:00 [facility] POC GLUCOSE 2021-03-09 18:05:00 Vito Uriarte Ho spital HC COMPLETE BLD COUNT 2021-03-09 09:17:00 [facility] W/AUTO DIFF BASIC METABOLIC PANEL 2021-03-09 09:17:00 [facility] HEPATIC FUNCTION PANEL 2021-03-09 09:17:00 JcAlejandro [facility] LDH 2021-03-09 09:17:00 [facility] MAGNESIUM LEVEL 2021-03-09 09:17:00 Vito Uriarte Ho spital ESTIMATED GFR 2021-03-09 09:17:00 [facility] POC GLUCOSE 2021-03-09 01:18:00 Vito Uriarte Ho spital POC GLUCOSE 2021-03-08 19:04:00 Vito Uriarte Ho spital POC GLUCOSE 2021-03-08 14:35:00 Vito Uriarte Ho spital URINE CULTURE 2021-03-08 12:51:00 Vito Uriarte spital URINALYSIS SCREEN AND 2021-03-08 11:36:00 Vito Uriarte [facility] MICROSCOPY, WITH REFLEX TO CULTURE HC COMPLETE BLD COUNT 2021-03-08 11:19:00 [facility] W/AUTO DIFF BASIC METABOLIC PANEL 2021-03-08 11:19:00 [facility] HEPATIC FUNCTION PANEL 2021-03-08 11:19:00 JcAlejandro [facility] LDH 2021-03-08 11:19:00 [facility] MAGNESIUM LEVEL 2021-03-08 11:19:00 Jordan Hoffman [facility] ESTIMATED GFR 2021-03-08 11:19:00 [facility] TRANSFUSE RED BLOOD CELLS 2021-03-08 05:25:00 [facility] POC GLUCOSE 2021-03-08 00:07:00 [facility] Ho spital ECG 12-LEAD 2021-03-07 20:41:25 [facility] TRANSFUSE RED BLOOD CELLS 2021-03-07 19:41:00 [facility] POC GLUCOSE 2021-03-07 18:01:00 [facility] Hindu Ho spital HC COMPLETE BLD COUNT 2021-03-07 08:47:00 [facility] W/AUTO DIFF COMPREHENSIVE METABOLIC 2021-03-07 08:47:00 [facility] PANEL LDH 2021-03-07 08:47:00 [facility] B NATRIURETIC PEPTIDE 2021-03-07 08:47:00 [facility] ESTIMATED GFR 2021-03-07 08:47:00 [facility] MAGNESIUM LEVEL 2021-03-07 08:47:00 [facility] SMEAR REVIEW 2021-03-07 08:47:00 [facility] PERIPHERAL SMEAR 2021-03-07 08:47:00 [facility] XR CHEST 1 VW PORTABLE 2021-03-07 02:45:00 [facility] ANTI-SPIKE IGG 2021-03-07 00:44:00 [facility] ANTIBODY TITER TYPE AND SCREEN 2021-03-07 00:44:00 Yarelis Gomez spital COVID-19 SEROLOGY PATIENT 2021-03-07 00:44:00 [facility] SURVEILLANCE DIRECT EDNA' (SHARON) 2021-03-07 00:44:00 Yarelis Gomez [facility] HAPTOGLOBIN 2021-03-07 00:44:00 [facility] D-DIMER 2021-03-07 00:44:00 [facility] Hindu Ho spital POSITIVE SHARON REFLEX WITH 2021-03-07 00:44:[address] [facility] SALINE ANTIBODY IDENTIFICATION 2021-03-07 00:44:00 Yarelis Gomez [facility] ELUTION 2021-03-07 00:44:00 Yarelis Gomez Ho spital E ANTIGEN PATIENT TYPING 2021-03-07 00:44:00 Yarelis Gomez [facility] C ANTIGEN PATIENT TYPING 2021-03-07 00:44:[address] [facility] C ANTIGEN PATIENT TYPING 2021-03-07 00:44:[address] [facility] ([facility] C) OFELIA ANTIGEN PATIENT 2021-03-07 00:44:00 Yarelis Gomez [facility] TYPING E ANTIGEN PATIENT TYPING 2021-03-07 00:44:[address] [facility] ([facility] E) ANTIBODY SCREEN 2021-03-07 00:44:00 Yarelis Gomez Ho spital PREPARE RBC 2021-03-07 00:44:00 Vandana Emerson [facility] Kain URINE CULTURE 2021-03-06 22:18:00 Yarelis Gomez spital ECG 12-LEAD 2021-03-06 21:03:06 Yarelis Gomez spital XR CHEST 1 VW PORTABLE 2021-03-06 20:45:00 Yarelis Gomez [facility] URINALYSIS SCREEN AND 2021-03-06 20:37:00 Yarelis Gomez [facility] MICROSCOPY, WITH REFLEX TO CULTURE BLOOD CULTURE, AEROBIC & 2021-03-06 20:34:[address] [facility] ANAEROBIC CBC WITH PLATELET AND 2021-03-06 20:34:00 Yarelis Gomez [facility] DIFFERENTIAL COMPREHENSIVE METABOLIC 2021-03-06 20:34:00 Yarelis Gomez [facility] PANEL MAGNESIUM LEVEL 2021-03-06 20:34:00 Yarelis Gomez spital LDH 2021-03-06 20:34:00 Yarelis Gomez Ho spital RETICULOCYTE COUNT 2021-03-06 20:34:00 [place] [facility] HAPTOGLOBIN 2021-03-06 20:34:00 Yarelis Gomez spital TROPONIN T 2021-03-06 20:34:00 Yarelis Gomez spital PROTHROMBIN TIME WITH INR 2021-03-06 20:34:00 Yarelis Gomez [facility] PARTIAL THROMBOPLASTIN 2021-03-06 20:34:00 Yarelis Gomez [facility] TIME (PTT) ESTIMATED GFR 2021-03-06 20:34:00 Yarelis Gomez spital MANUAL DIFFERENTIAL 2021-03-06 20:34:00 [facility] 2021-03-06 20:22:00 Yarelis Gomez [facility] RT-PCR EXTERNAL PROVIDER RECORDS 2021-03-03 06:01:00 Doctor Unassigned, No [facility] PET CT SKULL BASE TO MID 2021-02-27 20:35:15 Tena Wagoner [facility] THIGH POC GLUCOSE 2021-02-27 19:21:00 Yarelis Gomez spital COMPREHENSIVE METABOLIC 2021-02-27 18:42:00 Yarelis Gomez [facility] PANEL ESTIMATED GFR 2021-02-27 18:42:00 Yarelis Gomez spital LDH 2021-02-27 18:42:00 Yarelis Gomez spital SURGICAL PATHOLOGY 2021-02-27 18:19:00 Yarelis Gomez [facility] REQUEST BONE MARROW TRAY 2021-02-27 18:02:00 Yarelis Gomez ospital FLOW CYTOMETRY EVALUATION 2021-02-27 18:02:00 Yarelis Gomez [facility] BCM CHROMOSOME ANALYSIS 2021-02-27 18:02:00 Yarelis Gomez [facility] PANEL [facility] FISH PANEL 2021-02-27 18:02:00 Yarelis Gomez [facility] MISCELLANEOUS REFERRAL 2021-02-27 18:02:00 Yarelis Gomez [facility] TEST HC COMPLETE BLD COUNT 2021-02-27 16:02:00 Yarelis Gomez [facility] W/AUTO DIFF COMPREHENSIVE METABOLIC 2021-02-27 16:02:00 Yarelis Gomez [facility] PANEL MAGNESIUM LEVEL 2021-02-27 16:02:00 Yarelis Gomez Ho spital LDH 2021-02-27 16:02:00 Yarelis Gomez Ho spital IMMUNOGLOBULIN G 2021-02-27 16:02:00 Tena Wagoner H ospital ESTIMATED GFR 2021-02-27 16:02:00 Yarelis Gomez Ho spital CBC WITH PLATELET AND 2021-02-21 10:57:00 [facility] DIFFERENTIAL COMPREHENSIVE METABOLIC 2021-02-21 10:57:00 Nabeel Mckeon [facility] PANEL ESTIMATED GFR 2021-02-21 10:57:00 [facility] MAGNESIUM LEVEL 2021-02-21 10:57:00 [facility] MANUAL DIFFERENTIAL 2021-02-21 10:57:00 Nabeel Mckeon [facility] LACTIC ACID LEVEL, SEPSIS 2021-02-21 03:37:00 Laura Mckeon [facility] - NOW AND REPEAT 2X EVERY 3 HOURS LACTIC ACID LEVEL, SEPSIS 2021-02-20 23:17:00 Mike [facility] - NOW AND REPEAT 2X EVERY 3 HOURS COVID-19 QUALITATIVE 2021-02-20 21:09:00 [facility]IRAL [facility] 2021-02-20 21:04[facility]00 [facility] WITH [facility]ATELET AND 2021-02-20 20:02:[address] [facility] DIFFERENTIAL COMPREHENSIVE METABOLIC 2021-02-20 20:02:00 Laura Mckeon [facility] PANEL LIPASE LEVEL 2021-02-20 20:02:00 Laura Mckeon spital LACTIC ACID LEVEL, SEPSIS 2021-02-20 20:02:00 [facility] NOW AND REPEAT 2X EVERY 3 HOURS MAGNESIUM LEVEL 2021-02-20 20:02:00 Laura Mckeon spital ESTIMATED GFR 2021-02-20 20:02:00 Laura Mckeonist Ho spital MANUAL DIFFERENTIAL 2021-02-20 20:02:00 MichaelLaura [facility] HC COMPLETE BLD COUNT 2021-02-06 16:41:00 Yarelis Gomez [facility] W/AUTO DIFF COMPREHENSIVE METABOLIC 2021-02-06 16:41:00 Yarelis Gomez [facility] PANEL MAGNESIUM LEVEL 2021-02-06 16:41:00 Yarelis Gomez Ho spital LDH 2021-02-06 16:41:00 Yarelis Gomez spital ESTIMATED GFR 2021-02-06 16:41:00 Yarelis Gomez Ho spital HC COMPLETE BLD COUNT 2021-01-27 17:18:00 Yarelis Gomez [facility] W/AUTO DIFF COMPREHENSIVE METABOLIC 2021-01-27 17:18:00 [place] [facility] PANEL MAGNESIUM LEVEL 2021-01-27 17:18:00 Yarelis Gomez Ho spital LDH 2021-01-27 17:18:00 Yarelis Gomez Ho spital ESTIMATED GFR 2021-01-27 17:18:00 Yarelis Gomez Ho spital RESPIRATORY PATHOGEN 2021-01-13 18:33:00 Tena Wagoner [facility] PANEL WITH COVID-19 RT-PCR HC COMPLETE BLD COUNT 2021-01-13 17:05:00 Yarelis Gomez [facility] W/AUTO DIFF COMPREHENSIVE METABOLIC 2021-01-13 17:05:00 Yarelis Gomez [facility] PANEL MAGNESIUM LEVEL 2021-01-13 17:05:00 Yarelis Gomez Ho spital LDH 2021-01-13 17:05:00 Yarelis Gomez Ho spital ESTIMATED GFR 2021-01-13 17:05:00 Yarelis Gomez Ho spital SMEAR REVIEW 2021-01-13 17:05:00 Yarelis Gomez Ho spital PHYSICIAN ORDERS 2021-01-01 06:01:00 Doctor Unassigned, No Unive [facility] CBC WITH PLATELET AND 2020-12-30 19:51:00 Yarelis Gomez [facility] DIFFERENTIAL COMPREHENSIVE METABOLIC 2020-12-30 19:51:00 [place] [facility] PANEL MAGNESIUM LEVEL 2020-12-30 19:51:00 Yarelis Gomez Ho spital LDH 2020-12-30 19:51:00 Yarelis Gomez Ho spital ESTIMATED GFR 2020-12-30 19:51:00 Yarelis Gomez Ho spital MANUAL DIFFERENTIAL 2020-12-30 19:51:[facility] AND 2020-12-23 15:00:00 [place] [facility] DIFFERENTIAL COMPREHENSIVE METABOLIC 2020-12-23 15:00:00 [place] [facility] PANEL MAGNESIUM LEVEL 2020-12-23 15:00:00 Yarelis Gomez Ho spital LDH 2020-12-23 15:00:00 Yarelis Gomez Ho spital TB NK CELLS 2020-12-23 15:00:00 Tena Wagoner spital IMMUNOGLOBULIN G 2020-12-23 15:00:00 Tena Wagoner H ospital ESTIMATED GFR 2020-12-23 15:00:00 Yarelis Gomez spital MANUAL DIFFERENTIAL 2020-12-23 15:00:00 [place] [facility] REFERRAL- 2020-12-23 05:01:00 Doctor Unassigned, No Univer [facility] REQUEST/RESPONSE Name [facility] HC COMPLETE BLD COUNT 2020-12-16 16:32:00 Yarelis Gomez [facility] W/AUTO DIFF COMPREHENSIVE METABOLIC 2020-12-16 16:32:00 Yarelis Gomez [facility] PANEL MAGNESIUM LEVEL 2020-12-16 16:32:00 Yarelis Gomez Ho spital LDH 2020-12-16 16:32:00 Yarelis Gomez spital ESTIMATED GFR 2020-12-16 16:32:00 Yarelis Gomez Ho spital SMEAR REVIEW 2020-12-16 16:32:00 Yarelis Gomez Ho spital CBC WITH PLATELET AND 2020-12-09 16:43:00 [place] [facility] DIFFERENTIAL COMPREHENSIVE METABOLIC 2020-12-09 16:43:00 [place] [facility] PANEL MAGNESIUM LEVEL 2020-12-09 16:43:00 [place] Ho spital LDH 2020-12-09 16:43:00 Yarelis Gomez Ho spital ESTIMATED GFR 2020-12-09 16:43:00 [place] Ho spital MANUAL DIFFERENTIAL 2020-12-09 16:43:00 [place] [facility] EXTERNAL PROVIDER RECORDS 2020-12-06 05:01:00 Doctor Unassigned, No [facility] CBC WITH PLATELET AND 2020-12-05 16:06[facility]HENSIVE METABOLIC 2020-12-05 16:06:00 [place] [facility] PANEL MAGNESIUM LEVEL 2020-12-05 16:06:00 [place] Ho spital LDH 2020-12-05 16:06:00 [place] Ho spital ESTIMATED GFR 2020-12-05 16:06:00 [place] Ho spital MANUAL DIFFERENTIAL 2020-12-05 16:06:[facility]LET 2020-12-02 17:16:00 [facility] PHERESIS PREPARE PLATELET PHERESIS 2020-12-02 16:30:00 [facility] CBC WITH PLATELET AND 2020-12-02 08:09:00 [facility] DIFFERENTIAL MAGNESIUM LEVEL 2020-12-02 08:09:[address] [facility] COMPREHENSIVE METABOLIC 2020-12-02 08:09:00 [place] [facility] PANEL LDH 2020-12-02 08:09:00 [place] Ho spital ESTIMATED GFR 2020-12-02 08:09:00 [place] spital BILIRUBIN DIRECT 2020-12-02 08:09:00 Yarelis Gomez H ospital MANUAL DIFFERENTIAL 2020-12-02 08:09:00 Yarelis Gomez [facility] PHOSPHORUS LEVEL 2020-12-02 08:08:00 Yarelis Gomez H ospital CBC WITH PLATELET AND 2020-12-01 09:11:00 [facility] DIFFERENTIAL MAGNESIUM LEVEL 2020-12-01 09:11:00 Samira, [facility] METABOLIC 2020-12-01 09:11:00 Samira, [facility] PANEL PHOSPHORUS LEVEL 2020-12-01 09:11:00 Samira, [facility] ESTIMATED GFR 2020-12-01 09:11:00 Yarelis Gomez spital MANUAL DIFFERENTIAL 2020-12-01 09:11:00 Yarelis Gomez [facility] CBC WITH PLATELET AND 2020-11-30 09:08:00 Samira, [facility] DIFFERENTIAL MAGNESIUM LEVEL 2020-11-30 09:08:00 Samira, [facility] METABOLIC 2020-11-30 09:08:[address] [facility], [facility] PANEL PHOSPHORUS LEVEL 2020-11-30 09:08:[address] [facility], [facility] ESTIMATED GFR 2020-11-30 09:08:00 Yarelis Gomez Ho spital MANUAL DIFFERENTIAL 2020-11-30 09:08:00 Yarelis Gomez [facility] ECG 12-LEAD 2020-11-29 21:42:35 Yarelis Gomez spital POC GLUCOSE 2020-11-29 12:22:00 Yarelis Gomez Ho spital POC GLUCOSE 2020-11-29 11:44:00 Yarelis Gomez spital POC GLUCOSE 2020-11-29 11:24:00 Yarelis Gomez Ho spital CBC WITH PLATELET AND 2020-11-29 09:19:00 [facility] DIFFERENTIAL MAGNESIUM LEVEL 2020-11-29 09:19:[address] [facility] COMPREHENSIVE METABOLIC 2020-11-29 09:19:[address] [facility] PANEL PHOSPHORUS LEVEL 2020-11-29 09:19:[address] [facility] ESTIMATED GFR 2020-11-29 09:19:00 Yarelis Gomez Ho spital MANUAL DIFFERENTIAL 2020-11-29 09:19:00 [facility] TRANSFUSE PLATELET 2020-11-28 11:18:[address] [facility] PHERESIS CBC WITH PLATELET AND 2020-11-28 09:23:00 [facility] DIFFERENTIAL PHOSPHORUS LEVEL 2020-11-28 09:23:[address] [facility] HEPATIC FUNCTION PANEL 2020-11-28 09:23:[address] [facility] MAGNESIUM LEVEL 2020-11-28 09:23:00 Yarelis Gomez Ho spital BASIC METABOLIC PANEL 2020-11-28 09:23:00 [facility] EST[facility]FR 2020-11-28 09:23:00 Yarelis Gomez Ho spital MANUAL DIFFERENTIAL 2020-11-28 09:23:00 [place] [facility] CBC WITH PLATELET AND 2020-11-27 08:25:[address] [facility] DIFFERENTIAL COMPREHENSIVE METABOLIC 2020-11-27 08:25:[address] [facility] [place] PANEL MAGNESIUM LEVEL 2020-11-27 08:25:[address] [facility] ESTIMATED GFR 2020-11-27 08:25:00 Yarelis Gomez Ho [facility]ital MANUAL DIFFERENTIAL 2020-11-27 08:25:00 [facility] COMPLETE BLD COUNT 2020-11-26 08:29:[address] [facility] W/AUTO DIFF COMPREHENSIVE METABOLIC 2020-11-26 08:29:00 [facility] PANEL MAGNESIUM LEVEL 2020-11-26 08:29:00 [facility] ESTIMATED GFR 2020-11-26 08:29:00 Yarelis Gomez [facility] MANUAL DIFFERENTIAL 2020-11-26 08:29:00 [place] [facility] CLOSTRIDIUM DIFFICILE 2020-11-25 22:24:00 [facility] TOXIN TRANSFUSE RED BLOOD CELLS 2020-11-25 14:03:00 [facility] PREPARE RBC 2020-11-25 11:38:00 [facility] PREPARE PLATELET PHERESIS 2020-11-25 11:38:[address] [facility] [place] TRANSFUSE PLATELET 2020-11-25 11:18:[address] [facility] PHERESIS HC COMPLETE BLD COUNT 2020-11-25 08:45:00 [facility] W/AUTO DIFF PHOSPHORUS LEVEL 2020-11-25 08:45:[address] [facility] LDH 2020-11-25 08:45:[address] [facility] COMPREHENSIVE METABOLIC 2020-11-25 08:45:00 Yarelis Gomez [facility] PANEL ESTIMATED GFR 2020-11-25 08:45:00 Yarelis Gomez Ho spital MAGNESIUM LEVEL 2020-11-25 08:45:00 Yarelis Gomez Ho [facility]ital BILIRUBIN DIRECT 2020-11-25 08:45:00 Yarelis Gomez H ospital MANUAL DIFFERENTIAL 2020-11-25 08:45:00 Yarelis Gomez [facility] URINE CULTURE 2020-11-24 08:22:00 Yarelis Gomez spital URINALYSIS SCREEN AND 2020-11-24 08:22:00 [place] [facility] MICROSCOPY, WITH REFLEX TO CULTURE HC COMPLETE BLD COUNT 2020-11-24 08:15:00 [facility] W/AUTO DIFF BASIC METABOLIC PANEL 2020-11-24 08:15:00 [facility] MAGNESIUM LEVEL 2020-11-24 08:15:00 [facility] ESTIMATED GFR 2020-11-24 08:15:00 [place] spital MANUAL DIFFERENTIAL 2020-11-24 08:15:00 [facility] VANCOMYCIN LEVEL, TROUGH 2020-11-24 06:00:00 [facility] XR CHEST 1 VW PORTABLE 2020-11-24 02:22:59 Yarelis Gomez [facility] COVID-19 QUALITATIVE 2020-11-24 01:40:00 Dorinda Farah [facility] RT-PCR BLOOD CULTURE, AEROBIC & 2020-11-24 01:40:00 Yarelis Gomez [facility] ANAEROBIC BLOOD CULTURE, AEROBIC & 2020-11-24 01:36:[address] [facility] ANAEROBIC CBC WITH PLATELET AND 2020-11-23 08:28:00 [place]au[place]is [facility] DIFFERENTIAL BASIC METABOLIC PANEL 2020-11-23 08:28:00 Yarelis Gomez [facility] MAGNESIUM LEVEL 2020-11-23 08:28:00 Yarelis Gomez [facility] ESTIMATED GFR 2020-11-23 08:28:00 Yarelis Gomez spital MANUAL DIFFERENTIAL 2020-11-23 08:28:00 [facility] P[facility] REQUEST 2020-11-23 01:54:55 Ant Bahena [facility] XR PICC CHEST PORTABLE 2020-11-23 01:23:00 [facility] IR TUNNELED CENTRAL LINE 2020-11-22 22:08:00 Dorinda Farah [facility] REMOVAL CBC WITH PLATELET AND 2020-11-22 07:40:00 [place]au[place] [facility] DIFFERENTIAL BASIC METABOLIC PANEL 2020-11-22 07:40:00 [place]auLaurenceander [facility] MAGNESIUM LEVEL 2020-11-22 07:40:00 Yarelis Gomezist Ho spital ESTIMATED GFR 2020-11-22 07:40:00 [place]au[place]is [facility] spital MANUAL DIFFERENTIAL 2020-11-22 07:40:00 [facility] CBC WITH PLATELET AND 2020-11-21 08:24:00 Yarelis Gomez [facility] DIFFERENTIAL COMPREHENSIVE METABOLIC 2020-11-21 08:24:00 Yarelis Gomez [facility] PANEL MAGNESIUM LEVEL 2020-11-21 08:24:00 Laurence Gomezander Ortega [facility] spital PHOSPHORUS LEVEL 2020-11-21 08:24:00 Yarelis Gomezist H ospital BILIRUBIN DIRECT 2020-11-21 08:24:00 [place] H ospital ESTIMATED GFR 2020-11-21 08:24:00 Yarelis Gomez [facility] spital HEPATIC FUNCTION PANEL 2020-11-21 08:24:00 Yarelis Gomez [facility] MANUAL DIFFERENTIAL 2020-11-21 08:24:00 [facility] VANCOMYCIN LEVEL, TROUGH 2020-11-20 16:42:[address] [facility] CBC WITH PLATELET AND 2020-11-20 08:51:00 [facility] DIFFERENTIAL BASIC METABOLIC PANEL 2020-11-20 08:51:00 [facility] MAGNESIUM LEVEL 2020-11-20 08:51:00 [facility] ESTIMATED GFR 2020-11-20 08:51:00 [facility] MANUAL DIFFERENTIAL 2020-11-20 08:51:00 [facility] TRANSFUSE RED BLOOD CELLS 2020-11-19 19:34:00 Andriy Lara [facility] TYPE AND SCREEN 2020-11-19 10:08:00 Andriy Lara Ho spital PREPARE RBC 2020-11-19 10:08:00 Andriy Lara spital CBC WITH PLATELET AND 2020-11-19 08:31:00 [facility] DIFFERENTIAL BASIC METABOLIC PANEL 2020-11-19 08:31:00 [facility] MAGNESIUM LEVEL 2020-11-19 08:31:00 [facility] ESTIMATED GFR 2020-11-19 08:31:00 [facility] MANUAL DIFFERENTIAL 2020-11-19 08:31:00 [facility] COMPLETE BLD COUNT 2020-11-18 08:44:00 [facility] W/AUTO DIFF PHOSPHORUS LEVEL 2020-11-18 08:44:00 [facility] HEPATIC FUNCTION PANEL 2020-11-18 08:44:00 [facility] LDH 2020-11-18 08:44:00 [facility] BASIC METABOLIC PANEL 2020-11-18 08:44:00 [facility] MAGNESIUM LEVEL 2020-11-18 08:44:00 [facility] ESTIMATED GFR 2020-11-18 08:44:00 [facility] HC COMPLETE BLD COUNT 2020-11-17 08:28:00 [facility] W/AUTO DIFF BASIC METABOLIC PANEL 2020-11-17 08:28:00 [facility] MAGNESIUM LEVEL 2020-11-17 08:28:00 [facility] ESTIMATED GFR 2020-11-17 08:28:00 [facility] EXTERNAL PROVIDER RECORDS 2020-11-17 05:01:00 Doctor Unassigned, No [facility] VANCOMYCIN LEVEL, TROUGH 2020-11-17 03:00:00 [facility] HC COMPLETE BLD COUNT 2020-11-16 08:24:00 [facility] W/AUTO DIFF BASIC METABOLIC PANEL 2020-11-16 08:24:00 [facility] MAGNESIUM LEVEL 2020-11-16 08:24:00 [facility] ESTIMATED GFR 2020-11-16 08:24:00 [facility] BLOOD CULTURE, AEROBIC & 2020-11-15 18:23:00 [facility] ANAEROBIC COVID-19 ANTI-SPIKE IGG 2020-11-15 08:58:00 Maciej Ibarra [facility] ANTIBODY TITER HC COMPLETE BLD COUNT 2020-11-15 08:58:00 [facility] W/AUTO DIFF BASIC METABOLIC PANEL 2020-11-15 08:58:00 [facility] MAGNESIUM LEVEL 2020-11-15 08:58:00 [facility] COVID-19 SEROLOGY PATIENT 2020-11-15 08:58:00 Maciej Ibarra [facility] SURVEILLANCE ESTIMATED GFR 2020-11-15 08:58:00 [facility] CBC WITH PLATELET AND 2020-11-14 08:39:00 [facility] DIFFERENTIAL BASIC METABOLIC PANEL 2020-11-14 08:39:00 [facility] MAGNESIUM LEVEL 2020-11-14 08:39:00 [facility] ESTIMATED GFR 2020-11-14 08:39:00 [facility] HEPATIC FUNCTION PANEL 2020-11-14 08:39:00 [facility] PHOSPHORUS LEVEL 2020-11-14 08:39:00 [facility] MANUAL DIFFERENTIAL 2020-11-14 08:39:00 [facility] IR PORT REMOVAL 2020-11-13 19:43:00 Dorinda Farah Ho spital IR TUNNELED CENTRAL LINE 2020-11-13 19:37:[address] [facility] PLACEMENT URINALYSIS, AUTOMATED 2020-11-13 13:44:00 Dorinda Farah [facility] WITH MICROSCOPY HC COMPLETE BLD COUNT 2020-11-13 13:42:00 Dorinda Farah [facility] W/AUTO DIFF COMPREHENSIVE METABOLIC 2020-11-13 13:42:00 Dorinda Farah [facility] PANEL FIBRINOGEN 2020-11-13 13:42:00 Dorinda Farah spital LDH 2020-11-13 13:42:00 Dorinda Farah spital MAGNESIUM LEVEL 2020-11-13 13:42:00 Dorinda Farah spital PARTIAL THROMBOPLASTIN 2020-11-13 13:42:00 Dorinda Farah [facility] TIME (PTT) PHOSPHORUS LEVEL 2020-11-13 13:42:00 Dorinda Farah H ospital PREALBUMIN LEVEL 2020-11-13 13:42:00 Dorinda Farah ospital PROTHROMBIN TIME WITH INR 2020-11-13 13:42:00 Dorinda Farah [facility] URIC ACID LEVEL 2020-11-13 13:42:00 Dorinda Farah spital ESTIMATED GFR 2020-11-13 13:42:00 Dorinda Farah Ho spital COVID-19 QUALITATIVE 2020-11-11 14:26:00 [facility] WITH PLATELET AND 2020-11-11 14:26:[address] [facility] DIFFERENTIAL COMPREHENSIVE METABOLIC 2020-11-11 14:26:00 Tena Wagoner [facility] PANEL MAGNESIUM LEVEL 2020-11-11 14:26:00 Tena Wagoenr Ho spital LDH 2020-11-11 14:26:00 Tena Wagoner Ho spital ESTIMATED GFR 2020-11-11 14:26:00 Tena Wagoner Ho spital MANUAL DIFFERENTIAL 2020-11-11 14:26:00 Tena Wagoner [facility] CBC WITH PLATELET AND 2020-11-05 17:49:00 [facility] DIFFERENTIAL Nabeel MANUAL DIFFERENTIAL 2020-11-05 17:49:00 [facility] STEM CELL COLLECTION 2020-11-05 14:32:[address] [facility] CBC WITH PLATELET AND 2020-11-04 22:00:00 [facility] DIFFERENTIAL Nabeel MANUAL DIFFERENTIAL 2020-11-04 22:00:00 [facility] HC CVL NON-TUNNELED 2020-11-04 21:26:47 Nabeel Davila [facility] INSERT 5YRS OR > STEM CELL COLLECTION 2020-11-04 14:30:00 Jerardo Tam [facility] COVID-19 QUALITATIVE 2020-11-04 13:05:00 Tena Wagoner [facility] RT-PCR [facility] SER[facility] TEST 2020-11-04 13:05:[address] [facility] CBC WITH PLATELET AND 2020-11-04 13:05:[address] [facility] DIFFERENTIAL COMPREHENSIVE METABOLIC 2020-11-04 13:05:00 Tena Wagoner [facility] PANEL MAGNESIUM LEVEL 2020-11-04 13:05:00 Tena Wagoner Ho spital LDH 2020-11-04 13:05:00 Tena Wagoner Ho spital ESTIMATED GFR 2020-11-04 13:05:00 Tena Wagoner Ho spital MANUAL DIFFERENTIAL 2020-11-04 13:05:00 Tena Wagoner [facility] CBC WITH PLATELET AND 2020-11-01 13:12:00 Tena Wagoner [facility] DIFFERENTIAL COMPREHENSIVE METABOLIC 2020-11-01 13:12:00 RizwanaTena [facility] PANEL MAGNESIUM LEVEL 2020-11-01 13:12:00 RizwanaTena Hindu Ho spital LDH 2020-11-01 13:12:00 Tena Wagnoer [facility] spital TYPE AND SCREEN 2020-11-01 13:12:00 RizwanaTena Hindu Ho spital ESTIMATED GFR 2020-11-01 13:12:00 RizwanaTena Hindu Ho spital MANUAL DIFFERENTIAL 2020-11-01 13:12:00 Tena Wagoner [facility] HC COMPLETE BLD COUNT 2020-10-29 14:51:00 Tena Wagoner [facility] W/AUTO DIFF COMPREHENSIVE METABOLIC 2020-10-29 14:51:00 Tena Wagoner [facility] PANEL ESTIMATED GFR 2020-10-29 14:51:00 RizwanaTena Hindu Ho spital LDH 2020-10-29 14:51:00 Tena Wagoner [facility] Ho spital MAGNESIUM LEVEL 2020-10-29 14:51:00 Tena Wagoner [facility] spital HC COMPLETE BLD COUNT 2020-10-24 08:43:00 LaraAndriy [facility] W/AUTO DIFF BASIC METABOLIC PANEL 2020-10-24 08:43:00 LaraAndriy [facility] MAGNESIUM LEVEL 2020-10-24 08:43:00 LaraDanielles García Katz Ho spital HEPATIC FUNCTION PANEL 2020-10-24 08:43:00 LaraAndriy [facility] PHOSPHORUS LEVEL 2020-10-24 08:43:00 LaraAndriy H ospital ESTIMATED GFR 2020-10-24 08:43:00 Alberto Anderson [facility] CBC WITH PLATELET AND 2020-10-23 08:44:00 Alberto Anderson [facility] DIFFERENTIAL BASIC METABOLIC PANEL 2020-10-23 08:44:00 Anderson, [facility] MAGNESIUM LEVEL 2020-10-23 08:44:00 [facility] 2020-10-23 08:44:00 Justin [facility] MANUAL DIFFERENTIAL 2020-10-23 08:44:00 Bonifacio [facility] PROTHROMBIN TIME WITH INR 2020-10-22 18:08:00 Ezkpau [facility] PARTIAL THROMBOPLASTIN 2020-10-22 18:08:00 [facility] TIME (PTT) FIBRINOGEN 2020-10-22 18:08:00 [facility] AMYL[facility] LEVEL 2020-10-22 16:22:00 Dorinda Farah spital HC COMPLETE BLD COUNT 2020-10-22 16:22:00 Dorinda Farah [facility] W/AUTO DIFF COMPREHENSIVE METABOLIC 2020-10-22 16:22:00 Dorinda Farah [facility] PANEL LACTIC ACID LEVEL 2020-10-22 16:22:00 [facility] MAGNESIUM LEVEL 2020-10-22 16:22:00 Dorinda Farah spital PARTIAL THROMBOPLASTIN 2020-10-22 16:22:00 Dorinda Farah [facility] TIME (PTT) PHOSPHORUS LEVEL 2020-10-22 16:22:00 Dorinda Farah ospital PREALBUMIN LEVEL 2020-10-22 16:22:00 Dorinda Farah ospital PROTHROMBIN TIME WITH INR 2020-10-22 16:22:00 [facility] ACID LEV[facility] 2020-10-22 16:22:00 Dorinda Farah spital ESTIMATED GFR 2020-10-22 16:22:00 Dorinda Farha spital BILIRUBIN DIRECT 2020-10-22 16:22:00 Dorinda Farah ospital COVID-19 QUALITATIVE 2020-10-18 13:58:00 [facility]PIRATORY PATHOGEN 2020-10-15 14:39:00 [facility] PANEL WITH COVID-19 RT-PCR HC COMPLETE BLD COUNT 2020-10-15 14:38:[address] [facility] W/AUTO DIFF COMPREHENSIVE METABOLIC 2020-10-15 14:38:00 RizwanaTena garcia [facility] PANEL ESTIMATED GFR 2020-10-15 14:38:00 [facility]Tena [facility] LDH 2020-10-04 05:00:00 [facility] HEPATIC FUNCTION PANEL 2020-10-04 05:00:00 [facility] PHOSPHORUS LEVEL 2020-10-04 05:00:00 [facility] URIC ACID LEVEL 2020-10-04 05:00:00 [facility] BASIC METABOLIC PANEL 2020-10-04 05:00:00 [facility] ECG 12-LEAD 2020-09-26 13:19:07 [facility] CBC WITH PLATELET AND 2020-09-26 13:08:00 [facility] DIFFERENTIAL COMPREHENSIVE METABOLIC 2020-09-26 13:08:00 [facility] PANEL MAGNESIUM LEVEL 2020-09-26 13:08:00 [facility] ESTIMATED GFR 2020-09-26 13:08:00 [facility] LDH 2020-09-26 13:08:00 [facility] URIC ACID LEVEL 2020-09-26 13:08:00 [facility] PHOSPHORUS LEVEL 2020-09-26 13:08:00 [facility] MANUAL DIFFERENTIAL 2020-09-26 13:08:00 [facility] ECG 12-LEAD 2020-09-19 15:00:45 [facility] PHOSPHORUS LEVEL 2020-09-19 14:16:00 [facility] CBC WITH PLATELET AND 2020-09-19 14:11:00 [facility] DIFFERENTIAL COMPREHENSIVE METABOLIC 2020-09-19 14:11:00 [facility] PANEL MAGNESIUM LEVEL 2020-09-19 14:11:00 [facility] ESTIMATED GFR 2020-09-19 14:11:00 [facility] LDH 2020-09-19 14:11:00 [facility] URIC ACID LEVEL 2020-09-19 14:11:00 [facility] MANUAL DIFFERENTIAL 2020-09-19 14:11:00 [facility] SURGICAL PATHOLOGY 2020-09-17 16:37:00 [facility] REQUEST FLOW CYTOMETRY EVALUATION 2020-09-17 16:15:00 [facility] BONE MARROW TRAY 2020-09-17 16:15:00 [facility] ospital BCM CHROMOSOME ANALYSIS 2020-09-17 16:15:00 [facility] PANEL BCM NHL FISH PANEL 2020-09-17 16:15:00 [facility] MISCELLANEOUS REFERRAL 2020-09-17 16:15:00 [facility] TEST SPIROMETRY, DIFFUSION, 2020-09-16 19:53:15 [facility] LUNG VOLUMES XR CHEST 2 VW 2020-09-16 18:31:00 [facility] spital CV STRESS TEST NUCLEAR 2020-09-16 16:58:01 [facility] CARDIO NM MYOCARDIAL PERFUSION 2020-09-16 16:58:01 [facility] STRESS ONLY TRANSFUSE RED BLOOD CELLS 2020-09-12 20:23:00 [facility] TYPE AND SCREEN 2020-09-12 15:06:00 [facility] PREPARE RBC 2020-09-12 15:06:00 [facility] ECG 12-LEAD 2020-09-12 14:27:27 [facility] CBC WITH PLATELET AND 2020-09-12 12:57:00 [facility]FFERENTIAL COMPREHENSIVE METABOLIC 2020-09-12 12:57:00 [facility] PANEL MAGNESIUM LEVEL 2020-09-12 12:57:00 [facility] ESTIMATED GFR 2020-09-12 12:57:00 [facility] LDH 2020-09-12 12:57:00 [facility] URIC ACID LEVEL 2020-09-12 12:57:00 [facility] PHOSPHORUS LEVEL 2020-09-12 12:57:00 [facility] MANUAL DIFFERENTIAL 2020-09-12 12:57:00 [facility] PHOSPHORUS LEVEL 2020-09-05 18:47:00 Yarelis Gomez ospital BASIC METABOLIC PANEL 2020-09-05 18:47:00 Yarelis Gomez [facility] LDH 2020-09-05 18:47:00 Yarelis Gomez spital URIC ACID LEVEL 2020-09-05 18:47:00 Yarelis Gomez spital HEPATIC FUNCTION PANEL 2020-09-05 18:47:00 Yraelis Gomez [facility] ESTIMATED GFR 2020-09-05 18:47:00 Yarelis Gomez spital URINE CULTURE 2020-09-05 18:34:00 Yarelis Gomez spital URINALYSIS SCREEN AND 2020-09-05 17:31:00 Yarelis Gomez [facility] MICROSCOPY, WITH REFLEX TO CULTURE PROTHROMBIN TIME WITH INR 2020-09-05 17:30:00 Yarelis Gomez [facility] PARTIAL THROMBOPLASTIN 2020-09-05 17:30:00 Yarelis Gomez [facility] TIME (PTT) PROTEIN, TOTAL 2020-09-05 17:30:00 Yarelis Gomez spital MAGNESIUM LEVEL 2020-09-05 17:30:00 Yarelis Gomez [facility] SEROLOGY TEST 2020-09-05 17:30:[address] [facility] TYPE AND SCREEN 2020-09-05 17:30:00 Yarelis Gomez [facility] B NATRIURETIC PEPTIDE 2020-09-05 17:30:[address] [facility] SICKLE CELL SCREEN 2020-09-05 17:30:00 Yarelis Gomez [facility] IMMUNOGLOBULIN M 2020-09-05 17:30:00 [facility] 12-LEAD 2020-09-05 16:44:34 Yarelis Gomez [facility] PET CT SKULL BASE TO MID 2020-09-02 16:42:36 Alejandro Jc [facility] THIGH POC GLUCOSE 2020-09-02 14:32:00 [facility] ECG 12-LEAD 2020-08-29 13:39:52 [facility] CBC WITH PLATELET AND 2020-08-29 13:01:00 [facility] DIFFERENTIAL COMPREHENSIVE METABOLIC 2020-08-29 13:01:00 [facility] PANEL MAGNESIUM LEVEL 2020-08-29 13:01:00 [facility] ESTIMATED GFR 2020-08-29 13:01:00 [facility] MANUAL DIFFERENTIAL 2020-08-29 13:01:00 [facility] ECG 12-LEAD 2020-08-22 14:29:34 [facility] PHOSPHORUS LEVEL 2020-08-22 13:19:00 [facility] URIC ACID LEVEL 2020-08-22 13:19:00 [facility] LDH 2020-08-22 13:19:00 [facility] HC COMPLETE BLD COUNT 2020-08-22 13:19:00 [facility] W/AUTO DIFF COMPREHENSIVE METABOLIC 2020-08-22 13:19:00 [facility] PANEL MAGNESIUM LEVEL 2020-08-22 13:19:00 [facility] ESTIMATED GFR 2020-08-22 13:19:00 [facility] ECG 12-LEAD 2020-08-15 14:27:10 [facility] COMPREHENSIVE METABOLIC 2020-08-15 13:10:[facility] WITH PLATELET AND 2020-08-15 13:10:00 [facility] DIFFERENTIAL URIC ACID LEVEL 2020-08-15 13:10:00 [facility] MAGNESIUM LEVEL 2020-08-15 13:10:00 [facility] LDH 2020-08-15 13:10:00 [facility] ESTIMATED GFR 2020-08-15 13:10:00 [facility] PHOSPHORUS LEVEL 2020-08-15 13:10:00 [facility] MANUAL DIFFERENTIAL 2020-08-15 13:10:00 [facility] METABOLIC 2020-08-08 15:35:00 [facility] LDH 2020-08-08 15:35:00 [facility] MAGNESIUM LEVEL 2020-08-08 15:35:00 [facility] CBC WITH PLATELET AND 2020-08-08 15:35:00 [facility] DIFFERENTIAL ESTIMATED GFR 2020-08-08 15:35:00 [facility] MANUAL DIFFERENTIAL 2020-08-08 15:35:00 [facility] ECG 12-LEAD 2020-08-01 15:37:07 [facility] CBC WITH PLATELET AND 2020-08-01 14:27:00 [facility] DIFFERENTIAL COMPREHENSIVE METABOLIC 2020-08-01 14:27:00 [facility] PANEL MAGNESIUM LEVEL 2020-08-01 14:27:00 [facility] ESTIMATED GFR 2020-08-01 14:27:00 [facility] MANUAL DIFFERENTIAL 2020-08-01 14:27:00 AckworthAlejandro [facility] CBC WITH PLATELET AND 2020-07-29 14:05:00 [facility] DIFFERENTIAL COMPREHENSIVE METABOLIC 2020-07-29 14:05:00 [facility] PANEL MAGNESIUM LEVEL 2020-07-29 14:05:00 [facility] ESTIMATED GFR 2020-07-29 14:05:00 [facility] MANUAL DIFFERENTIAL 2020-07-29 14:05:00 [facility] 12-LEAD 2020-07-25 18:06:04 [facility] CBC WITH PLATELET AND 2020-07-25 14:32:00 [facility] DIFFERENTIAL COMPREHENSIVE METABOLIC 2020-07-25 14:32:00 [facility] PANEL MAGNESIUM LEVEL 2020-07-25 14:32:00 [facility] URIC ACID LEVEL 2020-07-25 14:32:00 [facility] PHOSPHORUS LEVEL 2020-07-25 14:32:00 [facility] ESTIMATED GFR 2020-07-25 14:32:00 [facility] MANUAL DIFFERENTIAL 2020-07-25 14:32:00 [facility] CBC WITH PLATELET AND 2020-07-23 14:09:00 [facility] DIFFERENTIAL COMPREHENSIVE METABOLIC 2020-07-23 14:09:00 [facility] PANEL MAGNESIUM LEVEL 2020-07-23 14:09:00 [facility] ESTIMATED GFR 2020-07-23 14:09:00 [facility] MANUAL DIFFERENTIAL 2020-07-23 14:09:00 [facility] ECG 12-LEAD 2020-07-18 15:22:57 [facility] CBC WITH PLATELET AND 2020-07-18 14:18:00 [facility] DIFFERENTIAL COMPREHENSIVE METABOLIC 2020-07-18 14:18:00 [facility] PANEL ESTIMATED GFR 2020-07-18 14:18:00 Jc [facility] PHOSPHORUS LEVEL 2020-07-18 14:18:00 [facility] LDH 2020-07-18 14:18:00 [facility] MAGNESIUM LEVEL 2020-07-18 14:18:00 [facility] URIC ACID LEVEL 2020-07-18 14:18:00 [facility] MANUAL DIFFERENTIAL 2020-07-18 14:18:00 [facility] MISCELLANEOUS REFERRAL 2020-07-15 19:27:00 [facility] [facility] TOXOPLASMA GONDII 2020-07-15 15:07:00 [facility] ANTIBODY, IGG ROSALINA-HARMON VIRUS 2020-07-15 15:07:00 [facility] ANTIBODY TEST ROSALINA HARMON VIRUS (EBV) 2020-07-15 15:07:00 [facility] BY PCR CYTOMEGALOVIRUS BY PCR 2020-07-15 15:07:00 [facility] TOXOPLASMA IGM AB 2020-07-15 15:07:00 [facility] MAGNESIUM LEVEL 2020-07-15 15:07:00 [place]au[place] [facility] spital CBC WITH PLATELET AND 2020-07-15 15:07:00 [place]renceander [facility] DIFFERENTIAL COMPREHENSIVE METABOLIC 2020-07-15 15:07:00 [facility] PANEL LDH 2020-07-15 15:07:00 [facility] ESTIMATED GFR 2020-07-15 15:07:[address] [place] [facility] spital MANUAL DIFFERENTIAL 2020-07-15 15:07:00 [place]auLaurenceander [facility] MISCELLANEOUS REFERRAL 2020-07-15 15:07:00 [facility] TEST CBC WITH PLATELET AND 2020-07-11 14:22:00 [facility] DIFFERENTIAL COMPREHENSIVE METABOLIC 2020-07-11 14:22:00 [facility] PANEL MAGNESIUM LEVEL 2020-07-11 14:22:00 [facility] ESTIMATED GFR 2020-07-11 14:22:00 [facility] MANUAL DIFFERENTIAL 2020-07-11 14:22:00 [facility] CBC WITH PLATELET AND 2020-07-08 14:30:00 [facility] DIFFERENTIAL COMPREHENSIVE METABOLIC 2020-07-08 14:30:00 [facility] PANEL MAGNESIUM LEVEL 2020-07-08 14:30:00 [facility] ESTIMATED GFR 2020-07-08 14:30:00 [facility] MANUAL DIFFERENTIAL 2020-07-08 14:30:00 [facility] ECG 12-LEAD 2020-07-04 14:39:12 [facility] FAMILY TYPING (HAPLOTYPE 2020-07-01 16:22:[address] [facility] REPORT) CBC WITH PLATELET AND 2020-07-01 14:25:00 [facility] DIFFERENTIAL COMPREHENSIVE METABOLIC 2020-07-01 14:25:00 [facility] PANEL MAGNESIUM LEVEL 2020-07-01 14:25:00 [facility] ESTIMATED GFR 2020-07-01 14:25:00 [facility] URIC ACID LEVEL 2020-07-01 14:25:00 [facility] MANUAL DIFFERENTIAL 2020-07-01 14:25:00 [facility] ECG 12-LEAD 2020-06-27 16:32:44 [facility] PHOSPHORUS LEVEL 2020-06-27 15:48:00 [facility] LDH 2020-06-27 15:48:00 [facility] URIC ACID LEVEL 2020-06-27 15:48:00 [facility] CBC WITH PLATELET AND 2020-06-27 15:48:00 [facility] DIFFERENTIAL COMPREHENSIVE METABOLIC 2020-06-27 15:48:00 [facility] PANEL MAGNESIUM LEVEL 2020-06-27 15:48:00 [facility] ESTIMATED GFR 2020-06-27 15:48:00 [facility] MANUAL DIFFERENTIAL 2020-06-27 15:48:00 [facility] REFERRAL- 2020-06-25 05:01:00 Doctor Unassigned, No [facility] REQUEST/RESPONSE Name Medical Branch CBC WITH PLATELET AND 2020-06-24 16:45:00 [facility] DIFFERENTIAL COMPREHENSIVE METABOLIC 2020-06-24 16:45:00 [facility] PANEL MAGNESIUM LEVEL 2020-06-24 16:45:00 [facility] ESTIMATED GFR 2020-06-24 16:45:00 [facility] MANUAL DIFFERENTIAL 2020-06-24 16:45:00 [facility] ECG 12-LEAD 2020-06-19 13:47:16 [facility] HC COMPLETE BLD COUNT 2020-06-19 09:20:00 [facility] W/AUTO DIFF MAGNESIUM LEVEL 2020-06-19 09:00:00 [facility] PHOSPHORUS LEVEL 2020-06-19 09:00:00 [facility] HEPATIC FUNCTION PANEL 2020-06-19 09:00:00 [facility] COMPREHENSIVE METABOLIC 2020-06-19 07:23:00 [facility] PANEL ESTIMATED GFR 2020-06-19 07:23:00 [facility] ECG 12-LEAD 2020-06-18 23:51:36 [facility] PET CT SKULL BASE TO MID 2020-06-18 17:11:37 [facility] Alejandro [facility] THIGH POC GLUCOSE 2020-06-18 15:12:00 [facility] CBC WITH PLATELET AND 2020-06-18 10:25:00 [facility] DIFFERENTIAL BASIC METABOLIC PANEL 2020-06-18 10:25:00 [facility] MAGNESIUM LEVEL 2020-06-18 10:25:00 [facility] PHOSPHORUS LEVEL 2020-06-18 10:25:00 [facility] HEPATIC FUNCTION PANEL 2020-06-18 10:25:00 [facility] ESTIMATED GFR 2020-06-18 10:25:00 [facility] MANUAL DIFFERENTIAL 2020-06-18 10:25:00 [facility] TRANSFUSE RED BLOOD CELLS 2020-06-18 01:54:00 [facility] TYPE AND SCREEN 2020-06-17 20:00:00 [facility] PREPARE RBC 2020-06-17 20:00:00 [facility] CBC WITH PLATELET AND 2020-06-17 17:50:00 [facility] DIFFERENTIAL MANUAL DIFFERENTIAL 2020-06-17 17:50:00 [facility] COVID-19 QUALITATIVE 2020-06-17 17:30:00 [facility] RT-PCR COMPREHENSIVE METABOLIC 2020-06-17 15:38:00 [facility] PANEL MAGNESIUM LEVEL 2020-06-17 15:38:00 [facility] LDH 2020-06-17 15:38:00 [facility] PHOSPHORUS LEVEL 2020-06-17 15:38:00 [facility] URIC ACID LEVEL 2020-06-17 15:38:00 [facility] ESTIMATED GFR 2020-06-17 15:38:00 [facility] CBC WITH PLATELET AND 2020-06-14 10:50:[address] [facility] DIFFERENTIAL MANUAL DIFFERENTIAL 2020-06-14 10:50:00 [facility] WITH PLATELET AND 2020-06-13 10:05:00 [facility] DIFFERENTIAL MANUAL DIFFERENTIAL 2020-06-13 10:05:00 [facility] HEPATIC FUNCTION PANEL 2020-06-13 09:00:00 [facility] LDH 2020-06-13 09:00:00 [facility] TYPE AND SCREEN 2020-06-12 15:30:00 [facility] PREPARE PLATELET PHERESIS 2020-06-12 15:30:00 [facility] CBC WITH PLATELET AND 2020-06-12 11:15:00 [facility] DIFFERENTIAL BASIC METABOLIC PANEL 2020-06-12 11:15:00 [facility] ESTIMATED GFR 2020-06-12 11:15:00 ChapitoVito spital MANUAL DIFFERENTIAL 2020-06-12 11:15:00 [facility] BASIC METABOLIC PANEL 2020-06-11 11:10:00 [facility] CBC WITH PLATELET AND 2020-06-11 11:10:00 [facility] DIFFERENTIAL ESTIMATED GFR 2020-06-11 11:10:00 ChapitoVito spital MANUAL DIFFERENTIAL 2020-06-11 11:10:[address] [facility] BLOOD SMEAR CONSULT 2020-06-11 11:10:00 [facility] Vitomeenu [facility] INSURANCE CORRESPONDENCE 2020-06-11 05:01:00 Doctor Unassigned, No [facility] XR CHEST 1 VW PORTABLE 2020-06-10 21:35:00 ChapitoVito [facility] BLOOD CULTURE, AEROBIC & 2020-06-10 18:20:[address] [facility] ANAEROBIC BLOOD CULTURE, AEROBIC & 2020-06-10 18:00:00 [facility] ANAEROBIC URINE CULTURE 2020-06-10 17:20:00 ChapitoVito spital URINALYSIS SCREEN AND 2020-06-10 16:20:[address] [facility] MICROSCOPY, WITH REFLEX TO CULTURE BASIC METABOLIC PANEL 2020-06-10 10:40:[address] [facility] CBC WITH PLATELET AND 2020-06-10 10:40:[address] [facility] DIFFERENTIAL ESTIMATED GFR 2020-06-10 10:40:00 Vito Uriarte Ho spital MANUAL DIFFERENTIAL 2020-06-10 10:40:00 [facility] BASIC METABOLIC PANEL 2020-06-09 10:30:[address] [facility] CBC WITH PLATELET AND 2020-06-09 10:30:[address] [facility] DIFFERENTIAL ESTIMATED GFR 2020-06-09 10:30:00 ChapitoVito spital MANUAL DIFFERENTIAL 2020-06-09 10:30:00 [facility] BASIC METABOLIC PANEL 2020-06-08 16:20:[address] [facility] CBC WITH PLATELET AND 2020-06-08 16:20:[address] [facility] DIFFERENTIAL ESTIMATED GFR 2020-06-08 16:20:00 Vito Uriarte spital MANUAL DIFFERENTIAL 2020-06-08 16:20:00 [facility] TYPE AND SCREEN 2020-06-08 04:50:00 [facility] PREPARE RBC 2020-06-08 04:50:00 Hosea [facility] POC GLUCOSE 2020-06-07 11:15:00 Emanuel Martin [facility] BASIC METABOLIC PANEL 2020-06-07 10:30:[address] [facility] CBC WITH PLATELET AND 2020-06-07 10:30:[address] [facility] DIFFERENTIAL MAGNESIUM LEVEL 2020-06-07 10:30:00 Vito Uriarte spital ESTIMATED GFR 2020-06-07 10:30:00 ChapitoVito Ho spital MANUAL DIFFERENTIAL 2020-06-07 10:30:00 [facility] POC GLUCOSE 2020-06-07 02:27:00 [facility] 2020-06-07 01:40:00 [facility] P[facility]SE 2020-06-06 12:03:00 [facility] BASIC METABOLIC PANEL 2020-06-06 10:00:00 [facility] CBC WITH PLATELET AND 2020-06-06 10:00:00 [facility] DIFFERENTIAL ESTIMATED GFR 2020-06-06 10:00:00 [facility] spital MANUAL DIFFERENTIAL 2020-06-06 10:00:00 [facility] POC GLUCOSE 2020-06-05 16:34:00 [facility] BASIC METABOLIC PANEL 2020-06-05 10:15:00 [facility] CBC WITH PLATELET AND 2020-06-05 10:15:00 [facility] DIFFERENTIAL ESTIMATED GFR 2020-06-05 10:15:00 [facility] spital MANUAL DIFFERENTIAL 2020-06-05 10:15:00 [facility] CBC WITH PLATELET AND 2020-06-04 09:10:00 AckworthAlejandro [facility] DIFFERENTIAL BASIC METABOLIC PANEL 2020-06-04 09:10:[address] [facility] MAGNESIUM LEVEL 2020-06-04 09:10:00 Ackworth [facility] HEPATIC FUNCTION PANEL 2020-06-04 09:10:[address] [facility] ESTIMATED GFR 2020-06-04 09:10:00 A[place]worth [facility] MANUAL DIFFERENTIAL 2020-06-04 09:10:00 AckworthAlejandro [facility] TRANSFUSE RED BLOOD CELLS 2020-06-03 19:50:00 Ackworth [facility] CBC WITH PLATELET AND 2020-06-03 09:30:[address] [facility] DIFFERENTIAL MANUAL DIFFERENTIAL 2020-06-03 09:30:00 ChapitoVito [facility] BASIC METABOLIC PANEL 2020-06-03 09:00:[address] [facility] ESTIMATED GFR 2020-06-03 09:00:00 Vito Uriarte Ho spital CBC WITH PLATELET AND 2020-06-02 09:00:[address] [facility] DIFFERENTIAL BASIC METABOLIC PANEL 2020-06-02 09:00:[address] [facility] ESTIMATED GFR 2020-06-02 09:00:00 Vito Uriarte spital MANUAL DIFFERENTIAL 2020-06-02 09:00:00 [facility] TYPE AND SCREEN 2020-06-02 08:49:00 Vito Uriarte spital PREPARE RBC 2020-06-02 08:49:00 Alejandro Jc [facility] BASIC METABOLIC PANEL 2020-06-01 09:00:[address] [facility] MAGNESIUM LEVEL 2020-06-01 09:00:00 Vito Uriarte Ho spital ESTIMATED GFR 2020-06-01 09:00:00 Vito Uriarte spital HC COMPLETE BLD COUNT 2020-06-01 08:44:[address] [facility] W/AUTO DIFF BASIC METABOLIC PANEL 2020-05-31 08:56:[address] [facility] ESTIMATED GFR 2020-05-31 08:56:00 Vito Uriarte Ho spital CBC WITH PLATELET AND 2020-05-31 08:36:[address] [facility] DIFFERENTIAL MANUAL DIFFERENTIAL 2020-05-31 08:36:00 Vito Uriarte [facility] CT CHEST W CONTRAST 2020-05-30 21:29:[address] [facility] ABDOMEN W CONTRAST PELVIS W CONTRAST BASIC METABOLIC PANEL 2020-05-30 09:00:[address] [facility] MAGNESIUM LEVEL 2020-05-30 09:00:00 Vito Uriarte spital ESTIMATED GFR 2020-05-30 09:00:00 Vito Uriarte spital CBC WITH PLATELET AND 2020-05-30 08:30:[address] [facility] DIFFERENTIAL MANUAL DIFFERENTIAL 2020-05-30 08:30:00 [facility]OLIC PANEL 2020-05-29 09:00:[address] [facility] MAGNESIUM LEVEL 2020-05-29 09:00:00 Vito Uriarte Ho spital PHOSPHORUS LEVEL 2020-05-29 09:00:00 Vito Uriarte ospital ESTIMATED GFR 2020-05-29 09:00:00 Vito Uriarte spital CBC WITH PLATELET AND 2020-05-29 08:30:[address] [facility] DIFFERENTIAL MANUAL DIFFERENTIAL 2020-05-29 08:30:00 [facility] 2020-05-28 08:40:00 Vito Uriarte spital URINALYSIS SCREEN AND 2020-05-28 08:40:[address] [facility] MICROSCOPY, WITH REFLEX TO CULTURE CBC WITH PLATELET AND 2020-05-28 08:30:[address] [facility] DIFFERENTIAL BASIC METABOLIC PANEL 2020-05-28 08:30:[address] [facility] MAGNESIUM LEVEL 2020-05-28 08:30:00 Vito Uriarte Ho spital PHOSPHORUS LEVEL 2020-05-28 08:30:00 Vito Uriarte ospital ESTIMATED GFR 2020-05-28 08:30:00 Vito Uriarte spital MANUAL DIFFERENTIAL 2020-05-28 08:30:00 [facility] LACTIC ACID LEVEL, SEPSIS 2020-05-27 17:13:00 Vito Uriarte [facility] - NOW AND REPEAT 2X EVERY 3 HOURS URINALYSIS SCREEN AND 2020-05-27 16:06:00 [facility] MICROSCOPY, WITH REFLEX TO CULTURE XR CHEST 1 VW PORTABLE 2020-05-27 14:50:[facility] 2020-05-27 14:16:46 [facility] RESPIRATORY PATHOGEN 2020-05-27 14:14:00 [facility]EL WITH COVID-19 RT-PCR BLOOD CULTURE, AEROBIC & 2020-05-27 14:05:00 [facility] ANAEROBIC LACTIC ACID LEVEL, SEPSIS 2020-05-27 14:05:00 Vito Uriarte [facility] - NOW AND REPEAT 2X EVERY 3 HOURS VENOUS BLOOD GAS 2020-05-27 14:05:00 Angelito [facility] COMPREHENSIVE METABOLIC 2020-05-27 14:05:00 [facility] PANEL PARTIAL THROMBOPLASTIN 2020-05-27 14:05:00 [facility] TIME (PTT) CBC WITH PLATELET AND 2020-05-27 14:05:00 [facility] DIFFERENTIAL PROTHROMBIN TIME WITH INR 2020-05-27 14:05:00 [facility] PHOSPHORUS LEVEL 2020-05-27 14:05:00 [facility] MAGNESIUM LEVEL 2020-05-27 14:05:00 Eaton[facility] ESTIMATED GFR 2020-05-27 14:05:00 [facility] MANUAL DIFFERENTIAL 2020-05-27 14:05:00 EatonTobin santosJeancarlosThe [facility] BLOOD CULTURE, AEROBIC & 2020-05-27 14:00:00 [facility] ANAEROBIC [place] CRITICAL CARE, E/M 2020-05-27 13:47:03 Eaton, [facility] 30-74 MINUTES ECG ED PRELIMINARY 2020-05-27 13:47:03 Angelito [facility] INTERPRETATION BASIC METABOLIC PANEL 2020-05-22 09:10:00 Gianfranco Mendoza [facility] MAGNESIUM LEVEL 2020-05-22 09:10:00 Gianfranco Mendoza H ospital CBC WITH PLATELET AND 2020-05-22 09:10:00 Gianfranco Mendoza [facility] DIFFERENTIAL ESTIMATED GFR 2020-05-22 09:10:00 Gianfranco Mendozaist H ospital MANUAL DIFFERENTIAL 2020-05-22 09:10:00 Gianfranco Mendoza [facility] POTASSIUM LEVEL 2020-05-21 23:36:00 Gianfranco Mendozaist H ospital MAGNESIUM LEVEL 2020-05-21 23:36:00 Gianfranco Mendoza H ospital CBC WITH PLATELET AND 2020-05-21 10:10:00 Gianfranco Mendoza [facility] DIFFERENTIAL MANUAL DIFFERENTIAL 2020-05-21 10:10:00 Gianfranco Mendoza [facility] BASIC METABOLIC PANEL 2020-05-21 09:00:00 Gianfranco Mendoza [facility] ESTIMATED GFR 2020-05-21 09:00:00 Gianfranco Mendoza H ospital POTASSIUM LEVEL 2020-05-20 22:26:00 Gianfranco Mendozaist H ospital MAGNESIUM LEVEL 2020-05-20 22:26:00 Gianfranco Mendozaist H ospital CBC WITH PLATELET AND 2020-05-20 11:27:00 Gianfranco Mendoza [facility] DIFFERENTIAL BASIC METABOLIC PANEL 2020-05-20 11:27:00 Gianfranco Mendoza [facility] ESTIMATED GFR 2020-05-20 11:27:00 Gianfranco Mendozaist H ospital MANUAL DIFFERENTIAL 2020-05-20 11:27:00 Gianfranco Mendoza [facility] POTASSIUM LEVEL 2020-05-20 05:00:00 [facility] MAGNESIUM LEVEL 2020-05-20 05:00:00 Gianfranco Mendoza ospital EQAR-[id number] IGG 2020-05-19 08:45:00 Gianfranco Mendoza [facility] CBC WITH PLATELET AND 2020-05-19 08:45:00 Reji [facility] DIFFERENTIAL BASIC METABOLIC PANEL 2020-05-19 08:45:00 Reji [facility] HEPATIC FUNCTION PANEL 2020-05-19 08:45:00 Reji [facility] PROTHROMBIN TIME WITH INR 2020-05-19 08:45:00 Reji [facility] CYTOMEGALOVIRUS BY PCR 2020-05-19 08:45:00 Amanda Herrera [facility] ESTIMATED GFR 2020-05-19 08:45:00 Gianfranco Mendoza ospital MANUAL DIFFERENTIAL 2020-05-19 08:45:00 June Mendozahirobert [facility] MAGNESIUM LEVEL 2020-05-19 08:45:00 June [facility]ahirobert [facility] PHOSPHORUS LEVEL 2020-05-19 08:45:00 Reji [facility] PHOSPHORUS LEVEL 2020-05-18 23:47:00 [facility] Dora HEMOGLOBIN & HEMATOCRIT 2020-05-18 23:47:00 [facility] Dora SMEAR REVIEW 2020-05-18 23:47:00 [facility] TRANSFUSE RED BLOOD CELLS 2020-05-18 18:19:00 [facility] 12-LEAD 2020-05-18 12:00:27 [facility]EN 2020-05-18 09:28:00 [facility] PREPARE RBC 2020-05-18 09:28:00 Gianfranco Mendoza ospital PREPARE PLATELET PHERESIS 2020-05-18 09:28:00 Gianfranco Mendoza [facility] URINE CULTURE 2020-05-18 08:50:00 Anita Lawson Suri [facility] URINALYSIS SCREEN AND 2020-05-18 08:50:00 Anita Lawson [facility] MICROSCOPY, WITH REFLEX TO CULTURE CBC WITH PLATELET AND 2020-05-18 08:50:00 Corona, [facility] DIFFERENTIAL COMPREHENSIVE METABOLIC 2020-05-18 08:50:00 Corona, [facility] PANEL MAGNESIUM LEVEL 2020-05-18 08:50:00 Corona, [facility] ospital PHOSPHORUS LEVEL 2020-05-18 08:50:00 Corona, [facility] D-DIMER 2020-05-18 08:50:00 Ngitit, [facility] C-REACTIVE PROTEIN 2020-05-18 08:50:00 Ngitit, [facility] LDH 2020-05-18 08:50:00 Ngitit, [facility] FERRITIN LEVEL 2020-05-18 08:50:00 Ngitit, [facility] ESTIMATED GFR 2020-05-18 08:50:00 Corona, [facility] ospital MANUAL DIFFERENTIAL 2020-05-18 08:50:00 Corona, [facility] TROPONIN 2020-05-18 08:50:00 Corona, [facility] ospital RESPIRATORY PATHOGEN 2020-05-18 02:51:00 Anita Lawson Suri [facility] PANEL WITH COVID-19 RT-PCR LACTIC ACID LEVEL, SEPSIS 2020-05-18 02:51:00 Anita Lawson [facility] - NOW AND REPEAT 2X EVERY 3 HOURS TROPONIN 2020-05-18 02:51:00 Anita Lawson Suri [facility] ECG 12-LEAD 2020-05-18 02:42:18 Lulu [facility] BLOOD CULTURE, AEROBIC & 2020-05-18 02:42:00 Lulu [facility] ANAEROBIC XR CHEST 1 VW PORTABLE 2020-05-18 00:00:00 Anita Lawson [facility] ECG 12-LEAD 2020-05-17 23:51:24 Lulu [facility] [place] CRITICAL CARE, E/M 2020-05-17 23:46:36 Lulu [facility] 30-74 MINUTES ECG ED PRELIMINARY 2020-05-17 23:46:36 Lulu [facility] INTERPRETATION CBC WITH PLATELET AND 2020-05-17 23:35:00 Lulu [facility] DIFFERENTIAL MANUAL DIFFERENTIAL 2020-05-17 23:35:00 Lulu [facility] COMPREHENSIVE METABOLIC 2020-05-17 23:04:00 Lulu [facility] PANEL LACTIC ACID LEVEL, SEPSIS 2020-05-17 23:04:00 Lulu [facility] - NOW AND REPEAT 2X EVERY 3 HOURS ESTIMATED GFR 2020-05-17 23:04:00 Lulu [facility] B NATRIURETIC PEPTIDE 2020-05-17 23:04:00 Lulu [facility] TROPONIN 2020-05-17 23:04:00 Lulu [facility] MAGNESIUM LEVEL 2020-05-17 23:04:00 Lulu [facility] PHOSPHORUS LEVEL 2020-05-17 23:04:00 Lulu [facility] BLOOD CULTURE, AEROBIC & 2020-05-17 23:00:00 Lulu [facility] ANAEROBIC TRANSFUSE PLATELET 2020-05-16 19:07:00 [facility] PHERESIS PREPARE PLATELET PHERESIS 2020-05-16 16:32:00 [facility] CBC WITH PLATELET AND 2020-05-16 14:35:00 [facility] DIFFERENTIAL COMPREHENSIVE METABOLIC 2020-05-16 14:35:00 [facility] PANEL MAGNESIUM LEVEL 2020-05-16 14:35:00 [facility] ESTIMATED GFR 2020-05-16 14:35:00 [facility] MANUAL DIFFERENTIAL 2020-05-16 14:35:00 [facility] CBC WITH PLATELET AND 2020-05-13 14:00:00 [facility] DIFFERENTIAL COMPREHENSIVE METABOLIC 2020-05-13 14:00:00 [facility] PANEL MAGNESIUM LEVEL 2020-05-13 14:00:00 [facility] ESTIMATED GFR 2020-05-13 14:00:00 [facility] MANUAL DIFFERENTIAL 2020-05-13 14:00:00 [facility] HLA TYPING 2020-05-10 17:53:00 Yarelis Gomez [facility] TRANSFUSE RED BLOOD CELLS 2020-05-10 09:38:00 [facility] CBC WITH PLATELET AND 2020-05-10 09:21:00 [facility] DIFFERENTIAL PROTHROMBIN TIME WITH INR 2020-05-10 09:21:00 [facility] MANUAL DIFFERENTIAL 2020-05-10 09:21:00 [facility] COMPREHENSIVE METABOLIC 2020-05-10 09:00:00 [facility] PANEL ESTIMATED GFR 2020-05-10 09:00:00 [facility] MAGNESIUM LEVEL 2020-05-10 09:00:00 [facility] HC COMPLETE BLD COUNT 2020-05-09 09:40:00 [facility] W/AUTO DIFF TYPE AND SCREEN 2020-05-09 09:40:00 [facility] PREPARE RBC 2020-05-09 09:40:00 [facility] MAGNESIUM LEVEL 2020-05-09 09:00:00 [facility] BASIC METABOLIC PANEL 2020-05-09 09:00:00 [facility] PHOSPHORUS LEVEL 2020-05-09 09:00:00 [facility] HEPATIC FUNCTION PANEL 2020-05-09 09:00:00 [facility]a [facility] LDH 2020-05-09 09:00:00 [facility] ESTIMATED GFR 2020-05-09 09:00:00 [facility] CBC WITH PLATELET AND 2020-05-08 09:00:00 [facility] [facility] DIFFERENTIAL MAGNESIUM LEVEL 2020-05-08 09:00:00 [facility] BASIC METABOLIC PANEL 2020-05-08 09:00:00 [facility] PHOSPHORUS LEVEL 2020-05-08 09:00:00 [facility] HEPATIC FUNCTION PANEL 2020-05-08 09:00:00 Jc Michaellealisha [facility] LDH 2020-05-08 09:00:00 [facility] ESTIMATED GFR 2020-05-08 09:00:00 [facility] MANUAL DIFFERENTIAL 2020-05-08 09:00:00 [facility] HC COMPLETE BLD COUNT 2020-05-07 09:25:00 [facility] W/AUTO DIFF MAGNESIUM LEVEL 2020-05-07 09:25:00 [facility] BASIC METABOLIC PANEL 2020-05-07 09:25:00 [facility] PHOSPHORUS LEVEL 2020-05-07 09:25:00 [facility] HEPATIC FUNCTION PANEL 2020-05-07 09:25:00 [facility] LDH 2020-05-07 09:25:00 [facility] PROTHROMBIN TIME WITH INR 2020-05-07 09:25:00 [facility] PARTIAL THROMBOPLASTIN 2020-05-07 09:25:00 [facility] TIME (PTT) ESTIMATED GFR 2020-05-07 09:25:00 [facility] HC COMPLETE BLD COUNT 2020-05-06 21:20:00 [facility] W/AUTO DIFF PARTIAL THROMBOPLASTIN 2020-05-06 21:20:00 [facility] TIME (PTT) PROTHROMBIN TIME WITH INR 2020-05-06 21:20:00 [facility] COVID-19 QUALITATIVE 2020-05-06 20:56:00 [facility] RT-PCR COMPREHENSIVE METABOLIC 2020-05-06 20:38:00 [facility] PANEL LDH 2020-05-06 20:38:00 [facility] MAGNESIUM LEVEL 2020-05-06 20:38:00 [facility] PHOSPHORUS LEVEL 2020-05-06 20:38:00 [facility] URIC ACID LEVEL 2020-05-06 20:38:00 [facility] ESTIMATED GFR 2020-05-06 20:38:00 [facility] CBC WITH PLATELET AND 2020-05-02 16:35:00 [facility] DIFFERENTIAL COMPREHENSIVE METABOLIC 2020-05-02 16:35:00 [facility] PANEL ESTIMATED GFR 2020-05-02 16:35:00 [facility] MANUAL DIFFERENTIAL 2020-05-02 16:35:00 [facility] COMPREHENSIVE METABOLIC 2020-04-23 11:58:00 [facility] PANEL Dora MAGNESIUM LEVEL 2020-04-23 11:58:00 [facility] Dora PHOSPHORUS LEVEL 2020-04-23 11:58:00 [facility] Dora C-REACTIVE PROTEIN 2020-04-23 11:58:00 [facility] D-DIMER 2020-04-23 11:58:00 [facility] spital CBC WITH PLATELET AND 2020-04-23 11:58:00 [facility] DIFFERENTIAL T4, FREE 2020-04-23 11:58:00 [facility] THYROID STIMULATING 2020-04-23 11:58:00 [facility] Vito [facility] HORMONE ESTIMATED GFR 2020-04-23 11:58:00 Vito Uriarte spital MANUAL DIFFERENTIAL 2020-04-23 11:58:00 [facility] Vito [facility] VENIPUNC NEED PHYS 2020-04-23 00:02:10 Joe Spence [facility] SKILL,DX OR RX POTASSIUM LEVEL 2020-04-22 22:50:00 [facility] HEMOGLOBIN & HEMATOCRIT 2020-04-22 13:45:00 [facility] COMPREHENSIVE METABOLIC 2020-04-22 07:54:00 Blake Corona [facility] PANEL MAGNESIUM LEVEL 2020-04-22 07:54:00 [facility] PHOSPHORUS LEVEL 2020-04-22 07:54:00 [facility] ESTIMATED GFR 2020-04-22 07:54:00 [facility] B NATRIURETIC PEPTIDE 2020-04-22 07:45:00 [facility]SF[facility] RED BLOOD CELLS 2020-04-22 07:41:00 de Las IgnacioNy [facility] HEMOGLOBIN & HEMATOCRIT 2020-04-22 05:10:00 [facility] HEMOGLOBIN & HEMATOCRIT 2020-04-21 22:35:00 [facility] COMPREHENSIVE METABOLIC 2020-04-21 15:25:00 Chapito Vito [facility] PANEL ESTIMATED GFR 2020-04-21 15:25:00 Vito Uriarte Ho spital MAGNESIUM LEVEL 2020-04-21 15:25:00 Vito Uriarteist Ho spital PHOSPHORUS LEVEL 2020-04-21 15:25:00 Vito Uriarteist H ospital CBC WITH PLATELET AND 2020-04-21 11:15:00 Corona, [facility] DIFFERENTIAL COMPREHENSIVE METABOLIC 2020-04-21 11:15:00 Corona, [facility] PANEL C-REACTIVE PROTEIN 2020-04-21 11:15:00 [facility] D-DIMER 2020-04-21 11:15:00 [facility] B NATRIURETIC PEPTIDE 2020-04-21 11:15:00 [facility] MANUAL DIFFERENTIAL 2020-04-21 11:15:00 Corona, [facility] URINE CULTURE 2020-04-21 08:15:00 [facility] URINALYSIS SCREEN AND 2020-04-21 08:15:00 [facility] MICROSCOPY, WITH REFLEX TO CULTURE TROPONIN 2020-04-21 07:30:00 Corona, [facility] ospital B NATRIURETIC PEPTIDE 2020-04-21 07:30:00 Corona, [facility] PROCALCITONIN 2020-04-21 07:30:00 Corona, [facility] ospital CREATINE KINASE, TOTAL 2020-04-21 07:30:00 Corona, [facility] ([facility] C-REACTIVE PROTEIN 2020-04-21 07:30:00 Corona, [facility] INTERLEUKIN 6 2020-04-21 07:30:00 Corona, [facility] ospital FERRITIN LEVEL 2020-04-21 07:30:00 Corona, [facility] ospital D-DIMER 2020-04-21 07:30:00 Corona, [facility] ospital LDH 2020-04-21 07:30:00 Corona, [facility] H ospital TRIGLYCERIDES 2020-04-21 07:30:00 Corona, [facility] ospital FIBRINOGEN 2020-04-21 07:30:00 Corona, [facility] ospital LACTIC ACID LEVEL, SEPSIS 2020-04-21 07:30:00 Corona, [facility] - NOW AND REPEAT 2X EVERY [address] ABDOMEN PELVIS W 2020-04-21 06:23:39 [facility] CONTRAST RESPIRATORY PATHOGEN 2020-04-21 03:30:00 [facility] PANEL WITH COVID-19 RT-PCR LACTIC ACID LEVEL, SEPSIS 2020-04-21 03:30:00 [facility] - NOW AND REPEAT 2X EVERY 3 HOURS [place] CRITICAL CARE, E/M 2020-04-21 02:26:43 [facility] 30-74 MINUTES ECG ED PRELIMINARY 2020-04-21 02:26:43 [facility] INTERPRETATION BLOOD CULTURE, AEROBIC & 2020-04-21 02:03:00 [facility] ANAEROBIC COMPREHENSIVE METABOLIC 2020-04-21 02:03:00 [facility] PANEL MAGNESIUM LEVEL 2020-04-21 02:03:00 [facility] PHOSPHORUS LEVEL 2020-04-21 02:03:00 [facility] LIPASE LEVEL 2020-04-21 02:03:00 [facility] LACTIC ACID LEVEL, SEPSIS 2020-04-21 02:03:00 [facility] - NOW AND REPEAT 2X EVERY 3 HOURS ESTIMATED GFR 2020-04-21 02:03:00 [facility] XR ABDOMEN ACUTE INC 2020-04-21 02:01:45 [facility] CHEST 1V ECG 12-LEAD 2020-04-21 01:49:51 [facility] CBC WITH PLATELET AND 2020-04-21 01:35:00 [facility] DIFFERENTIAL PROTHROMBIN TIME WITH INR 2020-04-21 01:35:00 [facility] PARTIAL THROMBOPLASTIN 2020-04-21 01:35:00 [facility] TIME (PTT) TYPE AND SCREEN 2020-04-21 01:35:00 CarlosTamie [facility] MANUAL DIFFERENTIAL 2020-04-21 01:35:00 [facility] PREPARE RBC 2020-04-21 01:35:00 de Las Ignacio Roberto CarlosLeon [facility] ESTIMATED GFR 2020-04-18 15:45:00 [facility] COMPREHENSIVE METABOLIC 2020-04-18 15:45:00 [facility] PANEL CBC WITH PLATELET AND 2020-04-18 15:25:00 [facility] DIFFERENTIAL MANUAL DIFFERENTIAL 2020-04-18 15:25:00 [facility] CBC WITH PLATELET AND 2020-04-15 16:58:00 [facility] DIFFERENTIAL PHOSPHORUS LEVEL 2020-04-15 16:58:00 [facility] URIC ACID LEVEL 2020-04-15 16:58:00 [facility] ESTIMATED GFR 2020-04-15 16:58:00 [facility] METABOLIC 2020-04-15 16:58:00 [facility] PANEL BILIRUBIN DIRECT 2020-04-15 16:58:00 [facility] MANUAL DIFFERENTIAL 2020-04-15 16:58:00 Alejandro Jc [facility] POC GLUCOSE 2020-04-13 23:01:00 [facility] POC GLUCOSE 2020-04-13 15:22:00 [facility] CBC WITH PLATELET AND 2020-04-13 10:00:00 [facility] DIFFERENTIAL COMPREHENSIVE METABOLIC 2020-04-13 10:00:00 [facility] PANEL ESTIMATED GFR 2020-04-13 10:00:00 [facility] MANUAL DIFFERENTIAL 2020-04-13 10:00:00 [facility] POC GLUCOSE 2020-04-13 03:02:00 [facility] POC GLUCOSE 2020-04-12 23:51:00 [facility] POC GLUCOSE 2020-04-12 17:11:00 [facility] POC GLUCOSE 2020-04-12 13:38:00 [facility] HC COMPLETE BLD COUNT 2020-04-12 09:43:00 [facility] W/AUTO DIFF BASIC METABOLIC PANEL 2020-04-12 09:43:00 [facility] MAGNESIUM LEVEL 2020-04-12 09:43:00 [facility] PHOSPHORUS LEVEL 2020-04-12 09:43:00 [facility] HEPATIC FUNCTION PANEL 2020-04-12 09:43:00 [facility] 2020-04-12 09:43:00 [facility] 2020-04-12 09:43:00 [facility] ESTIMATED GFR 2020-04-12 09:43:00 [facility] P[facility]UCOSE 2020-04-12 03:07:00 [facility] POC GLUCOSE 2020-04-11 22:15:00 [facility] POC GLUCOSE 2020-04-11 18:50:00 [facility] PET CT SKULL BASE TO MID 2020-04-11 18:34:47 [facility]SE 2020-04-11 15:32:00 [facility]UCOSE 2020-04-11 13:55:00 [facility] HC COMPLETE BLD COUNT 2020-04-11 09:45:00 [facility] W/AUTO DIFF BASIC METABOLIC PANEL 2020-04-11 09:45:00 [facility] MAGNESIUM LEVEL 2020-04-11 09:45:00 [facility] PHOSPHORUS LEVEL 2020-04-11 09:45:00 [facility] HEPATIC FUNCTION PANEL 2020-04-11 09:45:00 [facility] URIC ACID LEVEL 2020-04-11 09:45:00 [facility] LDH 2020-04-11 09:45:00 [facility] ESTIMATED GFR 2020-04-11 09:45:00 [facility] POC GLUCOSE 2020-04-11 04:07:00 [facility] TTE COMPLETE, WO 2020-04-11 01:30:00 [facility] CONTRAST, W DOPPLER ([id number]) POC GLUCOSE 2020-04-11 00:02:00 [facility] POC GLUCOSE 2020-04-10 17:31:00 [facility] CBC WITH PLATELET AND 2020-04-10 10:40:00 [facility] DIFFERENTIAL BASIC METABOLIC PANEL 2020-04-10 10:40:00 [facility] MAGNESIUM LEVEL 2020-04-10 10:40:00 [facility] PHOSPHORUS LEVEL 2020-04-10 10:40:00 [facility] HEPATIC FUNCTION PANEL 2020-04-10 10:40:00 [facility] URIC ACID LEVEL 2020-04-10 10:40:00 [facility] LDH 2020-04-10 10:40:00 [facility] ESTIMATED GFR 2020-04-10 10:40:00 [facility] MANUAL DIFFERENTIAL 2020-04-10 10:40:00 [facility] XR CHEST 1 VW PORTABLE 2020-04-09 17:48:35 [facility] ECG 12-LEAD 2020-04-09 17:06:53 [facility] COVID-19 QUALITATIVE 2020-04-09 16:55:00 [facility] COMPLETE BLD COUNT 2020-04-09 16:51:00 [facility] W/AUTO DIFF PARTIAL THROMBOPLASTIN 2020-04-09 16:51:00 [facility] ([facility] PROTHROMBIN TIME WITH INR 2020-04-09 16:51:00 [facility] COMPREHENSIVE METABOLIC 2020-04-09 16:51:00 [facility] 2020-04-09 16:51:00 [facility] MAGNESIUM LEVEL 2020-04-09 16:51:00 [facility] PHOSPHORUS LEVEL 2020-04-09 16:51:00 [facility] URIC ACID LEVEL 2020-04-09 16:51:00 [facility] ESTIMATED GFR 2020-04-09 16:51:00 [facility] TYPE AND SCREEN 2020-04-09 16:51:00 [facility] BASIC METABOLIC PANEL 2020-04-03 10:50:[address] [facility] CBC WITH PLATELET AND 2020-04-03 10:50:00 [facility] DIFFERENTIAL MAGNESIUM LEVEL 2020-04-03 10:50:00 Priyanka Engle spital PHOSPHORUS LEVEL 2020-04-03 10:50:00 Priyanka Engle ospital ESTIMATED GFR 2020-04-03 10:50:00 Priyanka Engle spital MANUAL DIFFERENTIAL 2020-04-03 10:50:00 Priyanka Engle [facility] PREPARE RBC 2020-04-02 18:50:00 [facility] ECG 12-LEAD 2020-04-02 17:41:09 Priyanka Engle Ho spital CBC WITH PLATELET AND 2020-04-02 09:30:00 Priyanka haley [facility] DIFFERENTIAL MANUAL DIFFERENTIAL 2020-04-02 09:30:00 Priyanka haley [facility] BASIC METABOLIC PANEL 2020-04-02 08:30:00 med, Rezwan [facility] MAGNESIUM LEVEL 2020-04-02 08:30:00 Priyanka Engle spital PHOSPHORUS LEVEL 2020-04-02 08:30:00 Priyanka Engle ospital ESTIMATED GFR 2020-04-02 08:30:00 Priyanka Engle Ho spital PROTHROMBIN TIME WITH INR 2020-04-01 21:40:00 Hosea [facility] PARTIAL THROMBOPLASTIN 2020-04-01 21:40:00 Hosea [facility] TIME (PTT) BASIC METABOLIC PANEL 2020-04-01 18:03:00 [facility] ESTIM[facility] GFR 2020-04-01 18:03:00 Hosea [facility] CBC WITH PLATELET AND 2020-04-01 11:55:[address] [facility] DIFFERENTIAL MANUAL DIFFERENTIAL 2020-04-01 11:55:00 Priyanka Engle [facility] BASIC METABOLIC PANEL 2020-04-01 10:00:[address] [facility] MAGNESIUM LEVEL 2020-04-01 10:00:00 Priyanka Engle spital PHOSPHORUS LEVEL 2020-04-01 10:00:00 Priyanka Engle ospital ESTIMATED GFR 2020-04-01 10:00:00 Priyanka Engle Ho spital US DUPLEX VENOUS LOWER 2020-04-01 01:39:03 de Las Ignacio, Erik Quintero [facility] EXTREMITY BILATERAL VANCOMYCIN LEVEL, RANDOM 2020-03-31 19:00:00 Priyanka Engle [facility] CT ANGIOGRAM PE CHEST 2020-03-31 16:59:[address] [facility] CBC WITH PLATELET AND 2020-03-31 11:30:00 Priyanka haley [facility] DIFFERENTIAL PERIPHERAL SMEAR 2020-03-31 11:30:00 de Las Ignacio, Roberto Carlos. [facility] MANUAL DIFFERENTIAL 2020-03-31 11:30:00 Joce Englenerobert [facility] BASIC METABOLIC PANEL 2020-03-31 10:00:00 Priyanka Engle [facility] MAGNESIUM LEVEL 2020-03-31 10:00:00 Priyanka Engle spital PHOSPHORUS LEVEL 2020-03-31 10:00:00 Priyanka Engle H ospital ESTIMATED GFR 2020-03-31 10:00:00 Priyanka Engle spital HC COMPLETE BLD COUNT 2020-03-30 12:00:00 Priyanka Engle [facility] W/AUTO DIFF SMEAR REVIEW 2020-03-30 12:00:00 Richellegm [facility] spital HEPATIC FUNCTION PANEL 2020-03-30 10:00:00 [facility] LACTIC ACID LEVEL 2020-03-30 10:00:00 [facility] LIPID PANEL 2020-03-30 10:00:00 Sj Gregorygarcía Katz spital BASIC METABOLIC PANEL 2020-03-30 10:00:00 Priyanka Engle [facility] MAGNESIUM LEVEL 2020-03-30 10:00:00 Priyanka Engle spital PHOSPHORUS LEVEL 2020-03-30 10:00:00 Priyanka Engle ospital ESTIMATED GFR 2020-03-30 10:00:00 Sj Gregorygarcía Katz spital BLOOD CULTURE, AEROBIC & 2020-03-29 18:56:[address] [facility] ANAEROBIC XR CHEST 1 VW PORTABLE 2020-03-29 14:52:38 Kiara Nath [facility] URINE CULTURE 2020-03-29 13:30:00 Rehrer, [facility] URINALYSIS SCREEN AND 2020-03-29 12:50:00 Rehrer, [facility] MICROSCOPY, WITH REFLEX TO CULTURE COMPREHENSIVE METABOLIC 2020-03-29 10:50:00 Priyanka haley [facility] PANEL ESTIMATED GFR 2020-03-29 10:50:00 Priyanka Engle spital LACTIC ACID LEVEL, SEPSIS 2020-03-29 10:50:00 [facility] NOW AND REPEAT 2X EVERY 3 HOURS TROPONIN 2020-03-29 10:45:00 Rehrer, [facility] CBC WITH PLATELET AND 2020-03-29 10:45:00 [facility] DIFFERENTIAL MANUAL DIFFERENTIAL 2020-03-29 10:45:00 [facility] TROPONIN 2020-03-29 08:00:00 Rehrer, [facility] LACTIC ACID LEVEL, SEPSIS 2020-03-29 08:00:00 Rehrer, [facility] - NOW AND REPEAT 2X EVERY 3 HOURS RESPIRATORY PATHOGEN 2020-03-29 06:15:00 Rehrer, [facility] PANEL WITH COVID-19 RT-PCR VENOUS BLOOD GAS 2020-03-29 05:20:00 Rehrer, [facility] CREATINE KINASE, TOTAL 2020-03-29 04:00:00 Rehrer, [facility] ([facility]) TROPONIN 2020-03-29 04:00:00 Rehrer, [facility] B NATRIURETIC PEPTIDE 2020-03-29 04:00:00 Rehrer, [facility] LACTIC ACID LEVEL, SEPSIS 2020-03-29 04:00:00 Rehrer, [facility] - NOW AND REPEAT 2X EVERY 3 HOURS LIPASE LEVEL 2020-03-29 04:00:00 Rehrer, [facility] PHOSPHORUS LEVEL 2020-03-29 04:00:00 Rehrer, [facility] MAGNESIUM LEVEL 2020-03-29 04:00:00 Rehrer, [facility] COMPREHENSIVE METABOLIC 2020-03-29 04:00:00 Rehrer, [facility] PANEL ESTIMATED GFR 2020-03-29 04:00:00 Rehrer, [facility] ECG ED PRELIMINARY 2020-03-29 03:23:40 Rehrer, [facility] INTERPRETATION ECG 12-LEAD 2020-03-29 02:54:05 Rehrer, Jared Watson [facility] ECG ED PRELIMINARY 2020-03-28 19:49:29 [facility] INTERPRETATION ECG 12-LEAD 2020-03-28 17:24:54 Lashawn [facility] francgiancarlo Nava RLeon ECG 12-LEAD 2020-03-28 17:24:27 [facility] BASIC METABOLIC PANEL 2020-03-28 16:11:00 [facility] HEPATIC FUNCTION PANEL 2020-03-28 16:11:00 [facility] PHOSPHORUS LEVEL 2020-03-28 16:11:00 [facility] URIC ACID LEVEL 2020-03-28 16:11:00 [facility] LDH 2020-03-28 16:11:00 [facility] CBC WITH PLATELET AND 2020-03-28 16:11:00 [facility] DIFFERENTIAL ESTIMATED GFR 2020-03-28 16:11:00 [facility] MANUAL DIFFERENTIAL 2020-03-28 16:11:00 [facility] BASIC METABOLIC PANEL 2020-03-25 16:20:00 [facility] HEPATIC FUNCTION PANEL 2020-03-25 16:20:00 [facility] PHOSPHORUS LEVEL 2020-03-25 16:20:00 [facility] URIC ACID LEVEL 2020-03-25 16:20:00 [facility] LDH 2020-03-25 16:20:00 [facility] CBC WITH PLATELET AND 2020-03-25 16:20:00 [facility] DIFFERENTIAL ESTIMATED GFR 2020-03-25 16:20:00 [facility] MANUAL DIFFERENTIAL 2020-03-25 16:20:00 [facility] EXTERNAL PROVIDER RECORDS 2019-11-27 05:01:00 Doctor Unassigned, No [facility] EXTERNAL PROVIDER RECORDS 2019-11-17 05:01:00 Doctor Unassigned, No [facility] Name Medical Branch NO SHOW OR MISSED 2018-09-19 16:27:16 Doctor Unassigned, No [facility] APPOINTMENT POLICY Name [facility] hanna ACKNOWLEDGEMENT Plan of Care Planned Activity Planned Date Details Comments Source Future Scheduled 2021-03-25 BREAST CANCER [facility] Test 05:54:47 SCREENING [code = BREAST CANCER SCREENING] Future Scheduled 2021-03-25 COLONOSCOPY [facility] Test 05:54:47 [code = COLONOSCOPY SCREENING] Future Scheduled 2021-03-[address] [facility] Test 05:54:47 (#2) [code = SHINGLES VACCINES (#2)] Future Scheduled 2021-03-[address] [facility] Test 05:54:47 [code = INFLUENZA VACCINE] Future Scheduled 2021-03-25 Screening for [facility] Test 05:54:47 malignant neoplasm of cervix (procedure) [code = 445698169] Encounters Start End Encounter Admission Attending Care Care Encounter Source Date/Time Date/Time Type Type Clinicians Facility Department ID 2020-05-27 [facility] Jc [id number] Methodi 00:00:00 Encounter Alejandro Hall [id number] Hospit a .[id number] l .8 2021-05-09 2021-05-09 [facility] [id number] [place] 00:00:00 00:00:00 AELJANDRO [address] 2021-05-05 2021-05-05 [facility] [id number] [place] 00:00:00 00:00:00 MICHAELLETY [address] 2021-05-05 2021-05-05 Orders Doctor FERNANDO [id number] [place] [address] 00:00:00 00:00:00 Only Unassigned, DEYANIRA [id number] [facility] [id number] Jason as [id number] [place] [address] Branch 2021-05-02 2021-05-02 [facility] [id number] [place] 00:00:00 00:00:00 A[address]JANDRO [address] 2021-05-02 2021-05-02 Outpatient JC, [facility] [id number] [place] 00:00:00 00:00:00 KELTY 508 Method i 2021-04-25 2021-04-25 Outpatient JC, [facility] [id number] [place] 00:00:00 00:00:00 KELTY 266 Method i 2021-04-25 2021-04-25 Outpatient JC, [facility] [id number] [place] 00:00:00 00:00:00 KELTY 156 Method i 2021-04-18 2021-04-22 Inpatient RINKU, [facility] [id number] [place] 00:00:00 00:00:00 MICHELE 126 Method i 2021-04-18 2021-04-18 Outpatient JC, [facility] [id number] [place] 00:00:00 00:00:00 KELTY 368 Method i 2021-04-14 2021-04-14 Outpatient JC, [facility] [id number] [place] 00:00:00 00:00:00 KELTY 143 Method i 2021-04-14 2021-04-14 Outpatient ANDERSON, [facility] [id number] [place] 00:00:00 00:00:00 ALBERTO 303 Method i 2021-04-11 2021-04-11 Outpatient JC, [facility] [id number] [place] 00:00:00 00:00:00 KELTY 295 Method i 2021-04-07 2021-04-07 Outpatient JC, [facility] [id number] [place] 00:00:00 00:00:00 KELTY 853 Method i 2021-04-04 2021-04-04 Outpatient JC, [facility] [id number] [place] 00:00:00 00:00:00 KELTY 549 Method i 2021-04-04 2021-04-04 Outpatient JC, [facility] [id number] [place] 00:00:00 00:00:00 KELTY 453 Method i 2021-04-04 2021-04-04 Outpatient JC, [facility] [id number] [place] 00:00:00 00:00:00 KELTY 788 Method i 2021-03-28 2021-03-28 Outpatient HILL, [facility] [id number] [place] 00:00:00 00:00:00 LAQUISA [address] 2021-03-28 2021-03-28 [facility], [facility] [id number] [place] 00:00:00 00:00:00 LAQUISA [address] 2021-03-21 2021-03-21 [facility] Jason, 1.2.840.1 [id number] Methodi 15:53:58 16:08:58 Laquisa C [id number] 3.430.2.7 Hospit a .3.727188 l .8 2021-03-21 2021-03-21 Infusion JC, 1.2.840.1 [id number] [place] 00:00:00 00:00:00 KELTY [id number] 3.[address].2.[address] .3.663972 .8 2021-03-21 2021-03-21 [facility] HOSEA, 1.2.840.1 [id number] [place] 00:00:00 00:00:00 Encounter KELTY [id number] .3.054220 .8 2021-03-21 2021-03-21 [facility] JASON, 1.2.840.1 [id number] [place] 00:00:00 00:00:00 Encounter LAQUISA [id number] 3.[address].2.7 [address] .3.808672 .8 2021-03-21 2021-03-21 [facility] HOSEA 1.2.840.1 [id number] [place] 00:00:00 00:00:00 Encounter KELTY 36307.1.1 [address] 3.[address].2.[address] .3.696520 .8 2021-03-21 2021-03-21 [facility] HOSEA 1.2.840.1 [id number] [place] 00:00:00 00:00:00 Encounter KELTY 70911.1.1 [address].2.[address] .3.442445 .8 2021-03-21 2021-03-21 Orders Hosea, 1.2.840.4 [id number] Methodi 00:00:00 00:00:00 Only Alejandro Hall 83958.1.1 694 s t 3.430.2.7 Hospit a .3.729540 l .8 2021-03-20 2021-03-20 Orders Donte, 1.2.840.1 [id number] 909212 5853 Methodi 00:00:00 00:00:00 Only Leena 91215.1.[address] 3.430.2.7 Hospit a .3.049799 l .8 2021-03-20 2021-03-20 Orders Donte, 1.2.840.1 [id number] 944881 1896 Methodi 00:00:00 00:00:00 Only Leena 99181.1.[address] 3.430.2.7 Hospit a .3.809644 l .8 2021-03-20 2021-03-20 Telephone Donte 1.2.840.1 [id number] 2100 955156 Methodi 00:00:00 00:00:[address] 3.430.2.7 Hospit a .3.357624 l .8 2021-03-20 2021-03-20 Orders Donte, 1.2.840.1 [id number] 542158 9506 Methodi 00:00:00 00:00:00 Only Leena 86934.1.[address] 3.430.2.7 Hospit a .3.681735 l .8 2021-03-20 2021-03-20 Orders Donte, 1.2.840.1 [id number] 495376 1098 Methodi 00:00:00 00:00:00 Only Leena 64449.1.[address] 3.430.2.7 Hospit a .3.941043 l .8 2021-03-20 2021-03-20 Travel 1.2.840.1 1.2.632.269 1869 805497 Methodi 00:00:00 00:00:[address] 3.430.2.7 0.2.7.3.698 Ho spita .3.494911 084.8 l .8 2021-03-18 2021-03-18 Travel 1.2.840.1 1.2.858.152 5451 997300 Methodi 00:00:00 00:00:[address] 3.430.2.7 0.2.7.3.698 Ho spita .3.533133 084.8 l .8 2021-03-18 2021-03-18 Orders Doctor FERNANDO 1.2.840.114 [id number] Univers 00:00:00 00:00:00 Only Unassigned, DEYANIRA 350.1.13.10 ity of [place] [facility] 4.2.7.2.686 Jason as [phone] [place] [address] [place] 2021-03-17 2021-03-17 Infusion Hosea, 1.2.840.1 [id number] 29709 Methodi 07:25:48 09:25:48 Alejandro Isabel 78406.1.1 921 s t 3.430.2.7 Hospit a .3.298983 l .8 2021-03-17 2021-03-17 Telephone Donte 1.2.840.1 [id number] 2099 411454 Methodi 00:00:00 00:00:[address] 3.430.2.7 Hospit a .3.491706 l .8 2021-03-17 2021-03-17 Orders Hosea 1.2.840.8 [id number] 72913 Methodi 00:00:00 00:00:00 Only Alejandro Hall 67567.1.1 167 s t 3.430.2.7 Hospit a .3.505549 l .8 2021-03-17 2021-03-17 Travel 1.2.840.1 1.2.321.042 4555 374274 Methodi 00:00:00 00:00:[address] 3.430.2.7 0.2.7.3.698 Ho spita .3.967483 084.8 l .8 2021-03-14 2021-03-14 Infusion Hosea, 1.2.840.1 [id number] Methodi 08:47:38 14:47:38 Alejandro Hall 12018.1.1 208 s t 3.430.2.7 Hospit a .3.690298 l .8 2021-03-14 2021-03-14 Travel 1.2.840.1 1.2.673.899 3866 314861 Methodi 00:00:00 00:00:[address] 3.430.2.7 0.2.7.3.698 Ho spita .3.706179 084.8 l .8 2021-03-11 2021-03-11 Telephone Hosea, 1.2.840.6 [id number] 869 1038422 Methodi 00:00:00 00:00:00 Alejandro Saraviah 73894.1.1 974 s t 3.430.2.7 Hospit a .3.976892 l .8 2021-03-10 2021-03-10 Orders Hosea, 1.2.840.3 [id number] Methodi 00:00:00 00:00:00 Only Alejandro Saraviah 79161.1.1 529 s t 3.430.2.7 Hospit a .3.936254 l .8 2021-03-10 2021-03-10 Travel 1.2.840.1 1.2.942.466 8486 519176 Methodi 00:00:00 00:00:[address] 3.430.2.7 0.2.7.3.698 Ho spita .3.339813 084.8 l .8 2021-03-10 2021-03-10 Telephone Hosea, 1.2.840.2 [id number] 668 9092521 Methodi 00:00:00 00:00:00 Alejandro Isabel 53798.1.1 927 s t 3.430.2.7 Hospit a .3.802518 l .8 2021-03-10 2021-03-10 Orders Hosea, 1.2.840.8 [id number] 65790 Methodi 00:00:00 00:00:00 Only Alejandro Hall 37928.1.1 502 s t 3.430.2.7 Hospit a .3.745350 l .8 2021-03-06 2021-03-09 [facility] 255 [id number] 907 [place] 00:00:00 00:00:00 Encounter [address] 2021-03-06 2021-03-06 Outpatient BCM BCM [id number] [facility] 00:00:00 23:59:00 Gloria Medicin e 2021-03-06 2021-03-06 Office Hosea, 1.2.840.3 [id number] 85515 Methodi 12:58:43 13:46:17 Visit Alejandro Hall 62071.1.1 311 s t 3.430.2.7 Hospit a .3.295627 l .8 2021-03-06 2021-03-06 [facility], 1.2.840.1 [id number] 53445 [place] 00:00:00 00:00:00 Encounter LAQUISA 29773.1.1 [address] 3[address].2.7 [address] .3.299447 .8 2021-03-06 2021-03-06 [facility], 1.2.840.1 [id number] [place] 00:00:00 00:00:00 Encounter LAQUISA 33324.1.1 [address] .3.060680 .8 2021-03-06 2021-03-06 Travel 1.2.840.1 1.2.452.083 7811 553763 Methodi 00:00:00 00:00:[address] 3.430.2.7 0.2.7.3.698 Ho spita .3.195040 084.8 l .8 2021-03-04 2021-03-04 Travel 1.2.840.1 1.2.098.806 8567 032390 Methodi 00:00:00 00:00:[address] 3.430.2.7 0.2.7.3.698 Ho spita .3.452068 084.8 l .8 2021-03-03 2021-03-03 Orders Doctor FERNANDO 1.2.840.[address] [place] [address] 00:00:00 00:00:00 Only Unassigned, DEYANIRA 350.1.13.10 ity of [place] [facility] 4.2.7.2.686 Jason as [phone] [address] 2021-02-27 2021-02-27 [facility], 1.2.840.1 [id number] 95877 47439 [place] 00:00:00 00:00:00 Encounter LAQUISA 53014.1.1 [address] .3.780106 .8 2021-02-27 2021-02-27 [facility], 1.2.840.1 [id number] 25802 91923 [place] 00:00:00 00:00:00 Encounter LAQUISA 67807.1.1 [address] .3.917185 .8 2021-02-27 2021-02-27 Travel 1.2.840.1 1.2.233.657 2719 467232 Methodi 00:00:00 00:00:[address] 3.430.2.7 0.2.7.3.698 Ho spita .3.116303 084.8 l .8 2021-02-21 2021-02-21 Telephone LUIS Chang 1.2.840.114 900 39284 [facility] 00:00:00 00:00:00 [facility] 350.1.13.10 it y of [place] 4.2.7.2.686 Jason as SOFIA?BLEA [phone] Ne dical [address] MEDICAL OFFICE BUILDING 2021-02-21 2021-02-21 Telephone Bernardo KYSEBASTIÁN 1.2.840.114 900 [id number] [facility] 00:00:00 00:00:00 [facility] 350.1.13.10 it y of [place] 4.2.7.2.686 Jason as SOFIA?BLEA [phone] Me bowen SHORT [address] [place] [address] MEDICAL OFFICE BUILDING 2021-02-20 2021-02-21 Emergency SHLOMO, 1.2.840.1 [id number] 485 [id number] [place] 00:00:00 00:00:00 GINNY 78746.1.[address] .3.571612 .8 2021-02-20 2021-02-20 Travel 1.2.840.1 1.2.845.275 2469 416960 Methodi 00:00:00 00:00:[address] 3.430.2.7 0.2.7.3.698 Ho spita .3.765468 084.8 l .8 2021-02-11 2021-02-11 [facility], 1.2.840.1 [id number] 492002 6415 Methodi 00:00:00 00:00:00 Laolimpiaisa C [address]66.1.[address] 3.430.2.7 Hospit a .3.011523 l .8 2021-02-06 2021-02-06 Outpatient BCM [facility] [id number] 3 [facility] 00:00:00 23:59:00 Cara 2021-02-06 2021-02-06 [facility], 1.2.840.1 [id number] 82502 [place] 00:00:00 00:00:00 Encounter LAQUISA 15399.1.1 [address] .3.863609 .8 2021-02-06 2021-02-06 Travel 1.2.840.1 1.2.825.027 5237 456274 Methodi 00:00:00 00:00:[address] 3.430.2.7 0.2.7.3.698 Ho spita .3.740693 084.8 l .8 2021-01-27 2021-01-27 Outpatient BCM BCM [id number] 1 [facility] 00:00:00 23:59:00 [facility] 2021-01-27 2021-01-27 [facility], 1.2.840.1 [id number] [place] 00:00:00 00:00:00 Encounter LAQUISA 05758.1.1 [address].7 [address] .3.281989 .8 2021-01-27 2021-01-27 Travel 1.2.840.1 1.2.986.223 6882 572676 Methodi 00:00:00 00:00:[address] 3.430.2.7 0.2.7.3.698 Ho spita .3.535213 084.8 l .8 2021-01-13 2021-01-13 Outpatient BCM BCM [id number] 6 [facility] 00:00:00 23:59:00 [facility] 2021-01-13 2021-01-13 [facility], 1.2.840.1 [id number] 21001 26091 [place] 00:00:00 00:00:00 Encounter LAQUISA 87624.1.1 [address] .3.722706 .8 2021-01-13 2021-01-13 Refsvetlana Jc, 1.2.840.7 [id number] 62 Methodi 00:00:00 00:00:00 Alejandro Isabel 65108.1.1 060 s t 3.430.2.7 Hospit a .3.750914 l .8 2021-01-13 2021-01-13 Travel 1.2.840.1 1.2.381.547 6681 989370 Methodi 00:00:00 00:00:[address] 3.430.2.7 0.2.7.3.698 Ho francta .3.572662 084.8 l .8 2021-01-02 2021-01-02 Mariela Gomez, 1.2.840.1 [id number] 218548 8156 Methodi 00:00:00 00:00:00 [address] Ortega 24801.[address] 3.430.2.7 Hospit a .3.000282 l .8 2021-01-02 2021-01-02 Telephone [facility] 1.2.840.114 888 [id number] Univers 00:00:00 00:00:00 [facility] 350.1.13.10 it y of [facility] 4.2.7.2.686 Jason as SOFIA?BLEA [phone] [address] MEDICAL OFFICE [facility] 2021-01-02 2021-01-02 Telephone [facility] 1.2.840.114 888 [id number] Univers 00:00:00 00:00:00 [facility] 350.1.13.10 it y of [facility] 4.2.7.2.686 Jason as SOFIA?BLEA [phone] [address] OFFICE [facility] 2021-01-01 2021-01-01 Orders Doctor FERNANDO 1.2.840.114 [id number] Univers 00:00:00 00:00:00 Only Unassigned, DEYANIRA 350.1.13.10 ity of [place] [facility] 4.2.7.2.686 Jason as [phone] [address] 2020-09-12 2020-12-31 Infusion Hosea 1.2.840.1 [id number] 17634 56676 Methodi 07:19:27 05:11:32 Alejandro Hall 01058.1.1 224 s t 3.430.2.7 Hospit a .3.424813 l .8 2020-07-18 2020-12-31 Infusion Hosea 1.2.840.1 [id number] 84184 28410 Methodi 09:00:51 05:11:31 Alejandro Hall 53617.1.1 972 s t 3.430.2.7 Hospit a .3.059059 l .8 2020-12-31 2020-12-31 Telephone [facility] 1.2.840.114 888 [id number] Univers 00:00:00 00:00:00 [facility] 350.1.13.10 it y of [place] 4.2.7.2.686 Jason as SOFIA?BLEA [phone] [address] OFFICE [facility] 2020-12-31 2020-12-31 Telephone [facility] 1.2.840.114 888 [id number] Univers 00:00:00 00:00:00 [facility] 350.1.13.10 it [facility] 4.2.7.2.686 Jason as SOFIA?BLEA [phone] [address] 2020-12-30 2020-12-30 Outpatient BCM [facility] [id number] [facility] 00:00:00 23:59:00 [facility] 2020-12-30 2020-12-30 [place]en [place], 1.2.840.1 [id number] [place] 00:00:00 00:00:00 Encounter YARELIS 03464.1.1 [address] .3.802606 .8 2020-12-30 2020-12-30 Travel 1.2.840.1 1.2.835.942 1603 293839 Methodi 00:00:00 00:00:[address] 3.430.2.7 0.2.7.3.698 Ho spita .3.321789 084.8 l .8 2020-12-30 2020-12-30 Mariela Jc, 1.2.840.2 [id number] 24 Methodi 00:00:00 00:00:00 Alejandro Hall 20434.1.1 203 s t 3.430.2.7 Hospit a .3.459550 l .8 2020-12-23 2020-12-23 Outpatient BCM [facility] [id number] 6 [facility] 00:00:00 23:59:00 [facility] 2020-12-23 2020-12-23 [facility], 1.2.840.1 [id number] 62 [place] 00:00:00 00:00:00 Encounter LAQUISA 64069.1.1 [address] .3.622290 .8 2020-12-23 2020-12-23 Travel 1.2.840.1 1.2.893.809 9928 489743 Methodi 00:00:00 00:00:[address] 3.430.2.7 0.2.7.3.698 Ho spita .3.065838 084.8 l .8 2020-12-23 2020-12-23 Orders Doctor FERNANDO 1.2.840.[id number] [place] [address] 00:00:00 00:00:00 Only Unassigned, DEYANIRA 350.1.13.10 ity of [place] [facility] 4.2.7.2.686 Jason as [phone] [address] 2020-12-16 2020-12-16 Outpatient BCM BCM [id number] [facility] 00:00:00 23:59:00 [facility] 2020-12-16 2020-12-16 [facility], 1.2.840.1 [id number] 19194 [place] 00:00:00 00:00:00 Encounter LAQUISA 86318.1.1 [address] .3.869905 .8 2020-12-16 2020-12-16 Travel 1.2.840.1 1.2.281.489 5522 208390 Methodi 00:00:00 00:00:[address] 3.430.2.7 0.2.7.3.698 Ho spita .3.651439 084.8 l .8 2020-12-09 2020-12-09 Outpatient BCM BCM [id number] 0 [facility] 00:00:00 23:59:00 [facility] 2020-12-09 2020-12-09 [facility], 1.2.840.1 [id number] [place] 00:00:00 00:00:00 Encounter LAQUISA 98752.1.1 [address] .3.624254 .8 2020-12-09 2020-12-09 Travel 1.2.840.1 1.2.446.966 3749 892464 Methodi 00:00:00 00:00:[address] 3.430.2.7 0.2.7.3.698 Ho spita .3.096056 084.8 l .8 2020-12-06 2020-12-06 Orders Doctor FERNANDO 1.2.840.114 [id number] [facility] 00:00:00 00:00:00 Only Unassigned, DEYANIRA 350.1.13.10 ity of [place] [facility] 4.2.7.2.686 Jason as [phone] [address] 2020-12-05 2020-12-05 Outpatient BCM BCM [id number] [facility] 00:00:00 23:59:00 [facility]in e 2020-12-05 2020-12-05 [facility], 1.2.840.1 [id number] [place] 00:00:00 00:00:00 Encounter LAQUISA 34903.1.1 [address] .3.485336 .8 2020-12-05 2020-12-05 Travel 1.2.840.1 1.2.611.423 9710 152666 Methodi 00:00:00 00:00:[address] 3.430.2.7 0.2.7.3.698 Ho spita .3.001022 084.8 l .8 2020-11-13 2020-12-02 [place], Lajose C 1.2.840.1 8994152 [id number] Methodi 08:09:00 18:17:00 Encounter Tyrese Jasso 89573.1.[address] Aaron Arredondo 3.430.2.7 Hospita .3.297610 l .8 2020-11-17 2020-11-17 Orders Doctor FERNANDO 1.2.840.114 [id number] 41 Univers 00:00:00 00:00:00 Only Unassigned, DEYANIRA 350.1.13.10 ity of [place] [facility] 4.2.7.2.686 Jason as [phone] [place] [address] [place] 2020-11-15 2020-11-15 Episode Donte, 1.2.840.1 [id number] 268810 7767 Methodi 00:00:00 00:00:00 Changes Leena 25707.1.[address] 3.430.2.7 Hospit a .3.030714 l .8 2020-11-13 2020-11-13 Orders Jason 1.2.840.1 [id number] 463810 7387 Methodi 00:00:00 00:00:00 Only Yarelis C 83395.1.[address] 3.430.2.7 Hospit a .3.639651 l .8 2020-11-13 2020-11-13 Travel 1.2.840.1 1.2.202.966 8669 052836 Methodi 00:00:00 00:00:[address] 3.430.2.7 0.2.7.3.698 Ho mya .3.891530 084.8 l .8 2020-11-12 2020-11-12 Transcribe Jason, 1.2.840.1 [id number] 481 [id number] Methodi 00:00:00 00:00:00 Orders Yarelis C 30518.1.[address] 3.430.2.7 Hospit a .3.554103 l .8 2020-11-12 2020-11-12 Orders Bhanu, 1.2.840.1 [id number] 108482 6421 Methodi 00:00:00 00:00:00 Only Tanya 91387.1.[address] 3.430.2.7 Hospit a .3.750559 l .8 2020-11-12 2020-11-12 Orders Oki, 1.2.840.1 [id number] 325585 5088 Methodi 00:00:00 00:00:00 Only Dorinda 77723.1.[address] 3.430.2.7 Hospit a .3.197945 l .8 2020-11-11 2020-11-11 [facility] 1.2.840.1 016076 216 [id number] Methodi 09:00:00 23:59:00 Encounter Yarelis Gomez 15863.1.[address] Tena Wagoner 3.430.2.7 H ospita .3.807669 l .8 2020-11-11 2020-11-11 Outpatient [facility] [id number] 1 [facility] 00:00:00 23:59:00 Cara 2020-11-11 2020-11-11 Telephone Donte, 1.2.840.1 [id number] 2100 971847 Methodi 00:00:00 00:00:[address] 3.430.2.7 Hospit a .3.521402 l .8 2020-11-11 2020-11-11 Travel 1.2.840.1 1.2.175.543 3029 404709 Methodi 00:00:00 00:00:[address] 3.430.2.7 0.2.7.3.698 Ho spita .3.392835 084.8 l .8 2020-11-06 2020-11-06 Hospital [facility] 1.2.840.1 [id number] 216 [id number] Methodi 23:59:00 23:59:00 Encounter Tena Wagoner 45365.1.[address] 3.430.2.7 Hospit a .3.545964 l .8 2020-11-05 2020-11-05 Hospital Aaliyah 1.2.840.1 [id number] 34929 23454 Methodi 23:59:00 23:59:00 Encounter Aaron 22771.1.[address] 3.430.2.7 Hospit a .3.528423 l .8 2020-11-04 2020-11-05 [facility] Tyrese Jasso 1.2.840.1 104 893813 [id number] Methodi 17:21:00 17:37:00 Encounter Yarelis Gomez 19356.1.[address] Eros Castellanos 3.430.2.7 Hospita .3.931035 l .8 2020-11-04 2020-11-04 Outpatient BCM BC [id number] 8 [facility] 00:00:00 23:59:00 Cara 2020-11-04 2020-11-04 [facility], 1.2.840.1 [id number] 14082 66393 Methodi 09:30:00 17:20:00 Encounter Aaron 22154.1.[address] 3.430.2.7 Hospit a .3.320603 l .8 2020-11-04 2020-11-04 [facility] Laurence Gomezjose Ortega 1.2.840.1 [id number] 16 [id number] Methodi 07:25:02 09:29:00 Encounter RizwanaTena 80772.1.[address] 3.430.2.7 Hospit a .3.195988 l .8 2020-11-04 2020-11-04 Documentat Bhanu, 1.2.840.1 [id number] 827 [id number] Methodi 00:00:00 00:00:00 ion Tanya 63786.1.[address] 3.430.2.7 Hospit a .3.227697 l .8 2020-11-04 2020-11-04 Orders Gagan, 1.2.840.1 [id number] 725163 7830 Methodi 00:00:00 00:00:00 Only Dorinda 20327.1.[address] 3.430.2.7 Hospit a .3.134254 l .8 2020-11-04 2020-11-04 Travel 1.2.840.1 1.2.449.327 2013 700781 Methodi 00:00:00 00:00:[address] 3.430.2.7 0.2.7.3.698 Ho spita .3.223058 084.8 l .8 2020-11-01 2020-11-01 [facility] Laurenceolimpiaander 1.2.840.1 0994142 16 [id number] Methodi 07:53:16 23:59:00 Encounter Tena Wagoner 53524.1.[address] 3.430.2.7 Hospit a .3.317039 l .8 2020-11-01 2020-11-01 Orders Donte 1.2.840.1 [id number] 356138 4818 Methodi 00:00:00 00:00:00 Only Leena 74685.1.[address] 3.430.2.7 Hospit a .3.989339 l .8 2020-11-01 2020-11-01 Travel 1.2.840.1 1.2.126.854 0399 398034 Methodi 00:00:00 00:00:[address] 3.430.2.7 0.2.7.3.698 Ho spita .3.212668 084.8 l .8 2020-10-31 2020-10-31 Abstract Donte 1.2.840.1 [id number] Methodi 00:00:00 00:00:[address] 3.430.2.7 Hospit a .3.497590 l .8 2020-10-31 2020-10-31 Telephone Donte 1.2.840.1 [id number] Methodi 00:00:00 00:00:[address] 3.430.2.7 Hospit a .3.720554 l .8 2020-10-29 2020-10-29 [facility] David Martell 1.2.840.1 [id number] Methodi 09:00:00 23:59:00 [facility] Yarelis Gomez 35141.1.[address] Rizwana, Tena 3.430.2.7 H ospita .3.309927 l .8 2020-10-29 2020-10-29 Outpatient [facility] BCM [id number] [facility] 00:00:00 23:59:00 Gloria Medicin e 2020-10-29 2020-10-29 Travel 1.2.840.1 1.2.265.903 7421 174371 Methodi 00:00:00 00:00:[address] 3.430.2.7 0.2.7.3.698 Ho spita .3.405514 084.8 l .8 2020-10-22 2020-10-24 [facility] Yarelis Gomez 1.2.840.1 [id number] 2099 [id number] Methodi 10:21:00 16:30:00 Encounter Alberto Anderson 70672.1.[address] Vero Wagonere 3.430.2.7 H ospita .3.800339 l .8 2020-10-21 2020-10-21 [facility] Jason, 1.2.840.1 [id number] 518680 2661 Methodi 00:00:00 00:00:00 Only Yarelis C [address].1.[address] 3.430.2.7 Hospit a .3.782486 l .8 2020-10-21 2020-10-21 Travel 1.2.840.1 1.2.304.885 4112 261575 Methodi 00:00:00 00:00:[address] 3.430.2.7 0.2.7.3.698 Ho spita .3.319962 084.8 l .8 2020-10-21 2020-10-21 Orders Gagan, 1.2.840.1 [id number] 460156 7108 Methodi 00:00:00 00:00:00 Only Dorinda 10860.1.[address] 3.430.2.7 Hospit a .3.859390 l .8 2020-10-18 2020-10-18 Lab Jason, 1.2.840.1 [id number] 133782 0597 Methodi 08:49:18 08:54:18 Yarelis Ortega 21727.1.[address] 3.430.2.7 Hospit a .3.495459 l .8 2020-10-18 2020-10-18 Travel 1.2.840.1 1.2.611.111 0465 243450 Methodi 00:00:00 00:00:[address] 3.430.2.7 0.2.7.3.698 Ho spita .3.411902 084.8 l .8 2020-10-15 2020-10-15 Orders Rizwana, 1.2.840.1 [id number] 561306 4703 Methodi 00:00:00 00:00:00 Only Tena Martin 89047.1.[address] 3.430.2.7 Hospit a .3.432893 l .8 2020-10-15 2020-10-15 Orders Bhanu, 1.2.840.1 [id number] 508091 7515 Methodi 00:00:00 00:00:00 Only Tanya 19448.1.[address] 3.430.2.7 Hospit a .3.621443 l .8 2020-10-15 2020-10-15 Travel 1.2.840.1 1.2.204.024 8570 335513 Methodi 00:00:00 00:00:[address] 3.430.2.7 0.2.7.3.698 Ho spita .3.723059 084.8 l .8 2020-10-10 2020-10-10 Travel 1.2.840.1 1.2.685.637 4997 115371 Methodi 00:00:00 00:00:[address] 3.430.2.7 0.2.7.3.698 Ho spita .3.535770 084.8 l .8 2020-10-04 2020-10-04 Office Jc, 1.2.840.0 [id number] 87425 22958 Methodi 08:43:33 09:06:55 Visit Alejandro Hall 77509.1.1 118 s t 3.430.2.7 Hospit a .3.160557 l .8 2020-10-04 2020-10-04 Travel 1.2.840.1 1.2.853.149 1576 901448 Methodi 00:00:00 00:00:[address] 3.430.2.7 0.2.7.3.698 Ho spita .3.089457 084.8 l .8 2020-10-01 2020-10-01 Travel 1.2.840.1 1.2.195.387 5383 787591 Methodi 00:00:00 00:00:[address] 3.430.2.7 0.2.7.3.698 Ho spita .3.662519 084.8 l .8 2020-09-26 2020-09-26 Infusion Jc, 1.2.840.1 435531551 37410 Methodi 07:16:11 13:16:11 Alejandro Hall 87864.1.1 174 s t 3.430.2.7 Hospit a .3.881456 l .8 2020-09-26 2020-09-26 Travel 1.2.840.1 1.2.608.253 3522 619549 Methodi 00:00:00 00:00:[address] 3.430.2.7 0.2.7.3.698 Ho spita .3.834191 084.8 l .8 2020-09-19 2020-09-19 Infusion Jc, 1.2.840.1 [id number] 08001 Methodi 08:47:52 14:47:52 Alejandro Hall 86110.1.1 728 s t 3.430.2.7 Hospit a .3.715063 l .8 2020-09-19 2020-09-19 Travel 1.2.840.1 1.2.704.184 0522 236347 Methodi 00:00:00 00:00:[address] 3.430.2.7 0.2.7.3.698 Ho spita .3.903140 084.8 l .8 2020-09-18 2020-09-18 Refsvetlana Jc 1.2.840.3 [id number] 83395 Methodi 00:00:00 00:00:00 Alejandro Hall 69321.1.1 666 s t 3.430.2.7 Hospit a .3.233768 l .8 2020-09-17 [id number] [id number] Methodi 08:58:08 23:59:00 Encounter Tena Wagoner 28118.1.[address] 3.430.2.7 Hospit a .3.040155 l .8 2020-09-17 2020-09-17 Outpatient [facility] [id number] 1 [facility] 00:00:00 23:59:00 Cara 2020-09-17 2020-09-17 Jan Kent 1.2.840.1 [id number] 00577 Methodi 00:00:00 00:00:[address] 3.430.2.7 Hospit a .3.177454 l .8 2020-09-17 2020-09-17 Social Rich 1.2.840.1 [id number] 399636 4939 Methodi 00:00:00 00:00:00 Work Nikole 03122.1.[address] 3.430.2.7 Hospit a .3.422292 l .8 2020-09-17 2020-09-17 Travel 1.2.840.1 1.2.203.628 5146 745523 Methodi 00:00:00 00:00:[address] 3.430.2.7 0.2.7.3.698 Ho spita .3.542503 084.8 l .8 2020-09-16 2020-09-16 [facility], 1.2.840.1 [id number] 23051 Methodi 14:30:00 23:59:00 Encounter Laurencequisa C [address]89.1.[address] 3.430.2.7 Hospit a .3.617666 l .8 2020-09-16 2020-09-16 [facility], 1.2.840.1 [id number] 66 Methodi 13:03:49 14:29:00 Encounter Laurencequisa C [address]159.1.[address] 3.430.2.7 Hospit a .3.347173 l .8 2020-09-16 2020-09-16 [facility], 1.2.840.1 [id number] 46323 68229 Methodi 09:26:31 13:02:00 Encounter Laurencequander C 53375.1.[address] 3.430.2.7 Hospit a .3.547623 l .8 2020-09-16 2020-09-16 Travel 1.2.840.1 1.2.881.269 8699 001158 Methodi 00:00:00 00:00:[address] 3.430.2.7 0.2.7.3.698 Ho spita .3.042322 084.8 l .8 2020-09-12 2020-09-12 [facility], 1.2.840.1 [id number] 929558 3822 Methodi 00:00:00 00:00:00 Only Leena 30097.1.[address] 3.430.2.7 Hospit a .3.427119 l .8 2020-09-12 2020-09-12 Travel 1.2.840.1 1.2.062.011 4731 319968 Methodi 00:00:00 00:00:[address] 3.430.2.7 0.2.7.3.698 Ho spita .3.258258 084.8 l .8 2020-09-11 2020-09-11 Orders Donte, 1.2.840.1 [id number] 962534 7450 Methodi 00:00:00 00:00:00 Only Leena 48511.1.[address] 3.430.2.7 Hospit a .3.490783 l .8 2020-09-11 2020-09-11 Telephone Donte, 1.2.840.1 [id number] 2099 526187 Methodi 00:00:00 00:00:[address] 3.430.2.7 Hospit a .3.485907 l .8 2020-09-11 2020-09-11 Orders Donte, 1.2.840.1 120782509 235289 1640 Methodi 00:00:00 00:00:00 Only Leena 44018.1.[address] 3.430.2.7 Hospit a .3.325502 l .8 2020-09-09 2020-09-09 Telephone Lonnie, 1.2.840.0 [id number] 495 3006730 Methodi 00:00:00 00:00:[address] 3.430.2.7 Hospit a .3.055855 l .8 2020-09-05 2020-09-05 [facility] Leonard Gomez 1.2.840.1 [id number] Methodi 10:00:00 23:59:00 Yarelis Hurst 54728.1.[address] RizwanaTena 3.430.2.7 H ospita .3.867307 l .8 2020-09-05 2020-09-05 Outpatient [facility] [id number] [address] [place] [address] 00:00:00 23:59:00 Cara 2020-09-05 2020-09-05 Office Jc, 1.2.840.8 [id number] 07348 Methodi 09:46:54 10:50:02 Visit Alejandro Hall 98347.1.1 044 s t 3.430.2.7 Hospit a .3.645640 l .8 2020-09-05 2020-09-05 Orders Donte, 1.2.840.1 040459016 474673 7738 Methodi 00:00:00 00:00:00 Only Leena 91535.1.[address] 3.430.2.7 Hospit a .3.005860 l .8 2020-09-05 2020-09-05 Orders Donte, 1.2.840.1 418043989 226167 9633 Methodi 00:00:00 00:00:00 Only Leena 81040.1.[address] 3.430.2.7 Hospit a .3.727561 l .8 2020-09-05 2020-09-05 Travel 1.2.840.1 1.2.069.113 5932 275607 Methodi 00:00:00 00:00:[address] 3.430.2.7 0.2.7.3.698 Ho spita .3.132956 084.8 l .8 2020-09-03 2020-09-03 [facility] 1.2.840.114 69847 063 Univers 00:00:00 00:00:00 [facility] 350.1.13.10 it y of [facility] 4.2.7.2.686 Jason as Professio [phone] Ne dical nal [address] One 2020-09-02 2020-09-02 Hospital Hosea, 1.2.840.1 [id number] 11461 73362 Methodi 08:20:00 23:59:00 Encounter Alejandro Hall 05311.1.[address] 3.430.2.7 Hospit a .3.936663 l .8 2020-09-02 2020-09-02 Telephone Hosea 1.2.840.7 [id number] 531 1006502 Methodi 00:00:00 00:00:00 [facility]jandro [facility] 37410.1.1 276 s t 3.430.2.7 Hospit a .3.265340 l .8 2020-09-02 2020-09-02 Travel 1.2.840.1 1.2.474.357 7762 306861 Methodi 00:00:00 00:00:[address] 3.430.2.7 0.2.7.3.698 Ho spita .3.238822 084.8 l .8 2020-08-29 2020-08-29 Infusion Jc, 1.2.840.1 [id number] 35283 Methodi 07:38:13 13:38:13 [facility] 88063.1.1 238 s t 3.430.2.7 Hospit a .3.207344 l .8 2020-08-29 2020-08-29 Travel 1.2.840.1 1.2.720.141 6502 091088 Methodi 00:00:00 00:00:[address] 3.430.2.7 0.2.7.3.698 Ho spita .3.511809 084.8 l .8 2020-08-22 2020-08-22 Infusion Jc, 1.2.840.1 872059063 92358 Methodi 07:45:05 13:45:05 [facility] 15016.1.1 124 s t 3.430.2.7 Hospit a .3.365906 l .8 2020-08-22 2020-08-22 Travel 1.2.840.1 1.2.693.990 8868 890182 Methodi 00:00:00 00:00:[address] 3.430.2.7 0.2.7.3.698 Ho spita .3.694161 084.8 l .8 2020-08-21 2020-08-21 LUIS Sotomayor 1.2.840.114 14103 244 Univers 00:00:00 00:00:00 [facility] 350.1.13.10 it y of [place] 4.2.7.2.686 Jason as Sabino [phone] Ne dical nal 044 Branch Office [facility] One 2020-08-21 2020-08-21 Telephone Donte, 1.2.840.1 [id number] 2099 515403 Methodi 00:00:00 00:00:[address] 3.430.2.7 Hospit a .3.438643 l .8 2020-08-19 2020-08-19 Orders Hosea, 1.2.840.9 [id number] 21001 24719 Methodi 00:00:00 00:00:00 Only Alejandro Hall 69960.1.1 248 s t 3.430.2.7 Hospit a .3.183456 l .8 2020-08-16 2020-08-16 Telephone Hosea 1.2.840.2 [id number] 505 9463399 Methodi 00:00:00 00:00:00 [facility] 39506.1.1 015 s t 3.430.2.7 Hospit a .3.242838 l .8 2020-08-15 2020-08-15 Infusion Hosea 1.2.840.1 061739007 21189 Methodi 07:45:28 13:45:28 [facility] 12284.1.1 522 s t 3.430.2.7 Hospit a .3.323994 l .8 2020-08-15 2020-08-15 Travel 1.2.840.1 1.2.387.395 7308 582512 Methodi 00:00:00 00:00:[address] 3.430.2.7 0.2.7.3.698 Ho spita .3.757542 084.8 l .8 2020-06-27 2020-08-10 Infusion Hosea 1.2.840.1 497031804 21000 15928 Methodi 10:20:08 09:30:27 [facility] 88352.1.1 284 s t 3.430.2.7 Hospit a .3.816727 l .8 2020-08-09 2020-08-09 Telephone Donte, 1.2.840.1 [id number] 2099 978043 Methodi 00:00:00 00:00:[address] 3.430.2.7 Hospit a .3.117385 l .8 2020-08-08 2020-08-08 Nurse Only Hosea, 1.2.840.1 877724699 693 8002690 Methodi 09:38:57 10:08:57 [facility] 19142.1.1 932 s t 3.430.2.7 Hospit a .3.607662 l .8 2020-08-08 2020-08-08 Office Hosea, 1.2.840.7 [id number] 80487 13328 Methodi 08:07:19 09:22:08 Visit Alejandro Hall 51847.1.1 279 s t 3.430.2.7 Hospit a .3.000007 l .8 2020-08-08 2020-08-08 Travel 1.2.840.1 1.2.372.101 8623 783052 Methodi 00:00:00 00:00:[address] 3.430.2.7 0.2.7.3.698 Ho spita .3.056320 084.8 l .8 2020-08-01 2020-08-01 Infusion Hosea, 1.2.840.1 493544699 49317 13306 Methodi 09:03:38 15:03:38 [facility] 43584.1.1 293 s t 3.430.2.7 Hospit a .3.529192 l .8 2020-08-01 2020-08-01 Travel 1.2.840.1 1.2.377.229 6798 119232 Methodi 00:00:00 00:00:[address] 3.430.2.7 0.2.7.3.698 Ho spita .3.689907 084.8 l .8 2020-07-29 2020-07-29 Nurse Only Jc, 1.2.840.1 726580254 636 1145854 Methodi 08:17:20 08:47:20 [facility] 55981.1.1 042 s t 3.430.2.7 Hospit a .3.670347 l .8 2020-07-29 2020-07-29 Travel 1.2.840.1 1.2.386.472 4016 626672 Methodi 00:00:00 00:00:[address] 3.430.2.7 0.2.7.3.698 Ho spita .3.581476 084.8 l .8 2020-07-25 2020-07-25 Infusion Jc, 1.2.840.1 83814 Methodi 09:06:42 15:06:42 [facility] 86989.1.1 975 s t 3.430.2.7 Hospit a .3.206467 l .8 2020-07-25 2020-07-25 Travel 1.2.840.1 1.2.751.475 3057 711790 Methodi 00:00:00 00:00:[address] 3.430.2.7 0.2.7.3.698 Ho spita .3.597138 084.8 l .8 2020-07-23 2020-07-23 Nurse Only Jc, 1.2.840.1 940000000 010 6116381 Methodi 08:16:36 08:46:36 [facility] 87793.1.1 467 s t 3.430.2.7 Hospit a .3.965817 l .8 2020-07-23 2020-07-23 Travel 1.2.840.1 1.2.456.731 2145 864860 Methodi 00:00:00 00:00:[address] 3.430.2.7 0.2.7.3.698 Ho spita .3.692667 084.8 l .8 2020-07-18 2020-07-18 Travel 1.2.840.1 1.2.372.264 7779 482609 Methodi 00:00:00 00:00:[address] 3.430.2.7 0.2.7.3.698 Ho spita .3.051873 084.8 l .8 2020-07-15 2020-07-15 [facility], 1.2.840.1 [id number] 80 Methodi 08:52:13 23:59:00 Encounter Yarelis Ortega 27041.1.[address] 3.430.2.7 Hospit a .3.792325 l .8 2020-07-15 2020-07-15 Travel 1.2.840.1 1.2.568.647 0046 846950 Methodi 00:00:00 00:00:[address] 3.430.2.7 0.2.7.3.698 Ho spita .3.589760 084.8 l .8 2020-07-12 2020-07-12 Amos Jc, 1.2.840.1 362834761 210922 0570 Methodi 00:00:00 00:00:00 Only Michaellealisha Isabel 13474.1.1 287 s t 3.430.2.7 Hospit a .3.557319 l .8 2020-07-11 2020-07-11 Nurse Only Hosea, 1.2.840.1 [id number] 605 8201850 Methodi 08:58:56 09:28:56 Alejandro Saraviah 31041.1.1 888 s t 3.430.2.7 Hospit a .3.473873 l .8 2020-07-11 2020-07-11 Travel 1.2.840.1 1.2.295.956 7299 167660 Methodi 00:00:00 00:00:[address] 3.430.2.7 0.2.7.3.698 Ho spita .3.497999 084.8 l .8 2020-07-08 2020-07-08 Nurse Only Hosea, 1.2.840.1 [id number] 324 3402433 Methodi 09:02:57 09:32:57 [facility] 16861.1.1 483 s t 3.430.2.7 Hospit a .3.520312 l .8 2020-07-08 2020-07-08 Travel 1.2.840.1 1.2.207.026 4004 064171 Methodi 00:00:00 00:00:[address] 3.430.2.7 0.2.7.3.698 Ho spita .3.959268 084.8 l .8 2020-07-04 2020-07-04 Infusion Hosea, 1.2.840.1 311061345 06945 Methodi 08:42:30 14:42:30 [facility]jandro Hall 90001.1.1 863 s t 3.430.2.7 Hospit a .3.967135 l .8 2020-07-04 2020-07-04 Orders Yeagre, 1.2.840.1 135425434 90216 Methodi 00:00:00 00:00:00 Only Wade 80834.1.[address] 3.430.2.7 Hospit a .3.654349 l .8 2020-07-04 2020-07-04 Travel 1.2.840.1 1.2.710.707 5257 005392 Methodi 00:00:00 00:00:[address] 3.430.2.7 0.2.7.3.698 Ho spita .3.133107 084.8 l .8 2020-07-03 2020-07-03 Orders Jc, 1.2.840.1 419 Methodi 00:00:00 00:00:00 Only Alejandro Hall 99611.1.1 374 s t 3.430.2.7 Hospit a .3.044286 l .8 2020-07-01 2020-07-01 Lab Jason, 1.2.840.1 937248909 745435 0646 Methodi 11:21:05 11:26:05 Yarelis Ortega 41774.1.[address] 3.430.2.7 Hospit a .3.321490 l .8 2020-07-01 2020-07-01 Nurse Only Hosea, 1.2.840.1 033240242 063 7542497 Methodi 08:48:05 09:18:05 [facility] Hall 17379.1.1 443 s t 3.430.2.7 Hospit a .3.407982 l .8 2020-07-01 2020-07-01 Telephone Radha Spear 1.2.840.1 [id number] 7962096539 Methodi 00:00:00 00:00:[address] 3.430.2.7 Hospit a .3.104560 l .8 2020-07-01 2020-07-01 Travel 1.2.840.1 1.2.132.693 0539 317575 Methodi 00:00:00 00:00:[address] 3.430.2.7 0.2.7.3.698 Ho spita .3.047786 084.8 l .8 2020-06-27 2020-06-27 Travel 1.2.840.1 1.2.735.797 5789 986480 Methodi 00:00:00 00:00:[address] 3.430.2.7 0.2.7.3.698 Ho spita .3.529919 084.8 l .8 2020-06-26 2020-06-26 Orders Emely Ca 1.2.840.1 392018895 15497718 Methodi 00:00:00 00:00:[address] 3.430.2.7 Hospit a .3.559907 l .8 2020-06-25 2020-06-25 Telephone FERNANDO Saez 1.2.681.638 1429 0143 Univers 00:00:00 00:00:00 Ian MCMILLAN 350.1.13.10 i ty of HOSPITAL 4.2.7.2.686 Jason as [phone] [facility] 082 Branch 2020-06-25 2020-06-25 Orders Doctor KING 1.2.840.114 826559 19 Univers 00:00:00 00:00:00 Only Unassigned, DEYANIRA 350.1.13.10 ity of [place] [facility] 4.2.7.2.686 Jason as [phone] [facility] 009 Branch 2020-06-25 2020-06-25 Orders Mihaela 1.2.840.1 [id number] 378357 1588 Methodi 00:00:00 00:00:00 Only Yuli 86580.1.1 046 s t 3.430.2.7 Hospit a .3.218499 l .8 2020-06-25 2020-06-25 Orders Hosea 1.2.840.1 631743393 939178 2612 Methodi 00:00:00 00:00:00 Only Alejandro Hall 94417.1.1 363 s t 3.430.2.7 Hospit a .3.068391 l .8 2020-06-24 2020-06-24 Nurse Only Hosea 1.2.840.1 150692807 579 4820988 Methodi 11:27:07 11:57:07 Michaellealisha Isabel 99960.1.1 332 s t 3.430.2.7 Hospit a .3.073352 l .8 2020-06-24 2020-06-24 Travel 1.2.840.1 1.2.979.344 2316 619899 Methodi 00:00:00 00:00:[address] 3.430.2.7 0.2.7.3.698 Ho spita .3.607162 084.8 l .8 2020-06-17 2020-06-19 Hospital Jc, 1.2.840.1 249315764 82437 44727 Methodi 10:34:00 16:39:00 Encounter Alejandro Hall 86689.1.[address] 3.430.2.7 Hospit a .3.071461 l .8 2020-06-18 2020-06-18 Telephone Marysejulia [facility] 1.2.840.114 838 46716 Univers 00:00:00 00:00:00 [facility] 350.1.13.10 it y of [place] 4.2.7.2.686 Jason as Professio [phone] Ne dical nal [address] One 2020-06-17 2020-06-17 Travel 1.2.840.1 1.2.763.242 7884 986184 Methodi 00:00:00 00:00:[address] 3.430.2.7 0.2.7.3.698 Ho spita .3.698660 084.8 l .8 2020-06-04 2020-06-14 Hospital Emanuel Martin 1.2.840.1 [id number] 21 [id number] Methodi 18:58:00 14:08:00 Encounter Magnus 59921.1.[address] 3.430.2.7 Hospit a .3.643145 l .8 2020-06-12 2020-06-12 Plan of 1.2.840.1 314647623 697535 0385 Methodi 00:00:00 00:00:[address] Documentat 3.430.2.7 Hos ray ion .3.508644 l .8 2020-06-11 2020-06-11 Orders Doctor FERNANDO 1.2.840.114 297786 12 00:00:00 00:00:00 Only Unassigned, DEYANIRA 350.1.13.10 ity of [place] [facility] 4.2.7.2.686 Jason as [phone] [place] [address] Branch 2020-06-05 2020-06-05 Plan of 1.2.840.1 [id number] 729451 3914 Methodi 00:00:00 00:00:[address] Documentat 3.430.2.7 Hos ray ion .3.839834 l .8 2020-05-27 2020-06-04 [facility] Tobin Eaton 1.2.840.1 10 5455707 4755450202 Methodi 08:40:00 18:38:00 Encounter Vito Uriarte 83866.1.[address] 3.430.2.7 Hospit a .3.646873 l .8 2020-05-27 2020-05-27 Travel 1.2.840.1 1.2.278.245 4519 168039 Methodi 00:00:00 00:00:[address] 3.430.2.7 0.2.7.3.698 Ho spita .3.973552 084.8 l .8 2020-05-17 2020-05-22 [facility] Anita Lawson 1.2.840.1 104 726317 1265725345 Methodi 17:47:00 18:29:00 Encounter Blake Corona 11877.1.[address] Gianfranco Mendoza P. 3.430.2.7 Hospita .3.061024 l .8 2020-05-16 2020-05-16 Nurse Only Hosea, 1.2.840.1 [id number] 681 7607655 Methodi 08:48:59 10:48:59 Alejandro Hall 75801.1.1 358 s t 3.430.2.7 Hospit a .3.533628 l .8 2020-05-16 2020-05-16 Travel 1.2.840.1 1.2.528.999 6117 316592 Methodi 00:00:00 00:00:[address] 3.430.2.7 0.2.7.3.698 Ho spita .3.535781 084.8 l .8 2020-05-132020-05-13 Infusion Jc, 1.2.840.1 587935270 25483 Methodi 08:27:06 11:27:06 Alejandro Hall 33457.1.1 324 s t 3.430.2.7 Hospit a .3.522210 l .8 2020-05-13 2020-05-13 Travel 1.2.840.1 1.2.714.097 5855 735336 Methodi 00:00:00 00:00:[address] 3.430.2.7 0.2.7.3.698 Ho spita .3.762003 084.8 l .8 2020-05-06 2020-05-10 Hospital Jc, 1.2.840.1 789477621 17011 Methodi 15:29:00 16:30:00 Encounter Alejandro Hall 94256.1.[address] 3.430.2.7 Hospit a .3.640268 l .8 2020-05-10 2020-05-10 Orders Canaan, 1.2.840.1 025584806 29961 Methodi 00:00:00 00:00:00 Only Araceli 63185.1.[address] 3.430.2.7 Hospit a .3.808375 l .8 2020-05-06 2020-05-06 [facility] Yarelis Gomez 1.2.840.1 2828151 16 [id number] Methodi 13:13:16 15:28:00 Encounter Tena Wagoner 76486.1.[address] 3.430.2.7 Hospit a .3.210937 l .8 2020-05-06 2020-05-06 Travel 1.2.840.1 1.2.754.598 0616 767200 Methodi 00:00:00 00:00:[address] 3.430.2.7 0.2.7.3.698 Ho spita .3.826945 084.8 l .8 2020-05-02 2020-05-02 Nurse Only Hosea, 1.2.840.1 [id number] 303 3066110 Methodi 09:06:59 09:36:59 Alejandro Hall 56061.1.1 694 s t 3.430.2.7 Hospit a .3.322098 l .8 2020-05-02 2020-05-02 Orders Stephonpenjames 1.2.840.1 101885921 63564968 Methodi 00:00:00 00:00:00 Only , Majo 99850.1.[address] 3.430.2.7 Hospit a .3.314601 l .8 2020-05-02 2020-05-02 Travel 1.2.840.1 1.2.580.962 1767 327510 Methodi 00:00:00 00:00:[address] 3.430.2.7 0.2.7.3.698 Ho spita .3.586086 084.8 l .8 2020-05-01 2020-05-01 [facility] 1.2.840.114 880889 20 Univers 00:00:00 00:00:00 [facility] 350.1.13.10 i ty of [facility] 4.2.7.2.[place] [phone] Ne dical [address] Branch 2020-04-20 2020-04-23 [facility] 1.2.840 .1 [id number] Methodi 19:18:00 19:02:00 Encounter Vito Uriarte 21810.1.[address] 3.430.2.7 Hospit a .3.142147 l .8 2020-04-18 2020-04-18 Nurse Only Hosea, 1.2.840.1 [id number] 140 6586700 Methodi 08:55:25 15:15:27 Alejandro Hall 28841.1.1 282 s t 3.430.2.7 Hospit a .3.258921 l .8 2020-04-18 2020-04-18 Travel 1.2.840.1 1.2.925.817 1617 424505 Methodi 00:00:00 00:00:[address] 3.430.2.7 0.2.7.3.698 Ho spita .3.629210 084.8 l .8 2020-04-17 2020-04-17 Orders Júnior, 1.2.840.1 [id number] 59656 Methodi 00:00:00 00:00:00 Only Araceli 77771.1.[address] 3.430.2.7 Hospit a .3.775355 l .8 2020-04-15 2020-04-15 Nurse Only Hosea, 1.2.840.1 885859102 645 9869786 Methodi 10:52:50 16:19:36 Alejandro Hall 88000.1.1 280 s t 3.430.2.7 Hospit a .3.676886 l .8 2020-04-15 2020-04-15 Travel 1.2.840.1 1.2.731.083 8388 864867 Methodi 00:00:00 00:00:[address] 3.430.2.7 0.2.7.3.698 Ho spita .3.067654 084.8 l .8 2020-04-15 2020-04-15 Orders Júnior, 1.2.840.1 952307690105 12147 Methodi 00:00:00 00:00:00 Only Araceli 76457.1.[address] 3.430.2.7 Hospit a .3.952272 l .8 2020-04-09 2020-04-13 Hospital Hosea, 1.2.840.1 [id number] 84881 13729 Methodi 10:04:00 19:49:00 Encounter Alejandro Hall 07104.1.[address] 3.430.2.7 Hospit a .3.817308 l .8 2020-04-09 2020-04-09 Travel 1.2.840.1 1.2.535.541 6469 622850 Methodi 00:00:00 00:00:[address] 3.430.2.7 0.2.7.3.698 Ho spita .3.753153 084.8 l .8 2020-03-28 2020-04-03 [facility] 749959 [id number] Methodi 20:46:00 12:08:00 Encounter Priyanka Engle 71094.1.[address] 3.430.2.7 Hospit a .3.876285 l .8 2020-03-28 2020-03-28 Emergency Kassie, 1.2.840.1 194103466 2099 114152 Methodi 11:41:00 14:11:00 Heriberto Sims [address]29.[address] 3.430.2.7 Hospit a .3.853010 l .8 2020-03-28 2020-03-28 Nurse Only Hosea, 1.2.840.1 860299101 352 8859048 Methodi 09:46:44 10:16:44 Alejandro Hall 76930.1.1 986 s t 3.430.2.7 Hospit a .3.451292 l .8 2020-03-28 2020-03-28 Amos Jc 1.2.840.1 993187411 115181 7616 Methodi 00:00:00 00:00:00 Only Alejandro Hall 22495.1.1 326 s t 3.430.2.7 Hospit a .3.483002 l .8 2020-03-28 2020-03-28 Travel 1.2.840.1 1.2.707.737 2097 589452 Methodi 00:00:00 00:00:[address] 3.430.2.7 0.2.7.3.698 Ho spita .3.262679 084.8 l .8 2020-03-26 2020-03-26 Orders Mindy, 1.2.840.1 639634470 961737 8091 Methodi 00:00:00 00:00:00 Only Destinee 27452.1.[address] 3.430.2.7 Hospit a .3.707591 l .8 2020-03-25 2020-03-25 Nurse Only Hosea, 1.2.840.1 071443702 165 5168716 Methodi 09:55:28 10:25:28 Alejandro Hall 07477.1.1 985 s t 3.430.2.7 Hospit a .3.960075 l .8 2020-03-25 2020-03-25 Travel 1.2.840.1 1.2.005.400 0058 264761 Methodi 00:00:00 00:00:[address] 3.430.2.7 0.2.7.3.698 Ho spita .3.674145 084.8 l .8 2019-11-27 2019-11-27 Orders Doctor FERNANDO 1.2.840.114 350340 25 Univers 00:00:00 00:00:00 Only Unassigned, DEYANIRA 350.1.13.10 ity of [place] [facility] 4.2.7.2.686 Jason as [phone] [address] 2019-11-17 2019-11-17 Orders Doctor FERNANDO 1.2.840.114 519227 81 Univers 00:00:00 00:00:00 Only Unassigned, DEYANIRA 350.1.13.10 ity of [place] [facility] 4.2.7.2.686 Jason as [phone] [address] 2019-11-14 2019-11-14 Telephone [facility] 1.2.840.114 783 43521 Univers 00:00:00 00:00:00 [facility] 350.1.13.10 it y of [place] 4.2.7.2.686 Jason as Sabino [phone] [facility] [address] One 2019-11-10 2019-11-10 Telephone [facility] 1.2.840.114 782 59206 Univers 00:00:00 00:00:00 [facility] 350.1.13.10 it y of [place] 4.2.7.2.686 Jason as Professio [phone] [address] Office [facility] One 2019-10-31 2019-10-31 [facility] 1.2.840.114 90407 567 00:00:00 00:00:00 [facility] 350.1.13.10 [place] 4.2.7.2.686 Professio [phone] [place] [address] Office [facility] One 2019-10-31 2019-10-31 [facility] 1.2.840.114 63971 567 Univers 00:00:00 00:00:00 [facility] 350.1.13.10 it y of [place] 4.2.7.2.686 Jason as Professio [phone] [address] One 2019-10-16 2019-10-16 [facility] 1.2.840.114 777 25013 00:00:00 00:00:00 [facility] 350.1.13.10 [place] 4.2.7.2.686 Professio [phone] [place] [address] Office [facility] One 2019-10-16 2019-10-16 [facility] 1.2.840.114 777 70333 Univers 00:00:00 00:00:00 [facility] 350.1.13.10 it y of [place] 4.2.7.2.686 Jason as Professio [phone] [address] Office [facility] One 2019-10-09 2019-10-09 [facility] 1.2.840.114 775 13129 00:00:00 00:00:00 [facility] 350.1.13.10 [place] 4.2.7.2.686 Professio [phone] [place] [address] Office [facility] One 2019-10-09 2019-10-09 [facility] 1.2.840.114 775 51729 Univers 00:00:00 00:00:00 [facility] 350.1.13.10 it y of [place] 4.2.7.2.686 Jason as Professio [phone] [address] 2019-10-05 2019-10-05 Outpatient R BERNARDO [facility] [id number] N-20 Univers 15:00:00 15:00:00 MEGHAN [id number] [facility] 2019-10-05 2019-10-05 [facility] [id number] Univers 15:00:00 15:00:00 MEGHAN [facility] 2019-10-05 2019-10-05 [facility] 1.2.840.114 [id number] 10:17:44 10:32:44 ne Visit Meghan Leonardo 350.1.13.10 Stevie [place] 4.2.7.2.686 Professio [phone] [address] 2019-10-05 2019-10-05 [facility] 1.2.840.114 [id number] [facility] 10:17:44 10:32:44 ne Visit Meghan Odonnell 350.1.13.10 ity of [place] Profess[place] [phone] [address] 2019-08-18 2019-08-18 [facility] 1.2.840.114 [id number] 14:12:06 14:27:06 Visit Meghan Leonardo 350.1.13.10 [place] 4.2.7.2.686 Professio [phone] [address] 2019-08-18 2019-08-18 [facility] 1.2.840.114 [id number] [facility] 14:12:06 14:27:06 Visit Meghan Odonnell 350.1.13.10 i ty of [place]2.[place] Profess[place] [phone] [address] 2019-08-18 2019-08-18 Outpatient Beckie CHANG [facility] [id number] N-20 Univers 14:15:00 14:15:00 MEGHAN [id number] [facility] 2019-08-18 2019-08-18 [facility] [id number] Univers 14:15:00 14:15:00 MEGHAN [facility] 2019-08-14 2019-08-14 [facility] 1.2.840.114 [id number] Univers 00:00:00 00:00:00 [facility] 350.1.13.10 it y of [place] 4.2.7.2.686 Jason as Professio [phone] [address] 2019-08-09 2019-08-09 [facility] [id number] N-20 Univers 10:30:00 10:30:00 MEGHAN [id number] [facility] 2019-08-09 2019-08-09 [facility] [id number] Univers 10:30:00 10:30:00 [facility] 2019-07-12 2019-07-12 [facility] 1.2.840.114 [id number] Univers 00:00:00 00:00:00 [facility] 350.1.13.10 it y of [place] 4.2.7.2.686 Jason as Professio [phone] [address] 2019-05-16 2019-05-16 [facility] 1.2.840.114 [id number] Univers 00:00:00 00:00:00 [facility] 350.1.13.10 it y of [place] 4.2.7.2.686 Jason as Professio [phone] [address] 2019-04-14 2019-04-14 [facility] 1.2.840.114 [id number] Univers 00:00:00 00:00:00 [facility] 350.1.13.10 it y of [place] 4.2.7.2.686 Jason as Professio [phone] [address] 2019-03-17 2019-03-17 [facility] 1.2.840.114 [id number] Univers 00:00:00 00:00:00 [facility] 350.1.13.10 it y of [place] 4.2.7.2.686 Jason as Professio [phone] [address] Office [facility] 2018-10-28 2018-10-28 [facility] 1.2.840.114 [id number] Univers 00:00:00 00:00:00 [facility] 350.1.13.10 it y of [place] 4.2.7.2.686 Jason as Professio [phone] [address] Office [facility] 2018-10-03 2018-10-03 [facility] 1.2.840.114 [id number] Univers 00:00:00 00:00:00 [facility] 350.1.13.10 it y of [place] 4.2.7.2.686 Jason as Professio [phone] [address] One 2018-09-19 2018-09-19 Office [facility] 1.2.840.114 [id number] [facility] 11:28:00 11:43:00 Visit [facility] 350.1.13.10 it y of [place] 4.2.7.2.686 Jason as Professio [phone] [address] Office [facility] 2018-09-19 2018-09-19 Orders Doctor FERNANDO 1.2.840.114 [id number] Univers 00:00:00 00:00:00 Only Unassigned, DEYANIRA 350.1.13.10 ity of [facility] 4.2.7.2.686 Jason as [phone] [address] Results Test Description Test Time Test Comments Results Result Comments Source SARS-CoV-2 (COVID-19) RNA [Presence] in Respiratory sp ecimen by 2021-04-19 08:16:04 SANTHOSH with probe detection Test Item Value Reference Range Interpretation Comme nts SARS coronavirus RNA [Presence] in Isolate by SANTHOSH with probe Not de tected detection (test code = 83873-2) Whether patient is employed in a healthcare setting (test code = Un known 01017-8) Whether the patient has symptoms related to condition of interest U nknown (test code = 34103-1) Whether the patient was hospitalized for condition of interest Unkn own (test code = 08674-0) Whether the patient was admitted to intensive care unit (ICU) for U nknown condition of interest (test code = 85624-9) Whether patient resides in a congregate care setting (test code = U nknown 10679-1) status (test code = 95498-1) Unknown Date and time of symptom onset (test code = 86187-2) Unknown SARS-CoV-2 (COVID-19) RNA [Presence] in Respiratory specimen by SANTHOSH with probe [id number] 08:16:04 Test Item Value Reference Range Interpretation Comments SARS-CoV-2 (COVID-19) RNA Not detected [Presence] in Respiratory specimen by SANTHOSH with probe detection (test code = 72604-9) Whether patient is employed in a Unknown healthcare setting (test code = 80739-6) Whether the patient has symptoms Unknown related to condition of interest (test code = 91443-5) Whether the patient was Unknown hospitalized for condition of interest (test code = 65482-5) Whether the patient was admitted Unknown to intensive care unit (ICU) for condition of interest (test code = 80256-9) Whether patient resides in a Unknown congregate care setting (test code = 41329-8) status (test code = Unknown 77179-7) Date and time of symptom onset Unknown (test code = 97722-5) COVID-19 qualitative [id number] 02:57:20 Test Item Value Reference Range Interpretation Comments Interpretation (test Negative results do code = 7741416) not preclude 2019-nCoV infection and should not be used as the sole basis for treatment or other patient management decisions. Negative results must be combined with clinical observations, patient history, and epidemiological information. COVID-19 qualitative Not-Detected Not-Detected RT-PCR result (test code = 17378-7) COVID-19 qualitative See link below for C ase Number: RT-PCR (test code = PDF Lab Report [id number]) [facility] 12 [id number] 02:06:46 Test Item Value Reference Range Interpretation Comments Ventricular rate (test code = 253) Atrial rate (test code = 255) WI interval (test code = 266) QRSD interval (test code = 260) QT interval (test code = 264) QTC interval (test code = 265) P axis 1 (test code = 267) QRS axis 1 (test code = 268) T wave axis (test code = 270) EKG impression (test Normal sinus code = 273) rhythm-Nonspecific ST and T wave abnormality-Abnormal ECG-- [facility] [id number] 17:12:00 Test Item Value Reference Range Interpretation Comments Antibody ID (test code POS, Warm Autoantibody = 85941-2) [facility]Positive SHARON reflex with [id number] 17:12:00 Test Item Value Reference Range Interpretation Comments IgG Edna, gel (test code = 1590) POS Anti-complement (test code = 1004-1) POS [facility]Direct Edna' (SHARON)2021-03-21 17:12:00 Test Item Value Reference Range Interpretation Comments Gdmw-WhI-B7b Polyspecific (test code = POS 2585) [facility] and [id number] 15:24:00 Test Item Value Reference Range Interpretation Comments ABO grouping (test code = 883-9) B Rh type (test code = 55525-1) POS Antibody screen (gel) (test code = POS 890-4) [facility] HospitalPrepare RBC, 2 Units, Irradiated, [id number] 13:58:00 Test Item Value Reference Range Interpretation Comments Product name (test code Apher Red Cell AS3 #1 = 25) LR/IRR Unit number (test code [id number] = [id number]) Product code (test code E0662P99 = 3092) Dispense status (test Transfused code = 24) Blood expiration date (test code = 302) Blood type code (test code = 308) Blood type (test code = O POSITIVE 1314) Compatibility (test Incompatible code = 6400) [facility] HospitalUrine [id number] 18:34:31 Test Item Value Reference Range Interpretation Comments Urine culture Mixed tiffany Specimen isolate (test <=10-3 col/cc InformationSp ecimen code = 96741-4) Source: Tereza Thompsonn Site: Clean cat ch [facility] [id number] 18:06:40 Test Item Value Reference Range Interpretation Comments POC glucose (test code 137 mg/dL 65-99 H Opera tor Name: Shane = 64846-6) Eileen Maynard ID: [id number] able: [facility] Notified aligning inspector Interpretation Abnormal (test code = 05855-4) [facility] HospitalAntibody [id number] 17:59:00 Test Item Value Reference Range Interpretation Comments Antibody screen (test code = NEG 3x adsorbed plasma 890-4) [facility] Antigen patient typing (little e)2021-03-07 12:31:00 Test Item Value Reference Range Interpretation Comments e Antigen Patient Typing (little e) POS (test code = 2605) [facility] Antigen patient typing (little c)2021-03-07 12:29:00 Test Item Value Reference Range Interpretation Comments c Antigen Patient Typing (little c) NEG (test code = 2591) [facility] antigen patient [id number] 12:28:00 Test Item Value Reference Range Interpretation Comments C Antigen Patient Typing (test code = POS 2590) [facility] antigen patient [id number] 12:28:00 Test Item Value Reference Range Interpretation Comments E Antigen Patient Typing (test code = NEG 2604) [facility] HospitalK[facility] antigen patient [id number] 12:28:00 Test Item Value Reference Range Interpretation Comments Ofelia Antigen Patient Typing (test code NEG = 2616) [facility] HospitalEqdgyutjJkcybdy4665-12-37 12:27:00 Test Item Value Reference Range Interpretation Comments Elution (test code = POS Eluate pos w/all 883-9) cellsAlthough t hese serological fin dings cannot differentiate b etween adrug induced or a tr ue auto-immune sta te, this patient should bemonitored for signs of an ongoing hemolytic proce ss. Verified by 122 87. [facility] HospitalMiscellaneous referral [id number] 22:37:04 Test Item Value Reference Range Interpretation Comments Misc test name ARUP T-Cell (test code = Clonality BONE 2566) MAROW Misc test see comment T-Cell Clonalit y result (test Screening by PC R ARUP code = 1730) test code 47581 67 T-Cell Clonalit y by PCR Not Detected T here is no evidence of a monoclonal T ce ll population by P CR analysis. This result does not entire ly exclude the pos sibility of a clonal T c ell population belo w the test limit of detection. Thi s result has been review ed and approved by Olman Silva M.D. INTERP RETIVE INFORMATION: T- Cell Clonality Scree joe by PCR METHODOLOGY :Patient DNA was extract ed and PCR-amplified u sing oligonucleotide consensus prime rs specific for th e T-cell receptor gamma gene variable and conchita ining regions on claim processor mosome 7. PCR products were then subjected to capillary gel electrophoresis and fluorescence de tection. Evaluation of p ositive and negative co ntrols for appropriate reactivity were performed. LIMI T OF DETECTION: 12. 5 percent monoclo nal T cells within a background of n ormal peripheral bloo d mononuclear rachell ls. LIMITATIONS:A p ositive test result may be consistent with the presence of a c lonal T-cell populati on but does not necess arily imply malignanc y. The findings must a lways be interpreted in the context of morp hologic, clinical, and o ther relevant data. This test is not int ended to detect minimal residual disease. A resu lt of not detected do es not exclude the pre sence of a clonal T-cell population that is beyond the test limits of detection or one that is not amp lified with the PCR pr imers used in this as say. This test was d mayrad and its perform ance characteristics determined by [facility]. I t has not been cleare d or approved by the [place] Food and Drug Administration. This test was perfor med in a CLIA certified laboratory and is intended for cl inical purposes. - - - - - - - - - - - - - - - - - - - - - - - - - - - - - - T-Cell Clonalit y Source Bone Marrow ======== ======== Te st performed by:[facility] [address] [place] [id number] REMINGTON (test code T-Cell Clonality = REMINGTON) Screening by PCRARUP Test Code: 7955497TJPB MARROW [facility] [id number] 17:49:41 Test Item Value Reference Range Interpretation Comments Case number (test code = [id number]) Surgical pathology See link below for report (test code = PDF Lab Report 3634) Result status (test code This is Final Report = [id number]) for [id number] [facility] HospitalFlow cytometry [id number] 17:32:18 Test Item Value Reference Range Interpretation Comments Case number (test code = [id number]) Flow cytometry evaluation See link below for (test code = 9848699) PDF Lab Report [facility] [id number] 18:41:48 Test Item Value Reference Range Interpretation Comments Bone marrow tray (test code = 989) [facility], 1 Units, Irradiated, Leukoreduced 2020-12-02 17:08:00 Test Item Value Reference Range Interpretation Comments Product name (test code Platelets, Aph LR IRR = 25) BM Unit number (test code = [id number] 1872392) Product code (test code A0383U29 = 3092) Dispense status (test Transfused code = 24) Blood expiration date (test code = 302) Blood type code (test code = 308) Blood type (test code = B POSITIVE 1314) Compatibility (test code Not required = 6400) [facility] HospitalCv stress [id number] 20:52:29 Test Item Value Reference Range Interpretation Comments Resting HR (test code = 2977479519) Resting BP (test code 140&76 = 0967562402) Peak MET Achieved (test code = 8176197816) Protocol Name (test REGADENO code = 7944869592) Time in Exercise 00:01:00 Phase (test code = 2708522634) Max Systolic BP (test code = 2554654661) Max Diastolic BP (test code = 5752913198) Max Heart Rate (test code = 6326164381) Max Predicted Heart Rate (test code = 6859312941) Target HR Formula (220 - Age)*100% (test code = 5942583762) Test Indication (test Pre-Op Evaluation code = 8573019972) Arrhy During Ex (test code = 9784749998) ECG Interp Before EX (test code = 3575274631) ECG Interp During Ex (test code = 6602951704) Ex Summary Comment (test code = 0202768392) Overall HR Response to Exercise (test code = 1961748000) Overall BP Response To Exercise (test code = 5305756624) Reason for Protocol Complete Termination (test code = 6946070777) Stress Test Waveform interpreted in Impression (test code report associated with = 4422254665) image study. No interpretation is provided as part of this Stress ECG report.- [facility] HospitalSpirometry, diffusion, lung [id number] 19:53:15 Test Item Value Reference Range Interpretation Comments FEV1 Pre (test code = 2.11 L 1.55-2.54 5348) FVC Pre (test code = 2.71 L 2.07-3.25 5354) FEV1/FVC % Pre (test 78.13 % 67.84-87.43 code = 5361) FEF 25-75% Pre (test 2.03 L/s 0.93-3.04 code = 5547) PEF Pre (test code = 4.15 L/s 3.99-6.90 5367) DLCO Pre (test code = See_Comment [Auto mated message] 8793) The system Flo[employer] generated this result transmitted ref erence range: 12.86 - 25.86 ml/(min*mmHg). The reference range was not used to interpr et this result as normal/abnormal . DLCOc Pre (test code = See_Comment [Aut omated message] 7509) The system [employer] generated this result transmitted ref erence range: 12.86 - 25.86 ml/(min*mmHg). The reference range was not used to interpr et this result as normal/abnormal . DL/VA Pre (test code = See_Comment [Aut omated message] 9010) The system [employer] generated this result transmitted ref erence range: 3.33 - 5 .96 ml/(min*mmHg*L) . The reference range was not used to interpr et this result as normal/abnormal . KCOc SB Pre (test code See_Comment [Aut omated message] = 5599) The system [employer] generated this result transmitted ref erence range: 3.33 - 5 .96 ml/(min*mmHg*L) . The reference range was not used to interpr et this result as normal/abnormal . VA SB Pre (test code = 3.88 L 3.14-5.34 5444) Hb Pre (test code = g(Hb)/dL 5540) VC Pre (test code = 2.88 L 2.07-3.25 5374) ERV Pre (test code = 1.07 L 0.71-0.71 5381) FRCpl Pre (test code = 2.96 L 1.60-3.24 5388) IC Pre (test code = 1.81 L 1.50-1.50 5395) RV Pre (test code = 1.89 L 1.13-2.28 5402) RV % TLC Pre (test 39.67 % 30.45-49.63 code = 5409) TLC Pre (test code = 4.77 L 3.11-5.09 5416) Raw Pre (test code = See_Comment [Autom ated message] 5507) The system [employer] generated this result transmitted ref erence range: 3.06 - 3 .06 cmH2O*s/L. The reference range was not used to interpr et this result as normal/abnormal . R0.5IN Pre (test code See_Comment [Auto mated message] = 5514) The system [employer] generated this result transmitted ref erence range: 3.06 - 3 .06 cmH2O*s/L. The reference range was not used to interpr et this result as normal/abnormal . sR0.5IN Pre (test code cmH2O*s = 5521) sGaw Predicted (test See_Comment [Autom ated message] code = 5528) The system [employer] generated this result transmitted ref erence range: 0.10 - 0 .10 1/(cmH2O*s). Th e reference range was not used to interpr et this result as normal/abnormal . FEV1 Predicted (test code = 5302) FEV1 LLN (test code = 5347) FEV1 % Pre of 103.4 % Predicted (test code = 5308) FVC Predicted (test code = 5307) FVC LLN (test code = 5353) FVC % Pre of Predicted 101.6 % (test code = 5355) FEV1/FVC % Predicted (test code = 5359) FEV1/FVC % LLN (test code = 5360) FEV1/FVC % Pre of 100.6 % Predicted (test code = 5362) FEF 25-75% Predicted (test code = 5546) FEF 25-75% LLN (test code = 5545) FEF 25-75% % Pre of 102 % Predicted (test code = 5548) PEF Predicted (test code = 5310) PEF LLN (test code = 5366) PEF % Pre of Predicted 76.3 % (test code = 5368) VC Predicted (test code = 5372) VC LLN (test code = 5373) VC % Pre of Predicted 108 % (test code = 5375) ERV Predicted (test code = 5379) ERV LLN (test code = 5380) ERV % Pre of Predicted 149.6 % (test code = 5382) FRCpl % Predicted (test code = 5386) FRCpl % LLN (test code = 5387) FRCpl % Pre of 122.4 % Predicted (test code = 5389) IC Predicted (test code = 5393) IC LLN (test code = 5394) IC % Pre of Predicted 120.4 % (test code = 5396) RV Predicted (test code = 5400) RV LLN (test code = 5401) RV % Pre of Predicted 110.9 % (test code = 5403) RV % TLC Predicted (test code = 5407) RV % TLC LLN (test code = 5408) RV % TLC % Pre of 99.1 % Predicted (test code = 5410) TLC Predicted (test code = 5414) TLC LLN (test code = 5415) TLC % Pre of Predicted 116.2 % (test code = 5417) Raw Predicted (test code = 5505) Raw LLN (test code = 5506) Raw % Pre of Predicted 164 % (test code = 5508) R0.5IN Predicted (test code = 5512) R0.5IN LLN (test code = 5513) R0.5IN % Pre of 126.9 % Predicted (test code = 5515) sGaw Predicted (test code = 5526) sGaw LLN (test code = 5527) sGaw % Pre of 57.2 % Predicted (test code = 5529) DLCO Predicted (test code = 5421) DLCO LLN (test code = 5422) DLCO % Pre of 53.9 % Predicted (test code = 5424) DLCOc Predicted (test code = 5428) DLCOc LLN (test code = 5429) DLCOc % Pre of 67.5 % Predicted (test code = 5431) DL/VA Predicted (test code = 5435) DL/VA LLN (test code = 5436) DL/VA % Pre of 57.9 % Predicted (test code = 5438) KCOc SB Predicted (test code = 5533) KCOc SB LLN (test code = 5534) KCOc SB % Pre of 72.6 % Predicted (test code = 5536) VA SB Predicted (test code = 5442) VA SB LLN (test code = 5443) VA SB % Pre of 91.5 % Predicted (test code = 5445) [facility] HospitalFatxly typing (haplotype report)2020-07-01 21:42:53 Test Item Value Reference Range Interpretation Comments Case number (test code [id number] = [id number]) Famiy typing (haplotype See link below for PDF report) (test code = Lab Report 2576) [facility] HospitalHL [id number] 17:59:52 Test Item Value Reference Range Interpretation Comments Interpretation (test code = DQB1*02:CEXBV=DQB1 4060071) *02:01/02:163N DPB1*04:BGDSB=DPB1 *04:01/702:01(ambi guities are part of DPB1*04:01P) DPB1*104:MDPK=DPB1 *104:01/124:01 (ambiguities are part of DPB1*03:01P) Case number (test code = [id number]) HLA typing (test code = See link below for 7478) PDF Lab Report [facility]
[2021-05-11] MEDS ORDERED: ASPIRIN 81 MG CHEWABLE TABLET ONE (03:40)
[2021-05-11 03:55] LABS: Absolute Lymphocytes (CBC) 0.5 K/uL (0.7-4.9); Hematocrit 29.6 % (36.0-45.0); Lymphocytes % 22.2 % (15.3-44.8); MPV 7.2 fL (7.6-11.3)
[2021-05-11 04:04] LABS: Magnesium 2.2 mg/dL (1.8-2.4); Troponin High Sensitivity 10.4 pg/mL (<58.9)
[2021-05-11 04:22] LABS: Anisocytosis SLIGHT; Blood Morphology Comment NOTED (NOT SEEN); Burr Cells 2+; Platelet Estimate DECR; White Blood Cell Scan OK (OK)
--- NOTE | 2021-05-11 05:04 | EDPHYS ---
Physician Documentation [facility] Name: Masha Simpson Age: 65 yrs Sex: Female : 1955 Arrival Date: 05/11/2021 Time: 03:12 Bed 14 Private MD: ED Physician Miguel Horton HPI: 05/11 05:07 This 65 yrs old Female presents to ER via EMS with complaints of Chest Pain. ms3 05:07 The patient or guardian reports chest pain that is located primarily in the substernal ms3 area. Onset: acutely, 1 hour(s) ago. Associated signs and symptoms: The patient has no apparent associated signs or symptoms. The chest pain is described as aching. Duration: The patient or guardian reports a single episode. Modifying factors: The symptoms are alleviated by nothing. the symptoms are aggravated by nothing. 65-year-old female with past medical history of COPD, hypertension, myocardial infarction presents for chest pain that began 1 hour prior to arrival. Patient states pain is located substernally, rated a 5/10 and described as aching. Patient denies alleviating or inciting factors. Patient endorses nausea, shortness of breath. Patient denies vomiting, diaphoresis.. Historical: - Home Meds: 03:21 Advair Diskus Inhl [Active]; DuoNeb Inhl [Active]; Phenergan Oral [Active]; sv1 - PMHx: 03:21 COPD; Hypertension; sv1 - Immunization history:: Client reports receiving the 2nd dose of the Covid vaccine, Last tetanus immunization: up to date. - Social history:: Smoking status: Patient denies any tobacco usage or history of. ROS: 05:07 Constitutional: Negative for fever, and chills. Neck: Negative for injury, pain, and ms3 swelling, Cardiovascular: Negative for chest pain, and palpitations. MS/Extremity: Negative for injury and deformity, Skin: Negative for injury, rash, and discoloration, Neuro: Negative for headache, weakness, numbness, tingling. 05:07 Cardiovascular: Positive for chest pain. 05:07 Respiratory: Positive for shortness of breath. 05:07 Abdomen/GI: Positive for nausea. 05:07 All other systems are negative. Exam: 03:23 ECG was reviewed by the Attending Physician. ms3 05:07 Constitutional: This is a well developed, well nourished patient who is awake, alert, ms3 and in no acute distress. Head/Face: Normocephalic, atraumatic. Eyes: Pupils equal round and reactive to light, extra-ocular motions intact. Lids and lashes normal. Conjunctiva and sclera are non-icteric and not injected. Periorbital areas with no swelling, redness, or edema. Chest/axilla: Normal chest wall appearance and motion. Nontender with no deformity. Cardiovascular: Regular rate and rhythm with a normal S1 and S2. No gallops, murmurs, or rubs. Normal PMI, no JVD. No pulse deficits. Respiratory: Lungs have equal breath sounds bilaterally, clear to auscultation and percussion. No rales, rhonchi or wheezes noted. No increased work of breathing, no retractions or nasal flaring. Abdomen/GI: Soft, non-tender, with normal bowel sounds. No distension or tympany. No guarding or rebound. No evidence of tenderness throughout. Skin: Warm, dry with normal turgor. Normal color with no rashes, no lesions, and no evidence of cellulitis. Psych: Awake, alert, with orientation to person, place and time. Behavior, mood, and affect are within normal limits. Vital Signs: 03:14 BP 174 / 78 LA Supine (auto/reg); Pulse 93 MON; Resp 16; Temp 98.2(O); Pulse Ox 100% on sv1 R/A; Weight 48.99 kg; Height 5 ft. 0 in. (152.40 cm); Pain 10/10; 04:32 BP 150 / 76; Pulse 89; Resp 16; Pulse Ox 100% on R/A; bb 05:16 BP 158 / 78; Pulse 91; Resp 16 S; Pulse Ox 100% on R/A; bb 03:14 Body Mass Index 21.09 (48.99 kg, 152.40 cm) sv1 MDM: 03:15 Patient medically screened. ms3 05:04 Differential diagnosis: abnormal EKG, acute myocardial infarction, stable angina, ms3 unstable angina. HEART Score: History: Moderately Suspicious (1), ECG: Normal (0), Age: > 45 and < 65 years (1), Risk Factors: 1 or 2 risk factors (1), Troponin: < or = 1 x Normal Limit (0), Total Score = 3. The patient was given aspirin in the Emergency Department. Data reviewed: vital signs, nurses notes, lab test result(s), radiologic studies, plain films. Data interpreted: Pulse oximetry: on room air is 100 %. Interpretation: normal. Counseling: I had a detailed discussion with the patient and/or guardian regarding: the historical points, exam findings, and any diagnostic results supporting the discharge/admit diagnosis, the need for further work-up and treatment in the hospital. ED course: Discussed case with Geremias nurse practitioner, and he accepts patient on behalf of of all questions were answered. Patient and her understand and agree with plan.. 05/11 03:16 Order name: Basic Metabolic Panel; Complete Time: 04:39 ms3 05/11 03:16 Order name: CBC with Diff; Complete Time: 04:39 ms3 05/11 03:16 Order name: Magnesium; Complete Time: 04:39 ms3 05/11 03:16 Order name: NT PRO-BNP; Complete Time: 04:39 ms3 05/11 03:16 Order name: Troponin HS; Complete Time: 04:39 ms3 05/11 04:02 Order name: CBC Smear Scan; Complete Time: 04:39 EDMS 05/11 03:16 Order name: XRAY Chest (1 view) ms3 05/11 03:16 Order name: EKG; Complete Time: 03:16 ms3 05/11 03:16 Order name: Cardiac monitoring; Complete Time: 03:36 ms3 05/11 03:16 Order name: EKG - Nurse/Tech; Complete Time: 03:36 ms3 05/11 03:16 Order name: IV Saline Lock; Complete Time: 03:36 ms3 05/11 05:00 Order name: COVID-19 SARS RT PCR (Document "Date of Onset" if Symptomatic) lp1 05/11 08:16 Order name: Urine Dipstick-Ancillary EDMS 05/11 03:16 Order name: Labs collected and sent; Complete Time: 03:36 ms3 05/11 03:16 Order name: O2 Per Protocol; Complete Time: 03:36 ms3 05/11 03:16 Order name: O2 Sat Monitoring; Complete Time: 03:36 ms3 EC:23 Rate is 89 beats/min. Rhythm is regular. QRS [place] is Normal. Clinical impression: NSR ms3 w/ Non-specific ST/T Changes. Interpreted by me. Administered Medications: 03:43 Drug: Aspirin Chewable Tablet 324 mg Route: PO; bb Disposition Summary: 05/11/21 05:04 Hospitalization Ordered Hospitalization Status: Observation ms3 Provider: Prince Loc ms3 Condition: Stable ms3 Problem: new ms3 Symptoms: are unchanged ms3 Bed/Room Type: Standard ms3 Location: [facility] ER HOLD(05/11/21 05:09) cg Room Assignment: ERHOLD-(05/11/21 05:09) cg Diagnosis - Chest pain, unspecified ms3 - Elevated BNP ms3 - Leukopenia ms3 - Non-Hodgkins Lymphoma ms3 Forms: - Medication Reconciliation Form ms3 - SBAR form ms3 Signatures: Dispatcher [employer] Kasandra Stephenson RN RN bb Emperatriz Henley RN RN cg Miguel Horton DO DO ms3 Grant Silva RN RN sv1 Corrections: (The following items were deleted from the chart) 05:09 05:04 Telemetry/MedSurg (observation) ms3 cg 05:09 05:04 ms3 cg
--- NOTE | 2021-05-11 05:04 | ER ---
Nurse's Notes [facility] Name: Masha Simpson Age: 65 yrs Sex: Female : 1955 Arrival Date: 05/11/2021 Time: 03:12 Bed 14 Private MD: Diagnosis: Chest pain, unspecified;Elevated BNP;Leukopenia;Non-Hodgkins Lymphoma Presentation: 05/11 03:19 Chief complaint: Patient states: epigastric pain. Coronavirus screen: Client denies sv1 travel out of the [place] in the last 14 days. Ebola Screen: No symptoms or risks identified at this time. Initial Sepsis Screen: Does the patient meet any 2 criteria? No. Patient's initial sepsis screen is negative. Risk Assessment: Do you want to hurt yourself or someone else? Patient reports no desire to harm self or others. Onset of symptoms was May 11, 2021 at 01:00. 03:19 Acuity: JAMIE 3 sv1 03:19 Method Of Arrival: EMS: [facility] sv1 03:25 Initial Sepsis Screen: Does the patient have a suspected source of infection? No. sv1 Patient's initial sepsis screen is negative. Triage Assessment: 03:21 General: Appears distressed, uncomfortable, ill, emaciated, malnourished. Pain: sv1 Complains of pain in epigastric area and anterior aspect of right lateral abdomen. Cardiovascular: No deficits noted. Rhythm is regular. 03:25 General: Behavior is cooperative, appropriate for age, anxious. sv1 Historical: - Home Meds: 03:21 Advair Diskus Inhl [Active]; DuoNeb Inhl [Active]; Phenergan Oral [Active]; sv1 - PMHx: 03:21 COPD; Hypertension; sv1 - Immunization history:: Client reports receiving the 2nd dose of the Covid vaccine, Last tetanus immunization: up to date. - Social history:: Smoking status: Patient denies any tobacco usage or history of. Screenin:14 Abuse screen: Denies threats or abuse. Nutritional screening: Had unintentional weight sv1 loss of 10 pounds or more. Tuberculosis screening: No symptoms or risk factors identified. Never had TB. Fall Risk No fall in past 12 months (0 pts). Secondary diagnosis (15 points) IV access (20 points). Ambulatory Aid- None/Bed Rest/Nurse Assist (0 pts). Gait- Weak (10 pts.). Mental Status- Oriented to own ability (0 pts). Assessment: 03:26 Pain: Pain does not radiate. sv1 03:43 General: Appears uncomfortable, slender, Behavior is calm, cooperative. Pain: Complains bb of pain in chest Pain currently is 10 out of 10 on a pain scale. Pain began suddenly. Neuro: Level of Consciousness is awake, alert, obeys commands, Oriented to person, place, time, situation. Cardiovascular: Heart tones S1 S2 present Capillary refill < 3 seconds Patient's skin is warm and dry. Edema is absent. Respiratory: Respiratory effort is even, unlabored, Respiratory pattern is regular, Breath sounds are clear bilaterally. GI: Abdomen is non-distended. Derm: Skin is pink, warm \T\ dry. Musculoskeletal: Circulation, motion, and sensation intact. 04:32 Reassessment: Patient is alert, oriented x 3, equal unlabored respirations, skin bb warm/dry/pink. awaiting diagnostic results, family at bedside. 05:15 Reassessment: Patient is alert, oriented x 3, equal unlabored respirations, skin bb warm/dry/pink. pt instructed on need for admit verbalized understanding of and agrees to plan of care. Vital Signs: 03:14 BP 174 / 78 LA Supine (auto/reg); Pulse 93 MON; Resp 16; Temp 98.2(O); Pulse Ox 100% on sv1 R/A; Weight 48.99 kg; Height 5 ft. 0 in. (152.40 cm); Pain 10/10; 04:32 BP 150 / 76; Pulse 89; Resp 16; Pulse Ox 100% on R/A; bb 05:16 BP 158 / 78; Pulse 91; Resp 16 S; Pulse Ox 100% on R/A; bb 03:14 Body Mass Index 21.09 (48.99 kg, 152.40 cm) sv1 ED Course: 03:12 Patient arrived in ED. lp1 03:14 Kasandra Escalona, RN is Primary Nurse. bb 03:14 Patient has correct armband on for positive identification. Placed in gown. Bed in low sv1 position. Call light in reach. Side rails up X2. Adult w/ patient. shelter monitor on. Pulse ox on. NIBP on. 03:14 Patient maintains SpO2 saturation greater than 95% on room air. sv1 03:15 Miguel Horton DO is Attending Physician. ms3 03:20 Triage completed. sv1 03:25 Arm band placed on right wrist. sv1 03:35 XRAY Chest (1 view) In Process Unspecified. EDMS 03:43 No provider procedures requiring assistance completed. Initial lab(s) drawn, by me, bb sent to lab. Accessed PICC line. 05:02 Prince Monterroso MD is Hospitalizing Provider. ms3 Administered Medications: 03:43 Drug: Aspirin Chewable Tablet 324 mg Route: PO; bb Outcome: 05:04 Decision to Hospitalize by Provider. ms3 11:07 AMA AMA form signed ll1 11:07 Condition: stable 11:07 Instructed on AMA form and instructions. Verbalized undestanding 11:08 Patient left the ED. ll1 Signatures: Dispatcher [employer] EDMS Kasandra Escalona RN RN bb Chastity Mcwilliams RN RN lp1 Aleksander Argueta RN RN ll1 Miguel Horton DO DO ms3 Grant Silva, RN RN sv1
--- NOTE | 2021-05-11 05:20 | P.HP ---
Certification for Inpatient Patient admitted to: Observation With expected LOS: <2 Midnights Patient will require the following post-hospital care: None Practitioner: I am a practitioner with admitting privileges, knowledge of patient current condition, hospital course, and medical plan of care. Services: Services provided to patient in accordance with Admission requirements found in Title 42 Section 412.3 of the Code of Federal Regulations Patient History Date of Service: 05/11/21 Reason for admission: Chest pain History of Present Illness: 65-year-old female with history of CAD, hyperlipidemia, non-Hodgkin's lymphoma on chemotherapy weekly presents emergency department for chest pain. Patient reports she was lying in bed this evening when she had a pain she describes as similar to being in labor in her chest which lasted for a few minutes, had associated shortness of breath and nausea. Her symptoms improved she presented to the emergency department evaluation her initial troponin high- sensitivity was 10.4 BNP elevated 5026 chest x-ray unremarkable she is not sure when she had a previous stress test, echocardiogram or heart catheterization she is mildly pancytopenic with a white blood cell count of 2.4 Red blood cells 3.2 platelets 67. ED provider wishes to admit under observation for ACS rule out. Allergies Cephalosporins Allergy (Verified 11/11/19 02:43) Itching/Hives/Rash zolpidem [From Ambien] Adverse Reaction (Intermediate, Verified 11/09/19 20:21) confusion Home Medications: Aspirin 1 tab PO DAILY 11/09/19 Bupropion *Xl* [Wellbutrin XL*] 1 tab PO DAILY 11/09/19 Diltiazem HCl [Cardizem Cd] 180 mg PO DAILY 11/09/19 Fluticasone/Salmeterol [Advair 250-50 Diskus] 1 puff IN BID 11/09/19 Iron 1 tab PO DAILY 11/09/19 Vilazodone HCl [Viibryd] 40 mg PO DAILY 11/09/19 Vitamin E (Dl,Tocopheryl Acet) [Vitamin E] 1 tab PO DAILY 11/09/19 Metoprolol Succinate [Toprol Xl*] 25 mg PO DAILY 11/12/19 Benzonatate [Tessalon Perle*] 200 mg PO TID #30 cap 11/14/19 Budesonide [Pulmicort*] 0.5 mg NEB BIDRESP #60 amp 11/14/19 LORazepam [Ativan*] 0.5 mg PO Q6HP PRN #20 tab 11/14/19 guaiFENesin [Robitussin 100MG/5ML*] 5 ml PO QID PRN #1 bottle 11/14/19 predniSONE [Prednisone*] 20 mg PO BID #10 tab 11/14/19 - Past Medical/Surgical History -: HTN -: COPD -: CAD s/p stent -: ITP -: HLD -: Broken arm Psychosocial/ Personal History: 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 moist/pink, EOMI, Sclerae nonicteric Neck: Supple, 2+ carotid pulse no bruit, No LAD, Without JVD or thyroid abnormality Respiratory: Clear to auscultation bilaterally, Normal air movement Cardiovascular: Regular rate/rhythm, Normal S1 S2 Gastrointestinal: Normal bowel sounds, No tenderness Musculoskeletal: No tenderness, Other (PICC to right upper extremity) Integumentary: No rashes Neurological: Normal gait, Normal speech, Normal strength at 5/5 x4 extr, Normal tone, Normal affect Lymphatics: No axilla or inguinal lymphadenopathy - Studies Laboratory Data (last 24 hrs) 05/11/21 03:35: WBC 2.40 L, Hgb 10.1 L, Hct 29.6 L, Plt Count 67 L 05/11/21 03:35: Sodium 141, Potassium 4.0, BUN 42 H, Creatinine 1.22, Glucose 86, Magnesium 2.2 Assessment and Plan - Plan Assessment: Chest pain rule out ACS history CAD Pancytopenia Non-Hodgkin's lymphoma Hypertension Hyperlipidemia Plan: Chest pain rule out ACS history CAD: Monitor on telemetry, trend troponins, cardiology consult in place continue aspirin, statin, beta-rafiq therapy. As needed morphine. Pain-free at this time. Pancytopenia: Hold off on heparin/Lovenox given low platelet count, likely related to non-Hodgkin's lymphoma/chemotherapy. Non-Hodgkin's lymphoma: Continue outpatient management. Hypertension: Continue home medication. Hyperlipidemia: Continue home medication. DVT PPX: SCD given thrombocytopenia Code status: Full Discharge Plan: Home Plan to discharge in: 24 Hours - Advance Directives Does patient have a Living Will: No Does patient have a Durable POA for Healthcare: Yes - Code Status/Comfort Care Code Status Assessed: Yes (Full) Critical Care: No Time Spent Managing Pts Care (In Minutes): 55
[2021-05-11] MEDS ORDERED: ONDANSETRON 4 MG/2 ML VIAL IV PRN (06:34)
[2021-05-11] MEDS ORDERED: MORPHINE 2 MG/ML SYR IV PRN (06:34)
[2021-05-11] MEDS ORDERED: carvediloL 3.125 MG TAB PO SCH (06:34)
[2021-05-11 07:51] VITALS: TEMP 98
[2021-05-11 08:16] LABS: Urine Blood Negative (Negative); Urine Glucose Negative (Negative); Urine Protein 1+ (Negative); Urine Specific Gravity 1.015 (1.005-1.030); Urine pH 7.5 (5.0-7.0)
[2021-05-11] MEDS ORDERED: ASPIRIN EC 81 MG TAB PO SCH (09:00)
[2021-05-11 09:07] VITALS: BP 154/75
[2021-05-11 11:12] VITALS: O2SAT 100
--- NOTE | 2021-05-11 12:38 | P.DS ---
Admission Date: 05/11/21 Discharge Date: 05/11/21 Disposition: AMA-LEFT AGAINST MEDICAL ADVIC Discharge Condition: FAIR Reason for Admission: Chest pain Hospital Course: Patient with past medical history of coronary artery disease status post PCI admitted overnight for chest pain. He was pending a cardiology evaluation. However, she decided to leave AMA before she could be seen. Vital Signs/Physical Exam: Temp Pulse Resp BP Pulse Ox 98.0 F 90 14 154/75 H 100 05/11/21 07:51 05/11/21 09:07 05/11/21 07:51 05/11/21 09:07 05/11/21 07:51 Laboratory Data at Discharge: WBC 2.40 K/uL (4.3-10.9) L 05/11/21 03:35 Hgb 10.1 g/dL (12.0-15.0) L 05/11/21 03:35 Hct 29.6 % (36.0-45.0) L 05/11/21 03:35 Plt Count 67 K/uL (152-406) L 05/11/21 03:35 Sodium 141 mmol/L (136-145) 05/11/21 03:35 Potassium 4.0 mmol/L (3.5-5.1) 05/11/21 03:35 BUN 42 mg/dL (7-18) H 05/11/21 03:35 Creatinine 1.22 mg/dL (0.55-1.3) 05/11/21 03:35 Glucose 86 mg/dL (74-106) 05/11/21 03:35 Magnesium 2.2 mg/dL (1.8-2.4) 05/11/21 03:35 Home Medications: Aspirin 1 tab PO DAILY 11/09/19 Bupropion *Xl* [Wellbutrin XL*] 1 tab PO DAILY 11/09/19 Diltiazem HCl [Cardizem Cd] 180 mg PO DAILY 11/09/19 Fluticasone/Salmeterol [Advair 250-50 Diskus] 1 puff IN BID 11/09/19 Iron 1 tab PO DAILY 11/09/19 Vilazodone HCl [Viibryd] 40 mg PO DAILY 11/09/19 Vitamin E (Dl,Tocopheryl Acet) [Vitamin E] 1 tab PO DAILY 11/09/19 Metoprolol Succinate [Toprol Xl*] 25 mg PO DAILY 11/12/19 Benzonatate [Tessalon Perle*] 200 mg PO TID #30 cap 11/14/19 Budesonide [Pulmicort*] 0.5 mg NEB BIDRESP #60 amp 11/14/19 LORazepam [Ativan*] 0.5 mg PO Q6HP PRN #20 tab 11/14/19 guaiFENesin [Robitussin 100MG/5ML*] 5 ml PO QID PRN #1 bottle 11/14/19 predniSONE [Prednisone*] 20 mg PO BID #10 tab 11/14/19
[2021-05-11] MEDS ORDERED: ATORVASTATIN 10 MG TAB PO SCH (21:00)
--- NOTE | 2021-05-12 08:21 | EKG ---
Test Date: 2021-05-11 Test Time: 03:23:07 Insurance Account Specialist: KATINA MEASUREMENT RESULTS: Intervals: Rate: 89 AR: 142 QRSD: 76 QT: 276 QTc: 335 [place]: P: 50 AR: 142 QRS: 3 T: 168 INTERPRETIVE STATEMENTS: Normal sinus rhythm Nonspecific ST and T wave abnormality Abnormal ECG Compared to ECG 11/09/2019 10:45:35 ST (T wave) deviation now present Myocardial infarct finding no longer present Electronically Signed On 05-12-21 08:19:50 CDT by Uche Lyons
--- NOTE | 2021-05-12 12:37 | RAD REPORT ---
EXAM DESCRIPTION: RAD - Chest Single View - 05/11/2021 3:36 am CLINICAL HISTORY: 65 years, Female, CHEST PAIN COMPARISON: None. FINDINGS: Single view of the chest was obtained portable. No prior films are available for compariso n. Lung volume is decreased. There is a right upper extremity PICC line tip of the catheter within the cavoatrial junction and good position. The cardiomediastinal silhouette demonstrate to be unremar kable. Costophrenic angles are sharp. No areas of consolidation or masses are seen. The rest of the soft tissue and bony structures demonstrate to be unremarkable. IMPRESSION: RIGHT UPPER EXTREMITY PICC LINE IN GOOD POSITION. NO ACUTE CARDIOPULMONARY DISEASE SEEN. Electronically signed by: Barak Mcleod MD 05/11/2021 4:12 AM CDT Due to temporary technical issues with the PACS/Fluency reporting system, reports are being signed by the in house radiologist without review as a courtesy to ensure prompt reporting. The interpreting r adiologist is fully responsible for the content of the report.
== END 2021-05-11 11:11 | disposition left against medical advice (07) ==
LOC: ER 03:00 → ERHOLD 05:08
PROVIDERS: ADMIT Internal Medicine; ATTEND Internal Medicine
DX: R07.9 Chest pain, unspecified (principal); Z53.21 Procedure and treatment not carried out due to patient leaving prior to being seen by health care provider; I25.10 Atherosclerotic heart disease of native coronary artery without angina pectoris; D61.818 Other pancytopenia; I10 Essential (primary) hypertension; C85.90 Non-Hodgkin lymphoma, unspecified, unspecified site; E78.5 Hyperlipidemia, unspecified; J44.9 Chronic obstructive pulmonary disease, unspecified; D72.819 Decreased white blood cell count, unspecified; Z95.5 Presence of coronary angioplasty implant and graft; Z79.82 Long term (current) use of aspirin; Z79.899 Other long term (current) drug therapy; Z88.1 Allergy status to other antibiotic agents; Z88.8 Allergy status to other drugs, medicaments and biological substances; Z20.822 Contact with and (suspected) exposure to COVID-19; Z82.49 Family history of ischemic heart disease and other diseases of the circulatory system
CPT/HCPCS: 93005; 85025; 80048; 36415; 83735; 81003; 84484 ×2; 83880; 71045; 99285; U0003; G0378 ×2